=== PATIENT | female | born 1950 | race Caucasian/White ===

== ENCOUNTER 2018-02-15 14:24 | Emergency (ER) | payer OTHER ==
[~2018-02-15] VITALS: Ht 172.7 cm; Wt 101.6 kg
[~2018-02-15 14:24] MED LIST: ADVIN25/60 INH; ALBU1AER9 INH; ATOR10TA82 PO; BENZ100C7 PO; DABI150C PO; LVNIS100 SQ; phenobarbital PO
[2018-02-15 14:31] VITALS: TEMP 36.7; Ht 172.7 cm; Wt 101.6 kg
--- NOTE | 2018-02-15 15:22 | EMERGENCY ROOM VISIT NOTE ---
History First contact with patient: 14:57 Chief Complaint: WOUND INFECTION Stated Complaint: CYST RUPTURED RED/INFLAMED R HIP Nursing Triage Summary: Cyst on right hip since 1982, size of a ping pong ball. pt reports ruptured on Friday. now is painful and redenned. History of Present Illness The patient is a 67 year old female who presents to the Emergency Room with complaints of a painful cyst on the right lateral aspect of her hip. She says that she has had a sebaceous cyst in that area for the last 35 years. It has never caused her any problems. 2 days ago, she was talking on the phone, when she thought that she felt it rupture. She reports feeling a "gush of fluid inside." There is no drainage from the skin. She is concerned about redness in the area. She denies any fever, chills, nausea, diarrhea, body aches or headache. She has not taken anything for pain. Review of Systems 10 system review performed and negative unless noted in HPI or below Past Medical/Surgical History Medical Problems: (1) Adrenal nodule (2) History of pulmonary embolism (3) Hyperlipemia (4) Seizure disorder Surgical Problems: (1) Status post appendectomy (2) Status post tonsillectomy (3) Status post tubal ligation Family History Asthma MOTHER BROTHER Diabetes mellitus MOTHER BROTHER Parkinson's disease MOTHER Sudden cardiac FATHER (age 40) Social History Smoking Status: Never Smoker Alcohol Use: occasionally Drug Use: none Marital Status: single Housing Status: lives alone Occupation Status: employed Current/Historical Medications Scheduled Atorvastatin (Lipitor), 20 MG PO DAILY Cephalexin Monohydrate (Keflex), 500 MG PO QID Dabigatran Etexilate Mesylate (Pradaxa), 150 MG PO BID Fluticasone Prop/Salmeterol (Advair Diskus 250/50 60 Dose), 1 PUFFS INH BID Phenobarbital (Phenobarbital), 194.4 MG PO HS Scheduled PRN Albuterol Sulfate (Proair Respiclick), 2 PUFFS PO Q4 PRN for SOB/Wheezing Physical Exam Vital Signs Date Time Temp Pulse Resp B/P (MAP) Pulse Ox O2 Delivery O2 Flow Rate FiO2 02/15/18 17:47 79 18 123/77 97 02/15/18 17:28 79 18 123/77 97 Room Air 02/15/18 16:08 76 18 120/70 95 Room Air 02/15/18 14:31 36.7 84 18 122/80 95 Room Air Physical Exam VITALS: Vitals are noted on the nurse's note and reviewed by myself. Vital signs stable. GENERAL: 67-year-old female, in no acute distress, nondiaphoretic, well- developed well-nourished. SKIN: There is an approximately 5 cm area of erythema noted to the right lateral aspect of the hip. 1 cm there is a area of centralized clearing. The area blanches. It is tender to touch. No pointing. No induration noted. No drainage. HEAD: Normocephalic atraumatic. MOUTH: Mucous membranes slightly dry NECK: Supple without nuchal rigidity. Trachea midline HEART: Regular rate and rhythm systolic murmur heard best at the right upper sternal border LUNGS: Clear to auscultation bilaterally without wheezes, rales or rhonchi. No accessory muscle use. ABDOMEN: Positive bowel sounds x 4.Soft, nontender, without organomegaly. No guarding or rebound tenderness. MUSCULOSKELETAL: No muscle atrophy, erythema, or edema noted. Strength 5/5 throughout. NEURO: Patient was alert and oriented to person place and time. Normal sensation to touch. No focal neurological deficits. Medical Decision & Procedures ER Provider Diagnostic Interpretation: Nonvascular ultrasound of an extremity IMPRESSION: 4.8 cm mildly complex hypoechoic lesion within the subcutaneous tissues of the lateral right hip is noted. Apparent internal flow within this lesion raises the possibility of a soft tissue mass. Correlate with clinical exam. The above report was generated using voice recognition software. It may contain grammatical, syntax or spelling errors. Electronically signed by: Faisal Pillai M.D. 02/15/2018 5:01 PM Dictated Date/Time: 02/15/2018 4:58 PM The status of this report is Signed. Draft = Not yet reviewed or approved by Radiologist. Signed = Reviewed and approved by Radiologist. <AttendingPhy></AttendingPhy> <FamilyPhy></FamilyPhy> <PrimaryPhy>Joana Hood D.O.</PrimaryPhy> <UnitNumber>[id number]</UnitNumber> <VisitNumber> [id number]</VisitNumber> <PatientName>RICHNER,MARGARITO</PatientName> < DateOfBirth>1950</DateOfBirth> <Location>[facility]</Location> <ServiceDate></ServiceDate> <MNE>ESINDI</MNE> <OrderingPhy>Tere Moreno Ana MACK</ OrderingPhy> <OrderingPhyMNE>f rep ord dr cortez</OrderingPhyMNE> <DictatingPhyMNE> f rep dict dr cortez</DictatingPhyMNE> <CCListMNE>f rep ct mne</CCListMNE> < AdmittingPhyMNE>f pt admit dr cortez</AdmittingPhyMNE> <AttendingPhyMNE>f pt attend dr cortez</AttendingPhyMNE> <ConsultingPhyMNE>f pt consult dr cortez</ConsultingPhyMNE> <FamilyPhyMNE>f pt fam dr cortez</FamilyPhyMNE> <OtherPhyMNE>f pt other dr cortez</OtherPhyMNE> < PrimaryPhyMNE>f pt prim care dr cortez</PrimaryPhyMNE> <ReferringPhyMNE>f pt referring dr cortez</ReferringPhyMNE> Laboratory Results 02/15/18 15:25 Red Blood Count 5.07, Mean Corpuscular Volume 81.3, Mean Corpuscular Hemoglobin 27.6, Mean Corpuscular Hemoglobin Concent 34.0, Mean Platelet Volume 9.5, Neutrophils (%) (Auto) 55.6, Lymphocytes (%) (Auto) 29.7, Monocytes (%) (Auto) 12.1, Eosinophils (%) (Auto) 2.1, Basophils (%) (Auto) 0.4, Neutrophils # (Auto ) 4.00, Lymphocytes # (Auto) 2.14, Monocytes # (Auto) 0.87, Eosinophils # (Auto ) 0.15, Basophils # (Auto) 0.03 02/15/18 15:25 Test 02/15/18 15:25 White Blood Count 7.20 K/uL (4.8-10.8) Red Blood Count 5.07 M/uL (4.2-5.4) Hemoglobin 14.0 g/dL (12.0-16.0) Hematocrit 41.2 % (37-47) Mean Corpuscular Volume 81.3 fL (80-100) Mean Corpuscular Hemoglobin 27.6 pg (25-34) Mean Corpuscular Hemoglobin Concent 34.0 g/dl (32-36) Platelet Count 318 K/uL (130-400) Mean Platelet Volume 9.5 fL (7.4-10.4) Neutrophils (%) (Auto) 55.6 % Lymphocytes (%) (Auto) 29.7 % Monocytes (%) (Auto) 12.1 % Eosinophils (%) (Auto) 2.1 % Basophils (%) (Auto) 0.4 % Neutrophils # (Auto) 4.00 K/uL (1.4-6.5) Lymphocytes # (Auto) 2.14 K/uL (1.2-3.4) Monocytes # (Auto) 0.87 K/uL (0.11-0.59) Eosinophils # (Auto) 0.15 K/uL (0-0.5) Basophils # (Auto) 0.03 K/uL (0-0.2) RDW Standard Deviation 41.7 fL (36.4-46.3) RDW Coefficient of Variation 14.1 % (11.5-14.5) Immature Granulocyte % (Auto) 0.1 % Immature Granulocyte # (Auto) 0.01 K/uL (0.00-0.02) Anion Gap 6.0 mmol/L (3-11) Est Creatinine Clear Calc Drug Dose 112.8 ml/min Estimated GFR () 109.7 Estimated GFR (Non- 94.6 BUN/Creatinine Ratio 19.2 (10-20) Calcium Level 7.7 mg/dl (8.5-10.1) Medications Administered Medications (Trade) Dose Ordered Sig/Gay Route Start Time Stop Time Status Last Admin Dose Admin Potassium Chloride (Klor-Con M10) 40 meq NOW STAT PO 02/15/18 16:57 02/15/18 16:58 DC 02/15/18 17:02 40 MEQ Cephalexin Monohydrate (Keflex Cap) 500 mg NOW ONCE PO 02/15/18 17:30 02/15/18 17:31 DC 02/15/18 17:26 500 MG Cephalexin Monohydrate (Keflex 500MG Home Pack) 1 homepack NOW ONCE PO 02/15/18 17:45 8/26/18 17:46 DC 02/15/18 17:47 1 [facility] ED Course Patient was seen and examined Vital signs including blood pressure were reviewed medications list was verified with patient Labs were obtained, and a saline lock was established The patient declined pain medication Imaging was performed and reviewed Upon reevaluation, the patient was resting comfortably. We discussed her results. She voiced understanding, was discharged home. The patient was given 1 dose of Keflex The patient was also seen and examined by my supervising physician who is in agreement with my plan I reviewed discharge instructions the patient. They voiced understanding and had no further questions. Medical Decision Differential diagnosis: Ruptured cyst, abscess, cellulitis, lipoma, other skin nodule, among others were considered This patient is a 67-year-old female presents to the emergency department with concerned that there was a ruptured cyst on her right lateral thigh. On exam, it was mildly cellulitic in appearance, with warmth and erythema. There were no signs of drainable abscess. She is afebrile. There is no leukocytosis. I performed an ultrasound, which shows a 4.8 cm hypoechoic structure consistent with a possible mass. This was compared to a CT scan performed in 2005. A CT said this is likely a sebaceous cyst. The patient will be covered with antibiotics for possible mild infection. We recommended that she follow-up with her primary care physician in addition to possibly a surgeon for biopsy/ removal. She was in agreement with this plan. She was cautioned on signs for which to return to the emergency department This chart was completed in part utilizing [employer] Speech Voice Recognition software. Attempts were made to minimize the grammatical errors, random word insertions, pronoun errors and incomplete sentences. Any formal questions or concerns about the content, text or information contained within the body of this dictation should be directly addressed to the provider for clarification. Medication Reconcilliation Current Medication List: was personally reviewed by me Blood Pressure Screening Patient's blood pressure: Normal blood pressure Impression Primary Impression: Cellulitis Additional Impression: Soft tissue lesion Departure Information Dispostion Home / Self-Care Condition GOOD Prescriptions Cephalexin Monohydrate (KEFLEX) 500 Mg Cap 500 MG PO QID for 7 Days, #28 CAP Prov: Tere Moreno PA-C 02/15/18 Referrals Joana Hood D.O. (PCP) Zachary Ruelas M.D. Patient Instructions [facility] Additional Instructions You have been evaluated in the emergency department for possible rupture of a cyst in the right upper thigh. There appears to be a mild infection associated with this. Please take the ENTIRE course of Keflex as prescribed Please call your primary care physician tomorrow for a follow-up appointment. They may refer you to a general surgeon for possible biopsy or removal. A number for a general surgeon has been provided. Please do not hesitate to return to the emergency department with any new, worsening or concerning symptoms; especially, significantly increased redness, pain, swelling or fever It was a pleasure participating in your care today Problem Qualifiers
[2018-02-15 15:35] LABS: BASO % 0.4 %; BASO ABS # 0.03 K/uL (0-0.2); EOS % 2.1 %; EOS ABS # 0.15 K/uL (0-0.5); HEMATOCRIT 41.2 % (37-47); IG# 0.01 K/uL (0.00-0.02); LYMPH % 29.7 %; LYMPH ABS # 2.14 K/uL (1.2-3.4); MEAN CELL VOLUME 81.3 fL (80-100); MEAN CORPUSCULAR HEMOGLOBIN 27.6 pg (25-34); MEAN PLATELET VOLUME 9.5 fL (7.4-10.4); MONO % 12.1 %; MONO ABS # 0.87 K/uL (0.11-0.59); NEUT % 55.6 %; PLATELET COUNT 318 K/uL (130-400); RED CELL DISTRIBUTION WIDTH CV 14.1 % (11.5-14.5); RED CELL DISTRIBUTION WIDTH SD 41.7 fL (36.4-46.3)
[2018-02-15 15:55] LABS: CALCIUM 7.7 mg/dl (8.5-10.1); CREATININE 0.62 mg/dl (0.60-1.20); POTASSIUM 3.1 mmol/L (3.5-5.1)
[2018-02-15] MEDS ORDERED: ATOR-22 PO (16:03)
[2018-02-15] MEDS ORDERED: ALBU18002 PO (16:03)
[2018-02-15] MEDS ORDERED: PHEN64.8 PO (16:03)
[2018-02-15] MEDS ORDERED: DABI150C PO (16:04)
[2018-02-15] MEDS ORDERED: POTASSIUM CHLORIDE 10 MEQ TABCR PO STA (16:57)
--- NOTE | 2018-02-15 17:02 | DIAGNOSTIC IMAGING REPORT ---
R EXTREMITY NONVASCULAR LIMITED HISTORY: 67 years-old Female ? cyst vs abscess vs cellulitis on R lateral hip acute pain and swelling of the right lateral hip subcutaneous tissues COMPARISON: CT abdomen and pelvis 08/26/2015 TECHNIQUE: Multiple real-time sonogram images of the soft tissues about the lateral right hip were obtained assessing grayscale appearance and color flow FINDINGS: Within the area of clinical concern about the lateral right hip subcutaneous tissues there is a hypoechoic mildly complex lesion with apparent mild degree of internal vascularity and lobulated margins, 4.8 x 2.6 x 3.2 cm which appears to be located exclusively within the subcutaneous tissues. A 3.1 cm lesion was seen within this distribution on comparison CT. IMPRESSION: 4.8 cm mildly complex hypoechoic lesion within the subcutaneous tissues of the lateral right hip is noted. Apparent internal flow within this lesion raises the possibility of a soft tissue mass. Correlate with clinical exam. The above report was generated using voice recognition software. It may contain grammatical, syntax or spelling errors. Electronically signed by: Faisal Pillai M.D. 02/15/2018 5:01 PM Dictated Date/Time: 02/15/2018 4:58 PM
[2018-02-15] MEDS ORDERED: CEPH500C2 PO (17:26)
[2018-02-15] MEDS ORDERED: CEPHALEXIN MONOHYDRATE 250 MG CAP PO ONE (17:30)
[2018-02-15] MEDS ORDERED: CEPHALEXIN 500MG HOME PACK 1 EA BTL PO ONE (17:45)
[2018-02-15 17:47] VITALS: BP 123/77; PULSE 79; O2SAT 97
--- NOTE | 2018-02-16 17:14 | EMERGENCY ROOM VISIT NOTE ---
ED Visit Note First contact with patient: 14:57 I have personally seen and evaluated the patient with the PA. I agree with the diagnosis and management decisions and have been personally involved in the case. After my evaluation, I believe the patient likely has a localized cellulitis and potentially a ruptured subcutaneous cyst. She will be placed on Keflex times 7 days and follow-up with PCP. Patient may need surgical intervention for biopsy. Results of imaging were discussed with the patient. Please see Tere Moreno PA-C's notes for further details of the history, physical and visit.
== END 2018-02-15 17:49 | disposition home or self-care (01) ==
LOC: C.EDB 14:26
DX: L03.115 Cellulitis of right lower limb (principal); M79.89 Other specified soft tissue disorders; G40.909 Epilepsy, unspecified, not intractable, without status epilepticus; Z86.711 Personal history of pulmonary embolism; Z83.3 Family history of diabetes mellitus; Z82.49 Family history of ischemic heart disease and other diseases of the circulatory system; Z79.01 Long term (current) use of anticoagulants; Z79.899 Other long term (current) drug therapy

== ENCOUNTER 2024-07-08 09:15 | Inpatient (IN) ==
--- NOTE | 2024-07-08 09:52 | Emergency Department Note ---
Impression & Plan SOB (shortness of breath), Atrial flutter with rapid ventricular response, Wheezing, Pneumonia, Failure of outpatient treatment ED Provider Note NAME: MARGARITO BULLOCK AGE: 73 SEX: F : 1950 ARRIVES VIA: Walk-In INFORMANT: [Patient] ED PROVIDER(S): [Franky Carvalho MD] CHIEF COMPLAINT: Shortness of breath HISTORY OF PRESENT ILLNESS: The patient is a 73-year-old female who states that she has been short of breath for about a month. A month ago or so, she was diagnosed with A-fib. She is presently on metoprolol and Eliquis. She states that in the last several weeks, she has developed a productive cough and has noticed increasing shortness of breath. Things are quite a bit worse today. The patient has not had fever. No stuffy nose or sore throat. She does have albuterol to use for some lung disease. She is using albuterol every 4 hours, she feels better initially when using the medication but it quickly seems to wear off. Because of the ongoing dyspnea, she presents for evaluation. She did take her typical morning meds this a.m. PMHx/PSHx/Social Hx: See Below PHYSICAL EXAM: GENERAL: Patient is in no acute distress. HEENT: No acute trauma, normocephalic atraumatic, mucous membranes moist, no nasal congestion. NECK: No stridor, no adenopathy, no meningismus, trachea is midline. LUNGS: Diminished breath sounds with wheezing bilaterally. There are crackles at both bases, especially the right. Dry cough noted. HEART: No murmurs, mildly tachycardic with an irregular rhythm. ABDOMEN: Soft, nontender, no peritonitis. EXTREMITIES: No cyanosis, full range of motion of all the joints without pain or difficulty. Mild bilateral pedal edema. NEUROLOGIC: Oriented x 3, no acute motor or sensory deficits, no focal weakness. SKIN: No jaundice, no diaphoresis. DIFFERENTIAL DIAGNOSIS: Bronchitis or pneumonia, viral illness, CHF, A-fib or a flutter, anemia, PE, among others. EMERGENCY DEPARTMENT PROCEDURES: MEDICAL DECISION MAKING: There is no leukocytosis or concerning anemia. There is a normal platelet count. No coagulopathy. No renal failure. Lactic acid level is not elevated making severe sepsis less likely. No worrisome liver enzyme elevation. BNP was elevated consistent with some fluid overload. ECG shows what appears to be atrial flutter with a rapid rate. No obvious acute ischemia. Cardiac enzyme testing x 1 is slightly elevated. This troponin elevation could be secondary to her tachycardia or possibly cardiac injury. Looking back at previous testing, the patient appears to have a mildly elevated troponin at baseline. Urinalysis did not show infection. Respiratory bio fire was negative. Chest film does show a bilateral lower lung pneumonia. On exam, the patient had some wheezing with crackles on lung auscultation. She was tachycardic. Given her tachycardia and complaints, she was aggressively managed. Patient received IV metoprolol, a total of 5 mg was given IV. She received IV Solu-Medrol to help with her wheezing. She was given IV ceftriaxone as antibiotic coverage. She was given oral Zithromax. She was given a DuoNeb. The patient has pneumonia. She is short of breath, she is tachycardic. She is going to require a hospital stay and further monitoring/care. I spoke with the patient and case management, the on-call hospitalist was consulted. The patient has shown some improvement here. Her heart rate has decreased with the treatment provided. She is breathing easier. Prior/Outside records/notes reviewed: Pulmonary note on 11/18/2018 describing her results of pulmonary function testing. ECG per my interpretation: Indication was shortness of breath. The ECG shows what appears to be atrial flutter with a rate of 123. There is some nonspecific ST change. There is no acute ST elevation, no PVCs. The QTc is 481. Continuous Cardiac Monitoring per my interpretation: An order was placed for continuous cardiac monitoring. The monitor shows a rate of 122 with atrial flutter. Imaging/x-ray results per my interpretation: Chest x-ray shows a bilateral lower lung pneumonia, worse on the right. Chronic Medical/Social conditions affecting care: Advanced age, history of previous PE, history of A-fib. Care/Management discussed with: Case management, the on-call hospitalist. Level of care consideration(s): After review of the information above and other included data: --I believe the patient requires escalation of care to admission Critical Care Note: I have personally spent 52 minutes of critical care time in the direct management of this patient. This includes bedside care, interpretation of diagnostic studies, and testing, discussion with consultants, patient, and family members, and other required patient management activities. This 52 minutes is in excess of all separately billable procedures. DISPOSITION: Admission Past Med/Surg History Problem List (Updated 02/16/18 @ 14:15 by [employer]) Failure of outpatient treatment (Acute) Pneumonia (Acute) Wheezing (Acute) Atrial flutter with rapid ventricular response (Acute) SOB (shortness of breath) (Acute) Hyperlipemia (Chronic) History of pulmonary embolism (Chronic) "08/22/15" Adrenal nodule (Chronic) "bilat adrenal nodules CT 07/01/06 and 08/26/15, probable adenomas" Status post appendectomy (Chronic) Status post tubal ligation (Chronic) Status post tonsillectomy (Chronic) Medical History Seizure disorder Social History Smoking Status: Never smoker Hx Alcohol Use: No Hx Substance Use: No Preferred Language: Romansh Communication Ability: Effective 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 Beliefs That Will Affect Care: None Current Living Situation: Alone Feels Safe at Home: Yes Safety Concerns: Feels Safe At This Time Assistive Devices: None Allergies Allergies Allergy/AdvReac Type Severity Reaction Status Date / Time oxycodone Allergy Unknown UNKNOWN Verified 02/15/18 16:04 phenytoin Allergy Unknown HIVES Unverified 02/15/18 16:04 propoxyphene Allergy Unknown UNKNOWN Verified 02/15/18 16:04 Home Meds Home Medications Medication Instructions Recorded Confirmed albuterol sulfate 90 mcg/actuation 1 inh inhalation QID PRN sob 07/08/24 07/08/24 aerosol inhaler apixaban 5 mg tablet (Eliquis) 5 mg PO BID 07/08/24 07/08/24 cyclosporine 0.05 % eye drops in a 1 drp ophthalmic (eye) Q12H 07/08/24 07/08/24 dropperette (Restasis) fluticasone 250 mcg-salmeterol 50 1 inh inhalation BID 07/08/24 07/08/24 mcg/dose blistr powdr for inhalation metoprolol succinate 50 mg 50 mg PO BID 07/08/24 07/08/24 tablet,extended release 24 hr montelukast 10 mg tablet 10 mg PO DAILY 07/08/24 07/08/24 phenobarbital 97.2 mg tablet 194.4 mg PO HS 07/08/24 07/08/24 rosuvastatin 40 mg tablet 40 mg PO DAILY 07/08/24 07/08/24 spironolactone 25 mg tablet 12.5 mg PO DAILY 07/08/24 07/08/24 Results & Data (ED) Vital Signs Vital Signs - 24 hr 07/08/24 09:22 07/08/24 09:37 07/08/24 09:58 Temperature 36.6 C Temperature Source Temporal Artery Scan Pulse Rate 126 H 121 H 119 H Respiratory Rate 24 Respiratory Effort / Characteristics Spontaneous Labored Respiratory Pattern Regular Blood Pressure 141/84 H Blood Pressure Mean 103 Pulse Oximetry 93 Oxygen Delivery Method Room Air Sepsis Recent Fever Within 48 Hours No Sepsis New/Unexplained Change in Mental Status N/A Sepsis Action Taken by Nursing No Action Required 07/08/24 10:00 07/08/24 10:12 07/08/24 10:26 Temperature Temperature Source Pulse Rate 115 H 115 H Respiratory Rate 18 Respiratory Effort / Characteristics Respiratory Pattern Blood Pressure 127/97 137/108 H Blood Pressure Mean 107 Pulse Oximetry 90 91 Oxygen Delivery Method Room Air Room Air Sepsis Recent Fever Within 48 Hours Sepsis New/Unexplained Change in Mental Status Sepsis Action Taken by Nursing 07/08/24 10:30 07/08/24 10:41 Temperature Temperature Source Pulse Rate 119 H Respiratory Rate Respiratory Effort / Characteristics Respiratory Pattern Blood Pressure 140/90 Blood Pressure Mean Pulse Oximetry Oxygen Delivery Method Room Air Sepsis Recent Fever Within 48 Hours Sepsis New/Unexplained Change in Mental Status Sepsis Action Taken by Intermediate Medications Current Medication List: was personally reviewed by me Laboratory Data Attestation: I reviewed the patient's lab results. 07/08/24 09:43 07/08/24 09:43 Lab Results 07/08/24 07/08/24 07/08/24 Range/Units 09:40 09:43 10:15 WBC 7.09 (4.8-10.8) K/ul RBC 4.83 (4.20-5.40) M/uL Hgb 13.2 (12.0-16.0) g/dl Hct 39.9 (37.0-47.0) % MCV 82.6 (80.0-100.0) fL MCH 27.3 (25.0-34.0) pg MCHC 33.1 (32.0-36.0) g/dL RDW Std Deviation 46.3 (36.4-46.3) fL RDW Coeff of Alivia 15.3 H (11.5-14.5) % Plt Count 255 (130-400) K/uL MPV 9.9 (9.4-12.4) fL Immature Gran % (Auto) 0.4 % Neut % (Auto) 76.5 % Lymph % (Auto) 10.2 % [place] % (Auto) 10.7 % Eos % (Auto) 1.6 % Baso % (Auto) 0.6 % Neut # (Auto) 5.43 (1.40-6.50) K/uL Lymph # (Auto) 0.72 L (1.20-3.40) K/uL [place] # (Auto) 0.76 H (0.11-0.59) K/uL Eos # (Auto) 0.11 (0.00-0.50) K/uL Baso # (Auto) 0.04 (0.00-0.20) K/uL Immature Gran # (Auto) 0.03 (0.01-0.20) K/uL PT 11.1 (9.0-12.0) Seconds INR 1.0 (0.9-1.1) APTT 34 H (21-31) Seconds PTT Ratio 1.3 Sodium 138 (136-145) mmol/L Potassium 3.5 (3.5-5.1) mmol/L Chloride 105 (98-107) mmol/L Carbon Dioxide 25 (21-32) mmol/L Anion Gap 8 (3-11) BUN 9 (6-23) mg/dl Creatinine 0.47 L (0.6-1.2) mg/dl Est Cr Clr Drug Dosing 140.2 ml/min eGFR 101.72 BUN/Creatinine Ratio 19.1 (10-20) Glucose 118 H (70-99(Fasting)) mg/dl Lactate 1.0 (0.4-2.0) mmol/L Calcium 8.5 L (8.6-10.3) mg/dl Magnesium 2.0 (1.7-2.4) mg/dl Total Bilirubin 0.8 (0.2-1.0) mg/dl AST 16 (13-39) U/L ALT 16 (7-52) U/L Alkaline Phosphatase 135 H (34-104) U/L Troponin I High Sens 31.7 H (0-14) pg/ml B-Natriuretic Peptide 346 H (0-100) pg/ml Total Protein 6.6 (6.0-8.3) gm/dl Albumin 3.7 (3.4-5.0) gm/dl Globulin 2.9 (2.5-4.0) gm/dl Albumin/Globulin Ratio 1.3 (0.9-2) Procalcitonin < 0.02 (0-0.5) ng/ml Urine Color Urine Appearance (Clear) Urine pH (4.5-7.5) Ur Specific [place] (1.000-1.030) Urine Protein (Negative) Urine Glucose (UA) (Negative) Urine Ketones (Negative) Urine Blood (Negative) Urine Nitrite (Negative) Urine Bilirubin (Negative) Urine Urobilinogen (Negative) Ur Leukocyte Esterase (Negative) Urine WBC (Auto) (0-5) /hpf Urine RBC (Auto) (0-2) /hpf U Hyaline Cast (Auto) (0-2) /lpf U Epithel Cells (Auto) (0-2) /hpf Urine Bacteria (Auto) (None Seen) Urine Mucus (None Prsent) Adenovirus (PCR) Not Detected (NotDetected) B. pertussis DNA (PCR) Not Detected (NotDetected) B.parapertussis DNA PCR Not Detected (NotDetected) C. pneumoniae DNA (PCR) Not Detected (NotDetected) Coronavirus OC43 (PCR) Not Detected (NotDetected) Coronavirus HKU1 (PCR) Not Detected (NotDetected) Coronavirus 229E (PCR) Not Detected (NotDetected) SARS-CoV-2 (PCR) Not Detected (NotDetected) Coronavirus NL63 (PCR) Not Detected (NotDetected) Human Metapneumovir PCR Not Detected (NotDetected) Influenza Type A (PCR) Not Detected (NotDetected) Influenza Type B (PCR) Not Detected (NotDetected) M. pneumoniae (PCR) Not Detected (NotDetected) Parainfluenza 1 (PCR) Not Detected (NotDetected) Parainfluenza 2 (PCR) Not Detected (NotDetected) Parainfluenza 3 (PCR) Not Detected (NotDetected) Parainfluenza 4 (PCR) Not Detected (NotDetected) RSV (PCR) Not Detected (NotDetected) Entero/Rhino (PCR) Not Detected (NotDetected) 07/08/24 Range/Units 10:44 WBC (4.8-10.8) K/ul RBC (4.20-5.40) M/uL Hgb (12.0-16.0) g/dl Hct (37.0-47.0) % MCV (80.0-100.0) fL MCH (25.0-34.0) pg MCHC (32.0-36.0) g/dL RDW Std Deviation (36.4-46.3) fL RDW Coeff of Alivia (11.5-14.5) % Plt Count (130-400) K/uL MPV (9.4-12.4) fL Immature Gran % (Auto) % Neut % (Auto) % Lymph % (Auto) % [place] % (Auto) % Eos % (Auto) % Baso % (Auto) % Neut # (Auto) (1.40-6.50) K/uL Lymph # (Auto) (1.20-3.40) K/uL [place] # (Auto) (0.11-0.59) K/uL Eos # (Auto) (0.00-0.50) K/uL Baso # (Auto) (0.00-0.20) K/uL Immature Gran # (Auto) (0.01-0.20) K/uL PT (9.0-12.0) Seconds INR (0.9-1.1) APTT (21-31) Seconds PTT Ratio Sodium (136-145) mmol/L Potassium (3.5-5.1) mmol/L Chloride (98-107) mmol/L Carbon Dioxide (21-32) mmol/L Anion Gap (3-11) BUN (6-23) mg/dl Creatinine (0.6-1.2) mg/dl Est Cr Clr Drug Dosing ml/min eGFR BUN/Creatinine Ratio (10-20) Glucose (70-99(Fasting)) mg/dl Lactate (0.4-2.0) mmol/L Calcium (8.6-10.3) mg/dl Magnesium (1.7-2.4) mg/dl Total Bilirubin (0.2-1.0) mg/dl AST (13-39) U/L ALT (7-52) U/L Alkaline Phosphatase (34-104) U/L Troponin I High Sens (0-14) pg/ml B-Natriuretic Peptide (0-100) pg/ml Total Protein (6.0-8.3) gm/dl Albumin (3.4-5.0) gm/dl Globulin (2.5-4.0) gm/dl Albumin/Globulin Ratio (0.9-2) Procalcitonin (0-0.5) ng/ml Urine Color Dark Yellow Urine Appearance Clear (Clear) Urine pH 6.0 (4.5-7.5) Ur Specific [place] 1.023 (1.000-1.030) Urine Protein 1+ H (Negative) Urine Glucose (UA) Negative (Negative) Urine Ketones Trace H (Negative) Urine Blood Negative (Negative) Urine Nitrite Negative (Negative) Urine Bilirubin 1+ H (Negative) Urine Urobilinogen Negative (Negative) Ur Leukocyte Esterase Negative (Negative) Urine WBC (Auto) 0-5 (0-5) /hpf Urine RBC (Auto) 0-2 (0-2) /hpf U Hyaline Cast (Auto) 0-2 (0-2) /lpf U Epithel Cells (Auto) 6-10 H (0-2) /hpf Urine Bacteria (Auto) None Seen (None Seen) Urine Mucus Present A (None Prsent) Adenovirus (PCR) (NotDetected) B. pertussis DNA (PCR) (NotDetected) B.parapertussis DNA PCR (NotDetected) C. pneumoniae DNA (PCR) (NotDetected) Coronavirus OC43 (PCR) (NotDetected) Coronavirus HKU1 (PCR) (NotDetected) Coronavirus 229E (PCR) (NotDetected) SARS-CoV-2 (PCR) (NotDetected) Coronavirus NL63 (PCR) (NotDetected) Human Metapneumovir PCR (NotDetected) Influenza Type A (PCR) (NotDetected) Influenza Type B (PCR) (NotDetected) M. pneumoniae (PCR) (NotDetected) Parainfluenza 1 (PCR) (NotDetected) Parainfluenza 2 (PCR) (NotDetected) Parainfluenza 3 (PCR) (NotDetected) Parainfluenza 4 (PCR) (NotDetected) RSV (PCR) (NotDetected) Entero/Rhino (PCR) (NotDetected) Administered Medications Guaifenesin (Guaifenesin 600 Mg Tabcr) 600 mg PO Q12 JAVON Stop: 08/07/24 11:54 Last Admin: 07/08/24 12:13 Dose: 600 mg Documented By: GILBERT Doxycycline Hyclate 100 mg/ (Dextrose) 100 mls @ 50 mls/hr IV Q12H [facility] Stop: 07/13/24 11:59 Last Infusion: 07/08/24 14:28 Dose: Infused Documented By: Admin: 07/08/24 12:13 Dose: 50 mls/hr Documented By: GILBERT Levalbuterol HCl (Levalbuterol 1.25 Mg/3 Ml Neb) 1.25 mg NEB Q6R JAVON Stop: 08/07/24 16:01 Last Admin: 07/08/24 16:17 Dose: 1.25 mg Documented By: [id number] Discontinued Medications Albuterol (Albut/Ipratrop 3mg/0.5mg Neb 3 Ml Vial) 3 ml NEB NOW STA; Protocol Stop: 07/08/24 09:49 Last Admin: 07/08/24 09:58 Dose: 3 ml Documented By: CHAYO Azithromycin (Azithromycin 250 Mg Tab) 500 mg PO NOW ONE Stop: 07/08/24 11:22 Last Admin: 07/08/24 12:12 Dose: 500 mg Documented By: GILBERT Ceftriaxone Sodium (Rocephin) 2,000 mg in 50 mls @ 100 mls/hr IV NOW STA Stop: 07/08/24 10:26 Last Infusion: 07/08/24 11:02 Dose: Infused Documented By: Admin: 07/08/24 10:27 Dose: 100 mls/hr Documented By: CHAYO Methylprednisolone (Methylprednisolone 125 Mg/2 Ml Vial) 60 mg IV NOW STA Stop: 07/08/24 09:49 Last Admin: 07/08/24 09:58 Dose: 60 mg Documented By: CHAYO Metoprolol Succinate (Metoprolol Succ 25mg Ext Rel Tab) 75 mg PO NOW STA Stop: 07/08/24 17:04 Last Admin: 07/08/24 17:37 Dose: 75 mg Documented By: EVELIO Metoprolol Tartrate (Metoprolol Tartrate 1 Mg/Ml Vial) 2.5 mg IV NOW STA Stop: 07/08/24 09:49 Last Admin: 07/08/24 09:58 Dose: 2.5 mg Documented By: CHAYO Metoprolol Tartrate (Metoprolol Tartrate 1 Mg/Ml Vial) 2.5 mg IV NOW STA Stop: 07/08/24 10:33 Last Admin: 07/08/24 10:41 Dose: 2.5 mg Documented By: CYRUS Potassium Chloride (Potassium Chloride Crtab 20 Meq Tabcr) 40 meq PO NOW STA Stop: 07/08/24 11:23 Last Admin: 07/08/24 12:13 Dose: 40 meq Documented By: GILBERT Spironolactone (Spironolactone 12.5 Mg Tab) 12.5 mg PO DAILY JAVON Stop: 08/07/24 16:14 Last Admin: 07/08/24 17:36 Dose: 12.5 mg Documented By: EVELIO Imaging Data Radiologist's Impression: Chest X-Ray 07/08/24 09:29 XR chest 1V portable CLINICAL HISTORY: Dyspnea TECHNIQUE: Single frontal radiograph of the chest was obtained. Comparison: Comparison is made to chest radiograph 08/24/[address] chest 09/10/2018 FINDINGS: No lines and tubes are seen. Cardiomegaly is noted. Right greater than left airspace opacities in the lower lungs. No evidence of pleural effusion or pneumothorax. IMPRESSION: 1. Bilateral lower lung predominant airspace opacities which may represent atelectasis, pneumonia, and/or aspiration. 2. Cardiomegaly is seen, increased from prior exam in 2019 possibly due to rotation. Pericardial effusion cannot be excluded. ACT 112: Negative or not required by law. Electronically signed by: Leonardo Martins M.D. 07/08/2024 10:04 AM Discharge Plan Visit Data Chief Complaint: Shortness of Breath/Dyspnea Stated Complaint: REF BY DOC, SOB, COUGH SOMETIMES ED Provider: Franky Carvalho Discharge Problem: SOB (shortness of breath), Atrial flutter with rapid ventricular response, Wheezing, Pneumonia, Failure of outpatient treatment Patient Disposition: Admitted As Inpatient Condition: Fair Discharge Instructions Interventions: ED Discharge Assessment Last Done: 07/08/24 14:29 Discharge Problem: Pneumonia Qualifiers: Pneumonia type: due to unspecified organism Laterality: bilateral Lung location: lower lobe of lung Qualified Code(s): J18.9 - Pneumonia, unspecified organism
[2024-07-08] MEDS: ALBUT/IPRATROP 3MG/0.5MG NEB 3 ML VIAL NEB STA (09:58)
[2024-07-08] MEDS: METOPROLOL TARTRATE 1 MG/ML VIAL IV STA ×2 (09:58→10:41)
[2024-07-08] MEDS: methylPREDNISolone 125 MG/2 ML VIAL IV STA (09:58)
--- NOTE | 2024-07-08 10:05 | XRay Report ---
XR chest 1V portable CLINICAL HISTORY: Dyspnea TECHNIQUE: Single frontal radiograph of the chest was obtained. Comparison: Comparison is made to chest radiograph 08/24/[address] chest 09/10/2018 FINDINGS: No lines and tubes are seen. Cardiomegaly is noted. Right greater than left airspace opacities in the lower lungs. No evidence of pleural effusion or pneumothorax. IMPRESSION: 1. Bilateral lower lung predominant airspace opacities which may represent atelectasis, pneumonia, a nd/or aspiration. 2. Cardiomegaly is seen, increased from prior exam in 2019 possibly due to rotation. Pericardial eff usion cannot be excluded. ACT 112: Negative or not required by law. Electronically signed by: Leonardo Martins M.D. 07/08/2024 10:04 AM
[2024-07-08 10:10] LABS: Basophils # (auto) 0.04 K/uL (0.00-0.20); Basophils % (auto) 0.6 %; Eosinophils # (auto) 0.11 K/uL (0.00-0.50); Eosinophils % (auto) 1.6 %; Hematocrit (blood only) 39.9 % (37.0-47.0); Hemoglobin 13.2 g/dl (12.0-16.0); Immature Granulocytes # (auto) 0.03 K/uL (0.01-0.20); Immature Granulocytes % (auto) 0.4 %; Lymphocytes # (auto) 0.72 K/uL (1.20-3.40); Lymphocytes % (auto) 10.2 %; Mean Corpuscular Hemoglobin 27.3 pg (25.0-34.0); Mean Corpuscular Hgb Conc 33.1 g/dL (32.0-36.0); Mean Corpuscular Volume 82.6 fL (80.0-100.0); Mean Platelet Volume 9.9 fL (9.4-12.4); Monocytes # (auto) 0.76 K/uL (0.11-0.59); Monocytes % (auto) 10.7 %; Neutrophils # (auto) 5.43 K/uL (1.40-6.50); Neutrophils % (auto) 76.5 %; Platelet Count 255 K/uL (130-400); RDW Coefficient of Variation 15.3 % (11.5-14.5); RDW Standard Deviation 46.3 fL (36.4-46.3); Red Blood Count 4.83 M/uL (4.20-5.40); White Blood Count 7.09 K/ul (4.8-10.8)
[2024-07-08 10:26] LABS: Albumin Globulin Ratio 1.3 (0.9-2); Albumin Level 3.7 gm/dl (3.4-5.0); BUN Creatinine Ratio 19.1 (10-20); Bilirubin,Total 0.8 mg/dl (0.2-1.0); Calcium 8.5 mg/dl (8.6-10.3); Creatinine Clr Calc Pharmacy 140.2 ml/min; Globulin 2.9 gm/dl (2.5-4.0); Potassium 3.5 mmol/L (3.5-5.1); Total Protein 6.6 gm/dl (6.0-8.3)
[2024-07-08] MEDS: cefTRIAXone SODIUM 2,000 MG/50 ML BAG IV STA (10:27)
[2024-07-08 10:29] LABS: Partial Thromboplastin Ratio 1.3; Partial Thromboplastin Time 34 Seconds (21-31); Prothrombin Time 11.1 Seconds (9.0-12.0)
[2024-07-08 10:31] LABS: Troponin I High Sensitivity 31.7 pg/ml (0-14)
[2024-07-08 10:51] LABS: Adenovirus PCR Not Detected (NotDetected); Bordetella parapertussis PCR Not Detected (NotDetected); Bordetella pertussis PCR Not Detected (NotDetected); Chlamydia pneumoniae PCR Not Detected (NotDetected); Coronavirus 229E PCR Not Detected (NotDetected); Coronavirus CoV-2 (COVID19)PCR Not Detected (NotDetected); Coronavirus HKU1 PCR Not Detected (NotDetected); Coronavirus NL63 PCR Not Detected (NotDetected); Coronavirus OC43PCR Not Detected (NotDetected); Human Metapneumovirus PCR Not Detected (NotDetected); Influenza A PCR Not Detected (NotDetected); Influenza B PCR Not Detected (NotDetected); Mycoplasma pneumoniae PCR Not Detected (NotDetected); Parainfluenza Virus 1 PCR Not Detected (NotDetected); Parainfluenza Virus 2 PCR Not Detected (NotDetected); Parainfluenza Virus 3 PCR Not Detected (NotDetected); Parainfluenza Virus 4 PCR Not Detected (NotDetected); Respiratory Syncytial VirusPCR Not Detected (NotDetected); Rhinovirus/Enterovirus PCR Not Detected (NotDetected)
--- NOTE | 2024-07-08 11:27 | History & Physical Report ---
Date of Service July 08, 2024 Assessment & Plan (1) Seizure disorder: (2) Hyperlipemia: (3) History of pulmonary embolism: (4) Adrenal nodule: Plan The patient is a 73-year-old female who presented to the ED on 03/08/2025 with complaints of worsening shortness of breath, found to have pneumonia CAP/Bronchitis Asthma exacerbation: Reports ongoing shortness of breath over the past month Likely viral illness with superimposed bacterial infection Chest x-ray with bilateral pneumonia, continue IV ceftriaxone/Doxy With diffuse wheezing but no hypoxia, continue prednisone daily Asthma managed on fluticasone and montelukast at home Atrial fibrillation with RVR: Seen by cardiology in May 2024, continue Eliquis Metoprolol recently increased to 50 mg twice a day after Zio patch show Asthma managed on fluticasone and montelukast at home ed AF RVR Discussion of possible cardioversion if A-fib persists after 4 weeks on full dose AC Will need MANDO if cardioversion is attempted before 4 weeks of AC. Currently and A-fib in the low 100s, continue p.o. metoprolol, IV Lopressor as needed for HR over 120 Fluid retention continue home Aldactone, recent echo showed severely enlarged left atrium Moderate aortic valve sclerosis/mod/severe MR, edema has improved Hx seizures: Continue phenobarbital A total of 60 minutes was spent on chart review/reviewing diagnostic data/facilitating plan of care/discussion with consultants Full code DVT prophylaxis: Eliquis History of Present Illness Chief Complaint: Shortness of breath, cough Primary Care Provider: Joana Hood DO The patient is a 73-year-old female with a past medical history of asthma, seizure disorder, HLD, [id number], recently diagnosed A-fib and fluid retention who presents to the ED on 07/08/2024 with worsening shortness of breath. Patient reports complaints of shortness of breath over the past month. She reports over the past few days that shortness of breath worsened and she developed a cough. She reports her grandson has been sick with pneumonia at home and recently had a viral illness. She was seen by cardiology in May 2024. At this time, her Eliquis was increased to 5 mg twice a day and her Toprol was increased to 50 mg twice a day. The patient reports that it was noted that she was in atrial fibrillation in April when she was at her neurology appointment, routine follow-up for her history of seizures. After seeing cardiology, patient was placed on a Zio patch for a week, was still noted to be in A-fib, metoprolol was increased. Patient also had an echo done in the past month that showed severely enlarged left atrium with an EF of 70%, hyperdynamic, moderate aortic valve sclerosis, moderate to severe mitral regurgitation. Patient also reported new lower extremity edema that has improved since being started on Aldactone. Patient was originally on Pradaxa since 2016 for PE, recently switched to Eliquis with new A-fib. Patient denies any fever/chills/nausea/vomitin g/diarrhea. Reports some clear mucus. On arrival to the ED, heart rates in the low 100s, blood work fairly unremarkable. BNP elevated at 346, procalcitonin negative, UA pending, BioFire negative. Blood cultures pending Patient was given IV Solu-Medrol, DuoNebs, IV Lopressor and IV antibiotics in the ED and will be admitted for further management of pneumonia and rapid A-fib. Chest x-ray showed: IMPRESSION: 1. Bilateral lower lung predominant airspace opacities which may represent atelectasis, pneumonia, and/or aspiration. 2. Cardiomegaly is seen, increased from prior exam in 2019 possibly due to rotation. Pericardial effusion cannot be excluded. Recent echo showed 05/2024: There was atrial fibrillation with rapid response during the examination. The left ventricular cavity size is normal. The LV wall thickness is moderately increased (concentric). The left ventricular wall motion is normal. The qualitative LV ejection fraction is >70% (hyperdynamic). The left atrium is severely enlarged. Moderate aortic valve sclerosis is present. Moderate to severe mitral regurgitation is present. Mild tricuspid regurgitation is present. Allergies Allergy/AdvReac Type Severity Reaction Status Date / Time oxycodone Allergy Unknown UNKNOWN Verified 02/15/18 16:04 phenytoin Allergy Unknown HIVES Unverified 02/15/18 16:04 propoxyphene Allergy Unknown UNKNOWN Verified 02/15/18 16:04 Home Medications Medication Instructions Recorded Confirmed Type albuterol sulfate 90 mcg/actuation 1 inh inhalation QID PRN sob 07/08/24 07/08/24 History aerosol inhaler apixaban 5 mg tablet (Eliquis) 5 mg PO BID 07/08/24 07/08/24 History cyclosporine 0.05 % eye drops in a 1 drp ophthalmic (eye) Q12H 07/08/24 07/08/24 History dropperette (Restasis) fluticasone 250 mcg-salmeterol 50 1 inh inhalation BID 07/08/24 07/08/24 History mcg/dose blistr powdr for inhalation metoprolol succinate 50 mg 50 mg PO BID 07/08/24 07/08/24 History tablet,extended release 24 hr montelukast 10 mg tablet 10 mg PO DAILY 07/08/24 07/08/24 History phenobarbital 97.2 mg tablet 194.4 mg PO HS 07/08/24 07/08/24 History rosuvastatin 40 mg tablet 40 mg PO DAILY 07/08/24 07/08/24 History spironolactone 25 mg tablet 12.5 mg PO DAILY 07/08/24 07/08/24 History Past Med/Surg History Problem List (Updated 02/16/18 @ 14:15 by [facility] Me) Seizure disorder (Chronic) Hyperlipemia (Chronic) History of pulmonary embolism (Chronic) "08/22/15" Adrenal nodule (Chronic) "bilat adrenal nodules CT 07/01/06 and 08/26/15, probable adenomas" Status post appendectomy (Chronic) Status post tubal ligation (Chronic) Status post tonsillectomy (Chronic) Social History Smoking Status: Never smoker Feels Safe at Home: Yes Review of Systems Review of Systems: All systems reviewed & are unremarkable except as noted in HPI & below Physical Exam Constitutional: WD/WN, vitals as above Eyes: PERRL, conjunctivae normal, anicteric sclerae ENMT: external ear and nose normal, oropharynx normal Neck: trachea midline, no thyromegaly Respiratory: + audible wheezes (diffuse, moderate) Cardiovascular: RRR, no murmur, no edema (+1 bilateral lower extremity ankle edema) Gastrointestinal (Abdomen): normal bowel sounds, soft, nontender, no hepatosplenomegaly Musculoskeletal: no cyanosis or clubbing, extremities motor strength 5/5 Skin: no rashes, warm and dry Neurologic: PERRL, EOMI, accommodation nl, no face palsy, no dysarthria Psychiatric: A+Ox3, euthymic affect Lymphatic: no cervical or axillary lymphadenopathy Results & Data Results & Data Vital Signs (Past 12 Hours) Vital Signs Temp Pulse Resp BP Pulse Ox O2 Del Method 07/08/24 10:41 119 H 140/90 07/08/24 10:30 Room Air 07/08/24 10:26 115 H 137/108 H 07/08/24 10:12 91 Room Air 07/08/24 10:00 115 H 18 127/97 90 Room Air 07/08/24 09:58 119 H 07/08/24 09:37 121 H 07/08/24 09:22 36.6 C 126 H 24 141/84 H 93 Room Air Diagnostic Findings Laboratory Results WBC 7.09 K/ul (4.8-10.8) 07/08/24 09:43 RBC 4.83 M/uL (4.20-5.40) 07/08/24 09:43 Hgb 13.2 g/dl (12.0-16.0) 07/08/24 09:43 Hct 39.9 % (37.0-47.0) 07/08/24 09:43 MCV 82.6 fL (80.0-100.0) 07/08/24 09:43 MCH 27.3 pg (25.0-34.0) 07/08/24 09:43 MCHC 33.1 g/dL (32.0-36.0) 07/08/24 09:43 RDW Std Deviation 46.3 fL (36.4-46.3) 07/08/24 09:43 RDW Coeff of Alivia 15.3 % (11.5-14.5) H 07/08/24 09:43 Plt Count 255 K/uL (130-400) 07/08/24 09:43 MPV 9.9 fL (9.4-12.4) 07/08/24 09:43 Immature Gran % (Auto) 0.4 % 07/08/24 09:43 Neut % (Auto) 76.5 % 07/08/24 09:43 Lymph % (Auto) 10.2 % 07/08/24 09:43 Juncos % (Auto) 10.7 % 07/08/24 09:43 Eos % (Auto) 1.6 % 07/08/24 09:43 Baso % (Auto) 0.6 % 07/08/24 09:43 Neut # (Auto) 5.43 K/uL (1.40-6.50) 07/08/24 09:43 Lymph # (Auto) 0.72 K/uL (1.20-3.40) L 07/08/24 09:43 Juncos # (Auto) 0.76 K/uL (0.11-0.59) H 07/08/24 09:43 Eos # (Auto) 0.11 K/uL (0.00-0.50) 07/08/24 09:43 Baso # (Auto) 0.04 K/uL (0.00-0.20) 07/08/24 09:43 Immature Gran # (Auto) 0.03 K/uL (0.01-0.20) 07/08/24 09:43 PT 11.1 Seconds (9.0-12.0) 07/08/24 09:43 INR 1.0 (0.9-1.1) 07/08/24 09:43 APTT 34 Seconds (21-31) H 07/08/24 09:43 PTT Ratio 1.3 07/08/24 09:43 Sodium 138 mmol/L (136-145) 07/08/24 09:43 Potassium 3.5 mmol/L (3.5-5.1) 07/08/24 09:43 Chloride 105 mmol/L (98-107) 07/08/24 09:43 Carbon Dioxide 25 mmol/L (21-32) 07/08/24 09:43 Anion Gap 8 (3-11) 07/08/24 09:43 BUN 9 mg/dl (6-23) 07/08/24 09:43 Creatinine 0.47 mg/dl (0.6-1.2) L 07/08/24 09:43 Est Cr Clr Drug Dosing 140.2 ml/min 07/08/24 09:43 eGFR 101.72 07/08/24 09:43 BUN/Creatinine Ratio 19.1 (10-20) 07/08/24 09:43 Glucose 118 mg/dl (70-99(Fasting)) H 07/08/24 09:43 Lactate 1.0 mmol/L (0.4-2.0) 07/08/24 10:15 Calcium 8.5 mg/dl (8.6-10.3) L 07/08/24 09:43 Magnesium 2.0 mg/dl (1.7-2.4) 07/08/24 09:43 Total Bilirubin 0.8 mg/dl (0.2-1.0) 07/08/24 09:43 AST 16 U/L (13-39) 07/08/24 09:43 ALT 16 U/L (7-52) 07/08/24 09:43 Alkaline Phosphatase 135 U/L (34-104) H 07/08/24 09:43 Troponin I High Sens 31.7 pg/ml (0-14) H 07/08/24 09:43 B-Natriuretic Peptide 346 pg/ml (0-100) H 07/08/24 09:43 Total Protein 6.6 gm/dl (6.0-8.3) 07/08/24 09:43 Albumin 3.7 gm/dl (3.4-5.0) 07/08/24 09:43 Globulin 2.9 gm/dl (2.5-4.0) 07/08/24 09:43 Albumin/Globulin Ratio 1.3 (0.9-2) 07/08/24 09:43 Procalcitonin < 0.02 ng/ml (0-0.5) 07/08/24 09:43 Adenovirus (PCR) Not Detected (NotDetected) 07/08/24 09:40 B. pertussis DNA (PCR) Not Detected (NotDetected) 07/08/24 09:40 B.parapertussis DNA PCR Not Detected (NotDetected) 07/08/24 09:40 C. pneumoniae DNA (PCR) Not Detected (NotDetected) 07/08/24 09:40 Coronavirus OC43 (PCR) Not Detected (NotDetected) 07/08/24 09:40 Coronavirus HKU1 (PCR) Not Detected (NotDetected) 07/08/24 09:40 Coronavirus 229E (PCR) Not Detected (NotDetected) 07/08/24 09:40 SARS-CoV-2 (PCR) Not Detected (NotDetected) 07/08/24 09:40 Coronavirus NL63 (PCR) Not Detected (NotDetected) 07/08/24 09:40 Human Metapneumovir PCR Not Detected (NotDetected) 07/08/24 09:40 Influenza Type A (PCR) Not Detected (NotDetected) 07/08/24 09:40 Influenza Type B (PCR) Not Detected (NotDetected) 07/08/24 09:40 M. pneumoniae (PCR) Not Detected (NotDetected) 07/08/24 09:40 Parainfluenza 1 (PCR) Not Detected (NotDetected) 07/08/24 09:40 Parainfluenza 2 (PCR) Not Detected (NotDetected) 07/08/24 09:40 Parainfluenza 3 (PCR) Not Detected (NotDetected) 07/08/24 09:40 Parainfluenza 4 (PCR) Not Detected (NotDetected) 07/08/24 09:40 RSV (PCR) Not Detected (NotDetected) 07/08/24 09:40 Entero/Rhino (PCR) Not Detected (NotDetected) 07/08/24 09:40 Impressions Chest X-Ray 07/08/24 09:29 XR chest 1V portable CLINICAL HISTORY: Dyspnea TECHNIQUE: Single frontal radiograph of the chest was obtained. Comparison: Comparison is made to chest radiograph 08/24/[address] chest 09/10/2018 FINDINGS: No lines and tubes are seen. Cardiomegaly is noted. Right greater than left airspace opacities in the lower lungs. No evidence of pleural effusion or pneumothorax. IMPRESSION: 1. Bilateral lower lung predominant airspace opacities which may represent atelectasis, pneumonia, and/or aspiration. 2. Cardiomegaly is seen, increased from prior exam in 2019 possibly due to rotation. Pericardial effusion cannot be excluded. ACT 112: Negative or not required by law. Electronically signed by: Leonardo Martins M.D. 07/08/2024 10:04 AM Supervising Physician Co-Signing Physician Notes Pt seen and examined by me, care coordinated with JESSIKA Madden, pls refer to her note above for further detail. 73 yo F with hx of asthma, seizure disorder, HLD, [id number], recently diagnosed A- fib and fluid retention who presents to the ED on 07/08/2024 with worsening shortness of breath. In the ED, heart rates in the low 100s, BNP elevated at 346, procalcitonin negative, UA pending, BioFire negative. Blood cultures pending. Currently sitting up in bed in NAD, alert oriented. lungs with mild exp. diffuse wheezing, tachycardic. abdomen soft, nontender. 1+ LE edema. Pt moves extremities. Was given IV Solu-Medrol, DuoNebs, IV Lopressor and IV antibiotics in the ED. Will cont. abx, add doxy, start po prednisone tmrw. Cardiology consult. MD Stephane
--- OUTSIDE RECORDS SUMMARY | 2024-07-08 11:54 | External Medical Summary | Summary of Care ---
Author Name Unknown Organization [facility] Address [address] [place] [address] Phone [phone] Care Team Providers Care Building Estimator Name Role Phone Bertram Hood Primary Care Provider [phone] Reason for Visit * Reason Comments Skin Check Pt presents for rout ine skin check, no hx of skin cancer. Pt presents with a multitude of concerns to include several brown spots, multiple red spots and red cheeks. Encounter Details Date Type Department Care Team (Late st Contact Info) Description 06/29/2024 11:15 AM EST Office Visit Dermatology Mohan Bose [place] [address] [facility] [place] [address] Roman Myers MD [address] [facility] [place] [address] Rosacea*; Solar lentiginosis; Seborrheic keratoses; Multiple melanocytic nevi; Inflamed seborrheic keratosis Allergies Active Allergy Reactions Criticality Noted Date Comments Propoxyphene N-Acetaminophen Nausea/vomiting High 03/13/2013 Naproxen 07/26/2011 Rash and edema Percocet 04/08/2005 nausea Phenytoin Sodium 06/07/2000 IV caused red streaks up her arm. Polymyxin B-Trimethoprim Other (Please comment) 12/06/2013 Burning, itchy and very red. documented as of this encounter (statuses as of 06/29/2024) Medications MULTIVITAL PO TABS Take by mouth. 0 0 7 Active RESTASIS 0.05 % OP EMUL Instill 1 Drop into both eyes in the morning and 1 Drop before bedtime. 3 Active CALCIUM + D3 600-200 MG-UNIT PO TABS Take 1 Tablet by mouth. 1 Tab 0 4 Active Wixela Inhub 250-50 MCG/ACT Inhalation Aerosol Powder Breath Activated (Fluticasone-Salm eterol)Indication s:Other disorders of lung INHALE 1 PUFF BY MOUTH 2 TIMES A DAY. 180 Each 3 4 Active PHENobarbital 97.2 MG Oral Tablet TAKE 2 TABLETS BY MOUTH AT BEDTIME 60 Tablet 3 4 Active Benzonatate 100 MG Oral CapsuleIndication s:Sinobronchitis Take 2 Capsules by mouth 3 times a day as needed for Cough. 60 Capsule 1 4 Active Albuterol Sulfate HFA 108 (90 Base) MCG/ACT Inhalation Aerosol SolutionIndicatio ns:Small airways disease,Sinobronc hitis INHALE 2 PUFFS BY MOUTH EVERY 4 HOURS NEEDED FOR COUGH OR WHEEZING. WITH SPACER 54 g 3 4 Active Apixaban 5 MG Oral Tablet (Eliquis)Indicati ons:Persistent atrial fibrillation (HCC) Take 1 Tablet by mouth in the morning and 1 Tablet before bedtime. 180 Tablet 3 4 Active Montelukast Sodium 10 MG Oral Tablet (Singulair)Indica tions:Small airways disease TAKE 1 TABLET BY MOUTH EVERY DAY 90 Tablet 3 4 Active Spironolactone 25 MG Oral Tablet (Aldactone)Indica tions:HTN, goal below 130/80 TAKE A HALF A TABLET BY MOUTH EVERY MORNING 45 Tablet 3 4 Active Rosuvastatin Calcium 40 MG Oral Tablet (Crestor)Indicati ons:Dyslipidemia, goal LDL below 100 TAKE 1 TABLET BY MOUTH EVERY DAY IN THE MORNING 90 Tablet 3 4 Active Metoprolol Succinate ER 50 MG Oral Tablet Extended Release 24 Hour (toPROL XL) Take 1 Tablet by mouth in the morning and 1 Tablet before bedtime. 180 Tablet 3 4 Active metroNIDAZOLE 0.75 % External Cream (MetroCream)Indic ations:Rosacea Apply to cheeks and nose once daily 45 g 5 5 Active documented as of this encounter (statuses as of 06/29/2024) Active Problems Problem Noted Date Diagnosed Date Enlarged aorta 05/26/2024 S/P TKR (total knee replacement), left 4 Primary osteoarthritis of left knee 08/15/2023 Status post total right knee replacement 023 Prediabetes 11/25/2022 Nonintractable epilepsy without status epileptic us 03/15/2019 Personal history of pulmonary embolism 9 Small airways disease 02/23/2016 Dyslipidemia, goal LDL below 100 09/18/2015 Obesity, Class II, BMI 35-39.9, isolated (see ac tual BMI) 07/16/2012 Overview (07/16/2012): bmi= 35.49 07/16/12 documented as of this encounter (statuses as of 06/29/2024) Resolved Problems Problem Noted Date Diagnosed Date Resolved Date Bilateral pulmonary embolism 04/24/2022 05/06/2023 Bilateral pulmonary embolism 11/22/2019 12/17/2019 Bilateral pulmonary embolism 08/31/2015 03/15/2019 ADVANCE DIRECTIVE INFORMATION 11/02/2004 04/26/2024 Overview (11/02/2004): Brochure given to pt. at this time. DIARRHEA 08/17/2001 09/18/2015 Volume depletion 08/17/2001 09/18/2015 Major depressive disorder 06/08/2001 Overview (04/15/2017): ICD-10 update of inactive term Enthesopathy of knee 06/08/2001 017 Convulsions 05/30/1999 03/15/2019 EPILEPSY;NONCONV,W/O INTRACTABLE 04/14/2017 Allergic rhinitis 09/02/2018 documented as of this encounter (statuses as of 06/29/2024) Immunizations Name Administration Dates Next Due COVID-19 mRNA, LNP-s, No Pre serve, 2-Dose Series ([employer]) 05/05/2021,08/30/2020,08/09/2020 Pneumococcal Conjugate Vacc, 13 Valent (Prevnar) 03/12/2018 Pneumococcal Conjugate Vacci ne, 20-valent ([id number]) 05/30/2023 Pneumococcal Polysaccharide PPV23 (Pneumovax) 10/18/2015 Season Influenza, Quad, PF, Adjuvanted, 65+ Yrs, IM (FLUAD) 04/17/2020 Seasonal Influenza Vac., MDV , IM, 0.5 mL (Fluzone) 04/18/2016 Seasonal Influenza, High Dos e, Trivalent, PF, IM (Fluzone HD) 06/04/2024 Seasonal Influenza, PF, 6 M & above, IM , (FluLaval or Fluzone) 03/12/2018,04/14/2017 04/14/2018 Seasonal Influenza, Quadriva lent Hd (Fluzone Hd) 05/30/2023,04/24/2022,05/23/2021 Seasonal Influenza, Trivalen t, Adjuvanted, 65+ YRS, PF, (Fluad) 05/04/2019 TDAP (age 10 and older)(Boostrix) 07/04/2023, Zoster Vaccine Recombinant (Shingrix) 08/22/2022 ,03/25/2022 documented as of this encounter Social History Tobacco Use Types Packs/Day Years Used Date Smoking Tobacco: Never Passive Smoke Exposure: Past Smokeless Tobacco: Never Passive Exposure Comments:Pa ssive smoke as a child Alcohol Use Standard Drinks/Week Comments Not Currently 0 (1 standard drink = 0.6 oz pur e alcohol) rare PHQ-2 Answer Date Recorded PHQ Adult Total Score 0 10/18/2021 Hunger Vital Sign Answer Date Recorded Within the past 12 months, y ou worried that your food would run out before you got the money to buy more. Never true 10/22/19 24 Within the past 12 months, t he food you bought just didn't last and you didn't have money to get more. Never true 10/22/2023 Childcare Answer Date Recorded Do you feel overwhelmed with taking care of a child, family member or friend? No 10/22/2023 Does your family need help f inding childcare? (Household - for ages 0-17 years) Not on file 10/22/2023 Clothing Answer Date Recorded Have you been unable to get clothing when it was really needed? No 10/22/2023 Is your family able to get c lothes or diapers when needed? (Household - for ages 0-17 years) Not on file 10/22/2023 Personal Safety Answer Date Recorded Do you feel unsafe or have concerns for your saf ety? No 12/01/2023 Do you have concerns for you r family's safety? (Household - for ages 0-17 years) Not on file 12/01/2023 Utilities Answer Date Recorded Do you have trouble paying y our heating, water, or electric bill? No 12/01/2023 Is your family able to pay t he heat, water, or electric bill? (Household - for ages 0-17 years) Not on file 12/01/2023 Does your family have access to good internet? (Household - for ages 0-17 years) Not on file 12/01/2023 Employment Status Answer Date Recorded Are you unemployed or without regular income? No 10/22/2023 Does the [facility] have a [facility] source [facility] income? (Household - for ages 0-17 years) Not on file 10/22/2023 Social Connections Answer Date Recorded How often do you feel lonely or isolated from th ose around you? Never 10/22/2023 Financial Resource Strain Answer Date R ecorded Do you have any trouble payi ng for your medications, or do you think you might in the future? No 10/22/2023 Does your family have troubl e paying for medicine? (Household - for ages 0-17 years) Not on file 10/22/2023 Transportation Needs Answer Date Record ed READ ONLY Do you have troubl e getting a ride to medical visits or work? Never True 12/01/2023 Does your family have a hard time getting a ride to doctors visits? (Household - for ages 0-17 years) Not on file 12/01/2023 Has lack of transportation k ept you from medical appointments, meetings, work, or from getting things needed for daily living? Check all that apply. (Adult - for ages 18 years and over) Not on file 12/01/2023 Do you (or your family) have trouble finding or paying for a ride (transportation)? (Household - for ages 0-17 years) Not on file 12/01/2023 Housing Stability Answer Date Recorded Do you currently live in a s helter or have no steady place to sleep at night? No 12/01/2023 READ ONLY Do you think you a re at risk of becoming homeless? No 12/01/2023 Does your family worry about paying for your home or becoming homeless? (Household - for ages 0-17 years) Not on file 0 12/01/2023 Are you homeless or worried that you might be in the future? (Adult - for ages 18 years and over) Not on file Are you (or your family) tyrese eless or worried that you might be in the future? (Household - for ages 0-17 years) Not on file Food Insecurity Answer Date Recorded Do you need food for this week? No 12/01/2023 Are you able to get enough f ood for your family? (Household - for ages 0-17 years) Not on file 12/01/2023 Does your family need food t his week? (Household - for ages 0-17 years) Not on file 12/01/2023 Do you always have enough fo od for your family? (Household - for ages 0-17 years) Not on file 12/01/2023 Comments No Sex and Gender Information Value Date Recorded Sex Assigned at Female 09/09/2018 10:43 AM EDT Legal Sex Female 6:01 AM EST Gender Identity Female 09/09/2018 10:43 AM EDT Sexual Orientation Straight 09/09/2018 10 :43 AM EDT documented as of this encounter Functional Status * Are you deaf or do you have serious difficulty hearing? Answer Date of Assessment Author No 12/01/2023 12:47 PM Kuldeep Hebert RN * Are you blind or do you have serious difficulty seeing, even when wearing glasses? Answer Date of Assessment Author No 12/01/2023 12:47 PM Kuldeep Hebert RN * Do you have serious difficulty walking or climbing stairs? (5 years old or older) Answer Date of Assessment Author No 12/01/2023 12:47 PM Kuldeep Hebert RN * Do you have difficulty dressing or bathing? (5 years old or older) Answer Date of Assessment Author No 12/01/2023 12:47 PM Kuldeep Hebert RN * Because of a physical, mental, or emotional condition, do you have difficulty doing errands alone such as visiting a doctors office or shopping? (15 years old or older) Answer Date of Assessment Author No 12/01/2023 12:47 PM Kuldeep Hebert RN documented as of this encounter Mental Status * Because of a physical, mental, or emotional condition, do you have serious difficulty concentrating, remembering, or making decisions? (5 years old or older) Answer Entry Date Author No 12/01/2023 12:47 PM Kuldeep Hebert RN documented in this encounter Progress Notes * Roman Myers MD - 06/29/2024 11:15 AM EST SUBJECTIVE: Chief Complaint: Chief Complaint Patient presents with Skin Check Pt presents for routine skin check, no hx of skin cancer. Pt presents with a multitude of concerns to include several brown spots, multiple red spots and red cheeks. HPI: Deedee Kinsey is a 73 year old female seen for a full skin check (pt request). Has a list of concerns today. Red cheeks. Has some red spons on cheek and nose Brown spot on nose Spots on thighs, neck Spot on left forearm 12/2022 Skin, nasal dorsum/left nasal sidewall: Large cell acanthoma, pigmented. DERMATOLOGIC HISTORY: No prior history of skin cancer REVIEW OF SYSTEMS: CONSTITUTIONAL: negative SKIN: No new or changing moles or rashes other than those noted in HPI HEME/LYMPH: No new or enlarging lumps or bumps OBJECTIVE: GEN: Healthy, alert, no distress, appears oriented, pleasant, and cooperative SKIN: Detailed exam of hair, face, trunk, arms, and legs At the trunk and extremities are several scattered isbell/brown hyperkeratotic stuck on appearing waxypapules. Scattered on the chest, abdomen, back upper and lower extremities are multiple evenly pigmented brown macules and papules without significant irregularity. Uniform appearing brown macules and patches in sun exposed areas. Central facial erythema with dilated superficial cutaneous blood vessels. 2-4 mm pink papules and pustules noted over medial cheeks and forehead. Left anterior neck - waxy brown papule with surrounding erythema ASSESSMENT/PLAN: Seborrheic keratoses, multiple melanocytic nevi, and solar lentigines - Benign. Reassurance. - Dermoscopy was used for physical examination of pigmented lesions during todays office visit. - No features concerning for malignancy on exam today. - Discussed and emphasized importance of sun protection with SPF >30 and sun protective attire - Patient to contact physician for any new or changing lesions or other concerns. Rosacea - Discussed nature of condition and expected course, treatment options - metro cream daily Inflamed sk - cryo'd no charge, single lesion Roman Myers MD REF: BERTRAM HOOD PCP: BERTRAM HOOD documented in this encounter Nursing Notes * Concha Cuba CMA - 06/29/2024 11:17 AM EST Chief Complaint Patient presents with Skin Check Pt presents for routine skin check, no hx of skin cancer. Pt presents with a multitude of concerns to include several brown spots, multiple red spots and red cheeks. documented in this encounter Plan of Treatment Upcoming Encounters Date Type Department Care Team (Late st Contact Info) Description 09/02/2024 9:00 AM EDT Office Visit Cardiology, [facility] [address] [place] [address] Rebekah Singh CRNP [address] [place] [address] 11/25/2024 10:00 AM EDT Office Visit Orthopaedics [facility] [address] [place] [phone] Hugo Alfonso, DO [address] [place] [address] 12/01/2024 11:30 AM EDT Office Visit [facility] [address] [facility] [place] [phone] Bertram Hood, DO [address] [facility] [place] [id number] 01/04/2025 2:00 PM EDT Office Visit Hematology/Oncology [facility] [address] [facility] [place] [phone] El[facility] Ortiz CRNP [address] [facility] [place] [address] 05/16/2025 8:00 AM EST Office Visit Neurology [facility] [address] [facility] [place] [address] Eulogio Augustine MD [address] [place] [address] [place] [id number] Scheduled Procedures Name Priority Associated Diagnoses Date/Ti me COLONOSCOPY FLEXIBLE PROXIMA L DIAGNOSTIC Recall Special screening for malignant neoplasms, colon Health Maintenance Due Date Last Done Comments Cologuard 1997 Sigmoidoscopy 1997 Fecal Occult Blood Test 09/12/2016 09/13/2015 Adult Wellness Visit 2018 Colonoscopy 02/11/2022 02/11/2019, 01/22, 12/11/2015, Additional history exists Colorectal Cancer Screening 02/11/2022 Depression Screening 10/18/2022 10/18/2021, 04/14/20 17 COVID-19 Vaccine ( season) 2024 05/05/2021, 08/30/2020, 08/09/2020 Mammogram 09/03/2024 09/04/2023, 08/21, 08/29/2022, Additional history exists HbA1c 11/04/2024 11/05/2023, 11/19/2022 Lipid Panel 05/24/2029 05/24/2024, 01/2023, 04/29/2023, Additional history exists DTap/Tdap Vaccines (3 - Td or Tdap) 07/04/2033 07/04/2023, 02/10/2013, 05/24/2002, Additional history exists Hepatitis B Vaccine Completed 09/26/1998, 06/29/1998, 04/25/1998 DXA Scan Discontinued 05/03/2013 Zoster Vaccines Completed 08/22/2022, 03/25/2022 Pneumococcal Vaccine: 50+ Years Completed 05/30/2023, 03/12/2018, 10/18/2015 Influenza Vaccine (FLU shot) Completed 06/04/2024, 05/30/2023, 04/24/2022, Additional history exists HPV (Gardasil) Vaccine Aged Out No lo nger eligible based on patient's age to complete this topic MENINGOCOCCAL (MENACTRA/MENVEO) Aged Out No longer eligible based on patient's age to complete this topic documented as of this encounter Medical Devices Implanted Type Area Tool Lathe Operator Device Identifier Shelf Expiration Date Model / Serial / Lot Knee Triathlon Bead No Laz R 5 - [id number] Implanted:Qty: 1 on 12/16/2022 by Hugo Alfonso, DO at [facility] Right: Knee BOB : ORTHOP[employer] 11/19/2027 5517-F-502 / / [id number] Baseplate #5 Tritanium - [id number] Implanted:Qty: 1 on 12/16/2022 by Hugo Alfonso DO at [facility] Right: Knee BOB : ORTH[employer] 09/28/2027 5536-B-500 / / [id number] Triathlon X3 Tibial Bearing Insert - Cs Implanted:Qty: 1 on 12/16/2022 by Hugo Alfonso DO at [facility] Right: Knee BOB : ORTH[employer] 04/18/2027 5531-G-[id number] -[id number] / / [id number] Knee Baseplate Tri Tib Sz 4 - [id number] Implanted:Qty: 1 on 12/01/2023 by Hugo Alfonso DO at [facility] Left: Knee BOB : ORTH[employer] 04/30/2027 5521-B-400 / / [id number] Knee Triathlon Bead No Laz L 5 - [id number] Implanted:Qty: 1 on 12/01/2023 by Hugo Alfonso DO at [facility] Left: Knee BOB : ORTHOPA[employer] 10/27/2028 5517-F-[id number] / / [id number] Cement Bone Simplex Hv & G - [id number] Implanted:Qty: 1 on 12/01/2023 by Hugo Alfonso DO at [facility] Left: Knee BOB : ORTH[employer] 02/20/2025 [id number] / / [id number] Triathlon X3 Tibial Bearing Insert - Cs Implanted:Qty: 1 on 12/01/2023 by Hugo Alfonso DO at [facility] Left: Knee BOB : ORTHOPAEDICS 09/14/2028 5531-G-[id number] -[id number] / / [id number] documented as of this encounter Visit Diagnoses Diagnosis Rosacea- Primary Solar lentiginosis Other dyschromia Seborrheic keratoses Multiple melanocytic nevi Benign neoplasm of skin, site unspecified Inflamed seborrheic keratosis documented in this encounter Advance Directives * Full Code (Latest Code Status on File) Date Activated Date Inactivated Comments 12/01/2023 10:09 AM 12/03/2023 5:35 PM This order reflects the patients wishes and were consensually agreed upon. Question Answer Comments Discussion of Advance Directives occurred with: Patient * Full Code Date Activated Date Inactivated Comments 12/16/2022 2:57 PM 12/18/2022 3:36 PM This order r eflects the patients wishes and were consensually agreed upon. Question Answer Comments Discussion of Advance Directives occurred with: Patient Care Teams Building Estimator Relationship Specialty Start Date End Date Bertram Hood DO PCP - General Family Medicine 08/25/18 documented as of this encounter
--- OUTSIDE RECORDS SUMMARY | 2024-07-08 11:54 | External Medical Summary | Summary of Care ---
Author Name Unknown Organization [facility] Address [address] [place] [address] Phone [phone] Care Team Providers Care Glassware Maker Name Role Phone Erwin Joananabila Wright DO Primary Care Provider [phone] Reason for Visit * Reason Onset Date Comments Med Request 07/01/2024 Encounter Details Date Type Department Care Team (Late st Contact Info) Description 07/01/2024 Telephone Orthopaedics [facility] [address] [place] [address] Hugo Alfonso DO [address] [place] [address] Med Request Allergies Active Allergy Reactions Criticality Noted Date Comments Propoxyphene N-Acetaminophen Nausea/vomiting High 03/13/2013 Naproxen 07/26/2011 Rash and edema Percocet 04/08/2005 nausea Phenytoin Sodium 06/07/2000 IV caused red streaks up her arm. Polymyxin B-Trimethoprim Other (Please comment) 12/06/2013 Burning, itchy and very red. documented as of this encounter (statuses as of 07/01/2024) Medications MULTIVITAL PO TABS Take by mouth. [...] once daily 45 g 5 5 Active Amoxicillin 500 MG Oral Capsule (Amoxil) Take 4 capsules by mouth 1 hour prior to dental procedure 4 Capsule 5 Active documented as of this encounter (statuses as of 07/01/2024) Active Problems Problem Noted Date Diagnosed Date [...] as of this encounter (statuses as of 07/01/2024) Resolved Problems Problem Noted Date Diagnosed Date [...] as of this encounter (statuses as of 07/01/2024) Immunizations Name Administration Dates Next Due COVID-19 mRNA, LNP-s, No Pre serve, 2-Dose Series (Pfizer) 05/05/2021,08/30/2020,08/09/2020 Pneumococcal Conjugate Vacc, 13 Valent (Prevnar) 03/12/2018 Pneumococcal Conjugate Vacci ne, 20-valent ([id number]) 05/30/2023 Pneumococcal Polysaccharide PPV23 (Pneumovax) 10/18/2015 Season [...] No 10/22/2023 Does the household have a re lar source of income? (Household - for ages [...] of Assessment Author No 12/01/2023 12:47 PM Nabila Hebert RN * Are you blind or do you have serious difficulty seeing, even when wearing glasses? Answer Date of Assessment Author No 12/01/2023 12:47 PM Nabila Hebert RN * Do you have serious difficulty walking or climbing stairs? (5 years old or older) Answer Date of Assessment Author No 12/01/2023 12:47 PM Nabila Hebert RN * Do you have difficulty dressing or bathing? (5 years old or older) Answer Date of Assessment Author No 12/01/2023 12:47 PM Nabila Hebert RN * Because of a physical, mental, or emotional condition, do you have difficulty doing errands alone such as visiting a doctors office or shopping? (15 years old or older) Answer Date of Assessment Author No 12/01/2023 12:47 PM EDT Nabila Garsia RN documented as of this encounter Mental Status * Because of a physical, mental, or emotional condition, do you have serious difficulty concentrating, remembering, or making decisions? (5 years old or older) Answer Entry Date Author No 12/01/2023 12:47 PM EDT Nabila Garsia RN documented in this encounter Plan of Treatment Upcoming Encounters Date Type Department Care Team (Late st Contact Info) Description 09/02/2024 9:00 AM EDT Office Visit Cardiology, [facility] [address] [place] [address] Rebekah Singh CRNP [address] [place] [address] 11/25/2024 10:00 AM EDT Office Visit Orthopaedics [facility] [address] [place] [phone] Hugo Alfonso, [address] [place] [address] 12/01/2024 11:30 AM EDT [facility] [address] [facility] [place] [phone] Joana Hood DO [address] [place] [address] 01/04/2025 2:00 PM EDT Office [facility] [address] [facility] [phone] Elida Ortiz CRNP [address] [place] [address] 05/16/2025 8:00 AM EST Office Visit Neurology [facility] [address] [facility] [place], [place] [address] Eulogio Augustine MD [address] [facility] [place] [address] 07/08/2025 9:40 AM EST Office Visit Dermatology [facility] [address] [facility] [place] [address] Dayana Hartman PA-C [address] [facility] [place] [address] Scheduled Procedures Name Priority Associated Diagnoses Date/Ti [...] 11/04/2024 11/05/2023, 11/19/2022 Lipid Panel 05/24/2029 05/24/2024, 1201/2023, 04/29/2023, Additional history exists DTap/Tdap Vaccines (3 [...] this encounter Medical Devices Implanted Type Area Consumer Loan Manager Device Identifier Shelf Expiration Date Model / Serial / Lot Knee Triathlon Bead No Laz R 5 - [id number] Implanted:Qty: 1 on 12/16/2022 by Hugo Alfonso DO at OR [facility] Right: Knee BOB : ORTHOPAEDICS 11/19/2027 5517-F-502 / / [id number] Baseplate #5 Tritanium - [id number] Implanted:Qty: 1 on 12/16/2022 by Hugo Alfonso DO at OR [facility] Right: Knee BOB : ORTHOPAEDICS 09/28/2027 5536-B-500 / / [id number] [place] Triathlon X3 Tibial Bearing Insert - Cs Implanted:Qty: 1 on 12/16/2022 by Hugo Alfonso DO at OR [facility] Right: Knee BOB : ORTHOPAEDICS 04/18/2027 5531-G-512 -E / / [id number] Knee Baseplate Tri Tib Sz 4 - [id number] Implanted:Qty: 1 on 12/01/2023 by Hugo Alfonso DO at OR [facility] Left: Knee BOB : ORTHOPAEDICS 04/30/2027 5521-B-400 / / [id number] Knee Triathlon Bead No Laz L 5 - [id number] Implanted:Qty: 1 on 12/01/2023 by Hugo Alfonso DO at OR [facility] Left: Knee BOB : ORTHOPAEDICS 10/27/2028 5517-F-501 / / [id number] Cement Bone Simplex Hv & G - [id number] Implanted:Qty: 1 on 12/01/2023 by Hugo Alfonso DO at OR [facility] Left: Knee BOB : ORTHOPAEDICS 02/20/2025 6195-1-010 / / [id number] Triathlon X3 Tibial Bearing Insert - Cs Implanted:Qty: 1 on 12/01/2023 by Hugo Alfonso DO at OR [facility] Left: Knee BOB : ORTHOPAEDICS 09/14/2028 5531-G-410 -E / / [id number] documented as of this encounter Advance Directives * Full Code (Latest Code Status on File) Date Activated Date Inactivated Comments 12/01/2023 10:09 AM 12/03/2023 5:35 PM This order reflects the patients wishes and were consensually agreed upon. Question Answer Comments Discussion of Advance Directives occurred with: Patient * Full Code Date Activated Date Inactivated Comments 12/16/2022 2:57 PM 12/18/2022 3:36 PM This order reflects the patients wishes and were consensually agreed upon. Question Answer Comments Discussion of Advance Directives occurred with: Patient Care Teams Glassware Maker Relationship Specialty Start Date End Date Joana Hood DO PCP - General Family Medicine 08/25/18 documented as of this encounter
--- OUTSIDE RECORDS SUMMARY | 2024-07-08 11:55 | External Medical Summary | Summary of Care ---
Author Name Unknown Organization [facility] Address [address] [place] [address] Phone [phone] Care Team Providers Care Cadd Drafter Name Role Phone Joana Hood DO Primary Care Provider Reason for Visit * Reason Onset Date Comments Appointment 06/04/2024 Encounter Details Date Type Department Care Team (Late st Contact Info) Description 06/04/2024 Telephone Cardiology, [facility] [address] [place] [address] Rebekah Singh CRNP [address] [place] [address] Appointment Allergies Active Allergy Reactions Criticality Noted Date Comments Propoxyphene N-Acetaminophen Nausea/vomiting High 03/13/2013 Naproxen 07/26/2011 Rash and edema Percocet 04/08/2005 nausea Phenytoin Sodium 06/07/2000 IV caused red streaks up her arm. Polymyxin B-Trimethoprim Other (Please comment) 12/06/2013 Burning, itchy and very red. documented as of this encounter (statuses as of 06/04/2024) Medications MULTIVITAL PO TABS Take by mouth. 0 0 7 Active RESTASIS 0.05 % OP EMUL Instill 1 Drop into both eyes in the morning and 1 Drop before bedtime. 3 Active CALCIUM + D3 600-200 MG-UNIT PO TABS Take 1 Tablet by mouth. 1 Tab 0 4 Active Spironolactone 25 MG Oral Tablet (Aldactone)Indic ations:HTN, goal below 130/80 TAKE A HALF A TABLET BY MOUTH EVERY MORNING 45 Tablet 3 3 Active Montelukast Sodium 10 MG Oral Tablet (Singulair)Indic ations:Small airways disease TAKE 1 TABLET BY MOUTH EVERY DAY 90 Tablet 3 3 Active Additional Information Patient taking differently: 10 mg Oral HS, Reported on 06/04/2024 Rosuvastatin Calcium 40 MG Oral Tablet (Crestor)Indicat ions:Dyslipidemi a, goal LDL below 100 Take 1 Tablet by mouth in the morning. 90 Tablet 3 3 Active Wixela Inhub 250-50 MCG/ACT Inhalation Aerosol Powder Breath Activated (Fluticasone-Tk meterol)Indicati ons:Other disorders of lung INHALE 1 PUFF BY MOUTH 2 TIMES A DAY. 180 Each 3 4 Active PHENobarbital 97.2 MG Oral Tablet TAKE 2 TABLETS BY MOUTH AT BEDTIME 60 Tablet 3 4 Active Benzonatate 100 MG Oral CapsuleIndicatio ns:Sinobronchiti s Take 2 Capsules by mouth 3 times a day as needed for Cough. 60 Capsule 1 4 Active Albuterol Sulfate HFA 108 (90 Base) MCG/ACT Inhalation Aerosol SolutionIndicati ons:Small airways disease,Sinobron chitis INHALE 2 PUFFS BY MOUTH EVERY 4 HOURS NEEDED FOR COUGH OR WHEEZING. WITH SPACER 54 g 3 4 Active Apixaban 5 MG Oral Tablet (Eliquis)Indicat ions:Persistent atrial fibrillation (HCC) Take 1 Tablet by mouth in the morning and 1 Tablet before bedtime. 180 Tablet 3 4 Active Metoprolol Succinate ER 25 MG Oral Tablet Extended Release 24 Hour (toPROL XL) Take 1 Tablet by mouth in the morning and 1 Tablet before bedtime. 60 Tablet 11 4 Active documented as of this encounter (statuses as of 06/04/2024) Active Problems Problem Noted Date Diagnosed Date [...] as of this encounter (statuses as of 06/04/2024) Resolved Problems Problem Noted Date Diagnosed Date [...] as of this encounter (statuses as of 06/04/2024) Immunizations Name Administration Dates Next Due COVID-19 mRNA, LNP-s, No Pre serve, 2-Dose Series (Tengrade) 05/05/2021,08/30/2020,08/09/2020 Pneumococcal Conjugate Vacc, 13 Valent (Prevnar) 03/12/2018 Pneumococcal Conjugate Vacci ne, 20-valent ([id number]) 05/30/2023 Pneumococcal Polysaccharide PPV23 (Pneumovax) 10/18/2015 Season [...] 10/22/2023 Does the household have a re gular source of income? (Household - for ages [...] Assessment Author No 12/01/2023 12:47 PM Kuldeep Hbeert RN * Are you blind or do [...] Assessment Author No 12/01/2023 12:47 PM EDT Garsia, A ngie L, RN documented as of this encounter Mental Status * Because of a physical, mental, or emotional condition, do you have serious difficulty concentrating, remembering, or making decisions? (5 years old or older) Answer Entry Date Author No 12/01/2023 12:47 PM Kuldeep Hebert RN documented in this encounter Miscellaneous Notes * Telephone Encounter - Hunter Holloway OSA - 06/04/2024 12:33 PM EST Patient is ordered a cardiac study, please assist patient to schedule, thank you. Provider is requesting testing to be done MARTELL/STAT. Thank you. NM MYOCARD PERF IMG SPECT MULT STUDIES WITH PHARM INTERV [70794.02] (Order [id number]) documented in this encounter Plan of Treatment Upcoming Encounters Date Type Department Care Team (Late st Contact Info) Description 06/29/2024 11:15 AM EST Office Visit Dermatology [facility] [address] [facility] [place] [address] Roman Myers MD [address] [facility] [address] 09/02/2024 9:00 AM EDT Office Visit Cardiology, [facility] [address] [place] [address] Rebekah Singh CRNP [address] [place] [address] 11/25/2024 10:00 AM EDT Office Visit Orthopaedics [facility] [address] [place] [address] Hugo Alfonso DO [address] [place] [address] 12/01/2024 11:30 AM EDT Office Visit [facility] [address] [phone] Joana Hood, DO [address] [place] [address] 01/04/2025 2:00 PM EDT Office Visit Hematology/Oncology [facility] [address] [facility] [place] [phone] Elida Ortiz CRNP [address] [facility] [place] [address] 05/16/2025 8:00 AM EST Office Visit Neurology [facility] [address] [facility] [place] [address] Eulogio Augustine MD [address] [place] [address] Scheduled Procedures Name Priority Associated Diagnoses Date/Ti [...] Zoster Vaccines Completed 08/22/2022, 03/25/2022 Pneumococcal Vaccine: 65+ Years Completed 05/30/2023, 03/12/2018, 10/18/2015 Influenza Vaccine (FLU shot) Completed 06/04/2024, 05/30/2023, 04/24/2022, Additional history exists HPV (Gardasil) Vaccine Aged Out No lo nger eligible based on patient's age to complete this topic MENINGOCOCCAL (MENACTRA/MENVEO) Aged Out No longer eligible based on patient's age to complete this topic documented as of this encounter Medical Devices Implanted Type Area Activity Manager Device Identifier Shelf Expiration Date Model / Serial / Lot Knee Triathlon Bead No Laz R 5 - [id number] Implanted:Qty: 1 on 12/16/2022 by Hugo Alfonso DO at OR [facility] Right: Knee BOB : ORTHOPAEDICS 11/19/2027 5517-F-502 / / [id number] Baseplate #5 Tritanium - [id number] Implanted:Qty: 1 on 12/16/2022 by Hugo Alfonso DO at OR [facility] Right: Knee BOB : ORTHOPAEDICS 09/28/2027 5536-B-500 / / [id number] Triathlon X3 Tibial Bearing Insert - Cs Implanted:Qty: 1 on 12/16/2022 by Hugo Alfonso DO at OR [facility] Right: Knee BOB : ORTHOPAEDICS 04/18/2027 5531-G-512 -E / / [id number] Knee Baseplate Tri Tib Sz 4 - [id number] Implanted:Qty: 1 on 12/01/2023 by Hugo Alfonso DO at OR [facility] Left: Knee BOB : ORTHOPAEDICS 04/30/2027 5521-B-400 / / [id number] Knee Triathlon Bead No Laz L 5 - [id number] Implanted:Qty: 1 on 12/01/2023 by Hugo Alfonso DO at OR [facility] Left: Knee BOB : ORTHOPAEDICS 10/27/2028 5517-F-501 / / [id number] Cement Bone Simplex Hv & G - [id number] Implanted:Qty: 1 on 12/01/2023 by Hugo Alfonso, at OR [facility] Left: Knee BOB : ORTHOPAEDICS 02/20/2025 6195-1-010 / / [id number] Triathlon X3 Tibial Bearing Insert - Cs Implanted:Qty: 1 on 12/01/2023 by Hugo Alfonso, at OR [facility] Left: Knee BOB : ORTHOPAEDICS 09/14/2028 [...] Advance Directives occurred with: Patient Care Teams Cadd Drafter Relationship Specialty Start Date End Date Joana Hood DO [address] [place] [address] PCP - General Family Medicine 08/25/18 documented as of this encounter
--- OUTSIDE RECORDS SUMMARY | 2024-07-08 11:55 | External Medical Summary | Summary of Care ---
Author Name Unknown Organization [facility] Address [address] [place] [address] Phone [phone] Care Team Providers Care Universal Grinder Tool Name Role Phone Joana Hood DO Primary Care Provider [phone] Reason for Visit * Reason Comments Follow Up * Evaluate & Treat - Unlimited Visits (Within 10 days (routine)) - Authorized Specialty Diagnoses / Procedures Referred By Contac t Referred To Contact Cardiovascular Medicine / Cardiology Diagnoses Persistent atrial fibrillation (HCC) Joana Hood DO [address] [facility] [place] [address] Phone: tel: fax: Angel Hood DO [address] [facility] [place] [address] Phone: tel:[phone] fax:[phone] Referral ID Status Reason Start Date Expiration Date Visits Requested Visits Authorized [id number] Authorized Specialty Services Required 05/24/2024 [id number] Encounter Details Date Type Department Care Team (Late st Contact Info) Description 05/26/2024 11:00 AM EST Office Visit Cardiology, [facility] [address] [place] [address] Shaylee Rose PA-C [address] [place] [address] Persistent atrial fibrillation (HCC)*; HTN, goal below 130/80; Enlarged aorta (HCC); Heart palpitations Allergies Active Allergy Reactions Criticality Noted Date Comments Propoxyphene N-Acetaminophen Nausea/vomiting High 03/13/2013 Naproxen 07/26/2011 Rash and edema Percocet 04/08/2005 nausea Phenytoin Sodium 06/07/2000 IV caused red streaks up her arm. Polymyxin B-Trimethoprim Other (Please comment) 12/06/2013 Burning, itchy and very red. documented as of this encounter (statuses as of 05/26/2024) Medications MULTIVITAL PO TABS daily 0 0 11/19/19 07 Active RESTASIS 0.05 % OP EMUL Instill 1 Drop into both eyes in the morning and 1 Drop before bedtime. 02/11/20 13 Active CALCIUM + D3 600-200 MG-UNIT PO TABS one pill twice a day 1 Tab 0 12/18/19 14 Active Spironolactone 25 MG Oral Tablet (Aldactone)Kati cations:HTN, goal below 130/80 TAKE A HALF A TABLET BY MOUTH EVERY MORNING 45 Tablet 3 05/16/20 23 Active Montelukast Sodium 10 MG Oral Tablet (Singulair)Kati cations:Small airways disease TAKE 1 TABLET BY MOUTH EVERY DAY 90 Tablet 3 05/30/20 23 Active Additional Information Patient taking differently: 10 mg Oral HS, Reported on 05/26/2024 Rosuvastatin Calcium 40 MG Oral Tablet (Crestor)Indica tions:Dyslipide lala, goal LDL below 100 Take 1 Tablet by mouth in the morning. 90 Tablet 3 06/09/20 23 Active Wixela Inhub 250-50 MCG/ACT Inhalation Aerosol Powder Breath Activated (Fluticasone-Sa lmeterol)Indica tions:Other disorders of lung INHALE 1 PUFF BY MOUTH 2 TIMES A DAY. 180 Each 3 01/09/20 24 Active PHENobarbital 97.2 MG Oral Tablet TAKE 2 TABLETS BY MOUTH AT BEDTIME 60 Tablet 3 03/11/20 24 Active Benzonatate 100 MG Oral CapsuleIndicati ons:Sinobronchi tis Take 2 Capsules by mouth 3 times a day as needed for Cough. 60 Capsule 1 10/21/20 24 Active Additional Information Patient not taking.Reported on 05/26/2024 Albuterol Sulfate HFA 108 (90 Base) MCG/ACT Inhalation Aerosol SolutionIndicat ions:Small airways disease,Sinobro nchitis INHALE 2 PUFFS BY MOUTH EVERY 4 HOURS NEEDED FOR COUGH OR WHEEZING. WITH SPACER 54 g 3 04/12/20 Active Apixaban 5 MG Oral Tablet (Eliquis)Indica tions:Persisten t atrial fibrillation (HCC) Take 1 Tablet by mouth in the morning and 1 Tablet before bedtime. 180 Tablet 3 05/24/20 Active Metoprolol Succinate ER 25 MG Oral Tablet Extended Release 24 Hour (toPROL XL) Take 1 Tablet by mouth in the morning and 1 Tablet before bedtime. 60 Tablet 11 05/26/20 Active Acetaminophen ER 650 MG Oral Tablet Extended Release (Tylenol 8 Hour) Take 1 Tablet by mouth every 8 hours as needed. 2023 Discontinued(M edication List Clean Up) Metoprolol Succinate ER 25 MG Oral Tablet Extended Release 24 Hour (toPROL XL)Indications: HTN, goal below 130/80,Diastoli c dysfunction,Enl arged aorta (HCC),Heart palpitations Take 1 Tablet by mouth in the morning. 90 Tablet 3 05/24/20 24 2023 Discontinued documented as of this encounter (statuses as of 05/26/2024) Active Problems Problem Noted Date Diagnosed Date [...] as of this encounter (statuses as of 05/26/2024) Resolved Problems Problem Noted Date Diagnosed Date [...] as of this encounter (statuses as of 05/26/2024) Immunizations Name Administration Dates Next Due COVID-19 mRNA, LNP-s, No Pre serve, 2-Dose Series ([employer]) 05/05/2021,08/30/2020,08/09/2020 Pneumococcal Conjugate Vacc, 13 Valent (Prevnar) 03/12/2018 Pneumococcal Conjugate Vacci ne, 20-valent (Xaziazc00) 05/30/2023 Pneumococcal Polysaccharide PPV23 (Pneumovax) 10/18/2015 Season Influenza, Quad, PF, Adjuvanted, 65+ Yrs, IM (FLUAD) 04/17/2020 Seasonal Influenza Vac., MDV , IM, 0.5 mL (Fluzone) 04/18/2016 Seasonal Influenza, PF, 6 M & above, [...] AM EDT documented as of this encounter Last Filed Vital Signs Vital Sign Reading Time Taken Comments Blood Pressure 120/68 05/26/2024 11:08 AM EST Pulse 120 05/26/2024 11:08 AM EST Temperature - - Respiratory Rate - - Oxygen Saturation 98% 05/26/2024 11:08 AM EST Inhaled Oxygen Concentration - - Weight 105.2 kg (232 lb) 05/26/2024 11:08 AM EST Height - - Body Mass Index 36.34 05/24/2024 11:44 AM EST documented in this encounter Functional Status * Are you [...] of Assessment Author No 12/01/2023 12:47 PM Kludeep Hebert RN * Do you have difficulty [...] documented in this encounter Progress Notes * Shaylee Rose PA-C - 05/26/2024 1:09 PM EST Cardiology Acute Visit: 05/26/2024 Patient is a 73-year-old female here today for an acute Cardiology visit requested by her PCP. Lastclinic evaluation approximately 1 year ago with JESSIKA Kaur. Primary Market Development Director: Dr. Witt History includes: Heart palpitations secondary to sensed PACs seen on EKG Negative exercise stress echo 03/2018 Diastolic dysfunction, NYHA class 1 Hypertension Hyperlipidemia Hx of PE, on pradaxa since 2015 Obesity Enlarged aorta Hx of seizure disorder-- follows with neurology History of Present Illness The patient, with a history of heart palpitations due to sensed PACs, hypertension, dyslipidemia, obesity, and an enlarged ascending aorta, was recently diagnosed with atrial fibrillation. The onset of the current episode of rapid heartbeat was unclear to the patient, but it was noted tohave started around the time she fell ill in March. The illness was characterized by coughing, malaise, SOB, which lasted for about a month. Treated for bronchitis and respiratory illness with antibiotics. During this period, the patient sought medical attention at several providers and found herHR to be high dating back to March. EKG was not done at that time. In Apr 2024, patient was to see neurology and EKG was done there and demosntrated probable atrial fibrillation. She subsequently went to see her PCP earlier this week for abnormal EKG. Eliquis dose was increaed form 2.5 to 5 mg BID. She had been on low dose for many years due to remote PE. Metoprolol was also increased to 25 mg daily to aid with HR's. The patient reported that the rapid heartbeat has been less severe in the past week, but she still experiences a fluttering sensation and a feeling of the heart pounding harder. May 24. The patient also reported that she has been taking an pulse ox reading at home, with readings varying between 57 and 120. The patient also reported occasional lightheadedness but denied any chest pain. The patient did report occasional shortness of breath, particularly after climbing stairs. The patient also reported fluid retention, particularly in the ankles, but this has been mild. Her SOB/cough has also improved No chest pain HR is slightly higher today but she admits she only took 1/2 dose of the metoprolol at 12.5 mg. Review of Systems: See HPI for pertinent positives. All others negative, other than those noted in HPI. 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 Spironolactone 25 MG Oral Tablet (Aldactone) TAKE A HALF A TABLET BY MOUTH EVERY MORNING 45 Tablet 3 Montelukast Sodium 10 MG Oral Tablet (Singulair) TAKE 1 TABLET BY MOUTH EVERY DAY (Patient taking differently: Take 1 Tablet by mouth at bedtime.) 90 Tablet 3 Rosuvastatin Calcium 40 MG Oral Tablet (Crestor) Take 1 Tablet by mouth in the morning. 90 Tablet 3 Wixela Inhub 250-50 MCG/ACT Inhalation Aerosol Powder Breath Activated (Fluticasone-Salmeterol) INHALE 1 PUFF BY MOUTH 2 TIMES A DAY. 180 Each 3 PHENobarbital 97.2 MG Oral Tablet TAKE 2 TABLETS BY MOUTH AT BEDTIME 60 Tablet 3 Albuterol Sulfate HFA 108 (90 Base) MCG/ACT Inhalation Aerosol Solution INHALE 2 PUFFS BY MOUTH EVERY 4 HOURS NEEDED FOR COUGH OR WHEEZING. WITH SPACER 54 g 3 Apixaban 5 MG Oral Tablet (Eliquis) Take 1 Tablet by mouth in the morning and 1 Tablet before bedtime. 180 Tablet 3 Metoprolol Succinate ER 25 MG Oral Tablet Extended Release 24 Hour (toPROL XL) Take 1 Tablet by mouth in the morning and 1 Tablet before bedtime. 60 Tablet 11 MULTIVITAL PO TABS daily (Patient not taking: Reported on 05/10/2024) 0 0 CALCIUM + D3 600-200 MG-UNIT PO TABS one pill twice a day (Patient not taking: Reported on 05/10/2024) 1 Tab 0 Acetaminophen ER 650 MG Oral Tablet Extended Release (Tylenol 8 Hour) Take 1 Tablet by mouth every 8 hours as needed. Benzonatate 100 MG Oral Capsule Take 2 Capsules by mouth 3 times a day as needed for Cough. (Patient not taking: Reported on 05/26/2024) 60 Capsule 1 No current facility-administered medications for this visit. Physical Exam BP 120/68 | Pulse 120 | Wt 105.2 kg (232 lb) | LMP 05/01/2003 | SpO2 98% | BMI 36.34 kg/m | BSA 2.23 m General: No acute distress. A+Ox3. HEENT: Normocephalic. Atraumatic. Conjunctiva and sclera clear. NECK: No carotid bruits. No JVD. Carotid upstrokes are brisk. Heart: irregularly irregular, tachycardic. Soft systolic murmur Lungs: Clear to auscultation. No wheezes, rhonchi, rales. Abdomen: Normal bowel sounds. Soft. Nontender. No masses or organomegaly. No abdominal bruits. Extremities: No edema. No clubbing or cyanosis. Pulses: radial=2/4, posterior tibial=2/4, dorsalis pedis = 2/4. NEURO: No focal deficits. PSYCH: Normal. Lab data/imaging study review: EKG performed today and reviewed personally: Atrial fib/flutter with RVR at 120 bmp Old septal infarct EKG performed May 24, 2024: Atypical atrial flutter with variable AV block Possible Lateral infarct (cited on or before 18-Oct-2021) Abnormal ECG When compared with ECG of 10-May-2024 08:32, No significant change was found Echo report reviewed dated October 2023: Interpretation Summary The qualitative LV ejection fraction is 60-64% (normal). The LV wall thickness is mildly increased (concentric). The left atrium is mildly enlarged (35-41 ml/m^2). The left ventricular diastolic function is moderately abnormal (grade II). Moderate aortic valve sclerosis is present. Mild aortic valve regurgitation is present. There is moderate mitral annular calcification. Focal calcification involving the base of the anterior mitral valve leaflet. Mild mitral regurgitation is present. The aortic root is normal sized. The ascending aorta is mildly enlarged, 4.0 cm. Compared to prior study of 10/09/2022, there is no significant change. Echo 09/2022 The qualitative LV ejection fraction is 60-64% (normal). The LV wall thickness is mildly increased (concentric). The basal septum is thickened and angulated consistent with sigmoid septum. The left atrium is moderately enlarged (42-48 ml/m^2). The aortic valve has three leaflets. The aortic valve is mildly calcified. Mild aortic valve regurgitation is present. Aortic stenosis is absent. There is moderate mitral annular calcification. Focal calcification involving the base of the anterior mitral valve leaflet. Mild mitral regurgitation is present. The proximal ascending thoracic aorta is mildly enlarged. Echocardiogram November 08, 2021 The qualitative LV ejection fraction is 65-69% (normal). The LV wall thickness is mildly increased (concentric). The left atrium is moderately enlarged (42-48 ml/m^2). The left ventricular diastolic function is severely abnormal (grade III). The aortic valve is mildly calcified. There is aortic valve sclerosis without stenosis. Mild aortic valve regurgitation is present. Moderate posterior and anterior mitral annular calcification. Focal calcification involving the base of the anterior mitral valve leaflet. Mild mitral regurgitation is present. Mild ascending aortic enlargement, 4.1 cm (upper limits of normal in size). Compared to last available study changes are noted as follows: Mild ascending aortic enlargement present, the ascending aorta was not well visualized on the prior study for comparison JASON 03/2018 The primary indication after review was deemed appropriate and the examination was performed. The examination is adequate to evaluate the referral indication. The left ventricular cavity size is normal. The LV wall thickness is normal. Qualitative LV ejection Fraction = 60%. The left ventricular diastolic function is mildly abnormal (grade I). The stress test was terminated due to dyspnea. Blood pressure response to exercise was hypertensive. Heart rate response to stress was normal. The stress EKG response showed no evidence of ischemia. The exercise echocardiographic examination is normal without resting left ventricular wall motion abnormalities or inducible ischemia. Latest Reference Range & Units 05/30/23 09:41 05/24/24 13:48 Triglycerides <=174 mg/dL 118 126 Cholesterol <200 mg/dL 230 (H) 194 Non-HDL Cholesterol <=159 mg/dL 168 (H) 138 HDL Cholesterol >49 mg/dL 62 56 LDL Cholesterol <=129 mg/dL 144 (H) 113 (H): Data is abnormally high Latest Reference Range & Units 05/24/24 13:48 SODIUM 135 - 146 mmol/L 145 POTASSIUM 3.5 - 5.1 mmol/L 4.0 CHLORIDE 98 - 107 mmol/L 106 CO2 22 - 32 mmol/L 27 BUN 6 - 20 mg/dL 12 CREATININE 0.5 - 1.0 mg/dL 0.6 EGFR >=60 mL/min >90 ANION GAP 7 - 15 mmol/L 12 GLUCOSE 70 - 120 mg/dL 94 CALCIUM 8.4 - 10.2 mg/dL 9.1 Latest Reference Range & Units 05/24/24 13:48 TSH 0.27 - 4.20 uIU/mL 1.69 Assessment & Plan Atrial Fibrillation, persistent. Rates elevated Diagnosed in April following an EKG. Symptoms include rapid and irregular heartbeat, fluttering sensations, and occasional lightheadedness. Afib, likely started in March as HR was tachycardic during these "ill visits". Likely triggered by a respiratory illness in March. She was previously on low dose Eliquis due to history of remote PE. Discussed stroke risks and needfor full anticoagulation. PCP increased eliquis appropriately to 5 mg BID. She started this dose on05/25. Explained treatment options: rate control with medications and rhythm control, potentially with cardioversion. Cardioversion may be necessary if atrial fibrillation persists after four weeks onfull-dose anticoagulation. Discussed need for MANDO if cardioversion is attempted before four weeks of anticoagulation. Heart monitor will determine if atrial fibrillation is persistent or intermittent. She is having episodes of "low HR", so its possible she is having episodes of NSR/sinus bradycardia. -Await ZIO monitor - Increase metoprolol to 25 mg twice daily for rate control currently - Continue Eliquis 5 mg twice daily - Monitor heart rate and symptoms - Review heart monitor results once available to verify persistent atrial fib/flutter vs paroxysmal. - Perform echocardiogram on June 02 as scheduled. Evaluate LVEF and LA size (moderate per last echo). Will help determine ongoing plans for rate vs rhythm control. - Consider cardioversion if atrial fibrillation persists after four weeks on full-dose anticoagulation - Schedule follow-up appointment after echocardiogram to review results and determine next steps Hypertension Currently managed with metoprolol. Blood pressure today was 120/68 mmHg, within normal range. - Continue monitoring blood pressure - Adjust metoprolol dosage as needed based on heart rate and blood pressure readings Fluid Retention Mild fluid retention around the ankles, possibly related to heart condition. Managed with spironolactone. - Continue spironolactone as prescribed -If worsening edema occurs, consider adding loop diuretic - Monitor for changes in fluid retention Dilated ascending aorta at 4.1 per last echo -monitor on repeat echo Patient is being evaluated in the cardiology office for ongoing care/risk management for Afib; HTN;dyslipidemia I spent a total of 40 minutes on the date of service in preparation, delivery, and documentation ofthe care provided to Deedee Kinsey excluding any time spent in the performance of separately billed services. The patient agrees to the above plan and will call with additional questions or concerns. ER with all emergencies advised. Check-out note: Keep appt for echo next week F/U on Friday- can we use [employer] Fast past next Friday 11:30 1-2 week f/u (after echo) Shaylee Rose PA-C Department of Cardiology Text in this note was generated using an ambient documentation service. I discussed the use of a device to record and summarize our discussion today. All persons present during the encounter consented to its use. This chart was completed in part utilizing [employer] Speech Voice Recognition Software. Grammatical errors, random word insertions, prounoun errors, and incomplete sentences are an occasional consequence of this system due to software limitations, ambient noise, and hardware issues. Any formal questions or concerns about the content, text, or information contained within the body of this dictation should be directly addressed to the provider for clarification. documented in this encounter Nursing Notes * Mara Tyler CMA - 05/26/2024 11:06 AM EST Examination Room: 6 Name: Deedee Kinsey Date of : (1950) Reason for Visit: 6m Interim Hospitalization(s): none Problems/Concerns: Fast Hrs, palpitations, SOB Chest Pain/SOB: denied chest pain, does have SOB [facility] is a way you can talk to your provider online through e-mail. Would you like to sign up? I can activate it for you? ALREADY ACTIVE Patient was instructed to not get up on the exam table until directed and assisted by their provider; patient is to remain seated in the chair/ wheelchair/ exam table for fall prevention and safety reasons. Patient is aware to have assistance to step down off exam table with personnel. Patient voiced full comprehension of instructions. documented in this encounter Plan of Treatment Upcoming Encounters Date Type Department Care Team (Late st Contact Info) Description 05/27/2024 10:20 AM EST Office [facility] [address] [facility] [place] [phone] Della Brito PA-C [address] [place] [address] [place] [address] 06/02/2024 10:00 AM EST Cardiac Studies Cardiac Studies, [facility] [address] [place] [address] 06/04/2024 11:30 AM EST Office Visit Cardiology, [facility] [address] [place] [address] Rebekah Singh CRNP [address] [place] [address] 06/29/2024 11:15 AM EST Office Visit Dermatology [facility] [address] [facility] [place] [address] Roman Myers MD [address] [place] [address] 11/25/2024 10:00 AM EDT Office Visit Orthopaedics [facility] [address] [place] [address] Hugo Alfonso DO [address] [place] [address] 12/01/2024 11:30 AM EDT [facility] [address] [facility] [place] [phone] Joana Hood, DO [address] [place] [address] 01/04/2025 2:00 PM EDT Office Visit Hematology/Oncology [facility] [address] [facility] [place] [phone] Elida Ortiz CRNP [address] [facility] [place] [address] 05/16/2025 8:00 AM EST Office Visit Neurology [facility] [address] [facility] [address] [place] [address] Eulogio Augustine MD [address] [facility] [place] [address] Scheduled Orders Name Type Priority Associated Diagnoses Orde r Schedule EKG EKG Routine Persistent atrial fibrillation (HCC) Expected: 05/26/2024 (Approximate), Expires: 06/26/2025 Scheduled Procedures Name Priority Associated Diagnoses Date/Ti [...] Vaccine ( season) 2024 05/05/2021, 08/30/2020, 08/09/2020 Influenza Vaccine (FLU shot) (#1) 2024 05/30/2023, 04/24/2022, 05/23/2021, Additional history exists Mammogram 09/03/2024 09/04/2023, 08/21, 08/29/2022, Additional history exists HbA1c 11/04/2024 11/05/2023, 11/19/2022 Lipid Panel 05/24/2029 05/24/2024, 1201/2023, 04/29/2023, Additional history exists DTap/Tdap Vaccines (3 - Td or Tdap) 07/04/2033 07/04/2023, 02/10/2013, 05/24/2002, Additional history exists Hepatitis B Vaccine Completed 09/26/1998, 06/29/1998, 04/25/1998 DXA Scan Discontinued 05/03/2013 Zoster Vaccines Completed 08/22/2022, 03/25/2022 Pneumococcal Vaccine: 65+ Years Completed 05/30/2023, 03/12/2018, 10/18/2015 HPV (Gardasil) Vaccine Aged Out No lo nger eligible based on patient's age to complete this topic MENINGOCOCCAL (MENACTRA/MENVEO) Aged Out No longer eligible based on patient's age to complete this topic documented as of this encounter Medical Devices Implanted Type Area Biological Science Technician Device Identifier Shelf Expiration Date Model / Serial / Lot Knee Triathlon Bead No Laz R 5 - [id number] Implanted:Qty: 1 on 12/16/2022 by Hugo Alfonso, DO at [facility] Right: Knee BOB : ORTH[employer] 11/19/2027 5517-F-502 / / [id number] Baseplate #5 Tritanium - [id number] Implanted:Qty: 1 on 12/16/2022 by Hugo Alfonso, DO at [facility] Right: Knee BOB : ORTHOPA[employer] 09/28/2027 5536-B-500 / / [id number] Hamill Triathlon X3 Tibial Bearing Insert - Cs Implanted:Qty: 1 on 12/16/2022 by Hugo Alfonso, DO at [facility] Right: Knee BOB : ORTH[employer] 04/18/2027 5531-G-[id number] -[id number] / / [id number] Knee Baseplate Tri Tib Sz 4 - [id number] Implanted:Qty: 1 on 12/01/2023 by Hugo Alfonso, DO at [facility] Left: Knee BOB : ORTH[employer]ICS 04/30/2027 5521-B-400 / / [id number] Knee Triathlon Bead No Laz L 5 - [id number] Implanted:Qty: 1 on 12/01/2023 by Hugo Alfonso DO at [facility] Left: Knee BOB : ORTHOPA[employer] 10/27/2028 5517-F-[id number] / / [id number] Cement Bone Simplex Hv & G - [id number] Implanted:Qty: 1 on 12/01/2023 by Hugo Alfonso DO at [facility] Left: Knee BOB : ORTH[employer]ICS 02/20/2025 [id number] / / [id number] Triathlon X3 Tibial Bearing Insert - Cs Implanted:Qty: 1 on 12/01/2023 by Hugo Alfonso DO at [facility] Left: Knee BOB : ORTHOPA[employer]ICS 09/14/2028 5531-G-[id number] -[id number] / / [id number] documented as of this encounter Visit Diagnoses Diagnosis Persistent atrial fibrillation (HCC)- Primary Atrial fibrillation HTN, goal below 130/80 Unspecified essential hypertension Enlarged aorta (HCC) Other specified disorders of arteries and arterioles Heart palpitations Palpitations Multiple nevi- Primary Benign neoplasm of skin, site unspecified Skin exam, screening for cancer Screening for malignant neoplasm of the skin Seborrheic keratosis Other seborrheic keratosis Lentigines Other dyschromia Pickard angioma Nevus, non-neoplastic documented in this encounter Advance Directives * [...] Advance Directives occurred with: Patient Care Teams Universal Grinder Tool Relationship Specialty Start Date End Date Joana Hood DO [address] [place] [address] PCP - General Family Medicine 08/25/18 documented as of this encounter
--- OUTSIDE RECORDS SUMMARY | 2024-07-08 11:55 | External Medical Summary | Summary of Care ---
Author Name Unknown Organization [facility] Address [address] [place] [address] Phone [phone] Care Team Providers Care Recruitment And Outreach Assistant Name Role Phone Joana Hood DO Primary Care Provider Encounter Details Date Type Department Care Team (Late st Contact Info) Description 06/07/2024 Orders Only Unspecified Department Rebekah Singh CRNP [address] [place] [address] Allergies Active Allergy Reactions Criticality Noted Date Comments Propoxyphene N-Acetaminophen Nausea/vomiting High 03/13/2013 Naproxen 07/26/2011 Rash and edema Percocet 04/08/2005 nausea Phenytoin Sodium 06/07/2000 IV caused red streaks up her arm. Polymyxin B-Trimethoprim Other (Please comment) 12/06/2013 Burning, itchy and very red. documented as of this encounter (statuses as of 06/07/2024) Medications MULTIVITAL PO TABS Take by mouth. [...] as of this encounter (statuses as of 06/07/2024) Active Problems Problem Noted Date Diagnosed Date [...] as of this encounter (statuses as of 06/07/2024) Resolved Problems Problem Noted Date Diagnosed Date [...] as of this encounter (statuses as of 06/07/2024) Immunizations Name Administration Dates Next Due COVID-19 mRNA, LNP-s, No Pre serve, 2-Dose Series (Dinglepharb) 05/05/2021,08/30/2020,08/09/2020 Pneumococcal Conjugate Vacc, 13 Valent (Prevnar) 03/12/2018 Pneumococcal Conjugate Vacci ne, 20-valent ([id number]) 05/30/2023 Pneumococcal Polysaccharide PPV23 (Pneumovax) 10/18/2015 Season [...] Date Author No 12/01/2023 12:47 PM EDT Kuldeep Garsia RN documented in this encounter Plan of Treatment Upcoming Encounters Date Type Department Care Team (Late st Contact Info) Description 06/29/2024 11:15 AM EST Office Visit Dermatology [facility] [address] [facility] [place] [address] Roman Myers MD [address] [facility] [place] [address] 09/02/2024 9:00 AM EDT Office Visit Cardiology, [facility] [address] [place] [address] Rebekah Singh CRNP [address] [place] [address] 11/25/2024 10:00 AM EDT Office Visit Orthopaedics [facility] [address] [place] [address] Hugo Alfonso, DO [address] [facility] [place] [address] 12/01/2024 11:30 AM EDT Office Visit [facility] [address] [place] [phone] Joana Hood, DO [address] [facility] [place] [address] 01/04/2025 2:00 PM EDT Office Visit Hematology/Oncology [facility] [address] [place] [phone] Elida Ortiz CRNP [address] [place] [address] 05/16/2025 8:00 AM EST Office Visit Neurology [facility] [address] [place] [address] Eulogio Augustine MD [address] [facility] [place] [address] Scheduled Procedures Name Priority Associated Diagnoses Date/Ti [...] this encounter Medical Devices Implanted Type Area Dock Grader Device Identifier Shelf Expiration Date Model / Serial / Lot Knee Triathlon Bead No Laz R 5 - [id number] Implanted:Qty: 1 on 12/16/2022 by Hugo Alfonso DO at OR [facility] Right: Knee BOB : ORTHOPAEDICS 11/19/2027 5517-F-502 / / [id number] Baseplate #5 Tritanium - [id number] Implanted:Qty: 1 on 12/16/2022 by Hugo Alfonso DO at OR [facility] Right: Knee BOB : ORTHOPAEDICS 09/28/2027 5536-B-500 / / [id number] [place] Triathlon X3 Tibial Bearing Insert - Cs Implanted:Qty: 1 on 12/16/2022 by Hugo Alfonso DO at OR [facility] Right: Knee BOB : ORTHOPAEDICS 04/18/2027 5531-G-512 -E / / [id number] Knee Baseplate Tri Tib Sz 4 - [id number] Implanted:Qty: 1 on 12/01/2023 by Hugo Alfonso DO at OR [facility] Left: Knee BOB : ORTHOPAEDICS 04/30/2027 5521-B-400 / / [id number] Knee Triathlon Bead No Laz L 5 - [id number] Implanted:Qty: 1 on 12/01/2023 by Hugo Alfonso DO at OR [facility] Left: Knee BOB : ORTHOPAEDICS 10/27/2028 5517-F-501 / / [id number] Cement Bone Simplex Hv & G - [id number] Implanted:Qty: 1 on 12/01/2023 by Hugo Alfonso DO at OR [facility] Left: Knee BOB : ORTHOPAEDICS 02/20/2025 6195-1-010 / / [id number] Triathlon X3 Tibial Bearing Insert - Cs Implanted:Qty: 1 on 12/01/2023 by Hugo Alfonso DO at OR [facility] Left: Knee BOB : ORTHOPAEDICS 09/14/2028 5531-G-410 -E / / [id number] documented as of this encounter Procedures Procedure Name Priority Date/Time Associated Diagnosis Comments NM MYOCARDIAL PERFUSION IMAGING SPECT MULTIPLE STUDIES WITH PHARMACOLOGIC INTERVENTION Routine 06/07/2024 10:45 AM EST documented in this encounter Results * NM MYOCARDIAL PERFUSION IMAGING SPECT MULTIPLE STUDIES WITH PHARMACOLOGIC INTERVENTION (06/07/2024 10:45 AM EST) 06/07/2024 10:4 5 AM EST Rebekah ROSEN [facility] NUCLEAR MED Final R esult [facility] CARDIOLOG[facility] documented in this encounter Advance Directives * [...] Advance Directives occurred with: Patient Care Teams Recruitment And Outreach Assistant Relationship Specialty Start Date End Date Joana Hood DO [address] [facility] [address] PCP - General Family Medicine 08/25/18 documented as of this encounter
--- OUTSIDE RECORDS SUMMARY | 2024-07-08 11:55 | External Medical Summary | Summary of Care ---
Author Name Unknown Organization [facility] Address [address] [place] [address] Phone [phone] Care Team Providers Care Sales Technician Name Role Phone Joana Hood DO Primary Care Provider Reason for Visit * Reason Comments eRx-Medication Refill Encounter Details Date Type Department Care Team (Late st Contact Info) Description 06/10/2024 Refill Cardiology, [facility] [address] [place] [address] Rebekah Berger CRNP [address] [place] [address] Encounter for long-term (current) use of medications*; HTN, goal below 130/80 Allergies Active Allergy Reactions Criticality Noted Date Comments Propoxyphene N-Acetaminophen Nausea/vomiting High 03/13/2013 Naproxen 07/26/2011 Rash and edema Percocet 04/08/2005 nausea Phenytoin Sodium 06/07/2000 IV caused red streaks up her arm. Polymyxin B-Trimethoprim Other (Please comment) 12/06/2013 Burning, itchy and very red. documented as of this encounter (statuses as of 06/13/2024) Medications MULTIVITAL PO TABS Take by mouth. 0 0 11/19/19 07 Active RESTASIS 0.05 % OP EMUL Instill 1 Drop into both eyes in the morning and 1 Drop before bedtime. 02/11/20 13 Active CALCIUM + D3 600-200 MG-UNIT PO TABS Take 1 Tablet by mouth. 1 Tab 0 12/18/19 14 Active Rosuvastatin Calcium 40 MG Oral Tablet (Crestor)Indicat [...] 03/11/20 24 Active Benzonatate 100 MG Oral CapsuleIndicatio ns:Sinobronchiti s Take 2 Capsules by mouth 3 times a day as needed for Cough. 60 Capsule 1 04/12/20 24 Active Albuterol Sulfate HFA 108 (90 Base) MCG/ACT Inhalation Aerosol SolutionIndicati ons:Small airways disease,Sinobron chitis INHALE 2 PUFFS BY MOUTH EVERY 4 HOURS NEEDED FOR COUGH OR WHEEZING. WITH SPACER 54 g 3 04/12/20 24 Active Apixaban 5 MG Oral Tablet (Eliquis)Indicat ions:Persistent atrial fibrillation (HCC) Take 1 Tablet by mouth in the morning and 1 Tablet before bedtime. 180 Tablet 3 05/24/20 24 Active Metoprolol Succinate ER 25 MG Oral Tablet Extended Release 24 Hour (toPROL XL) Take 1 Tablet by mouth in the morning and 1 Tablet before bedtime. 60 Tablet 11 05/26/20 24 Active Montelukast Sodium 10 MG Oral Tablet (Singulair)Indic ations:Small airways disease TAKE 1 TABLET BY MOUTH EVERY DAY 90 Tablet 3 06/11/20 24 Active Spironolactone 25 MG Oral Tablet (Aldactone)Indic ations:HTN, goal below 130/80 TAKE A HALF A TABLET BY MOUTH EVERY MORNING 45 Tablet 3 06/13/20 24 Active Spironolactone 25 MG Oral Tablet (Aldactone)Indic ations:HTN, goal below 130/80 TAKE A HALF A TABLET BY MOUTH EVERY MORNING 45 Tablet 3 05/16/20 23 024 Discontinued documented as of this encounter (statuses as of 06/13/2024) Active Problems Problem Noted Date Diagnosed Date [...] as of this encounter (statuses as of 06/13/2024) Resolved Problems Problem Noted Date Diagnosed Date [...] as of this encounter (statuses as of 06/13/2024) Immunizations Name Administration Dates Next Due COVID-19 mRNA, LNP-s, No Pre serve, 2-Dose Series (Pfizer) 05/05/2021,08/30/2020,08/09/2020 Pneumococcal Conjugate Vacc, 13 Valent (Prevnar) 03/12/2018 Pneumococcal Conjugate Vacci ne, 20-valent ([id number]) 05/30/2023 Pneumococcal Polysaccharide PPV23 (Pneumovax) 10/18/2015 Season [...] encounter Miscellaneous Notes * Telephone Encounter - Rebekah Berger CRNP - 06/13/2024 3:56 PM EST Signed Prescriptions: Disp Refills Spironolactone 25 MG Oral Tablet (Aldacton*45 Tab*3 Sig: TAKE A HALF A TABLET BY MOUTH EVERY MORNING Authorizing Provider: REBEKAH BERGER * Telephone Encounter - Kennedy Elizondo RPh - 06/12/2024 3:43 PM ESTPending Prescriptions: Disp Refills Spironolactone 25 MG Oral Tablet (Aldacton*45 Tab*3 Sig: TAKE A HALF A TABLET BY MOUTH EVERY MORNING * Telephone Encounter - Kennedy Elizondo RP - 06/12/2024 3:41 PM EST Medication last prescribed by JESSIKA Wiley. Forwarding request to last provider seen in office. Pending Prescriptions: Disp Refills Spironolactone 25 MG Oral Tablet (Aldacto*45 Tab*3 Sig: TAKE A HALF A TABLET BY MOUTH EVERY MORNING Please approve if refill appropriate. Thank you, Kennedy Elizondo, PharmD Clinical Pharmacist [facility] [phone] 06/12/2024, 3:41 PM * Telephone Encounter - Kennedy Elizondo RPh - 06/12/2024 3:41 PM EST Magnesium lab ordered for next routine lab work. Kennedy Elizondo RPh [facility] Clinical Pharmacist Cardiology Department [phone] 06/12/2024,3:41 PM documented in this encounter Plan of Treatment Upcoming Encounters Date Type Department Care Team (Late st Contact Info) Description 06/29/2024 11:15 AM EST Office Visit Dermatology [facility] [address] [facility] [place] [address] Roman Myers MD [address] [facility] [place] [address] 09/02/2024 9:00 AM EDT Office Visit Cardiology, [facility] [address] [facility] [place] [address] Rebekah Berger CRNP [address] [facility] [place] [address] 11/25/2024 10:00 AM EDT Office Visit Orthopaedics [facility] [address] [facility] [place] [address] Hugo Alfonso DO [address] [place] [address] 12/01/2024 11:30 AM EDT Office Visit [facility], [facility] [address] [facility] [place] [phone] Joana Hood DO [address] [facility] [place] [address] 01/04/2025 2:00 PM EDT Office Visit Hematology/Oncology [facility] [address] [facility] [place] [phone] Elida Ortiz CRNP [address] [facility] [place] [address] 05/16/2025 8:00 AM EST Office Visit Neurology [facility] [address] [facility] [place] [address] Eulogio Augustine MD [address] [facility] [place] [address] Scheduled Orders Name Type Priority Associated Diagnoses Orde r Schedule MAGNESIUM Lab Routine Encounter for long-term (current) use of medications Expected: 08/07/2024 (Approximate), Expires: 06/12/2025 Scheduled Procedures Name Priority Associated Diagnoses Date/Ti [...] 11/04/2024 11/05/2023, 11/19/2022 Lipid Panel 05/24/2029 05/24/2024, 12/0 01/2023, 04/29/2023, Additional history exists DTap/Tdap Vaccines [...] this encounter Medical Devices Implanted Type Area Accounts Receivable Accountant Device Identifier Shelf Expiration Date Model / Serial / Lot Knee Triathlon Bead No Laz R 5 - [id number] Implanted:Qty: 1 on 12/16/2022 by Hugo Alfonso DO at OR [facility] Right: Knee BOB : ORTHOPAEDICS 11/19/2027 5517-F-502 / / [id number] Baseplate #5 Tritanium - [id number] Implanted:Qty: 1 on 12/16/2022 by Hugo Alfonso DO at OR [facility] Right: Knee BOB : ORTHOPAEDICS 09/28/2027 5536-B-500 / / [id number] [place] Triathlon X3 Tibial Bearing Insert - Cs Implanted:Qty: 1 on 12/16/2022 by Hugo Alfonso DO at OR [facility] Right: Knee BOB : ORTHOPAEDICS 04/18/2027 5531-G-512 -E / / [id number] Knee Baseplate Tri Tib Sz 4 - [id number] Implanted:Qty: 1 on 12/01/2023 by Hugo Alfonso DO at OR [facility] Left: Knee BOB : ORTHOPAEDICS 04/30/2027 5521-B-400 / / [id number] Knee Triathlon Bead No Laz L 5 - [id number] Implanted:Qty: 1 on 12/01/2023 by Hugo Alfonso DO at OR [facility] Left: Knee BOB : ORTHOPAEDICS 10/27/2028 5517-F-501 / / [id number] Cement Bone Simplex Hv & G - [id number] Implanted:Qty: 1 on 12/01/2023 by Hugo Alfonso DO at OR [facility] Left: Knee BOB : ORTHOPAEDICS 02/20/2025 6195-1-010 / / [id number] Triathlon X3 Tibial Bearing Insert - Cs Implanted:Qty: 1 on 12/01/2023 by Hugo Alfonso DO at OR [facility] Left: Knee BOB : ORTHOPAEDICS 09/14/2028 5531-G-410 -E / / [id number] documented as of this encounter Visit Diagnoses Diagnosis Encounter for long-term (current) use of medications- Primary Encounter for long-term (current) use of other medications HTN, goal below 130/80 Unspecified essential hypertension documented in this encounter Advance Directives * [...] Advance Directives occurred with: Patient Care Teams Sales Technician Relationship Specialty Start Date End Date Joana Hood DO PCP - General Family Medicine 08/25/18 documented as of this encounter
--- OUTSIDE RECORDS SUMMARY | 2024-07-08 11:55 | External Medical Summary | Summary of Care ---
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 Name Role Phone Joana Hood DO Primary Care Provider [phone] Reason for Referral * Precert (Within 10 days (routine)) - Authorized Specialty Diagnoses / Procedures Referred By Contac t Referred To Contact Radiology Diagnoses Persistent atrial fibrillation (HCC) Nonspecific abnormal electrocardiogram (ECG) (EKG) Procedures NM MYOCARD PERF IMG SPECT MULT STUDIES WITH PHARM INTERV Rebekah Singh CRNP [address] [place] [address] Phone: tel: fax: Referral ID Status Reason Start Date Expiration Date V isits Requested Visits Authorized [id number] Authorized Precert 06/04/2024 999 999 Reason for Visit * Reason Onset Date Comments Follow Up Medication Administration 06/04/2024 Flu an d/or Pneumo Inj Encounter Details Date Type Department Care Team (Latest Contact Info) Description 06/04/2024 11:30 AM EST Office Visit Cardiology, [facility] [address] [address] Rebekah Singh CRNP [address] [place] [address] Persistent atrial fibrillation (HCC)*; Nonrheumatic mitral valve regurgitation; Acute cough; Nonspecific abnormal electrocardiogram (ECG) (EKG); HTN, goal below 130/80; Enlarged aorta (HCC); Dyslipidemia, goal LDL below 100; Need for prophylactic vaccination and inoculation against influenza Allergies Active Allergy Reactions Criticality Noted Date [...] bedtime. 60 Tablet 11 05/26/20 24 Active Spironolactone 25 MG Oral Tablet (Aldactone)Indic ations:HTN, goal below 130/80 TAKE A HALF A TABLET BY MOUTH EVERY MORNING 45 Tablet 3 05/16/20 23 024 Discontinued Montelukast Sodium 10 MG Oral Tablet (Singulair)Indic ations:Small airways disease TAKE 1 TABLET BY MOUTH EVERY DAY 90 Tablet 3 05/30/20 23 024 Discontinued documented as of this [...] mRNA, LNP-s, No Pre serve, 2-Dose Series ([employer]Rock[employer]) 05/05/2021,08/30/2020,08/09/2020 Pneumococcal Conjugate Vacc, 13 Valent (Prevnar) 03/12/2018 Pneumococcal Conjugate Vacci ne, 20-valent ([id number]) 05/30/2023 Pneumococcal Polysaccharide PPV23 (Pneumovax) 10/18/2015 Season [...] Sign Reading Time Taken Comments Blood Pressure 124/84 06/04/2024 11:28 AM EST Pulse 116 06/04/2024 11:28 AM EST Temperature - - Respiratory Rate 16 06/04/2024 11:28 AM EST Oxygen Saturation - - Inhaled Oxygen Concentration - - Weight 105.2 kg (232 lb) 06/04/2024 11:28 AM EST Height - - Body Mass Index 36.34 05/24/2024 11:44 AM EST documented in this encounter Functional Status * Are you deaf or do you have serious difficulty hearing? Answer Date of Assessment Author No 12/01/2023 12:47 PM EDT Kuldeep Garsia RN * Are you blind or do [...] of Assessment Author No 12/01/2023 12:47 PM EDKuldeep Guerra RN * Because of a physical, mental, or emotional condition, do you have difficulty doing errands alone such as visiting a doctors office or shopping? (15 years old or older) Answer Date of Assessment Author No 12/01/2023 12:47 PM Kuldeep Heebrt RN documented as of this encounter Mental Status * Because of a physical, mental, or emotional condition, do you have serious difficulty concentrating, remembering, or making decisions? (5 years old or older) Answer Entry Date Author No 12/01/2023 12:47 PM Kuldeep Hebert RN documented in this encounter Patient Instructions * Patient Instructions* Rebekah Singh CRNP - 06/04/2024 12:20 PM EST Increase Metoprolol to 50mg mg twice daily. I will send a new prescription in Chest xray today due to cough Nuclear stress test as scheduled. Continue ALL other medications 5. We will contact you with your test results. documented in this encounter Progress Notes * Coco Bush CMA - 06/04/2024 11:43 AM EST PRE - ADMINISTRATION DOCUMENTATION Are you experiencing any cold symptoms or fever? No Have you had Guillain-[place] Syndrome (an illness that causes paralysis) within the last 6 weeks? No Have you had the flu shot in the past? YES Have you ever had a reaction to the flu shot? No Coco Bush CMA, 06/04/2024 11:43 AM Immunization Administration Documentation Time Out Procedure Performed: Yes Patient Identified (Ask Name/Date of ): Yes Does the patient have a fever greater than 101 degrees today? No Patient allergic to latex? No VFC Stock: No Immunization(s) verified: Yes, Immunization Name: Flu, VIS Sheet(s) given: Yes Verified Side and Site: Yes Verified Shot(s) with Parent(s)/Patient: Yes * Rebekah Singh CRNP - 06/04/2024 11:30 AM EST 06/04/2024 Cardiology Follow Up Primary Oracle R12 Developer: Dr. Witt Cardiac Problems: Heart palpitations secondary to sensed PACs seen on EKG Negative exercise stress echo 03/2018 Diastolic dysfunction, NYHA class 1 Hypertension Hyperlipidemia Hx of PE, on pradaxa since 2016 Obesity Enlarged aorta Hx of seizure disorder-- follows with neurology HPI: Deedee Kinsey is a 73 year old female presents for close follow up. She was last seen by Cardiology on 05/26/2024 for concerns of a rapid heart beat with newly diagnosed A-fib. Patient was placed on full dose anticoagulation and increased metoprolol. Zio and Echo were pending at that time. Patient presents today feeling well overall from a cardiac perspective She endorses a rare fluttering sensation but also notes that when she checks her pulse is seems to remain about 100-110 beats per minute Patient is noting a ongoing cough. She was recently treated approximately 1 month ago with doxycycline and a prednisone taper due to a suspected bronchitis Would like to review most recent Zio and echocardiogram results, discuss the pathophysiology of AFib as well as potential treatment plan Blood pressure today demonstrates good control Reports compliance on all medication therapies with no untoward effects. REVIEW OF SYSTEMS: See HPI for pertinent positives. All others negative other than those noted in the HPI. CONSTITUTIONAL: No change in weight, No weakness, No fatigue and No fevers, No sweats or chills. PULMONARY: No cough, sputum, or hemoptysis, No wheezing, No shortness or breath and No recent change in breathing. CARDIOVASCULAR: No chest pain, No dyspnea on exertion, No edema, No palpitations and No syncope. GASTROINTESTINAL: No abdominal pain, No change in bowel habits, No significant heartburn, No nausea, No vomiting, No diarrhea, No constipation, No blood in stools or black tarry stools. No dysphagia. HEMATOLOGIC: No abnormal bleeding and No bruising. NEUROLOGICAL: Normal balance, No headaches and No weakness. Review of patient's allergies indicates: Allergen Reactions Darvocet [Propoxyphene N-Acetaminophen] Nausea/vomiting Naprosyn [Naproxen] Rash and edema Percocet nausea Phenytoin Sodium IV caused red streaks up her arm. Polymyxin B-Trimethoprim Other (Please comment) Burning, itchy and very red. Current Outpatient Medications Medication Sig Dispense Refill MULTIVITAL PO TABS Take by mouth. 0 0 RESTASIS 0.05 % OP EMUL Instill 1 Drop into both eyes in the morning and 1 Drop before bedtime. CALCIUM + D3 600-200 MG-UNIT PO TABS Take 1 Tablet by mouth. 1 Tab 0 Spironolactone 25 MG Oral Tablet (Aldactone) TAKE [...] BY MOUTH AT BEDTIME 60 Tablet 3 Benzonatate 100 MG Oral Capsule Take 2 Capsules by mouth 3 times a day as needed for Cough. 60 Capsule 1 Albuterol Sulfate HFA 108 (90 Base) MCG/ACT [...] 1 Tablet before bedtime. 60 Tablet 11 No current facility-administered medications for this visit. 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) PONV (postoperative nausea and vomiting) Pulmonary embolism (HCC) 08/2015 Vertigo Family History Problem Relation Name Age of Onset Breast Cancer Sister 57 Breast Cancer Cousin (Maternal) 66 Social History Socioeconomic History Marital status: Spouse name: humera Number of children: 2 Tobacco Use Smoking status: Never Passive exposure: Past (Passive smoke as a child) Smokeless tobacco: Never Vaping Use Vaping status: Never Used Substance and Sexual Activity Alcohol use: Not Currently Comment: rare Drug use: No Sexual activity: Not Currently Other Topics Concern Service No Blood Transfusions No Caffeine Concern Yes Comment: 30 oz Occupational Exposure No Hobby Hazards No Sleep Concern No Stress Concern Yes Comment: sometimes work , variable Weight Concern No Special Diet No Back Care No Exercise Yes Comment: occ Bike Helmet No Seat Belt Yes Self-Exams Yes Comment: occ Social Needs Financial Resource Strain: Low Risk (10/22/2023) Financial Resource Strain Do you have any trouble paying for your medications, or do you think you might in the future? (Adult - for ages 18 years and over): No Food Insecurity: No Food Insecurity (12/01/2023) Food Insecurity Do you need food for this week? (Adult - for ages 18 years and over): No Transportation Needs: No Transportation Needs (12/01/2023) Transportation Needs Do you have trouble getting a ride to medical visits or work? (Adult - for ages 18 years and over):Never True Social Connections: Socially Integrated (10/22/2023) Social Connections How often do you feel lonely or isolated from those around you? (Adult - for ages 18 years and over): Never Housing Stability: Low Risk (12/01/2023) Housing Stability Do you currently live in a long term or have no steady place to sleep at night? (Adult - for ages 18 years and over): No Do you think you are at risk of becoming homeless? (Adult - for ages 18 years and over): No OBJECTIVE/PHYSICAL EXAMINATION: BP 124/84 (BP Site: Left Arm) | Pulse 116 | Resp 16 | Wt 105.2 kg (232 lb) | LMP 05/01/2003 | BMI 36.34 kg/m | BSA 2.23 m General: No acute distress. A+Ox3. HEENT: Normocephalic. Atraumatic. PERRL. EOMI. Conjunctiva and sclera clear. NECK: No carotid bruits. No JVD. Carotid upstrokes are brisk. Heart: RRR. S1 and S2 noted. No murmur. No rubs or gallops. PMI non displaced. Lungs: Clear to auscultation. No wheezes.No rhonchi. No rales. Abdomen: Normal bowel sounds. Soft. Nontender. No masses or organomegaly. No abdominal bruits. Extremities: No edema. No clubbing or cyanosis. Pulses: radial=2/4, posterior tibial=2/4, dorsalis pedis = 2/4. NEURO: No focal deficits. PSYCH: Appropriate affect and insight. DATA Labs & Imaging Reviewed Below: [facility] 05/10/2024 CONCLUSIONS: Duration: 13 days, 23 hours 1 run of Ventricular Tachycardia occurred lasting 4 beats with a max rate of 148 bpm (avg 142 bpm). Atrial Fibrillation/Flutter occurred continuously (100% burden), ranging from 62-158 bpm (avg of 113 bpm). Isolated VEs were rare (<1.0%, 278), VE Couplets were rare (<1.0%, 5), and VE Triplets were rare (<1.0%, 2). Ventricular Bigeminy was present. Rhythm strips demonstrate atrial flutter with rapid ventricular response. Frequent symptomatic events correlate with atrial flutter and rapid ventricular response. Echocardiogram 06/02/2024: Interpretation Summary There was atrial fibrillation with rapid response during the examination. The left ventricular cavity size is normal. The LV wall thickness is moderately increased (concentric). The left ventricular wall motion is normal. The qualitative LV ejection fraction is >70% (hyperdynamic). The left atrium is severely enlarged. Moderate aortic valve sclerosis is present. Moderate to severe mitral regurgitation is present. Mild tricuspid regurgitation is present. EKG performed 05/26/24 Atrial fib/flutter with RVR at 120 bmp [...] ventricular wall motion abnormalities or inducible ischemia. ASSESSMENT/PLAN: 73 year old year old female 1. Persistent atrial fibrillation (HCC) -reviewed pathophysiology behind atrial fibrillation and depth with patient at today's visit, reassured patient that the number one Most important goal is use of anticoagulation to prevent a thromboembolic event, and that our next goal is to control patient's heart rate -reviewed Zio monitor with patient which demonstrates that she is in fact in persistent atrial fibrillation/flutter 100% burden -recent echocardiogram demonstrates preserved LV function however her left atrium is severely dilated which leads us to suspect she has actually been in this rhythm for a long period of time -also with regards to echocardiogram she has moderate to severe mitral regurgitation which may likely be a contributing factor to her atrial fibrillation -Will also pursue nuclear stress testing given her persistent A-fib, and abnormal EKG -Unable to walk on a treadmill due to exercise intolerance and progressive valvular disease. - EKG COMPLETE (TRACING AND INTERP) - NM MYOCARD PERF IMG SPECT MULT STUDIES WITH PHARM INTERV; Future -Increase Toprol xl to 50mg PO BID 2. Nonrheumatic mitral valve regurgitation -Moderate to severe per echo. -Will continue to monitor with surveillance echo at one year. 3. Acute cough -Will check chest xray for acute infectious process. - XR CHEST 2 VIEWS 4. Nonspecific abnormal electrocardiogram (ECG) (EKG) -EKG suggestive of possible lateral infarct, no prior ischemic work up.will proceed with nuclear stress test in light of decreased exercise intolerance, persistent atrial fibrillation and moderate tosevere valvular disease. - NM MYOCARD PERF IMG SPECT MULT STUDIES WITH PHARM INTERV; Future 5. HTN, goal below 130/80 Controlled. Continue Toprol-XL, spironolactone as per current regimen 6. Enlarged aorta (HCC) -Stable on recent echo. Will repeat at one year interval. 7. Dyslipidemia, goal LDL below 100 -recommend yearly lipid panel Continue Crestor as per current regimen 8. Need for prophylactic vaccination and inoculation against influenza - INFLUENZA VAC., TRIVALENT, HD, PF, 65 AND ABOVE, 0.5 ML IM (FLUZONE HD) DISPOSITION: Follow up 3 months or if symptoms worsen/fail to improve. All questions were answered to the patients satisfaction. Patient advised to report to ED with any and all emergencies. The patient agrees to the above plan and will call with additional questions or concerns. JESSIKA Lorenzo [facility], [address] [address] I spent a total of 48 minutes on the date of service in preparation, delivery, and documentation ofthe care provided to Deedee Kinsey excluding any time spent in the performance of separately billed services. This chart was completed in part utilizing [employer] Speech Voice Recognition Software. Grammatical errors, random word insertions, pronoun errors, and incomplete sentences are an occasional consequence of this system due to software limitations, ambient noise, and hardware issues. Any formal questions or concerns about the content, text, or information contained within the body of this dictation should be directly addressed to the provider for clarification. documented in this encounter Procedure Notes * Angel Hood, - 06/04/2024 12:20 PM ESTAssociated Order(s): EKG COMPLETE (TRACING AND INTERP) REASON FOR STUDY: tachycardia, a-FIB;tachycardia, a-FIB CONCLUSIONS: Atrial flutter with variable A-V block Possible Lateral infarct (cited on or before 18-Oct-2021) Abnormal ECG When compared with ECG of 26-May-2024 11:17, No significant change was found Ventricular Rate: 117 Atrial Rate: 129 QRS Duration: 92 QT/QTc: 340/474 ms P-R-T [place]: 0 : 73 : -9 degrees documented in this encounter Nursing Notes * Coco Bush CMA - 06/04/2024 11:23 AM EST Examination Room: 7 Name: Deedee Kinsey Date of : (1950). Reason for Visit: follow-up Interim Hospitalization(s): denies Problems/Concerns: Concerned about afib Chest Pain/SOB: denies chest pain, occasional SOB on exertion [facility] Discussed: Not applicable [facility] is a way you can [...] comprehension of instructions. documented in this encounter Miscellaneous Notes * Result Encounter Note - Rebekah Singh CRNP - 06/05/2024 7:58 AM EST Chest xray negative for any signs of infection. Good news. documented in this encounter Plan of Treatment Upcoming Encounters Date Type Department Care Team (Late st Contact Info) Description 06/29/2024 11:15 AM EST Office Visit Dermatology [facility] [place] [address] [place] [address] Roman Myers MD [address] [place] [address] 09/02/2024 9:00 AM EDT Office Visit Cardiology, [facility] [address] [facility] [address] [place] [address] Rebekah Singh CRNP [address] [place] [address] 11/25/2024 10:00 AM EDT Office Visit Orthopaedics [facility] [address] [facility] [address] [place] [address] Hugo Alfonso, DO [address] [facility] [address] [place] [address] 12/01/2024 11:30 AM EDT [facility] [address] [facility] [phone] Joana Hood, DO [address] [facility] [address] 01/04/2025 2:00 PM EDT Office Visit Hematology/Oncology [facility] [address] [facility] [place], [place] [phone] Elida Ortiz CRNP [address] [place] [address] 05/16/2025 8:00 AM EST Office Visit Neurology [facility] [address] [facility] [place], [place] [address] Eulogio Augustine MD [address] [facility] [place], [address] [address] Scheduled Procedures Name Priority Associated Diagnoses Date/Ti me COLONOSCOPY FLEXIBLE PROXIMA L DIAGNOSTIC Recall Special screening for malignant neoplasms, colon Health Maintenance Due Date Last Done Comments Cologuard 1997 Sigmoidoscopy 1997 Fecal Occult Blood Test 09/12/2016 09/13/2015 Adult Wellness Visit 2018 Colonoscopy 02/11/2022 02/11/2019, 01/22, 12/11/2015, Additional history exists Colorectal Cancer Screening 02/11/2022 Depression Screening 10/18/2022 10/18/2021, 04/14/20 COVID-19 Vaccine ( season) 2024 05/05/2021, 08/30/2020, [...] this encounter Medical Devices Implanted Type Area Green Promotions Specialist Device Identifier Shelf Expiration Date Model / Serial / Lot Knee Triathlon Bead No Laz R 5 - [id number] Implanted:Qty: 1 on 12/16/2022 by Hugo Alfonso, DO at [facility] Right: Knee BOB : ORTHOPAEDICS 11/19/2027 5517-F-502 / / [id number] Baseplate #5 Tritanium - [id number] Implanted:Qty: 1 on 12/16/2022 by Hugo Alfonso, DO at [facility] Right: Knee BOB : ORTHOPAEDICS 09/28/2027 5536-B-500 / / [id number] Triathlon X3 Tibial Bearing Insert - Cs Implanted:Qty: 1 on 12/16/2022 by Hugo Alfonso DO at [facility] Right: Knee BOB : ORTHOPAEDICS 04/18/2027 5531-G-[id number] -[id number] / / [id number] Knee Baseplate Tri Tib Sz 4 - [id number] Implanted:Qty: 1 on 12/01/2023 by Hugo Alfonso DO at [facility] Left: Knee BOB : ORTHOPAEDICS 04/30/2027 5521-B-400 / / [id number] Knee Triathlon Bead No Laz L 5 - [id number] Implanted:Qty: 1 on 12/01/2023 by Hugo Alfonso DO at [facility] Left: Knee BOB : ORTHOPAEDICS 10/27/2028 5517-F-501 / / [id number] Cement Bone Simplex Hv & G - [id number] Implanted:Qty: 1 on 12/01/2023 by Hugo Alfonso DO at [facility] Left: Knee BOB : ORTHOPAEDICS 02/20/2025 [id number] / / [id number] Triathlon X3 Tibial Bearing Insert - Cs Implanted:Qty: 1 on 12/01/2023 by Hugo Alfonso DO at [facility] Left: Knee BOB : ORTHOPAEDICS 09/14/2028 5531-G-[id number] -[id number] / / [id number] documented as of this encounter Procedures Procedure Name Priority Date/Time Associated Diagnosis Comments XR CHEST 2 VIEWS Routine 06/04/2024 12:3 8 PM EST Acute cough NM ECG ROUTINE ECG W/LEAST 12 LDS W/I&R Routine 06/04/2024 12:20 PM EST Persistent atrial fibrillation (HCC) documented in this encounter Results * NM MYOCARD PERF IMG SPECT MULT STUDIES WITH PHARM INTERV (06/07/2024 12:57 PM EST) Narrative Scheduling, Silent - 06/07/2024 12:58 PM EST Results can be viewed in the patient's cardiology tab of Chart Review for this date of service. Rebekah ROSEN RAD NUCLEAR MED Final R esult * XR CHEST 2 VIEWS (06/04/2024 12:38 PM EST) Anatomical Region Laterality Modality Chest Computed Radiogr aphy 06/04/2024 6:04 PM EST Impressions 06/04/2024 6:02 PM EST IMPRESSION No evidence of acute cardiopulmonary disease. Narrative 06/04/2024 6:02 PM EST EXAM XR CHEST 2 VIEWS-06/04/2024 12:38 pm HISTORY acute URI and cough COMPARISON Chest radiograph 11/13/2023. TECHNIQUE PA and lateral views of the chest are examined. FINDINGS The lungs are clear. There is no pleural effusion. The pulmonary vasculature is within normal limits. Cardiomediastinal silhouette is stable. No acute osseous finding. Procedure Note Trell Jorgensen MD - 06/04/2024 EXAM XR CHEST 2 VIEWS-06/04/2024 12:38 pm HISTORY acute URI and cough COMPARISON Chest radiograph 11/13/2023. TECHNIQUE PA and lateral views of the chest are examined. FINDINGS The lungs are clear. There is no pleural effusion. The pulmonaryvasculature is within normal limits. Cardiomediastinal silhouette isstable. No acute osseous finding. IMPRESSION IMPRESSION No evidence of acute cardiopulmonary disease. Rebekah ROSEN RADIOLOGY (RAD GENERAL) Final Result * EKG COMPLETE (TRACING AND INTERP) (06/04/2024 12:20 PM EST) 06/04/2024 12:2 0 PM EST Narrative Procedure Note Angel Hood DO - 06/04/2024 12:20 PM EST REASON FOR STUDY: tachycardia, a-FIB;tachycardia, a-FIB CONCLUSIONS: Atrial flutter with variable A-V block Possible Lateral infarct (cited on or before 18-Oct-2021) Abnormal ECG When compared with ECG of 26-May-2024 11:17, No significant change was found Ventricular Rate: 117 Atrial Rate: 129 QRS Duration: 92 QT/QTc: 340/474 ms P-R-T [place]: 0 : 73 : -9 degrees Rebekah ROSEN EKG Final R esult [facility] documented in this encounter Visit Diagnoses Diagnosis Persistent atrial fibrillation (HCC)- Primary Atrial fibrillation Nonrheumatic mitral valve regurgitation Acute cough Nonspecific abnormal electrocardiogram (ECG) (EKG) HTN, goal below 130/80 Unspecified essential hypertension Enlarged aorta (HCC) Other specified disorders of arteries and arterioles Dyslipidemia, goal LDL below 100 Other and unspecified hyperlipidemia Need for prophylactic vaccination and inoculation against influenza Nonspecific abnormal electrocardiogram (ECG) (EKG)- Primary Persistent atrial fibrillation (HCC) Atrial fibrillation documented in this encounter Advance Directives * [...] Advance Directives occurred with: Patient Care Teams Plant Maintenance Mechanic Relationship Specialty Start Date End Date Joana Hood DO PCP - General Family Medicine 08/25/18 documented as of this encounter"
--- OUTSIDE RECORDS SUMMARY | 2024-07-08 11:55 | External Medical Summary | Summary of Care ---
Author Name Unknown Organization [facility] Address [address] [place] [address] Phone [phone] Care Team Providers Care Health Care Law Specialist Name Role Phone Joana Hood DO Primary Care Provider [phone] Reason for Visit * Reason Comments eRx-Medication Refill Encounter Details Date Type Department Care Team (Late st Contact Info) Description 06/13/2024 Refill Cardiology, [facility] [address] [place] [address] Rebekah Berger CRNP [address] [place] [address] Dyslipidemia, goal LDL below 100 Allergies Active Allergy Reactions Criticality Noted Date Comments Propoxyphene N-Acetaminophen Nausea/vomiting High 03/13/2013 Naproxen 07/26/2011 Rash and edema Percocet 04/08/2005 nausea Phenytoin Sodium 06/07/2000 IV caused red streaks up her arm. Polymyxin B-Trimethoprim Other (Please comment) 12/06/2013 Burning, itchy and very red. documented as of this encounter (statuses as of 06/15/2024) Medications MULTIVITAL PO TABS Take by mouth. 0 0 11/19/19 07 Active RESTASIS 0.05 % OP EMUL Instill 1 Drop into both eyes in the morning and 1 Drop before bedtime. 02/11/20 13 Active CALCIUM + D3 600-200 MG-UNIT PO TABS Take 1 Tablet by mouth. 1 Tab 0 12/18/19 14 Active Wixela Inhub 250-50 MCG/ACT Inhalation Aerosol [...] MORNING 45 Tablet 3 06/13/20 24 Active Rosuvastatin Calcium 40 MG Oral Tablet (Crestor)Indicat ions:Dyslipidemi a, goal LDL below 100 TAKE 1 TABLET BY MOUTH EVERY DAY IN THE MORNING 90 Tablet 3 06/15/20 24 Active Rosuvastatin Calcium 40 MG Oral Tablet (Crestor)Indicat ions:Dyslipidemi a, goal LDL below 100 Take 1 Tablet by mouth in the morning. 90 Tablet 3 06/09/20 23 024 Discontinued documented as of this encounter (statuses as of 06/15/2024) Active Problems Problem Noted Date Diagnosed Date [...] as of this encounter (statuses as of 06/15/2024) Resolved Problems Problem Noted Date Diagnosed Date [...] as of this encounter (statuses as of 06/15/2024) Immunizations Name Administration Dates Next Due COVID-19 mRNA, LNP-s, No Pre serve, 2-Dose Series ([employer]) 05/05/2021,08/30/2020,08/09/2020 Pneumococcal Conjugate Vacc, 13 Valent (Prevnar) 03/12/2018 Pneumococcal Conjugate Vacci ne, 20-valent ([id number]) 05/30/2023 Pneumococcal Polysaccharide PPV23 (Pneumovax) 10/18/2015 Season [...] 12:47 PM EDT Kuldeep Garsia RN documented as of this encounter Mental Status * Because of a physical, mental, or emotional condition, do you have serious difficulty concentrating, remembering, or making decisions? (5 years old or older) Answer Entry Date Author No 12/01/2023 12:47 PM EDT Kuldeep Garsia RN documented in this encounter Miscellaneous Notes * Telephone Encounter - Arlene Moody RPh - 06/15/2024 2:57 PM ESTSigned Prescriptions: Disp Refills Rosuvastatin Calcium 40 MG Oral Tablet (Cr*90 Tab*3 Sig: TAKE 1 TABLET BY MOUTH EVERY DAY IN THE MORNINGAuthorizing Provider: REBEKAH BERGER User: ARLENE MOODY documented in this encounter Plan of Treatment Upcoming Encounters Date Type Department Care Team (Late st Contact Info) Description 06/29/2024 11:15 AM EST Office Visit Dermatology [facility] [address] [place] [address] Roman Myers MD 200 [facility] [place] [address] 09/02/2024 9:00 AM EDT Office Visit Cardiology, [facility] 132 [facility] [place] [address] Rebekah Berger CRNP [address] [place] [address] 11/25/2024 10:00 AM EDT Office Visit Orthopaedics [facility] 132 [facility] [place] [address] Hugo Alfonso, DO [address] [place] [address] 12/01/2024 11:30 AM EDT Office [facility] [phone] Joana Hood, DO 226 [facility] [place] [address] 01/04/2025 2:00 PM EDT Office Visit Hematology/Oncology [facility] 200 [facility] [place] [phone] Elida Ortiz CRNP [address] [place] [address] 05/16/2025 8:00 AM EST Office Visit Neurology [facility] 200 [facility] [place] [address] Eulogio Augustine MD 200 [facility] [place] [address] Scheduled Procedures Name Priority Associated Diagnoses Date/Ti [...] this encounter Medical Devices Implanted Type Area Desktop Publishing Operator Device Identifier Shelf Expiration Date Model / Serial / Lot Knee Triathlon Bead No Laz R 5 - [id number] Implanted:Qty: 1 on 12/16/2022 by Hugo Alfonso, DO at OR [facility] Right: Knee BOB : ORTHOPAEDICS 11/19/2027 5517-F-502 / / [id number] Baseplate #5 Tritanium - [id number] Implanted:Qty: 1 on 12/16/2022 by Hugo Alfonso DO at OR [facility] Right: Knee BOB : ORTHOPAEDICS 09/28/2027 5536-B-500 / / [id number] [place] Triathlon X3 Tibial Bearing Insert - Cs Implanted:Qty: 1 on 12/16/2022 by Hugo Alfonso DO at OR [facility] Right: Knee BOB : ORTHOPAEDICS 04/18/2027 5531-G-512 -E / / [id number] Knee Baseplate Tri Tib Sz 4 - [id number] Implanted:Qty: 1 on 12/01/2023 by Hugo Alfonso DO at OR [facility] Left: Knee BOB : ORTHOPAEDICS 04/30/2027 5521-B-400 / / [id number] Knee Triathlon Bead No Laz L 5 - [id number] Implanted:Qty: 1 on 12/01/2023 by Hugo Alfonso DO at OR [facility] Left: Knee BOB : ORTHOPAEDICS 10/27/2028 5517-F-501 / / [id number] Cement Bone Simplex Hv & G - [id number] Implanted:Qty: 1 on 12/01/2023 by Hugo Alfonso DO at OR [facility] Left: Knee BOB : ORTHOPAEDICS 02/20/2025 6195-1-010 / / [id number] Triathlon X3 Tibial Bearing Insert - Cs Implanted:Qty: 1 on 12/01/2023 by Hugo Alfonso DO at OR [facility] Left: Knee BOB : ORTHOPAEDICS 09/14/2028 5531-G-410 -[id number] / / [id number] documented as of this encounter Visit Diagnoses Diagnosis Dyslipidemia, goal LDL below 100 Other and unspecified hyperlipidemia documented in this encounter Advance Directives * [...] Advance Directives occurred with: Patient Care Teams Health Care Law Specialist Relationship Specialty Start Date End Date Joana Hood DO PCP - General Family Medicine 08/25/18 documented as of this encounter
--- OUTSIDE RECORDS SUMMARY | 2024-07-08 11:55 | External Medical Summary | Summary of Care ---
Author Name Unknown Organization [facility] Address [address] [place] [address] Phone [phone] Care Team Providers Care Conference Services Director Name Role Phone Joana Hood DO Primary Care Provider Encounter Details Date Type Department Care Team (Late st Contact Info) Description 05/13/2024 Telephone [facility] [address] [place] [address] Joana Hood DO [address] [place] [id number] Allergies Active Allergy Reactions Criticality Noted Date Comments Propoxyphene N-Acetaminophen Nausea/vomiting High 03/13/2013 Naproxen 07/26/2011 Rash and edema Percocet 04/08/2005 nausea Phenytoin Sodium 06/07/2000 IV caused red streaks up her arm. Polymyxin B-Trimethoprim Other (Please comment) 12/06/2013 Burning, itchy and very red. documented as of this encounter (statuses as of 05/24/2024) Medications MULTIVITAL PO TABS daily 0 0 11/19/19 07 Active RESTASIS 0.05 % OP EMUL Instill 1 Drop into both eyes in the morning and 1 Drop before bedtime. 02/11/20 13 Active CALCIUM + D3 600-200 MG-UNIT PO TABS one pill twice a day 1 Tab 0 12/18/19 14 Active Spironolactone 25 MG Oral Tablet (Aldactone)Indic ations:HTN, goal below 130/80 TAKE A HALF A TABLET BY MOUTH EVERY MORNING 45 Tablet 3 05/16/20 23 Active Montelukast Sodium 10 MG Oral Tablet (Singulair)Indic ations:Small airways disease TAKE 1 TABLET BY MOUTH EVERY DAY 90 Tablet 3 05/30/20 23 Active Additional Information Patient taking differently: 10 mg Oral HS, Reported on 05/24/2024 Rosuvastatin Calcium 40 MG Oral Tablet (Crestor)Indicat ions:Dyslipidemi a, goal LDL below 100 Take 1 Tablet by mouth in the morning. 90 Tablet 3 06/09/20 23 Active Acetaminophen ER 650 MG Oral Tablet Extended Release (Tylenol 8 Hour) Take 1 Tablet by mouth every 8 hours as needed. Active Wixela Inhub 250-50 MCG/ACT Inhalation Aerosol [...] Cough. 60 Capsule 1 04/12/20 24 Active Additional Information Patient not taking.Reported on 05/24/2024 Albuterol Sulfate HFA 108 (90 Base) MCG/ACT Inhalation Aerosol SolutionIndicati ons:Small airways disease,Sinobron chitis INHALE 2 PUFFS BY MOUTH EVERY 4 HOURS NEEDED FOR COUGH OR WHEEZING. WITH SPACER 54 g 3 04/12/20 24 Active Apixaban 2.5 MG Oral Tablet (Eliquis)Indicat ions:Personal history of pulmonary embolism Take 1 Tablet by mouth in the morning and 1 Tablet before bedtime. 180 Tablet 3 05/28/20 23 024 Discontin ued(Disch arged) Metoprolol Succinate ER 25 MG Oral Tablet Extended Release 24 Hour (toPROL XL)Indications:H TN, goal below 130/80,Diastolic dysfunction,Enla rged aorta (HCC),Heart palpitations TAKE ONE-HALF TABLET BY MOUTH IN THE MORNING 45 Tablet 3 11/10/19 24 024 Discontin ued(Refil l) documented as of this encounter (statuses as of 05/24/2024) Active Problems Problem Noted Date Diagnosed Date S/P TKR (total knee replacement), left 4 [...] as of this encounter (statuses as of 05/24/2024) Resolved Problems Problem Noted Date Diagnosed Date [...] as of this encounter (statuses as of 05/24/2024) Immunizations Name Administration Dates Next Due COVID-19 mRNA, LNP-s, No Pre serve, 2-Dose Series (Actifio) 05/05/2021,08/30/2020,08/09/2020 Hepatitis B, 20+ yrs 09/26/1998,06/29/1998,04/25 Pneumococcal Conjugate Vacc, 13 Valent (Prevnar) 03/12/2018 Pneumococcal Conjugate Vacci ne, 20-valent ([id number]) 05/30/2023 Pneumococcal Polysaccharide PPV23 (Pneumovax) 10/18/2015 Season Influenza, Quad, PF, Adjuvanted, 65+ Yrs, IM (FLUAD) 04/17/2020 Seasonal Influenza Vac., MDV , IM, 0.5 mL (Fluzone) 04/18/2016 Seasonal Influenza, PF, 6 M & above, IM , (FluLaval or Fluzone) 03/12/2018,04/14/2017 04/14/2018 Seasonal Influenza, Quadriva lent Hd (Fluzone Hd) 05/30/2023,04/24/2022,05/23/2021 Seasonal Influenza, Trivalen t, Adjuvanted, 65+ YRS, PF, (Fluad) 05/04/2019 TD - Tetanus/Diptheria (ADULT) 05/24/2002,1991 TDAP (age 10 and older)(Boostrix) 07/04/2023, Zoster [...] No 10/22/2023 Does the household have a brighton hospitalr source of income? (Household - for [...] encounter Miscellaneous Notes * Telephone Encounter - Della Pate OSA - 05/24/2024 4:50 PM EST Patient was seen today (05/24/2024) * Telephone Encounter - Joana Hood DO - 05/13/2024 11:42 AM EST Please make an acute visit for pt for new onset A FIb. * Telephone Encounter - Joana Hood DO - 05/13/2024 11:42 AM EST ----- Message from Eulogio Augustine MD sent at 05/11/2024 10:28 AM EST ----- Joana the official interpretation is that of probable atrial fib I have told the [facility]ed[facility] to continue the zio to get a fci tracing and determine how fast or slow her rate gets over a longer period of time Since this came on during a viral illness she might need an echo She did a one time at home test for covid early on and did not repeat it so covid might have been involved but the issue islikely academic to a large degree She does see cardiology so maybe an earlier return visit after the zio is done may be helpful Eulogio ----- Message ----- From: Interface, Collar Turner Sent: 05/10/2024 3:57 PM EST To: Eulogio Augustine MD documented in this encounter Plan of Treatment Upcoming Encounters Date Type Department Care Team (Late st Contact Info) Description 05/26/2024 11:00 AM EST Office Visit Cardiology, [facility] [address] [place] [address] Shaylee Rose PA-C [address] [place] [address] 05/27/2024 10:20 AM EST [facility] [address] [facility] [place] [phone] Della Brito PA-C [address] [place] [address] [place] [address] 06/02/2024 10:00 AM EST Cardiac Studies Cardiac Studies, [facility] [address] [place] [address] 06/29/2024 11:15 AM EST Office Visit Dermatology [facility] [address] [place] [address] Roman Myers MD 200 [facility] [place] [address] 11/25/2024 10:00 AM EDT Office Visit Orthopaedics [facility] [address] [place] [address] Hugo Alfonso DO [address] [place] [address] 12/01/2024 11:30 AM EDT Office Visit [facility] 226 [facility] [place] [phone] Joana Hood, DO [address] [place] [address] 01/04/2025 2:00 PM EDT Office Visit Hematology/Oncology [facility] 200 [facility] [place] [phone] Elida Ortiz CRNP [address] [facility] [place] [address] 05/16/2025 8:00 AM EST Office Visit Neurology [facility] 200 [facility] [place] [address] Eulogio Augustine MD 200 [facility] [place] [address] Scheduled Procedures Name Priority Associated Diagnoses Date/Ti [...] exists HbA1c 11/04/2024 11/05/2023, 11/19/2022 Lipid Panel 05/30/2028 05/30/2023, 11/0 12/2022, 05/31/2022, Additional history exists DTap/Tdap Vaccines (3 - [...] this encounter Medical Devices Implanted Type Area Coat Joiner Lockstitch Device Identifier Shelf Expiration Date Model / Serial / Lot Knee Triathlon Bead No Laz R 5 - [id number] Implanted:Qty: 1 on 12/16/2022 by Hugo Alfonso DO at OR [facility] Right: Knee BOB : ORTHOPAEDICS 11/19/2027 5517-F-502 / / [id number] Baseplate #5 Tritanium - [id number] Implanted:Qty: 1 on 12/16/2022 by Hugo Alfonso DO at OR [facility] Right: Knee BOB : ORTHOPAEDICS 09/28/2027 5536-B-500 / / [id number] [place] Triathlon X3 Tibial Bearing Insert - Cs Implanted:Qty: 1 on 12/16/2022 by Hugo Alfonso DO at OR [facility] Right: Knee BOB : ORTHOPAEDICS 04/18/2027 5531-G-512 -E / / [id number] Knee Baseplate Tri Tib Sz 4 - [id number] Implanted:Qty: 1 on 12/01/2023 by Hugo Alfonso DO at OR [facility] Left: Knee BOB : ORTHOPAEDICS 04/30/2027 5521-B-400 / / [id number] Knee Triathlon Bead No Laz L 5 - [id number] Implanted:Qty: 1 on 12/01/2023 by Hugo Alfonso DO at OR [facility] Left: Knee BOB : ORTHOPAEDICS 10/27/2028 5517-F-501 / / [id number] Cement Bone Simplex Hv & G - [id number] Implanted:Qty: 1 on 12/01/2023 by Hugo Alfonso DO at OR [facility] Left: Knee BOB : ORTHOPAEDICS 02/20/2025 6195-1-010 / / [id number] Triathlon X3 Tibial Bearing Insert - Cs Implanted:Qty: 1 on 12/01/2023 by Hugo Alfonso DO at OR [facility] Left: Knee BOB : ORTHOPAEDICS 09/14/2028 5531-G-410 [...] Advance Directives occurred with: Patient Care Teams Conference Services Director Relationship Specialty Start Date End Date Joana Hood DO [address] [place] [address] PCP - General Family Medicine 08/25/18 documented as of this encounter
--- OUTSIDE RECORDS SUMMARY | 2024-07-08 11:55 | External Medical Summary | Summary of Care ---
Author Name Unknown Organization [facility] Address [address] [place] [address] Phone [phone] Care Team Providers Care Lidar Analyst Name Role Phone Erwin Joananabila Wright DO Primary Care Provider Reason for Visit * Reason Onset Date Comments Test Results 06/09/2024 Encounter Details Date Type Department Care Team (Late st Contact Info) Description 06/09/2024 Telephone Cardiology, [facility] [address] [place] [address] Rebekah Singh CRNP [address] [place] [address] Test Results Allergies Active Allergy Reactions Criticality Noted Date Comments Propoxyphene N-Acetaminophen Nausea/vomiting High 03/13/2013 Naproxen 07/26/2011 Rash and edema Percocet 04/08/2005 nausea Phenytoin Sodium 06/07/2000 IV caused red streaks up her arm. Polymyxin B-Trimethoprim Other (Please comment) 12/06/2013 Burning, itchy and very red. documented as of this encounter (statuses as of 06/09/2024) Medications MULTIVITAL PO TABS Take by mouth. [...] as of this encounter (statuses as of 06/09/2024) Active Problems Problem Noted Date Diagnosed Date [...] as of this encounter (statuses as of 06/09/2024) Resolved Problems Problem Noted Date Diagnosed Date [...] as of this encounter (statuses as of 06/09/2024) Immunizations Name Administration Dates Next Due COVID-19 mRNA, LNP-s, No Pre serve, 2-Dose Series (A vida é feita de [place]con[place]) 05/05/2021,08/30/2020,08/09/2020 Pneumococcal Conjugate Vacc, 13 Valent (Prevnar) 03/12/2018 Pneumococcal Conjugate Vacci ne, 20-valent ([id number]) 05/30/2023 Pneumococcal Polysaccharide PPV23 (Pneumovax) 10/18/2015 Season [...] Assessment Author No 12/01/2023 12:47 PM Nabila Hebert, RN documented as of this encounter Mental Status * Because of a physical, mental, or emotional condition, do you have serious difficulty concentrating, remembering, or making decisions? (5 years old or older) Answer Entry Date Author No 12/01/2023 12:47 PM EDT Nabila Garsia RN documented in this encounter Miscellaneous Notes * Telephone Encounter - Alciia Laboy LPN - 06/09/2024 8:25 AM EST [employer]down[employer] message sent. * Telephone Encounter - Alicia Laboy LPN - 06/09/2024 8:24 AM EST ----- Message from Rebekah Singh sent at 06/09/2024 5:10 AM EST ----- Please advise patient of the following: Stress test is negative, meaning no evidence of any blockages in the blood vessels that feed the heart. Great news! documented in this encounter Plan of Treatment Upcoming Encounters Date Type Department Care Team (Late st Contact Info) Description 06/29/2024 11:15 AM EST Office Visit Dermatology [facility] [address] [place] [address] Roman Myers MD 200 [facility] [place] [address] 09/02/2024 9:00 AM EDT Office Visit Cardiology, [facility] 132 [facility] [place] [address] Rebekah Singh CRNP [address] [place] [address] 11/25/2024 10:00 AM EDT Office Visit Orthopaedics [facility] [address] [place] [address] Hugo Alfonso, DO [address] [place] [address] 12/01/2024 11:30 AM EDT Office Visit [facility] [address] [facility] [place] [phone] Joana Hood, DO [address] [facility] [place] [address] 01/04/2025 2:00 PM EDT Office Visit Hematology/Oncology [facility] 200 [facility] [place] [phone] Elida Ortiz CRNP [address] [facility] [place] [address] 05/16/2025 8:00 AM EST Office Visit Neurology [facility] [address] [facility] [place] [address] Eulogio Augustine MD 200 [facility] [place] [address] Scheduled Procedures Name Priority Associated Diagnoses Date/Ti [...] this encounter Medical Devices Implanted Type Area Streaming Media Specialist Device Identifier Shelf Expiration Date Model / Serial / Lot Knee Triathlon Bead No Laz R 5 - [id number] Implanted:Qty: 1 on 12/16/2022 by Hugo Alfonso DO at OR [facility] Right: Knee BOB : ORTHOPAEDICS 11/19/2027 5517-F-502 / / [id number] Baseplate #5 Tritanium - [id number] Implanted:Qty: 1 on 12/16/2022 by Hugo Alfonso DO at OR [facility] Right: Knee BOB : ORTHOPAEDICS 09/28/2027 5536-B-500 / / [id number] Bob Triathlon X3 Tibial Bearing Insert - Cs Implanted:Qty: 1 on 12/16/2022 by Hugo Alfonso DO at OR [facility] Right: Knee BOB : ORTHOPAEDICS 04/18/2027 5531-G-512 -E / / [id number] Knee Baseplate Tri Tib Sz 4 - [id number] Implanted:Qty: 1 on 12/01/2023 by Hugo Alfonso DO at OR [facility] Left: Knee BOB : ORTHOPAEDICS 04/30/2027 5521-B-400 / / [id number] Knee Triathlon Bead No Laz L 5 - [id number] Implanted:Qty: 1 on 12/01/2023 by Hugo Alfonso, DO at OR [facility] Left: Knee BOB : ORTHOPAEDICS 10/27/2028 5517-F-501 / / [id number] Cement Bone Simplex Hv & G - [id number] Implanted:Qty: 1 on 12/01/2023 by Hugo Alfonso DO at OR [facility] Left: Knee BOB : ORTHOPAEDICS 02/20/2025 6195-1-010 / / [id number] Triathlon X3 Tibial Bearing Insert - Cs Implanted:Qty: 1 on 12/01/2023 by Hugo Alfonso, DO at OR [facility] Left: Knee BOB : ORTHOPAEDICS 09/14/2028 [...] Advance Directives occurred with: Patient Care Teams Lidar Analyst Relationship Specialty Start Date End Date Joana Hood DO [address] [place] [address] PCP - General Family Medicine 08/25/18 documented as of this encounter
--- OUTSIDE RECORDS SUMMARY | 2024-07-08 11:55 | External Medical Summary | Summary of Care ---
Author Name Unknown Organization [facility] Address [address] [place] [address] Phone [phone] Care Team Providers Care Manager Philosophy Name Role Phone Joana Hood DO Primary Care Provider Reason for Visit * Reason Onset Date Comments Appointment 06/04/2024 Encounter Details Date Type Department Care Team (Late st Contact Info) Description 06/04/2024 Telephone Cardiology, [facility] [address] [place] [address] Rebekah Singh CRNP [address] [place] [address] Appointment Allergies Active Allergy Reactions Criticality Noted [...] mRNA, LNP-s, No Pre serve, 2-Dose Series (XGIMI) 05/05/2021,08/30/2020,08/09/2020 Hepatitis B, 20+ yrs 09/26/1998,06/29/1998,04/25 Pneumococcal Conjugate Vacc, 13 Valent (Prevnar) 03/12/2018 Pneumococcal Conjugate Vacci ne, 20-valent ([id number]) 05/30/2023 Pneumococcal Polysaccharide PPV23 (Pneumovax) 10/18/2015 Season [...] of Assessment Author No 12/01/2023 12:47 PM BETTYET Kuldeep Garsia RN documented as of this encounter Mental Status * Because of a physical, mental, or emotional condition, do you have serious difficulty concentrating, remembering, or making decisions? (5 years old or older) Answer Entry Date Author No 12/01/2023 12:47 PM EDT Kuldeep Garsia RN documented in this encounter Miscellaneous Notes * Telephone Encounter - Hunter Holloway OSA - 06/04/2024 2:03 PM EST Thank you Franky. * Telephone Encounter - Hunter Holloway OSA - 06/04/2024 12:33 PM EST Patient is ordered a cardiac study, please assist patient to schedule, thank you. Provider is requesting testing to be done MARTELL/STAT. Thank you. NM MYOCARD PERF IMG SPECT MULT STUDIES WITH PHARM INTERV [96708.02] (Order [id number]) documented in this encounter Plan of Treatment Upcoming Encounters Date Type Department Care Team (Late st Contact Info) Description 06/29/2024 11:15 AM EST Office Visit Dermatology [facility] [address] [facility] [address] [place] [address] Roman Myers MD 200 [facility] [place] [address] 09/02/2024 9:00 AM EDT Office Visit Cardiology, [facility] 132 [facility] [place] [address] Rebekah Singh CRNP [address] [place] [address] 11/25/2024 10:00 AM EDT Office Visit Orthopaedics [facility] [address] [place] [address] Hugo Alfonso, DO [address] [place] [address] 12/01/2024 11:30 AM EDT Office Visit [facility] [address] [facility] [place] [phone] Joana Hood, DO [address] [facility] [address] [place] [address] 01/04/2025 2:00 PM EDT Office Visit Hematology/Oncology [facility] 200 [facility] [place] [phone] Elida Ortiz CRNP [address] [place] [address] [place] [address] 05/16/2025 8:00 AM EST Office Visit Neurology [facility] [address] [facility] [place] [address] Eulogio Augustine MD 200 [facility] [place] [address] Scheduled Procedures Name Priority Associated Diagnoses Date/Ti [...] this encounter Medical Devices Implanted Type Area Physician Ophthalmologist Device Identifier Shelf Expiration Date Model / Serial / Lot Knee Triathlon Bead No Laz R 5 - [id number] Implanted:Qty: 1 on 12/16/2022 by Hugo Alfonso, DO at OR [facility] Right: Knee BOB : ORTHOPAEDICS 11/19/2027 5517-F-502 / / [id number] Baseplate #5 Tritanium - [id number] Implanted:Qty: 1 on 12/16/2022 by Hugo Alfonso, DO at OR [facility] Right: Knee BOB : ORTHOPAEDICS 09/28/2027 5536-B-500 / / [id number] [place] Triathlon X3 Tibial Bearing Insert - Cs Implanted:Qty: 1 on 12/16/2022 by Hugo Alfonso, at OR [facility] Right: Knee BOB : ORTHOPAEDICS 04/18/2027 5531-G-512 -E / / [id number] Knee Baseplate Tri Tib Sz 4 - [id number] Implanted:Qty: 1 on 12/01/2023 by Hugo Alfonso DO at OR [facility] Left: Knee BOB : ORTHOPAEDICS 04/30/2027 5521-B-400 / / [id number] Knee Triathlon Bead No Laz L 5 - [id number] Implanted:Qty: 1 on 12/01/2023 by Hugo Alfonso DO at OR [facility] Left: Knee BOB : ORTHOPAEDICS 10/27/2028 5517-F-501 / / [id number] Cement Bone Simplex Hv & G - [id number] Implanted:Qty: 1 on 12/01/2023 by Hugo Alfonso DO at OR [facility] Left: Knee BOB : ORTHOPAEDICS 02/20/2025 6195-1-010 / / [id number] Triathlon X3 Tibial Bearing Insert - Cs Implanted:Qty: 1 on 12/01/2023 by Hugo Alfonso DO at OR [facility] Left: Knee BOB : ORTHOPAEDICS [...] Advance Directives occurred with: Patient Care Teams Manager Philosophy Relationship Specialty Start Date End Date Joana Hood DO [address] [facility] [place] [phone] PCP - General Family Medicine 08/25/18 documented as of this encounter
--- OUTSIDE RECORDS SUMMARY | 2024-07-08 11:55 | External Medical Summary | Summary of Care ---
Author Name Unknown Organization [facility] Address [address] [place] [address] Phone [phone] Care Team Providers Care Scrape Gatherer Name Role Phone Bertram Hood DO Primary Care Provider + [phone] Reason for Visit * Reason Comments eRx-Medication Refill Encounter Details Date Type Department Care Team (Late st Contact Info) Description 06/10/2024 Refill [facility] [address] [place] [address] Bertram Barriga DO [address] [place] [address] Small airways disease Allergies Active Allergy Reactions Criticality Noted Date Comments Propoxyphene N-Acetaminophen Nausea/vomiting High 03/13/2013 Naproxen 07/26/2011 Rash and edema Percocet 04/08/2005 nausea Phenytoin Sodium 06/07/2000 IV caused red streaks up her arm. Polymyxin B-Trimethoprim Other (Please comment) 12/06/2013 Burning, itchy and very red. documented as of this encounter (statuses as of 06/11/2024) Medications MULTIVITAL PO TABS Take by mouth. 0 0 11/19/19 07 Active RESTASIS 0.05 % OP EMUL Instill 1 Drop into both eyes in the morning and 1 Drop before bedtime. 02/11/20 13 Active CALCIUM + D3 600-200 MG-UNIT PO TABS Take 1 Tablet by mouth. 1 Tab 0 12/18/19 14 Active Spironolactone 25 MG Oral Tablet (Aldactone)Indic ations:HTN, goal below 130/80 TAKE A HALF A TABLET BY MOUTH EVERY MORNING 45 Tablet 3 05/16/20 23 Active Rosuvastatin Calcium 40 MG Oral Tablet [...] DAY 90 Tablet 3 06/11/20 24 Active Montelukast Sodium 10 MG Oral Tablet (Singulair)Indic ations:Small airways disease TAKE 1 TABLET BY MOUTH EVERY DAY 90 Tablet 3 05/30/20 23 024 Discontinued documented as of this encounter (statuses as of 06/11/2024) Active Problems Problem Noted Date Diagnosed Date [...] as of this encounter (statuses as of 06/11/2024) Resolved Problems Problem Noted Date Diagnosed Date [...] as of this encounter (statuses as of 06/11/2024) Immunizations Name Administration Dates Next Due COVID-19 mRNA, LNP-s, No Pre serve, 2-Dose Series (Dome9 Security) 05/05/2021,08/30/2020,08/09/2020 Pneumococcal Conjugate Vacc, 13 Valent (Prevnar) 03/12/2018 Pneumococcal Conjugate Vacci ne, 20-valent ([id number]) 05/30/2023 Pneumococcal Polysaccharide PPV23 (Pneumovax) 10/18/2015 Season [...] No 10/22/2023 Does the household have a [facility] health care facilitylar source of income? (Household - for ages [...] encounter Miscellaneous Notes * Telephone Encounter - Becky Lr [facility] - 06/11/2024 6:45 PM EST Signed Prescriptions: Disp Refills Montelukast Sodium 10 MG Oral Tablet (Sing*90 Tab*3 Sig: TAKE 1 TABLET BY MOUTH EVERY DAYAuthorizing Provider: BERTRAM HOOD User: BECKY LR documented in this encounter Plan of Treatment Upcoming Encounters Date Type Department Care Team (Late st Contact Info) Description 06/29/2024 11:15 AM EST Office Visit Dermatology [facility] [address] [place] [address] Roman Myers MD [address] [facility] [place] [address] 09/02/2024 9:00 AM EDT Office Visit Cardiology, [facility] [address] [place] [address] Rebekah Singh CRNP [address] [place] [address] 11/25/2024 10:00 AM EDT Office Visit Orthopaedics [facility] [address] [place] [address] Hugo Alfonso, DO [address] [place] [address] 12/01/2024 11:30 AM EDT Office Visit [facility] [address] [facility] [place] [phone] Bertram Hood, DO [address] [facility] [place] [address] 01/04/2025 2:00 PM EDT Office Visit Hematology/Oncology [facility] [address] [facility] [address] [place] [phone] Elida Ortiz CRNP [address] [facility] [address] 05/16/2025 8:00 AM EST Office Visit Neurology [facility] [address] [facility] [place] [address] Eulogio Augustine MD [address] [facility] [place] [address] Scheduled Procedures Name Priority Associated Diagnoses Date/Ti [...] this encounter Medical Devices Implanted Type Area Social Media Director Device Identifier Shelf Expiration Date Model / Serial / Lot Knee Triathlon Bead No Laz R 5 - [id number] Implanted:Qty: 1 on 12/16/2022 by Hugo Alfonso DO at OR [facility] Right: Knee BOB : ORTHOPAEDICS 11/19/2027 5517-F-502 / / [id number] Baseplate #5 Tritanium - [id number] Implanted:Qty: 1 on 12/16/2022 by Hugo Alfonso DO at OR [facility] Right: Knee BOB : ORTHOPAEDICS 09/28/2027 5536-B-500 / / [id number] Triathlon X3 Tibial Bearing Insert - Cs Implanted:Qty: 1 on 12/16/2022 by Hugo Alfonso DO at OR [facility] Right: Knee BOB : ORTHOPAEDICS 04/18/2027 5531-G-512 -E / / [id number] Knee Baseplate Tri Tib Sz 4 - [id number] Implanted:Qty: 1 on 12/01/2023 by Hugo Alfonso, at OR [facility] Left: Knee BOB : ORTHOPAEDICS 04/30/2027 5521-B-400 / / [id number] Knee Triathlon Bead No Laz L 5 - [id number] Implanted:Qty: 1 on 12/01/2023 by Hugo Alfonso, at OR [facility] Left: Knee BOB : ORTHOPAEDICS 10/27/2028 5517-F-501 / / [id number] Cement Bone Simplex Hv & G - [id number] Implanted:Qty: 1 on 12/01/2023 by Hugo Alfonso, at OR [facility] Left: Knee BOB : ORTHOPAEDICS 02/20/2025 6195-1-010 / / [id number] Triathlon X3 Tibial Bearing Insert - Cs Implanted:Qty: 1 on 12/01/2023 by Hugo Alfonso, at OR [facility] Left: Knee BOB : ORTHOPAEDICS 09/14/2028 5531-G-410 -E / / [id number] documented as of this encounter Visit Diagnoses Diagnosis Small airways disease Other diseases of lung, not elsewhere classified documented in this encounter Advance Directives * [...] Advance Directives occurred with: Patient Care Teams Scrape Gatherer Relationship Specialty Start Date End Date Bertram Hood DO PCP - General Family Medicine 08/25/18 documented as of this encounter
--- OUTSIDE RECORDS SUMMARY | 2024-07-08 11:56 | External Medical Summary ---
Author Name Unknown Address Unknown Organization K01:[facility] - [address] [facility] [place] [address] Laboratory Report Ordering Provider Test Date Status DERICK ESTEVEZISO 05/24/2024 13:48:53 Final Observation Date Value Abnormality Reference (Units ) Status Triglyceride 05/24/2024 13:48:53 126 <=174 ( mg/dL) Final Triglyceride Reference Range s (mg/dL):
<150 Acceptable
150-174 Borderline high
175-499 High
>=500 Very high Cholesterol 05/24/2024 13:48:53 194 <200 (mg /dL) Final Total Cholesterol Reference Ranges (mg/dL):
<200 Desirable
200-239 Borderline high
>=240 High HDL 05/24/2024 13:48:53 56 >49 (mg/dL ) Final HDL Cholesterol Reference Ra nges (mg/dL):
>=60 High (Desirable)
<50 Low (Undesirable) For Females
<40 Low (Undesirable) For Males NON-HDL CHOLESTEROL 05/24/2024 13:48:53 138 <=159 (mg/dL) Final Non-HDL Cholesterol Referenc e Range (mg/dL):
<100 Target level for high risk ASCVD patient
<130 Optimal for general population
130-159 Near optimal for general population
160-189 Borderline High
190-219 High
>=220 Very High LDL, (calculated) 05/24/2024 13:48:53 113 <= 129 (mg/dL) Final LDL Cholesterol Reference Ra nges (mg/dL):
<70 Target level for high risk ASCVD patient
<100 Optimal for general population
100-129 Near optimal for general population
130-159 Borderline high
160-189 High
>=190 Very high Performing Location [facility] - [address] [facility] [address]
--- OUTSIDE RECORDS SUMMARY | 2024-07-08 11:56 | External Medical Summary ---
Author Name Unknown Address Unknown Organization K01:[facility] - [address] [facility] [place] [address] Laboratory Report Ordering Provider Test Date Status EUSEBIO BURDEN 05/24/2024 13:48:53 Final Observation Date Value Abnormality Reference (Units ) Status BUN 05/24/2024 13:48:53 12 6-20 (mg/dL) Final Creatinine 05/24/2024 13:48:53 0.6 0.5-1.0 (mg/dL) Final Glomerular filtration rate/1.73 sq M.predicted [Volume Rate/Area] in Serum, Plasma or Blood by Creatinine-based formula (CKD-EPI) 05/24/2024 13:48:53 >90 >=60 (mL/min) Final eGFR is calculated based on the CKD-EPI 2020 equation. Sodium 05/24/2024 13:48:53 145 135-146 (m mol/L) Final Potassium 05/24/2024 13:48:53 4.0 3.5-5.1 (m mol/L) Final Cl 05/24/2024 13:48:53 106 98-107 (mm ol/L) Final CO2 05/24/2024 13:48:53 27 22-32 (mmo l/L) Final Anion gap 05/24/2024 13:48:53 12 7-15 (mmol /L) Final Glucose 05/24/2024 13:48:53 94 70-120 (mg /dL) Final Calcium 05/24/2024 13:48:53 9.1 8.4-10.2 ( mg/dL) Final Performing Location [facility] - [address] [place] [address]
--- OUTSIDE RECORDS SUMMARY | 2024-07-08 11:56 | External Medical Summary | Summary of Care ---
Author Name Unknown Organization [facility] Address [address] [place] [address] Phone [phone] Care Team Providers Care Bridge Crew Member Name Role Phone Joana Hood DO Primary Care Provider + [phone] Reason for Visit * Reason Comments Outpatient Testing Encounter Details Date Type Department Care Team (Late st Contact Info) Description 05/10/2024 9:40 AM EST Laboratory Laboratory [facility] [address] [place] [phone] [facility] [address] [place] [address] Arrived Allergies Active Allergy Reactions Criticality Noted Date Comments Propoxyphene N-Acetaminophen Nausea/vomiting High 03/13/2013 Naproxen 07/26/2011 Rash and edema Percocet 04/08/2005 nausea Phenytoin Sodium 06/07/2000 IV caused red streaks up her arm. Polymyxin B-Trimethoprim Other (Please comment) 12/06/2013 Burning, itchy and very red. documented as of this encounter (statuses as of 05/10/2024) Medications MULTIVITAL PO TABS daily 0 0 7 Active RESTASIS 0.05 % OP EMUL Instill 1 Drop into both eyes in the morning and 1 Drop before bedtime. 3 Active CALCIUM + D3 600-200 MG-UNIT PO TABS one pill twice a day 1 Tab 0 4 Active Spironolactone 25 MG Oral Tablet (Aldactone)Indic ations:HTN, goal below 130/80 TAKE A HALF A TABLET BY MOUTH EVERY MORNING 45 Tablet 3 3 Active Apixaban 2.5 MG Oral Tablet (Eliquis)Indicat ions:Personal history of pulmonary embolism Take 1 Tablet by mouth in the morning and 1 Tablet before bedtime. 180 Tablet 3 3 Active Montelukast Sodium 10 MG Oral Tablet (Singulair)Indic ations:Small airways disease TAKE 1 TABLET BY MOUTH EVERY DAY 90 Tablet 3 3 Active Additional Information Patient taking differently: 10 mg Oral HS, Reported on 05/10/2024 Rosuvastatin Calcium 40 MG Oral Tablet (Crestor)Indicat ions:Dyslipidemi a, goal LDL below 100 Take 1 Tablet by mouth in the morning. 90 Tablet 3 3 Active Metoprolol Succinate ER 25 MG Oral Tablet Extended Release 24 Hour (toPROL XL)Indications:H TN, goal below 130/80,Diastolic dysfunction,Enla rged aorta (HCC),Heart palpitations TAKE ONE-HALF TABLET BY MOUTH IN THE MORNING 45 Tablet 3 4 Active Acetaminophen ER 650 MG Oral Tablet [...] WITH SPACER 54 g 3 4 Active documented as of this encounter (statuses as of 05/10/2024) Active Problems Problem Noted Date Diagnosed Date [...] as of this encounter (statuses as of 05/10/2024) Resolved Problems Problem Noted Date Diagnosed Date [...] as of this encounter (statuses as of 05/10/2024) Immunizations Name Administration Dates Next Due COVID-19 mRNA, LNP-s, No Pre serve, 2-Dose Series (Lvmae) 05/05/2021,08/30/2020,08/09/2020 Pneumococcal Conjugate Vacc, 13 Valent (Prevnar) 03/12/2018 Pneumococcal Conjugate Vacci ne, 20-valent ([id number]) 05/30/2023 Pneumococcal Polysaccharide PPV23 (Pneumovax) 10/18/2015 Season [...] Care Team (Late st Contact Info) Description 05/24/2024 11:50 AM EST Office Visit [facility] [address] [facility] [place] [address] Joana Hood DO [address] [facility] [place] [address] 05/27/2024 10:20 AM EST Office Visit [facility] [address] [facility] [place] [address] Della Brito PA-C [address] [place] [address] [place] [address] 06/29/2024 11:15 AM EST Office Visit Dermatology [facility] [address] [place] [address] Roman Myers MD [address] [place] [address] 11/25/2024 10:00 AM EDT Office Visit Orthopaedics [facility] [address] [facility] [place] [address] Hugo Alfonso DO [address] [place] [address] 01/04/2025 2:00 PM EDT Office Visit Hematology/Oncology [facility] [address] [place] [phone] Elida Ortiz CRNP [address] [place] [address] [place] [address] 05/16/2025 8:00 AM EST Office Visit [facility] [address] [place] [address] Eulogio Augustine MD [address] [place] [address] Scheduled Procedures Name Priority Associated Diagnoses Date/Ti [...] this encounter Medical Devices Implanted Type Area Sink Cutter Device Identifier Shelf Expiration Date Model / Serial / Lot Knee Triathlon Bead No Laz R 5 - [id number] Implanted:Qty: 1 on 12/16/2022 by Hugo Alfonso DO at OR [facility] Right: Knee BOB : ORTHOPAEDICS 11/19/2027 5517-F-502 / / [id number] Baseplate #5 Tritanium - [id number] Implanted:Qty: 1 on 12/16/2022 by Hugo Alfonso DO at OR [facility] Right: Knee BOB : ORTHOPAEDICS 09/28/2027 5536-B-500 / / [id number] [place] Triathlon X3 Tibial Bearing Insert - Cs Implanted:Qty: 1 on 12/16/2022 by Hugo Alfonso DO at OR [facility] Right: Knee OBB : ORTHOPAEDICS 04/18/2027 5531-G-512 -E / / [id number] Knee Baseplate Tri Tib Sz 4 - [id number] Implanted:Qty: 1 on 12/01/2023 by Hugo Alfonso DO at OR [facility] Left: Knee BOB : ORTHOPAEDICS 04/30/2027 5521-B-400 / / [id number] Knee Triathlon Bead No Laz L 5 - [id number] Implanted:Qty: 1 on 12/01/2023 by Hugo Alfonso DO at OR [facility] Left: Knee BOB : ORTHOPAEDICS 10/27/2028 5517-F-501 / / [id number] Cement Bone Simplex Hv & G - [id number] Implanted:Qty: 1 on 12/01/2023 by Hugo Alfonso DO at OR [facility] Left: Knee BOB : ORTHOPAEDICS 02/20/2025 6195-1-010 / / [id number] Triathlon X3 Tibial Bearing Insert - Cs Implanted:Qty: 1 on 12/01/2023 by Hugo Alfonso DO at OR [facility] Left: Knee BOB : ORTHOPAEDICS 09/14/2028 [...] Advance Directives occurred with: Patient Care Teams Bridge Crew Member Relationship Specialty Start Date End Date Joana Hood DO [address] [place] [facility] [place] [address] PCP - General Family Medicine 08/25/18 documented as of this encounter
--- OUTSIDE RECORDS SUMMARY | 2024-07-08 11:56 | External Medical Summary | Summary of Care ---
Author Name Unknown Organization [facility] Address [address] [place] [address] Phone [phone] Care Team Providers Care Sales Coach Name Role Phone Joana Hood DO Primary Care Provider Encounter Details Date Type Department Care Team (Late st Contact Info) Description 05/13/2024 Telephone [facility] [address] [place] [address] Joana Hood DO [address] [place] [address] Allergies Active Allergy Reactions Criticality Noted Date Comments Propoxyphene N-Acetaminophen Nausea/vomiting High 03/13/2013 Naproxen 07/26/2011 Rash and edema Percocet 04/08/2005 nausea Phenytoin Sodium 06/07/2000 IV caused red streaks up her arm. Polymyxin B-Trimethoprim Other (Please comment) 12/06/2013 Burning, itchy and very red. documented as of this encounter (statuses as of 05/15/2024) Medications MULTIVITAL PO TABS daily 0 0 [...] as of this encounter (statuses as of 05/15/2024) Active Problems Problem Noted Date Diagnosed Date [...] as of this encounter (statuses as of 05/15/2024) Resolved Problems Problem Noted Date Diagnosed Date [...] as of this encounter (statuses as of 05/15/2024) Immunizations Name Administration Dates Next Due COVID-19 mRNA, LNP-s, No Pre serve, 2-Dose Series ([employer]) 05/05/2021,08/30/2020,08/09/2020 Pneumococcal Conjugate Vacc, 13 Valent (Prevnar) 03/12/2018 Pneumococcal Conjugate Vacci ne, 20-valent ([id number]) 05/30/2023 Pneumococcal Polysaccharide PPV23 (Pneumovax) 10/18/2015 Season [...] ages 0-17 years) Not on file 12/01/2023 Are you homeless or worried that [...] encounter Miscellaneous Notes * Telephone Encounter - Joana Hood DO [...] to continue the zio to get a senior living tracing and determine how fast or slow [...] helpful Eulogio ----- Message ----- From: Interface, [employer] Sales Manager Sent: 05/10/2024 3:57 PM EST To: Eulogio Augustine MD documented in this encounter Plan of Treatment Upcoming Encounters Date Type Department Care Team (Late st Contact Info) Description 05/24/2024 11:50 AM EST Office [facility] [address] Joana Hood DO [facility] [place] [address] 05/27/2024 10:20 AM EST Office Visit Dermatology [address] [place] [phone] Della Brito PA-C [address] [place] [address] [place] [address] 06/29/2024 11:15 AM EST Office Visit Dermatology [facility] [address] [place] [address] Roman Myers MD 200 [facility] [place] [address] 11/25/2024 10:00 AM EDT Office Visit Orthopaedics [facility] [address] [facility] [place] [address] Hugo Alfonso, 132 [facility] [place] [address] 01/04/2025 2:00 PM EDT Office Visit Hematology/Oncology [facility] [address] [place] [address] Elida Ortiz CRNP [address] [place] [address] 05/16/2025 8:00 AM EST Office Visit Neurology [facility] [address] [place] [address] Eulogio Augustine MD [address] [facility] [place] [address] Scheduled Procedures Name Priority Associated Diagnoses Date/Ti [...] 11/04/2024 11/05/2023, 11/19/2022 Lipid Panel 05/30/2028 05/30/2023, 12/2022, 05/31/2022, Additional history exists DTap/Tdap Vaccines [...] this encounter Medical Devices Implanted Type Area Razor Grinder Device Identifier Shelf Expiration Date Model / Serial / Lot Knee Triathlon Bead No Laz R 5 - [id number] Implanted:Qty: 1 on 12/16/2022 by Hugo Alfonso, DO at OR [facility] Right: Knee BOB : ORTHOPAEDICS 11/19/2027 5517-F-502 / / [id number] Baseplate #5 Tritanium - [id number] Implanted:Qty: 1 on 12/16/2022 by Hugo Alfonso DO at OR [facility] Right: Knee BOB : ORTHOPAEDICS 09/28/2027 5536-B-500 / / [id number] Bbo Triathlon X3 Tibial Bearing Insert - Cs Implanted:Qty: 1 on 12/16/2022 by Hugo Alfonso, at OR [facility] Right: Knee BOB : ORTHOPAEDICS 04/18/2027 5531-G-512 -E / / [id number] Knee Baseplate Tri Tib Sz 4 - [id number] Implanted:Qty: 1 on 12/01/2023 by Hugo Alfonso DO at OR [facility] Left: Knee BOB : ORTHOPAEDICS 04/30/2027 5521-B-400 / / [id number] Knee Triathlon Bead No Laz L 5 - [id number] Implanted:Qty: 1 on 12/01/2023 by Hugo Alfonso DO at OR [facility] Left: Knee BOB : ORTHOPAEDICS 10/27/2028 5517-F-501 / / [id number] Cement Bone Simplex Hv & G - [id number] Implanted:Qty: 1 on 12/01/2023 by Hugo Alfonso DO at OR [facility] Left: Knee BOB : ORTHOPAEDICS 02/20/2025 6195-1-010 / / [id number] Triathlon X3 Tibial Bearing Insert - Cs Implanted:Qty: 1 on 12/01/2023 by Hugo Alfonso DO at OR [facility] Left: Knee BOB : ORTHOPAEDICS 09/14/2028 [...] Directives occurred with: Patient Care Teams Sales Coach Relationship Specialty Start Date End Date Kopinski, Joana L, DO [address] [place] [address] PCP - General Family Medicine 08/25/18 documented as of this encounter
--- OUTSIDE RECORDS SUMMARY | 2024-07-08 11:56 | External Medical Summary ---
Author Name Unknown Address Unknown Organization K01:LABORATORY [facility] - [address] [place] [address] Laboratory Report Ordering Provider Test Date Status EUSEBIO BURDEN 05/24/2024 13:48:53 Final Observation Date Value Abnormality Reference (Units ) Status TSH 05/24/2024 13:48:53 1.69 0.27-4.20 (uIU/mL) Final Performing Location LABORATORY C - [address] [place] [address]
--- OUTSIDE RECORDS SUMMARY | 2024-07-08 11:56 | External Medical Summary | Summary of Care ---
Author Name Unknown Organization [facility] Address [address] [place] [address] Phone [phone] Care Team Providers Care Network Security Engineer Name Role Phone Joana Hood DO Primary Care Provider [phone] Encounter Details Date Type Department Care Team (Late st Contact Info) Description 05/24/2024 Telephone [facility] [address] [place] [address] Joana Hood DO [address] [place] [address] Allergies Active Allergy Reactions Criticality Noted [...] mRNA, LNP-s, No Pre serve, 2-Dose Series ([employer]) 05/05/2021,08/30/2020,08/09/2020 Pneumococcal Conjugate Vacc, 13 Valent (Prevnar) 03/12/2018 Pneumococcal Conjugate Vacci ne, 20-valent ([id number]) 05/30/2023 Pneumococcal Polysaccharide PPV23 (Pneumovax) 10/18/2015 Season [...] 05/26/2024 11:00 AM EST Office Visit Cardiology, [facility] [place] [address] Shaylee Rose PA-C [address] [place] [address] 05/27/2024 10:20 AM EST Office Visit Dermatology [facility] [address] [place] [phone] Della Brito PA-C [address] [place] [address] [place] [address] 06/02/2024 10:00 AM EST Cardiac Studies Cardiac Studies, [facility] [address] [facility] [place] [address] 06/29/2024 11:15 AM EST Office Visit Dermatology [facility] [address] [facility] [place] [address] Roman Myers MD [address] [place] [address] 11/25/2024 10:00 AM EDT Office Visit Orthopaedics [facility] [address] [facility] [place] [address] Hugo Alfonso, [address] [place] [address] 12/01/2024 11:30 AM EDT Office Visit [facility] [address] [facility] [place] [phone] Joana Hood DO [address] [place] [address] 01/04/2025 2:00 PM EDT Office Visit Hematology/Oncology [facility] 200 [facility] [place] [phone] Elida Ortiz CRNP [address] [facility] [place] [address] 05/16/2025 8:00 AM EST Office Visit Neurology [facility] 200 [facility] [place] [address] Eulogio Augustine MD 200 [facility] [place] [address] Scheduled Procedures Name Priority Associated Diagnoses Date/Ti [...] this encounter Medical Devices Implanted Type Area Plastic Jig And Fixture Builder Device Identifier Shelf Expiration Date Model / Serial / Lot Knee Triathlon Bead No Laz R 5 - [id number] Implanted:Qty: 1 on 12/16/2022 by [place] Alfonso, DO at OR [facility] Right: Knee BOB : ORTHOPAEDICS 11/19/2027 5517-F-502 / / [id number] Baseplate #5 Tritanium - [id number] Implanted:Qty: 1 on 12/16/2022 by Hugo Alfonso DO at OR [facility] Right: Knee BOB : ORTHOPAEDICS 09/28/2027 5536-B-500 / / [id number] Bob Triathlon X3 Tibial Bearing Insert - Cs Implanted:Qty: 1 on 12/16/2022 by Hugo Alfonso DO at OR [facility] Right: Knee BOB : ORTHOPAEDICS 04/18/2027 5531-G-512 -E / / [id number] Knee Baseplate Tri Tib Sz 4 - [id number] Implanted:Qty: 1 on 12/01/2023 by Hugo Alfonso DO at OR [facility] Left: Knee BOB : ORTHOPAEDICS 04/30/2027 5521-B-400 / / [id number] Knee Triathlon Bead No Laz L 5 - [id number] Implanted:Qty: 1 on 12/01/2023 by Hugo Alfonso DO at OR [facility] Left: Knee BOB : ORTHOPAEDICS 10/27/2028 5517-F-501 / / [id number] Cement Bone Simplex Hv & G - [id number] Implanted:Qty: 1 on 12/01/2023 by Hugo Alfonso DO at OR [facility] Left: Knee BOB : ORTHOPAEDICS 02/20/2025 6195-1-010 / / [id number] Triathlon X3 Tibial Bearing Insert - Cs Implanted:Qty: 1 on 12/01/2023 by Hugo Alfonso DO at OR [facility] Left: Knee BOB : ORTHOPAEDICS 09/14/2028 [...] Advance Directives occurred with: Patient Care Teams Network Security Engineer Relationship Specialty Start Date End Date Joana Hood DO [address] [facility] [place] [address] PCP - General Family Medicine 08/25/18 documented as of this encounter
--- OUTSIDE RECORDS SUMMARY | 2024-07-08 11:56 | External Medical Summary ---
Author Name Unknown Address Unknown Organization K01:LABORATORY [facility] - [address] [place] [address] Laboratory Report Ordering Provider Test Date Status CARLOS TOMPKINS 05/10/2024 09:37:05 Final Observation Date Value Abnormality Reference (Units ) Status Phenobarbital level 05/10/2024 09:37:05 28.4 15.0-40.0 (ug/mL) Final Performing Location LABORATORY [facility] - [address] [facility] [address]
--- OUTSIDE RECORDS SUMMARY | 2024-07-08 11:56 | External Medical Summary | Summary of Care ---
Author Name Unknown Organization [facility] Address [address] [place] [address] Phone [phone] Care Team Providers Care Dynamometer Tester Name Role Phone EricksonJoana landers Kyle BENOIT Primary Care Provider Encounter Details Date Type Department Care Team (Late st Contact Info) Description 04/29/2024 Patient Reported Data Patient Survey Ortho [facility]CE Allergies Active Allergy Reactions Criticality Noted Date Comments Propoxyphene N-Acetaminophen Nausea/vomiting High 03/13/2013 Naproxen 07/26/2011 Rash and edema Percocet 04/08/2005 nausea Phenytoin Sodium 06/07/2000 IV caused red streaks up her arm. Polymyxin B-Trimethoprim Other (Please comment) 12/06/2013 Burning, itchy and very red. documented as of this encounter (statuses as of 04/29/2024) Medications Medication Sig Dispensed Refills Start Date End Date Status MULTIVITAL PO TABS daily 0 0 11/18/2006 Active RESTASIS 0.05 % OP EMUL Instill 1 Drop into both eyes in the morning and 1 Drop before bedtime. 02/10/2013 Active CALCIUM + D3 600-200 MG-UNIT PO TABS one pill twice a day 1 Tab 0 12/17/2013 Active Spironolactone 25 MG Oral Tablet (Aldactone)Indicati ons:HTN, goal below 130/80 TAKE A HALF A TABLET BY MOUTH EVERY MORNING 45 Tablet 3 05/16/2023 Active Apixaban 2.5 MG Oral Tablet (Eliquis)Indication s:Personal history of pulmonary embolism Take 1 Tablet by mouth in the morning and 1 Tablet before bedtime. 180 Tablet 3 05/28/2023 Active Montelukast Sodium 10 MG Oral Tablet (Singulair)Indicati ons:Small airways disease TAKE 1 TABLET BY MOUTH EVERY DAY 90 Tablet 3 05/30/2023 Active Additional Information Patient taking differently: 10 mg Oral HS, Reported on 12/01/2023 Rosuvastatin Calcium 40 MG Oral Tablet (Crestor)Indication s:Dyslipidemia, goal LDL below 100 Take 1 Tablet by mouth in the morning. 90 Tablet 3 06/09/2023 Active Metoprolol Succinate ER 25 MG Oral Tablet Extended Release 24 Hour (toPROL XL)Indications:HTN, goal below 130/80,Diastolic dysfunction,Enlarge d aorta (HCC),Heart palpitations TAKE ONE-HALF TABLET BY MOUTH IN THE MORNING 45 Tablet 3 11/10/2023 Active Sennosides 8.6 MG Oral Tablet (Senokot) Take 2 Tablets by mouth in the morning. 14 Tablet 12/02/2023 Active Additional Information Patient not taking.Reported on 01/05/2024 traMADol HCl 50 MG Oral Tablet (Ultram) Take 1 Tablet by mouth every 4 hours as needed for Pain, Severe. 30 Tablet 12/02/2023 Active Acetaminophen ER 650 MG Oral Tablet Extended Release (Tylenol 8 Hour) Take 1 Tablet by mouth every 8 hours as needed. Active Wixela Inhub 250-50 MCG/ACT Inhalation Aerosol Powder Breath Activated (Fluticasone-Salmet romeo)Indications:Ot her disorders of lung INHALE 1 PUFF BY MOUTH 2 TIMES A DAY. 180 Each 3 01/09/2024 Active PHENobarbital 97.2 MG Oral Tablet TAKE 2 TABLETS BY MOUTH AT BEDTIME 60 Tablet 3 03/11/2024 Active Benzonatate 100 MG Oral CapsuleIndications: Sinobronchitis Take 2 Capsules by mouth 3 times a day as needed for Cough. 60 Capsule 1 04/12/2024 Active Albuterol Sulfate HFA 108 (90 Base) MCG/ACT Inhalation Aerosol SolutionIndications :Small airways disease,Sinobronchi tis INHALE 2 PUFFS BY MOUTH EVERY 4 HOURS NEEDED FOR COUGH OR WHEEZING. WITH SPACER 54 g 3 04/12/2024 Active documented as of this encounter (statuses as of 04/29/2024) Active Problems Problem Noted Date Diagnosed Date S/P TKR (total knee replacement), left 4 Primary osteoarthritis of left knee 08/15/2023 Status post total right knee replacement 023 Prediabetes 11/25/2022 Nonintractable epilepsy without status epileptic us 03/15/2019 Personal history of pulmonary embolism 9 Small airways disease 02/23/2016 Dyslipidemia, goal LDL below 100 09/18/2015 Obesity, Class II, BMI 35-39.9, isolated (see ac tual BMI) 07/16/2012 Overview: bmi= 35.49 07/16/12 documented as of this encounter (statuses as of 04/29/2024) Resolved Problems Problem Noted Date Diagnosed Date Resolved Date Bilateral pulmonary embolism 04/24/2022 05/06/2023 Bilateral pulmonary embolism 11/22/2019 12/17/2019 Bilateral pulmonary embolism 08/31/2015 03/15/2019 ADVANCE DIRECTIVE INFORMATION 11/02/2004 04/26/2024 Overview: Brochure given to pt. at this time. DIARRHEA 08/17/2001 09/18/2015 Volume depletion 08/17/2001 09/18/2015 Major depressive disorder 06/08/2001 Overview: ICD-10 update of inactive term Enthesopathy of knee 06/08/2001 017 Convulsions 05/30/1999 03/15/2019 EPILEPSY;NONCONV,W/O INTRACTABLE 04/14/2017 Allergic rhinitis 09/02/2018 documented as of this encounter (statuses as of 04/29/2024) Immunizations Name Administration Dates Next Due COVID-19 mRNA, LNP-s, No Pre serve, 2-Dose Series ([employer]) 05/05/2021,08/30/2020,08/09/2020 Pneumococcal Conjugate Vacc, 13 Valent (Prevnar) 03/12/2018 Pneumococcal Conjugate Vacci ne, 20-valent ([id number]) 05/30/2023 Pneumococcal Polysaccharide PPV23 (Pneumovax) 10/18/2015 Season [...] ages 0-17 years) Not on file 12/01/2023 Sex and Gender Information Value Date Recorded Sex Assigned at Female 09/09/2018 10:43 AM EDT Gender Identity Female 09/09/2018 10:43 AM EDT Sexual Orientation Straight 09/09/2018 10 :43 AM EDT Job Start Date Occupation Industry Not on file Not on file Not on file documented as of this encounter Functional Status Functional Status Response Date of Assess ment Are you deaf or do you have serious difficulty h earing? No 12/01/2023 Are you blind or do you have serious difficulty seeing, even when wearing glasses? No 12/01/2023 Do you have serious difficul ty walking or climbing stairs? (5 years old or older) No 12/01/2023 Do you have difficulty dress ing or bathing? (5 years old or older) No 12/01/2023 Because of a physical, menta l, or emotional condition, do you have difficulty doing errands alone such as visiting a doctor s office or shopping? (15 years old or older) No 12/01/19 Cognitive Status Response Date of Assessm ent Because of a physical, menta l, or emotional condition, do you have serious difficulty concentrating, remembering, or making decisions? (5 years old or older) No 12/01/2023 documented as of this encounter Plan of Treatment Upcoming Encounters Date Type Department Care Team (Late st Contact Info) Description 05/10/2024 8:00 AM EST Office Visit Neurology [facility] [place] [address] [place] [address] Eulogio Augustine MD [address] [place] [address] 05/24/2024 11:50 AM EST Office Visit [facility] [place]Note 2[facility] [address] [place] [address] Joana Hood, [address] [place] [address] 05/27/2024 10:20 AM EST Office Visit [facility] [address] [place] [address] Della Brito PA-C [address] [place] [address] [place] [address] 06/29/2024 11:15 AM EST Office Visit Dermatology [facility] [address] [facility] [place] [address] Roman Myers MD [address] [facility] [place] [address] 11/25/2024 10:00 AM EDT Office Visit [facility] [address] [facility] [place] [address] Hugo Alfonso DO [address] [facility] [place] [address] 01/04/2025 2:00 PM EDT Office Visit Hematology/Oncology [facility] [address] [facility] [place] [phone] Elida Ortiz CRNP [address] [place] [address] [place] [address] Scheduled Procedures Name Priority Associated Diagnoses Date/Ti [...] this encounter Medical Devices Implanted Type Area Seed Tester Device Identifier Shelf Expiration Date Model / Serial / Lot Knee Triathlon Bead No Laz R 5 - [id number] Implanted:Qty: 1 on 12/16/2022 by Hugo Alfonso, DO at OR [facility] Right: Knee BOB : ORTHOPAEDICS 11/19/2027 5517-F-502 / / [id number] Baseplate #5 Tritanium - [id number] Implanted:Qty: 1 on 12/16/2022 by Hugo Alfonso DO at OR [facility] Right: Knee BOB : ORTHOPAEDICS 09/28/2027 5536-B-500 / / [id number] Bob Triathlon X3 Tibial Bearing Insert - Cs Implanted:Qty: 1 on 12/16/2022 by Hugo Alfonso DO at OR [facility] Right: Knee BOB : ORTHOPAEDICS 04/18/2027 5531-G-512 -E / / [id number] Knee Baseplate Tri Tib Sz 4 - [id number] Implanted:Qty: 1 on 12/01/2023 by Hugo Alfonso DO at OR [facility] Left: Knee BOB : ORTHOPAEDICS 04/30/2027 5521-B-400 / / [id number] Knee Triathlon Bead No Laz L 5 - [id number] Implanted:Qty: 1 on 12/01/2023 by Hugo Alfonso DO at OR [facility] Left: Knee BOB : ORTHOPAEDICS 10/27/2028 5517-F-501 / / [id number] Cement Bone Simplex Hv & G - [id number] Implanted:Qty: 1 on 12/01/2023 by Hugo Alfonso DO at OR [facility] Left: Knee BOB : ORTHOPAEDICS 02/20/2025 6195-1-010 / / [id number] Triathlon X3 Tibial Bearing Insert - Cs Implanted:Qty: 1 on 12/01/2023 by Hugo Alfonso DO at OR [facility] Left: Knee BOB : ORTHOPAEDICS 09/14/2028 [...] Advance Directives occurred with: Patient Care Teams Dynamometer Tester Relationship Specialty Start Date End Date Joana Hood DO [address] [place] [address] PCP - General Family Medicine 08/25/18 documented as of this encounter
--- OUTSIDE RECORDS SUMMARY | 2024-07-08 11:56 | External Medical Summary | Summary of Care ---
Author Name Unknown Organization [facility] Address [address] [place] [address] Phone [phone] Care Team Providers Care Software Developer Consultant Name Role Phone EricksonJoana landers Kyle BENOIT Primary Care Provider + [phone] Reason for Visit * Reason Comments Outpatient Testing Encounter Details Date Type Department Care Team (Late st Contact Info) Description 05/24/2024 1:50 PM EST Laboratory Laboratory, [facility] [address] [place] [address] [place], [facility] [address] [place] [address] Dyslipidemia, goal LDL below 100; Persistent atrial fibrillation (HCC) Allergies Active Allergy Reactions Criticality Noted Date [...] SPACER 54 g 3 04/12/20 24 Active Metoprolol Succinate ER 25 MG [...] mRNA, LNP-s, No Pre serve, 2-Dose Series (Giphy) 05/05/2021,08/30/2020,08/09/2020 Pneumococcal Conjugate Vacc, 13 Valent (Prevnar) 03/12/2018 Pneumococcal Conjugate Vacci ne, 20-valent ([id number]) 05/30/2023 Pneumococcal Polysaccharide PPV23 (Pneumovax) 10/18/2015 Season [...] 05/26/2024 11:00 AM EST Office Visit Cardiology, [facility] [address] [place] [address] Shaylee Rose PA-C [address] [facility] [place] [address] 05/27/2024 10:20 AM EST Office Visit Dermatology [place] [facility] Yolanda [address] [facility] [place] [phone] Della Brito PA-C [address] [place] [address] [place] [address] 06/02/2024 10:00 AM EST Cardiac Studies Cardiac Studies, [facility] [address] [place] [address] 06/29/2024 11:15 AM EST Office Visit [facility] [address] [facility] [place] [address] Roman Myers MD [address] [facility] [place] [address] 11/25/2024 10:00 AM EDT Office Visit Orthopaedics [facility] [address] [place] [address] Hugo Alfonso DO [address] [place] [address] 12/01/2024 11:30 AM EDT Office Visit Family Practice, [place] [facility] [address] [place] [phone] Joana Hood DO [address] [address] 01/04/2025 2:00 PM EDT Office Visit Hematology/Oncology [facility] [address] [facility] [place] [phone] Elida Ortiz CRNP [address] [facility] [place] [address] 05/16/2025 8:00 AM EST Office Visit Neurology [facility] [address] [facility] [place] [address] Eulogio Augustine MD 200 [facility] [place] [address] Pending Results Name Type Priority Associated Diagnoses Date /Time LIPID PANEL WITH DIRECT LDL IF TG IS HIGH Lab Routine Dyslipidemia, goal LDL below 100 05/24/2024 1:48 PM EST BASIC METABOLIC PANEL Lab Routine Persistent atrial fibrillation (HCC) 05/24/2024 1:48 PM EST CBC Lab Routine Persistent atrial fibrillation (HCC) 05/24/2024 1:48 PM EST TSH WITH FREE T4 IF INDICATED Lab Routine Persistent atrial fibrillation (HCC) 05/24/2024 1:48 PM EST Scheduled Procedures Name Priority Associated Diagnoses Date/Ti [...] this encounter Medical Devices Implanted Type Area Baker Second Device Identifier Shelf Expiration Date Model / Serial / Lot Knee Triathlon Bead No Laz R 5 - [id number] Implanted:Qty: 1 on 12/16/2022 by Hugo Alfonso DO at OR [facility] Right: Knee BOB : ORTHOPAEDICS 11/19/2027 5517-F-502 / / [id number] Baseplate #5 Tritanium - [id number] Implanted:Qty: 1 on 12/16/2022 by Hugo Alfonso DO at OR [facility] Right: Knee BOB : ORTHOPAEDICS 09/28/2027 5536-B-500 / / [id number] Bob Triathlon X3 Tibial Bearing Insert - Cs Implanted:Qty: 1 on 12/16/2022 by Hugo Alfonso DO at OR [facility] Right: Knee BOB : ORTHOPAEDICS 04/18/2027 5531-G-512 -E / / [id number] Knee Baseplate Tri Tib Sz 4 - [id number] Implanted:Qty: 1 on 12/01/2023 by Hugo Alfonso DO at OR [facility] Left: Knee BOB : ORTHOPAEDICS 04/30/2027 5521-B-400 / / [id number] Knee Triathlon Bead No Laz L 5 - [id number] Implanted:Qty: 1 on 12/01/2023 by Hugo Alfonso DO at OR [facility] Left: Knee BOB : ORTHOPAEDICS 10/27/2028 5517-F-501 / / [id number] Cement Bone Simplex Hv & G - [id number] Implanted:Qty: 1 on 12/01/2023 by Hugo Alfonso DO at OR [facility] Left: Knee BOB : ORTHOPAEDICS 02/20/2025 6195-1-010 / / [id number] Triathlon X3 Tibial Bearing Insert - Cs Implanted:Qty: 1 on 12/01/2023 by Hugo Alfonso DO at OR [facility] Left: Knee BOB : ORTHOPAEDICS 09/14/2028 5531-G-410 -E / / [id number] documented as of this encounter Visit Diagnoses Diagnosis Dyslipidemia, goal LDL below 100 Other and unspecified hyperlipidemia Persistent atrial fibrillation (HCC) Atrial fibrillation documented [...] Advance Directives occurred with: Patient Care Teams Software Developer Consultant Relationship Specialty Start Date End Date Joana Hood DO [address] [place] [address] PCP - General Family Medicine 08/25/18 documented as of this encounter
--- OUTSIDE RECORDS SUMMARY | 2024-07-08 11:56 | External Medical Summary ---
Author Name Unknown Address Unknown Organization K01:[facility] [place] [address] [facility] [address] Laboratory Report Ordering Provider Test Date Status EUSEBIO BURDEN 05/24/2024 13:48:53 Final Observation Date Value Abnormality Reference (Units ) Status WBC, Total 05/24/2024 13:48:53 7.57 4.00-10.80 (K/uL) Final RBC 05/24/2024 13:48:53 5.25 3.85-5.15 (M/uL) Final Hemoglobin 05/24/2024 13:48:53 14.4 12.0-15.3 (g/dL) Final HCT 05/24/2024 13:48:53 46.0 Above high normal 36.0-45.2 (%) Final MCV 05/24/2024 13:48:53 87.6 81.5-97.5 (fL) Final MCH 05/24/2024 13:48:53 27.4 27.0-34.0 (pg) Final MCHC 05/24/2024 13:48:53 31.3 32.0-36.0 (g/dL) Final RDW 05/24/2024 13:48:53 17.1 11.5-15.5 (%) Final Platelets 05/24/2024 13:48:53 313 140-400 (K/uL) Final MPV 05/24/2024 13:48:53 10.4 6.6-11.1 (fL) Final Nucleated erythrocytes/100 leukocytes [Ratio] in Blood by Automated count 05/24/2024 13:48:53 0 <=0 (/100 WBCs) Final Performing Location [facility] - [address] [place] [address]
--- OUTSIDE RECORDS SUMMARY | 2024-07-08 11:56 | External Medical Summary | Summary of Care ---
Author Name Unknown Organization [facility] Address [address] [place] [address] Phone [phone] Care Team Providers Care Metal Stamper Name Role Phone Joana Hood DO Primary Care Provider Encounter Details Date Type Department Care Team (Late st Contact Info) Description 05/13/2024 Telephone [facility] [address] [place] [address] Joana Hood DO [address] [place] [address] Allergies Active Allergy Reactions Criticality Noted Date Comments Propoxyphene N-Acetaminophen Nausea/vomiting High 03/13/2013 Naproxen 07/26/2011 Rash and edema Percocet 04/08/2005 nausea Phenytoin Sodium 06/07/2000 IV caused red streaks up her arm. Polymyxin B-Trimethoprim Other (Please comment) 12/06/2013 Burning, itchy and very red. documented as of this encounter (statuses as of 05/13/2024) Medications MULTIVITAL PO TABS daily 0 0 [...] as of this encounter (statuses as of 05/13/2024) Active Problems Problem Noted Date Diagnosed Date [...] as of this encounter (statuses as of 05/13/2024) Resolved Problems Problem Noted Date Diagnosed Date [...] as of this encounter (statuses as of 05/13/2024) Immunizations Name Administration Dates Next Due COVID-19 mRNA, LNP-s, No Pre serve, 2-Dose Series ([id number]) 05/05/2021,08/30/2020,08/09/2020 Pneumococcal Conjugate Vacc, 13 Valent (Prevnar) 03/12/2018 Pneumococcal Conjugate Vacci ne, 20-valent ([id number]) 05/30/2023 Pneumococcal Polysaccharide PPV23 (Pneumovax) 10/18/2015 Season [...] to continue the zio to get a longterm tracing and determine how fast or slow [...] helpful Eulogio ----- Message ----- From: Interface, Construction Rep Sent: 05/10/2024 3:57 PM EST To: Eulogio Augustine MD documented in this encounter Plan of Treatment Upcoming Encounters Date Type Department Care Team (Late st Contact Info) Description 05/24/2024 11:50 AM EST Office Visit [facility] [address] [facility] [phone] Joana Hood [place] [facility] [place] [address] 05/27/2024 10:20 AM EST Office Visit Dermatology [address] [place] [phone] Della Brito PA-C [address] [place] [address] [place] [address] 06/29/2024 11:15 AM EST Office Visit Dermatology [facility] [address] [place] [address] Roman Myers MD 200 [facility] [place] [address] 11/25/2024 10:00 AM EDT Office Visit Orthopaedics [facility] [address] [facility] [place] [address] Hugo Alfonso, [address] [employer] [place] [address] 01/04/2025 2:00 PM EDT Office Visit Hematology/Oncology [facility] [address] [place] [address] Elida Ortiz CRNP [address] [place] [address] 05/16/2025 8:00 AM EST Office Visit Neurology [facility] [address] [place] [address] Eulogio Augustine MD [address] [facility] [place] [address] Scheduled Procedures Name Priority Associated Diagnoses Date/Ti [...] this encounter Medical Devices Implanted Type Area Technology Infusion Specialist Device Identifier Shelf Expiration Date Model / Serial / Lot Knee Triathlon Bead No Laz R 5 - [id number] Implanted:Qty: 1 on 12/16/2022 by Hugo Alfonso, DO at OR [facility] Right: Knee BOB : ORTHOPAEDICS 11/19/2027 5517-F-502 / / [id number] Baseplate #5 Tritanium - [id number] Implanted:Qty: 1 on 12/16/2022 by Hugo Alfonso DO at OR [facility] Right: Knee BOB : ORTHOPAEDICS 09/28/2027 5536-B-500 / / [id number] Bob Triathlon X3 Tibial Bearing Insert - Cs Implanted:Qty: 1 on 12/16/2022 by Hugo Alfonso, at OR [facility] Right: Knee BOB : ORTHOPAEDICS 04/18/2027 5531-G-512 -E / / [id number] Knee Baseplate Tri Tib Sz 4 - [id number] Implanted:Qty: 1 on 12/01/2023 by Hugo Alfonso DO at OR [facility] Left: Knee BOB : ORTHOPAEDICS 04/30/2027 5521-B-400 / / [id number] Knee Triathlon Bead No Laz L 5 - [id number] Implanted:Qty: 1 on 12/01/2023 by Hugo Alfonso DO at OR [facility] Left: Knee BOB : ORTHOPAEDICS 10/27/2028 5517-F-501 / / [id number] Cement Bone Simplex Hv & G - [id number] Implanted:Qty: 1 on 12/01/2023 by Hugo Alfonso DO at OR [facility] Left: Knee BOB : ORTHOPAEDICS 02/20/2025 6195-1-010 / / [id number] Triathlon X3 Tibial Bearing Insert - Cs Implanted:Qty: 1 on 12/01/2023 by Hugo Alfonso DO at OR [facility] Left: Knee BOB : ORTHOPAEDICS 09/14/2028 5531-G-410 [...] Advance Directives occurred with: Patient Care Teams Metal Stamper Relationship Specialty Start Date End Date Kopinski, Joana L, DO [address] [place] [address] PCP - General Family Medicine 08/25/18 documented as of this encounter
--- OUTSIDE RECORDS SUMMARY | 2024-07-08 11:56 | External Medical Summary | Summary of Care ---
Author Name Unknown Organization [facility] Address [address] [place] [address] Phone [phone] Care Team Providers Care Business Operations Consultant Name Role Phone Joana Hood DO Primary Care Provider Reason for Referral * Evaluate & Treat - Unlimited Visits (Within 10 days (routine)) - Authorized Specialty Diagnoses / Procedures Referred By Isma ruiz Referred To Contact Cardiovascular Medicine / Cardiology Diagnoses Persistent atrial fibrillation (HCC) Joana Hood DO [address] [place] [address] Phone: tel: fax: Angel Hood DO [address] [place] [address] Phone: tel:[phone] fax:[phone] Referral ID Status Reason Start Date Expiration Date Visits Requested Visits Authorized [id number] Authorized Specialty Services Required 05/24/2024 999 999 Question Answer Referral Priority Within 10 days (routine) Where should this appointment be scheduled? [facility] To which of the following clinics are you referring your patient? General Cardiology [facility] * [facility] (Diagnostic Medical) (Within 10 days (routine)) - Authorized Specialty Diagnoses / Procedures Referred By Isma t Referred To Contact Cardiac Studies Diagnoses Persistent atrial fibrillation (HCC) Procedures ECHO, COMPLETE (2D), TRANS-THORACIC Joana Hood DO [address] [facility] [place] [address] Phone: tel: fax: Referral ID Status Reason Start Date Expiration Date V isits Requested Visits Authorized [id number] Authorized Precert 05/24/2024 999 999 Reason for Visit * Reason Onset Date Comments Follow Up 6 month follow u p. Reports SOB and fast pulse. Pt had been to neurology and had a zio patch and an EKG. Zio patch was finished today. Medication Administration 05/24/2024 Flu an d/or Pneumo Inj Encounter Details Date Type Department Care Team (Late st Contact Info) Description 05/24/2024 11:50 AM EST Office Visit [facility] [address] [facility] [place] [phone] Joana Hood DO [address] [facility] [place] [address] Persistent atrial fibrillation (HCC)*; Dyslipidemia, goal LDL below 100; Prediabetes; Small airways disease; HTN, goal below 130/80; Diastolic dysfunction; Enlarged aorta (HCC); Heart palpitations Allergies Active [...] below 130/80,Diastolic dysfunction,Enla rged aorta (HCC),Heart palpitations Take 1 Tablet by mouth in the morning. 90 Tablet 3 05/24/20 24 Active Apixaban 2.5 MG Oral Tablet [...] mRNA, LNP-s, No Pre serve, 2-Dose Series (Scary Mommy) 05/05/2021,08/30/2020,08/09/2020 Pneumococcal Conjugate Vacc, 13 Valent (Prevnar) 03/12/2018 Pneumococcal Conjugate Vacci ne, 20-valent ([id number]) 05/30/2023 Pneumococcal Polysaccharide PPV23 (Pneumovax) 10/18/2015 Season [...] Sign Reading Time Taken Comments Blood Pressure 129/75 05/24/2024 11:44 AM EST Pulse 120 05/24/2024 11:44 AM EST Temperature 35.3 C (95.5 F) 05/24/2024 1 1:44 AM EST Respiratory Rate 16 05/24/2024 11:4 4 AM EST Oxygen Saturation 98% 05/24/2024 11: 44 AM EST Inhaled Oxygen Concentration - - Weight 106.1 kg (233 lb 12.8 oz) 2023 11:44 AM EST Height 170.2 cm (5' 7") 05/24/2024 11:4 4 AM EST Body Mass Index 36.62 05/24/2024 11:44 AM EST documented in this [...] documented in this encounter Progress Notes * Joana Hood, DO - 05/24/2024 12:09 PM EST Subjective: Deedee Kinsey is a 73 year old female. Chief Complaint Patient presents with Follow Up 6 month follow up. Reports SOB and fast pulse. Pt had been to neurology and had a zio patch and an EKG. Zio patch was finished today. Medication Administration Flu and/or Pneumo Inj HPI: 73 year old female here today for a 6 month return. She has hx of PE in 2016, Seizure disorder, prediabetes, osteoarthritis in her knees and taking meds as listed. She was seen in March for URI. Was started on doxy. And steroids. This had taken a while to get over. She is finally feeling better. In terms of cough and breathing. But now has elevated heart rate. Ranges between 50's and 120s. Appears that she did have a heart rate of 134 when she was sick. She had seen neurology for a regular follow-up and was having elevated heart rates, and he completed an EKG and this showed A fib. She is already on metoprolol for PVCs. She is taking 12.5 mg of metoprolol. Her dose of eliquis is at 2.5 mg bid. Has noticed leg swelling. She is not short of breath. Lump on the left index finger. 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 Spironolactone 25 MG Oral Tablet (Aldactone) TAKE A HALF A TABLET BY MOUTH EVERY MORNING 45 Tablet 3 Apixaban 2.5 MG Oral Tablet (Eliquis) Take 1 Tablet by mouth in the morning and 1 Tablet before bedtime. 180 Tablet 3 Montelukast Sodium 10 MG Oral Tablet (Singulair) TAKE 1 TABLET BY MOUTH EVERY DAY (Patient taking differently: Take 1 Tablet by mouth at bedtime.) 90 Tablet 3 Rosuvastatin Calcium 40 MG Oral Tablet (Crestor) Take 1 Tablet by mouth in the morning. 90 Tablet 3 Metoprolol Succinate ER 25 MG Oral Tablet Extended Release 24 Hour (toPROL XL) TAKE ONE-HALF TABLETBY MOUTH IN THE MORNING 45 Tablet 3 Acetaminophen ER 650 MG Oral Tablet Extended Release (Tylenol 8 Hour) Take 1 Tablet by mouth every 8 hours as needed. Wixela Inhub 250-50 MCG/ACT Inhalation Aerosol Powder [...] OR WHEEZING. WITH SPACER 54 g 3 MULTIVITAL PO TABS daily (Patient not taking: Reported on 05/24/2024) 0 0 CALCIUM + D3 600-200 MG-UNIT PO TABS one pill twice a day (Patient not taking: Reported on 05/24/2024) 1 Tab 0 Benzonatate 100 MG Oral Capsule Take 2 Capsules by mouth 3 times a day as needed for Cough. (Patient not taking: Reported on 05/24/2024) 60 Capsule 1 No current facility-administered medications for this visit. Review of patient's allergies indicates: Allergen Reactions Darvocet [Propoxyphene N-Acetaminophen] Nausea/vomiting Naprosyn [Naproxen] Rash and edema Percocet nausea Phenytoin Sodium IV caused red streaks up her arm. Polymyxin B-Trimethoprim Other (Please comment) Burning, itchy and very red. Objective: BP 129/75 | Pulse 120 | Temp 95.5 F (35.3 C) (Tympanic) | Resp 16 | Ht 5' 7" (1.702 m) | Wt 233 lb 12.8 oz (106.1 kg) | LMP 05/01/2003 | SpO2 98% | BMI 36.62 kg/m | BSA 2.24 m Physical Exam: General: alert, healthy, and no distress Neck: no JVD Heart: no murmur, no gallops, irregularly irregular, and tachycardia Lungs: chest symmetric with normal AP diameter, no chest deformities noted, no chest wall tenderness, lungs clear to auscultation Abdomen: abdomen soft, non-tender, obese, normal bowel sounds, and no masses or organomegaly Extremities: + 1 pitting edema. EKG showed Atrial Fibrillation at rate of 117 ASSESSMENT/PLAN: Persistent atrial fibrillation (HCC) (Primary) - EKG; Future; Expected date: 05/24/2024 - BASIC METABOLIC PANEL; Future; Expected date: 05/24/2024 - CBC; Future; Expected date: 05/24/2024 - TSH WITH FREE T4 IF INDICATED; Future; Expected date: 05/24/2024 - EKG - ECHO, COMPLETE (2D), TRANS-THORACIC; Future; Expected date: 05/24/2024 - CARDIOLOGY REFERRAL OP - Apixaban 5 MG Oral Tablet (Eliquis); Take 1 Tablet by mouth in the morning and 1 Tablet before bedtime. Dyslipidemia, goal LDL below 100 - LIPID PANEL WITH DIRECT LDL IF TG IS HIGH; Future; Expected date: 05/24/2024 Prediabetes Small airways disease HTN, goal below 130/80 - Metoprolol Succinate ER 25 MG Oral Tablet Extended Release 24 Hour (toPROL XL); Take 1 Tablet by mouth in the morning. Diastolic dysfunction - Metoprolol Succinate ER 25 MG Oral Tablet Extended Release 24 Hour (toPROL XL); Take 1 Tablet by mouth in the morning. Enlarged aorta (HCC) - Metoprolol Succinate ER 25 MG Oral Tablet Extended Release 24 Hour (toPROL XL); Take 1 Tablet by mouth in the morning. Heart palpitations - Metoprolol Succinate ER 25 MG Oral Tablet Extended Release 24 Hour (toPROL XL); Take 1 Tablet by mouth in the morning. I did speak with Dr Jaun Hood will plan on increasing the metoprolol up to 25 mg a day. Pt reported that she was getting low heart rates, on a home pulse ox. I suggested to let me know if this keepsup. Will increase the eliquis to 5 mg bid. I believe she is seeing Shaylee Rose this week. I ordered an echo as well. To check above labs. Follow Up: Return in about 6 months (around 11/22/2024) for Labs Today. | For: Labs Today | Check-outnote: Needs an echocardiogram if possible soon. Needs to see Jaun weinstein this week if possible, if nothing available with him, please send me a message Joana Hood DO documented in this encounter Nursing Notes * Susan Aguayo, MED ASSIST - 05/24/2024 11:49 AM EST The patient has been properly identified by confirmation of name and date of . Chief Complaint Patient presents with Follow Up 6 month follow up. Reports SOB and fast pulse. Pt had been to neurology and had a zio patch and an EKG. Zio patch was finished today. documented in this encounter Plan of Treatment Upcoming Encounters Date Type Department Care Team (Late st Contact Info) Description 05/26/2024 11:00 AM EST Office Visit Cardiology, [facility] [address] [facility] [place] [address] Shaylee Rose PA-C [address] [facility] [place] [address] 05/27/2024 10:20 AM EST Office Visit Dermatology, [facility] [address] [place] [phone] Dlela Brito PA-C [address] [place] [address] [place] [address] 06/02/2024 10:00 AM EST Cardiac Studies Cardiac Studies, [facility] [address] [facility] [place] [address] 06/29/2024 11:15 AM EST Office Visit Dermatology [facility] [address] [facility] [place] [address] Roman Myers MD [address] [facility] [place] [address] 11/25/2024 10:00 AM EDT Office Visit Orthopaedics [facility] [address] [facility] [place] [address] Hugo Alfonso, [address] [place] [address] 12/01/2024 11:30 AM EDT Office Visit Family [facility] [address] [place] [phone] Joana Hood, DO [address] [facility] [place] [address] 01/04/2025 2:00 PM EDT Office Visit Hematology/Oncology [facility] [address] [facility] [place] [phone] Elida Ortiz CRNP [address] [facility] [place] [address] 05/16/2025 8:00 AM EST Office Visit Neurology [facility] [address] [facility] [place] [address] Eulogio Augustine MD [address] [facility] [place] [address] Pending Results Name Type Priority Associated Diagnoses Date /Time BASIC METABOLIC PANEL Lab Routine Persistent atrial fibrillation (HCC) 05/24/2024 1:48 PM EST CBC Lab Routine Persistent atrial fibrillation (HCC) 05/24/2024 1:48 PM EST TSH WITH FREE T4 IF INDICATED Lab Routine Persistent atrial fibrillation (HCC) 05/24/2024 1:48 PM EST Scheduled Orders Name Type Priority Associated Diagnoses Orde r Schedule EKG EKG Routine Persistent atrial fibrillation (HCC) Expected: 05/24/2024 (Approximate), Expires: 06/24/2025 BASIC METABOLIC PANEL Lab Routine Persistent atrial fibrillation (HCC) Expected: 05/24/2024 (Approximate), Expires: 05/24/2025 CBC Lab Routine Persistent atrial fibrillation (HCC) Expected: 05/24/2024 (Approximate), Expires: 05/24/2025 TSH WITH FREE T4 IF INDICATED Lab Routine Persistent atrial fibrillation (HCC) Expected: 05/24/2024 (Approximate), Expires: 05/24/2025 ECHO, COMPLETE (2D), TRANS-THORACIC Echocardiology Routine Persistent atrial fibrillation (HCC) Expected: 05/24/2024 (Approximate), Expires: 05/24/2025 Scheduled Procedures Name Priority Associated Diagnoses Date/Ti me COLONOSCOPY FLEXIBLE PROXIMA L DIAGNOSTIC Recall Special screening for malignant neoplasms, colon Scheduled Referrals Name Type Priority Associated Diagnoses Orde r Schedule CARDIOLOGY REFERRAL OP Referral Within 10 days (routine) Persistent atrial fibrillation (HCC) Ordered: 05/24/2024 Health Maintenance Due Date Last Done Comments [...] this encounter Medical Devices Implanted Type Area Outsole Rounder Device Identifier Shelf Expiration Date Model / Serial / Lot Knee Triathlon Bead No Laz R 5 - [id number] Implanted:Qty: 1 on 12/16/2022 by Hugo Alfonso DO at OR [facility] Right: Knee BOB : ORTHOPAEDICS 11/19/2027 5517-F-502 / / [id number] Baseplate #5 Tritanium - [id number] Implanted:Qty: 1 on 12/16/2022 by Hugo Alfonso DO at OR [facility] Right: Knee BOB : ORTHOPAEDICS 09/28/2027 5536-B-500 / / [id number] Triathlon X3 Tibial Bearing Insert - Cs Implanted:Qty: 1 on 12/16/2022 by Hugo Alfonso DO at OR [facility] Right: Knee BOB : ORTHOPAEDICS 04/18/2027 5531-G-512 -E / / [id number] Knee Baseplate Tri Tib Sz 4 - [id number] Implanted:Qty: 1 on 12/01/2023 by Hugo Alfonso DO at OR [facility] Left: Knee BOB : ORTHOPAEDICS 04/30/2027 5521-B-400 / / [id number] Knee Triathlon Bead No Laz L 5 - [id number] Implanted:Qty: 1 on 12/01/2023 by Hugo Alfonso DO at OR [facility] Left: Knee BOB : ORTHOPAEDICS 10/27/2028 5517-F-501 / / [id number] Cement Bone Simplex Hv & G - [id number] Implanted:Qty: 1 on 12/01/2023 by Hugo Alfonso DO at OR [facility] Left: Knee BOB : ORTHOPAEDICS 02/20/2025 [id number] / / [id number] Triathlon X3 Tibial Bearing Insert - Cs Implanted:Qty: 1 on 12/01/2023 by Hugo Alfonso DO at OR [facility] Left: Knee BOB : ORTHOPAEDICS 09/14/2028 5531-G-[id number] -[id number] / / [id number] documented as of this encounter Visit Diagnoses Diagnosis Persistent atrial fibrillation (HCC)- Primary Atrial fibrillation Dyslipidemia, goal LDL below 100 Other and unspecified hyperlipidemia Prediabetes Other abnormal glucose Small airways disease Other diseases of lung, not elsewhere classified HTN, goal below 130/80 Unspecified essential hypertension Diastolic dysfunction Heart disease, unspecified Enlarged aorta (HCC) Other specified disorders of arteries and arterioles Heart palpitations Palpitations documented in this encounter Advance Directives * [...] Advance Directives occurred with: Patient Care Teams Business Operations Consultant Relationship Specialty Start Date End Date Joana Hood DO [address] [facility] [place] [address] PCP - General Family Medicine 08/25/18 documented as of this encounter
--- OUTSIDE RECORDS SUMMARY | 2024-07-08 11:56 | External Medical Summary | Summary of Care ---
Author Name Unknown Organization [facility] Address [address] [place] [address] Phone [phone] Care Team Providers Care Medical Historian Name Role Phone EricksonJoana landers Kyle BENOIT Primary Care Provider + [phone] Reason for Visit * Reason Comments Return Neuro Encounter Details Date Type Department Care Team (Latest Contact Info) Description 05/10/2024 8:00 AM EST Office Visit Neurology [facility] [address] [place] [address] Eulogio Augustine MD [address] [place] [address] Nonintractable epilepsy without status epilepticus, unspecified epilepsy type (HCC)*; Palpitations Allergies Active Allergy Reactions Criticality Noted Date [...] MORNING 45 Tablet 3 05/16/20 23 Active Apixaban 2.5 MG Oral Tablet (Eliquis)Indicat ions:Personal history of pulmonary embolism Take 1 Tablet by mouth in the morning and 1 Tablet before bedtime. 180 Tablet 3 05/28/20 23 Active Montelukast Sodium 10 MG Oral [...] morning. 90 Tablet 3 06/09/20 23 Active Metoprolol Succinate ER 25 MG Oral Tablet Extended Release 24 Hour (toPROL XL)Indications:H TN, goal below 130/80,Diastolic dysfunction,Enla rged aorta (HCC),Heart palpitations TAKE ONE-HALF TABLET BY MOUTH IN THE MORNING 45 Tablet 3 11/10/19 24 Active Acetaminophen ER 650 MG Oral Tablet [...] WITH SPACER 54 g 3 04/12/20 Active Sennosides 8.6 MG Oral Tablet (Senokot) Take 2 Tablets by mouth in the morning. 14 Tablet 12/02/2023 9:40 AM EDT 12/02/19 24 024 Discontin ued(Medic ation List Clean Up) traMADol HCl 50 MG Oral Tablet (Ultram) Take 1 Tablet by mouth every 4 hours as needed for Pain, Severe. 30 Tablet 12/02/2023 9:40 AM EDT 12/02/19 024 Discontin ued(Medic ation List Clean Up) documented as of this encounter (statuses as of 05/10/2024) Active Problems Problem Noted Date Diagnosed Date S/P TKR (total knee replacement), left Primary osteoarthritis of left knee 08/15/2023 Status [...] (Prevnar) 03/12/2018 Pneumococcal Conjugate Vacci ne, 20-valent ([id number]) 05/30/2023 Pneumococcal Polysaccharide PPV23 (Pneumovax) 10/18/2015 Season [...] No 10/22/2023 Does the household have a [facility] income? (Household - for ages [...] Sign Reading Time Taken Comments Blood Pressure 130/80 05/10/2024 8:07 AM EST Pulse 110 05/10/2024 8:07 AM EST Temperature 36.3 C (97.4 F) 05/10/2024 8:07 AM ES T Respiratory Rate 16 05/10/2024 8:07 AM EST Oxygen Saturation 96% 05/10/2024 8:07 AM EST Inhaled Oxygen Concentration - - Weight 108.2 kg (238 lb 9.6 oz) 05/10/2024 8:07 AM EST Height - - Body Mass Index 37.37 04/12/2024 2:59 PM EDT documented in this encounter Functional Status * [...] documented in this encounter Progress Notes * Eulogio Augustine MD - 05/10/2024 9:06 AM EST CLINIC NOTES Neurology [facility] [place] [address] [facility] [place] [address] Deedee Kinsey [id number] NEUROLOGY OUTPATIENT NOTE 05/10/2024 HISTORY: Deedee is 73 years old and has a longstanding idiopathic seizure disorder quiescent for more 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 She does have a history of DVT with multiple pulmonary emboli in his on Eliquis. The cause for thiswas never found Her other problems include some asthma some over nourishment and recently unfortunately she developed a viral upper respiratory tract infection which was negative by at home COVID test but otherwise was on known in terms of causation. Her grandchildren all were ill with some form of the soreness and a persistent for months but during that she began to notice rapid heart rate irregular heart rate perhaps a little exercise intolerance and was seen by her primary care physician was reassured that this is probably part of the viral illness but then presents today with concerns about what might begoing on Otherwise her health has been fine she has had no new issues and again her exercise tolerance has not been tested that much as she during this illness was really not active. 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) PONV (postoperative nausea and vomiting) Pulmonary embolism (HCC) 08/2015 Vertigo Past Surgical History: Procedure Laterality Date ARTHROPLASTY KNEE TOTAL Right 12/16/2022 ROBOTIC ARTHROPLASTY KNEE TOTAL performed by Hugo Alfonso DO at OR [facility] ARTHROPLASTY KNEE TOTAL Left 12/01/2023 LEFT ROBOTIC ARTHROPLASTY KNEE TOTAL performed by Hugo Alfonso DO at OR [facility] COLONOSCOPY, DIAGNOSTIC (RECTUM) 12/11/2015 diverticulosis, fair prep, repeat 3 yrs/COLONOSCOPY FLEXIBLE PROXIMAL DIAGNOSTIC performed by Jermaine Galvez MD at [facility] COLONOSCOPY, DIAGNOSTIC (RECTUM) 02/11/2019 diverticulosis, repeat 10 yrs/COLONOSCOPY FLEXIBLE PROXIMAL DIAGNOSTIC performed by Jermaine Galvez MD at [facility] DENTAL SURGERY PROCEDURE NEC 10/07/2023 FOOT/TOE SURGERY NEC 2004 and 2006 Foot/Toes Surgery Proc Unlisted LIGATE/CUT OVIDUCT(S) Tubal Ligation REMOVAL OF APPENDIX 1979 Appendectomy REMOVAL OF OVARIAN CYST(S) 1979 Ovarian Cyst(S) Removal REMOVE TONSILS & ADENOIDS, UNDER 12 Tonsillectomy/Adenoids,<12 Y/O Social History Socioeconomic History Marital status: Spouse name: humera Number of children: 2 Years of education: Not on file Highest education level: Not on file Occupational History Not on file Tobacco Use Smoking status: Never Passive exposure: [...] Belt Yes Self-Exams Yes Comment: occ Social History Narrative Not on file Social Needs Financial Resource Strain: Low Risk (10/22/2023) Financial Resource Strain Do you have any trouble paying for your medications, or do you think you might in the future? (Adult - for ages 18 years and over): No Does your family have trouble paying for medicine? (Household - for ages 0-17 years): Not on file Food Insecurity: No Food Insecurity (12/01/2023) Food Insecurity Do you need food for this week? (Adult - for ages 18 years and over): No Are you able to get enough food for your family? (Household - for ages 0-17 years): Not on file Does your family need food this week? (Household - for ages 0-17 years): Not on file Do you always have enough food for your family? (Household - for ages 0-17 years): Not on file Transportation Needs: No Transportation Needs (12/01/2023) Transportation Needs Do you have trouble getting a ride to medical visits or work? (Adult - for ages 18 years and over):Never True Does your family have a hard time getting a ride to doctors visits? (Household - for ages 0-17 years): Not on file Has lack of transportation kept you from medical appointments, meetings, work, or from getting things needed for daily living? Check all that apply. (Adult - for ages 18 years and over): Not on file Do you (or your family) have trouble finding or paying for a ride (transportation)? (Household - for ages 0-17 years): Not on file Social Connections: Socially Integrated (10/22/2023) Social Connections How often do you feel lonely or isolated from those around you? (Adult - for ages 18 years and over): Never Housing Stability: Low Risk (12/01/2023) Housing Stability Do you currently live in a chcf or have no steady place to sleep at night? (Adult - for ages 18 years and over): No Do you think you are at risk of becoming homeless? (Adult - for ages 18 years and over): No Does your family worry about paying for your home or becoming homeless? (Household - for ages 0-17 years): Not on file Are you homeless or worried that you might be in the future? (Adult - for ages 18 years and over): Not on file Are you (or your family) homeless or worried that you might be in the future? (Household - for ages0-17 years): Not on file Family History Problem Relation Name Age of Onset Breast Cancer Sister 57 Breast Cancer Cousin (Maternal) 66 Current Outpatient Medications Medication Sig Dispense Refill [...] taking: Reported on 05/10/2024) 1 Tab 0 Sennosides 8.6 MG Oral Tablet (Senokot) Take 2 Tablets by mouth in the morning. (Patient not taking: Reported on 01/05/2024) 14 Tablet 0 traMADol HCl 50 MG Oral Tablet (Ultram) Take 1 Tablet by mouth every 4 hours as needed for Pain, Severe. 30 Tablet 0 No current facility-administered medications for this visit. Review of patient's allergies indicates: Allergen Reactions Darvocet [Propoxyphene N-Acetaminophen] Nausea/vomiting Naprosyn [Naproxen] Rash and edema Percocet nausea Phenytoin Sodium IV caused red streaks up her arm. Polymyxin B-Trimethoprim Other (Please comment) Burning, itchy and very red. REVIEW OF SYSTEMS: With the exception of historical items included in the history of present illness above, a 12-point systems review was normal. PHYSICAL EXAM: BP 130/80 | Pulse 110 | Temp 36.3 C (97.4 F) (Tympanic) | Resp 16 | Wt 108.2 kg (238 lb 9.6 oz) | LMP 05/01/2003 | SpO2 96% | BMI 37.37 kg/m | BSA 2.26 m She was awake alert oriented 3 spheres eye movements facial motility strength facial sensation normal gait station coordination testing was normal without any tremors tics choreiform activity drift or pronation sign muscle weakness etcetera. Cardiac examination was normal but the pulse was to palpation somewhat irregularly irregular and I went ahead and did an EKG which unfortunately was indeterminate in terms of underlying rhythm. I did not see any P waves but there was a lot of electrical interference at baseline in the RR interval appeared to be somewhat variable. We will see what the official interpretation is but I have a high suspicion this is atrial fibrillation and went ahead with aZio patch application LABORATORY: No labs are needed other than a phenobarb level which is going to be obtained today IMAGING: No imaging is needed ASSESSMENT AND PLAN: Stable seizure disorder on phenobarb we will simply continue the meds check a level see her back in a year Post viral infection increased cardiac activity with palpitations and variable heart rate with highindex of suspicion for paroxysmal atrial fibrillation Plan is to let her primary care physician know what I have done await the results of the Zio patch and if atrial fibrillation is present recommended she be seen again by Cardiology who knows her case I will see her back in a year I spent a total of 30 minutes reviewing her case performing exam doing various diagnostic studies reviewing the preliminary results making plans for follow-up in management The above note was generated utilizing voice recognition technology may have spelling errors punctuation errors pronoun usage errors and syntax errors Eulogio Augustine MD documented in this encounter Nursing Notes * Nel García LPN - 05/10/2024 8:49 AM EST 05/10/24 8:49 AM Date to Remove: 05/24/2024 Time to Remove: 844 Serial Number: [id number] Ordering Provider: Eulogio Augustine MD CC Results: Joana Hood, DO Nel García LPN Zio patch applied in clinic, as per provider orders. * Andria Shi MED ASSIST - 05/10/2024 8:06 AM EST Chief Complaint Patient presents with Return Neuro documented in this encounter Plan of Treatment Upcoming Encounters Date Type Department Care Team (Late st Contact Info) Description 05/10/2024 9:40 AM EST Laboratory Laboratory [facility] Sofia Barraza [address] [place] [phone] [address] [place] [address] Arrived 05/24/2024 11:50 AM EST Office Visit [address] [place] [address] Joana Hood DO [address] [place] [address] 05/27/2024 10:20 AM EST [facility] [address] [place] [facility] [address] Della Brito PA-C [address] [place] [address] [place] [address] 06/29/2024 11:15 AM EST Office Visit Dermatology [facility] [address] [facility] [place] [address] Roman Myers MD [address] [facility] [place] [address] 11/25/2024 10:00 AM EDT Office Visit Orthopaedics [facility] [address] [facility] [place] [address] Hugo Alfonso DO [address] [facility] [place] [address] 01/04/2025 2:00 PM EDT Office Visit Hematology/Oncology [facility] [address] [facility] [place] [phone] Elida Ortiz CRNP [address] [place] [address] [place] [address] 05/16/2025 8:00 AM EST Office Visit Neurology [facility] [address] [facility] [place] [address] Eulogio Augustine MD [address] [facility] [place] [address] Scheduled Orders Name Type Priority Associated Diagnoses Orde r Schedule EKG EKG Routine Palpitations Expected: 05/10/2024 (Approximate), Expires: 06/09/2025 EXTERNAL EKG 8 TO 15 DAYS HOME ENROLLMENT Holter Routine Palpitations Expected: 05/11/2024 (Approximate), Expires: 05/10/2025 PHENOBARBITAL LEVEL Lab Routine Nonintractable epilepsy without status epilepticus, unspecified epilepsy type (HCC) Ordered: 05/10/2024 Scheduled Procedures Name Priority Associated Diagnoses Date/Ti [...] this encounter Medical Devices Implanted Type Area Ground Layer Device Identifier Shelf Expiration Date Model / Serial / Lot Knee Triathlon Bead No Laz R 5 - [id number] Implanted:Qty: 1 on 12/16/2022 by Hugo Alfonso DO at OR [facility] Right: Knee BOB : ORTHOPAEDICS 11/19/2027 5517-F-502 / / [id number] Baseplate #5 Tritanium - [id number] Implanted:Qty: 1 on 12/16/2022 by Hugo Alfonso DO at OR [facility] Right: Knee BOB : ORTHOPAEDICS 09/28/2027 5536-B-500 / / [id number] Triathlon X3 Tibial Bearing Insert - Cs Implanted:Qty: 1 on 12/16/2022 by Hugo Alfonso DO at OR [facility] Right: Knee BOB : ORTHOPAEDICS 04/18/2027 5531-G-512 -E / / [id number] Knee Baseplate Tri Tib Sz 4 - [id number] Implanted:Qty: 1 on 12/01/2023 by Hugo Alfonso DO at OR [facility] Left: Knee BOB : ORTHOPAEDICS 04/30/2027 5521-B-400 / / [id number] Knee Triathlon Bead No Laz L 5 - [id number] Implanted:Qty: 1 on 12/01/2023 by Hugo Alfonso DO at OR [facility] Left: Knee BOB : ORTHOPAEDICS 10/27/2028 5517-F-501 / / [id number] Cement Bone Simplex Hv & G - [id number] Implanted:Qty: 1 on 12/01/2023 by Hugo Alfonso DO at OR [facility] Left: Knee BOB : ORTHOPAEDICS 02/20/2025 6195-1-010 / / [id number] Triathlon X3 Tibial Bearing Insert - Cs Implanted:Qty: 1 on 12/01/2023 by Hugo Alfonso DO at OR [facility] Left: Knee BOB : ORTHOPAEDICS 09/14/2028 5531-G-410 -[id number] / / [id number] documented as of this encounter Visit Diagnoses Diagnosis Nonintractable epilepsy without status epilepticus, unspecified epilepsy type (HCC)- Primary Palpitations documented in this encounter Advance Directives [...] Advance Directives occurred with: Patient Care Teams Medical Historian Relationship Specialty Start Date End Date Joana Hood DO [address] [place] [address] PCP - General Family Medicine 08/25/18 documented as of this encounter"
--- OUTSIDE RECORDS SUMMARY | 2024-07-08 11:57 | External Medical Summary | Summary of Care ---
Author Name Unknown Organization [facility] Address [address] [place] [address] Phone [phone] Care Team Providers Care Medical Payment Poster Name Role Phone EricksonJoana landers Kyle BENOIT Primary Care Provider [phone] Encounter Details Date Type Department Care Team (Late st Contact Info) Description 03/01/2024 Patient Reported Data Patient Survey Ortho FORCE Allergies Active Allergy Reactions Criticality Noted Date Comments Propoxyphene N-Acetaminophen Nausea/vomiting High 03/13/2013 Naproxen 07/26/2011 Rash and edema Percocet 04/08/2005 nausea Phenytoin Sodium 06/07/2000 IV caused red streaks up her arm. Polymyxin B-Trimethoprim Other (Please comment) 12/06/2013 Burning, itchy and very red. documented as of this encounter (statuses as of 03/01/2024) Medications Medication Sig Dispensed Refills Start Date [...] the morning. 90 Tablet 3 06/09/2023 Active PHENobarbital 97.2 MG Oral Tablet TAKE 2 TABLETS BY MOUTH AT BEDTIME 60 Tablet 3 11/06/2023 Active Metoprolol Succinate ER 25 MG Oral Tablet Extended Release 24 Hour (toPROL XL)Indications:HTN, goal below 130/80,Diastolic dysfunction,Enlarge d aorta (HCC),Heart palpitations TAKE ONE-HALF TABLET BY MOUTH IN THE MORNING 45 Tablet 3 11/10/2023 Active Ferrous Sulfate 325 (65 Fe) MG Oral Tablet (Feosol) Take 1 Tablet by mouth at noon and 1 Tablet in the evening. 14 Tablet 12/02/2023 Active Additional Information Patient not taking.Reported on 01/05/2024 Sennosides 8.6 MG Oral Tablet (Senokot) Take [...] mouth every 8 hours as needed. Active Albuterol Sulfate HFA 108 (90 Base) MCG/ACT Inhalation Aerosol SolutionIndications :Small airways disease INHALE 2 PUFFS BY MOUTH EVERY 4 HOURS NEEDED FOR COUGH OR WHEEZING. WITH SPACER 18 g 3 01/09/2024 Active Wixela Inhub 250-50 MCG/ACT Inhalation Aerosol Powder Breath Activated (Fluticasone-Salmet romeo)Indications:Ot her disorders of lung INHALE 1 PUFF BY MOUTH 2 TIMES A DAY. 180 Each 3 01/09/2024 Active documented as of this encounter (statuses as of 03/01/2024) Active Problems Problem Noted Date Diagnosed Date [...] tual BMI) 07/16/2012 Overview: bmi= 35.49 07/16/12 ADVANCE DIRECTIVE INFORMATION 11/02/2004 Overview: Brochure given to pt. at this time. documented as of this encounter (statuses as of 03/01/2024) Resolved Problems Problem Noted Date Diagnosed Date Resolved Date Bilateral pulmonary embolism 04/24/2022 05/06/2023 Bilateral pulmonary embolism 11/22/2019 12/17/2019 Bilateral pulmonary embolism 08/31/2015 03/15/2019 DIARRHEA 08/17/2001 09/18/2015 Volume depletion 08/17/2001 09/18/2015 Major depressive disorder 06/08/2001 Overview: ICD-10 update of inactive term Enthesopathy of knee 06/08/2001 017 Convulsions 05/30/1999 03/15/2019 EPILEPSY;NONCONV,W/O INTRACTABLE 04/14/2017 Allergic rhinitis 09/02/2018 documented as of this encounter (statuses as of 03/01/2024) Immunizations Name Administration Dates Next Due COVID-19 mRNA, LNP-s, No Pre serve, 2-Dose Series ([employer]) 05/05/2021,08/30/2020,08/09/2020 Pneumococcal Conjugate Vacc, 13 Valent (Prevnar) 03/12/2018 Pneumococcal Conjugate Vacci ne, 20-valent ([id number]) 05/30/2023 Pneumococcal Polysaccharide PPV23 (Pneumovax) 10/18/2015 Season Influenza, Quad, PF, Adjuvanted, 65+ Yrs, IM (FLUAD) 04/17/2020 Seasonal Influenza, PF, 6 M & above, IM , (FluLaval or Fluzone) 03/12/2018,04/14/2017 04/14/2018 Seasonal Influenza, Quadriva lent Hd (Fluzone Hd) 05/30/2023,04/24/2022,05/23/2021 Seasonal Influenza, Trivalen t, (IIV3), with Preserv, (Fluzone) 04/18/2016 Seasonal Influenza, Trivalen t, Adjuvanted, 65+ YRS, PF, (Fluad) 05/04/2019 TDAP (age 10 and older)(Boostrix) 07/04/2023, documented as of this encounter Social History [...] Care Team (Late st Contact Info) Description 04/12/2024 10:40 AM EDT Office Visit Neurology [facility]ra[facility] [address] [place] [address] Eulogio Augustine MD [address] [place] [address] 05/24/2024 11:50 AM EST Office Visit Family [facility] [place] [address] [address] [facility], [place] [phone] Joana Hood DO [address] [place] [address] 05/27/2024 10:20 AM EST Office Visit Dermatology, [place] [address] [place] [address] Della Brito PA-C [address] [place] [address] [place] [address] 06/29/2024 11:15 AM EST Office Visit Dermatology [facility] [address] [facility] [place] [address] Roman Myers MD [address] [facility] [place] [address] 11/25/2024 10:00 AM EDT Office Visit Orthopaedics [facility] [address] [facility] [place] [address] Hugo Alfonso DO [address] [facility] [place] [address] 01/04/2025 2:00 PM EDT Office Visit Hematology/Oncology [facility] [address] [facility] [place] [phone] Elida Ortiz CRNP [address] [facility] [place] [id number] Scheduled Procedures Name Priority Associated Diagnoses Date/Ti me COLONOSCOPY FLEXIBLE PROXIMA L DIAGNOSTIC Recall Special screening for malignant neoplasms, colon Health Maintenance Due Date Last Done Comments Cologuard 1997 Sigmoidoscopy 1997 Zoster Vaccines (1 of 2) 2002 Fecal Occult Blood Test 09/12/2016 09/13/2015 Adult [...] 09/26/1998, 06/29/1998, 04/25/1998 DXA Scan Discontinued 05/03/2013 Pneumococcal Vaccine: 65+ Years Completed 05/30/2023, 03/12/2018, 10/18/2015 HPV (Gardasil) Vaccine Aged Out No lo nger eligible based on patient's age to complete this topic MENINGOCOCCAL (MENACTRA/MENVEO) Aged Out No longer eligible based on patient's age to complete this topic documented as of this encounter Medical Devices Implanted Type Area Bus [employer] In[employer] Device Identifier Shelf Expiration Date Model / Serial / Lot Knee Triathlon Bead No Laz R 5 - [id number] Implanted:Qty: 1 on 12/16/2022 by Hugo Alfonso, DO at OR [facility] Right: Knee BOB : ORTHOPAEDICS 11/19/2027 5517-F-502 / / [id number] Baseplate #5 Tritanium - [id number] Implanted:Qty: 1 on 12/16/2022 by Hugo Alfonso DO at OR [facility] Right: Knee BOB : ORTHOPAEDICS 09/28/2027 5536-B-500 / / [id number] Triathlon X3 Tibial Bearing Insert - Cs Implanted:Qty: 1 on 12/16/2022 by Hugo Alfonso DO at OR [facility] Right: Knee BOB : ORTHOPAEDICS 04/18/2027 5531-G-512 -E / / [id number] Knee Baseplate Tri Tib Sz 4 - [id number] Implanted:Qty: 1 on 12/01/2023 by Hugo Alfonso DO at OR [facility] Left: Knee BOB : ORTHOPAEDICS 04/30/2027 5521-B-400 / / [id number] Knee Triathlon Bead No Laz L 5 - [id number] Implanted:Qty: 1 on 12/01/2023 by Hugo Alfonso DO at OR [facility] Left: Knee BOB : ORTHOPAEDICS 10/27/2028 5517-F-501 / / [id number] Cement Bone Simplex Hv & G - [id number] Implanted:Qty: 1 on 12/01/2023 by Hugo Alfonso DO at OR [facility] Left: Knee BOB : ORTHOPAEDICS 02/20/2025 6195-1-010 / / [id number] Triathlon X3 Tibial Bearing Insert - Cs Implanted:Qty: 1 on 12/01/2023 by Hugo Alfonso DO at OR [facility] Left: Knee BOB : ORTHOPAEDICS [...] Directives occurred with: Patient Care Teams Medical Payment Poster Relationship Specialty Start Date End Date Joana Hood DO [address] [place] [address] PCP - General Family Medicine 08/25/18 documented as of this encounter
--- OUTSIDE RECORDS SUMMARY | 2024-07-08 11:57 | External Medical Summary | Summary of Care ---
Author Name Unknown Organization [facility] Address [address] [place] [address] Phone [phone] Care Team Providers Care Registered Nurse Name Role Phone Erwin Joananabila Wright DO Primary Care Provider [phone] Reason for Visit * Reason Comments Post-Op Left TKA Encounter Details Date Type Department Care Team (Late st Contact Info) Description 02/26/2024 10:00 AM EDT Office Visit Orthopaedics [facility] [address] [place] [address] Hugo Alfonso DO [address] [place] [address] Status post total left knee replacement* Allergies Active Allergy Reactions Criticality Noted Date Comments Propoxyphene N-Acetaminophen Nausea/vomiting High 03/13/2013 Naproxen 07/26/2011 Rash and edema Percocet 04/08/2005 nausea Phenytoin Sodium 06/07/2000 IV caused red streaks up her arm. Polymyxin B-Trimethoprim Other (Please comment) 12/06/2013 Burning, itchy and very red. documented as of this encounter (statuses as of 02/26/2024) Medications Medication Sig Dispensed Refills Start Date [...] as of this encounter (statuses as of 02/26/2024) Active Problems Problem Noted Date Diagnosed Date [...] as of this encounter (statuses as of 02/26/2024) Resolved Problems Problem Noted Date Diagnosed Date Resolved Date Bilateral pulmonary embolism 04/24/2022 05/06/2023 Bilateral pulmonary embolism 11/22/2019 12/17/2019 Bilateral pulmonary embolism 08/31/2015 03/15/2019 DIARRHEA 08/17/2001 09/18/2015 Volume depletion 08/17/2001 09/18/2015 Major depressive disorder 06/08/2001 Overview: ICD-10 update of inactive term Enthesopathy of knee 06/08/2001 017 Convulsions 05/30/1999 03/15/2019 EPILEPSY;NONCONV,W/O INTRACTABLE 04/14/2017 Allergic rhinitis 09/02/2018 documented as of this encounter (statuses as of 02/26/2024) Immunizations Name Administration Dates Next Due COVID-19 mRNA, LNP-s, No Pre serve, 2-Dose Series ([employer]) 05/05/2021,08/30/2020,08/09/2020 Pneumococcal Conjugate Vacc, 13 Valent (Prevnar) 03/12/2018 Pneumococcal Conjugate Vacci ne, 20-valent ([id number]) 05/30/2023 Pneumococcal Polysaccharide PPV23 (Pneumovax) 10/18/2015 Season [...] No 12/01/2023 documented as of this encounter Progress Notes * Hugo Alfonso, DO - 02/26/2024 10:26 AM EDT ORTHOPAEDIC SURGERY - Post-Op Clinic Note SUBJECTIVE: Deedee Kinsey is a 73 year old female. Chief Complaint Patient presents with Post-Op Left TKA HPI: She presents today for follow-up after left knee replacement 3 months ago. She is doing quite well. She is very pleased with her pain relief and level of function. She has no complaints today. Review of patient's allergies indicates: Allergen Reactions Darvocet [Propoxyphene N-Acetaminophen] Nausea/vomiting Naprosyn [Naproxen] Rash and edema Percocet nausea Phenytoin Sodium IV caused red streaks up her arm. Polymyxin B-Trimethoprim Other (Please comment) Burning, itchy and very red. Current Outpatient Medications Medication Sig Dispense Refill MULTIVITAL PO TABS daily 0 0 RESTASIS 0.05 % OP EMUL Instill 1 Drop into both eyes in the morning and 1 Drop before bedtime. CALCIUM + D3 600-200 MG-UNIT PO TABS one pill twice a day 1 Tab 0 Spironolactone 25 MG Oral [...] mouth in the morning. 90 Tablet 3 PHENobarbital 97.2 MG Oral Tablet TAKE 2 TABLETS BY MOUTH AT BEDTIME 60 Tablet 3 Metoprolol Succinate ER 25 MG Oral Tablet Extended Release 24 Hour (toPROL XL) TAKE ONE-HALF TABLETBY MOUTH IN THE MORNING 45 Tablet 3 Ferrous Sulfate 325 (65 Fe) MG Oral Tablet (Feosol) Take 1 Tablet by mouth at noon and 1 Tablet in the evening. (Patient not taking: Reported on 01/05/2024) 14 Tablet 0 Sennosides 8.6 MG Oral Tablet (Senokot) Take 2 Tablets by mouth in the morning. (Patient not taking: Reported on 01/05/2024) 14 Tablet 0 traMADol HCl 50 MG Oral Tablet (Ultram) Take 1 Tablet by mouth every 4 hours as needed for Pain, Severe. 30 Tablet 0 Acetaminophen ER 650 MG Oral Tablet Extended Release (Tylenol 8 Hour) Take 1 Tablet by mouth every 8 hours as needed. Albuterol Sulfate HFA 108 (90 Base) MCG/ACT Inhalation Aerosol Solution INHALE 2 PUFFS BY MOUTH EVERY 4 HOURS NEEDED FOR COUGH OR WHEEZING. WITH SPACER 18 g 3 Wixela Inhub 250-50 MCG/ACT Inhalation Aerosol Powder Breath Activated (Fluticasone-Salmeterol) INHALE 1 PUFF BY MOUTH 2 TIMES A DAY. 180 Each 3 No current facility-administered medications for this visit. OBJECTIVE: Diagnostic studies: Updated x-rays of the left knee were obtained, viewed and interpreted in the office today demonstrating evidence of stable total knee prosthesis in anatomic alignment without evidence of hardware complication or prosthetic loosening. Vital Signs: LMP 05/01/2003 Physical Exam: Examination of the left knee reveals well-healed surgical scars without evidence of complication. There is no joint effusion. Trace warmth consistent with normal postoperative recovery. She has excellent range of motion and full strength. Collateral stability intact. She is distally neurovascularlyintact. Gait assessment was nonantalgic and of normal beatrice. ASSESSMENT: Status post total left knee replacement (Primary) - XR KNEE 3 VIEWS Follow Up: Return in about 9 months (around 11/25/2024). PLAN: She is doing well following left knee replacement. She will continue activities as tolerated. I would like to see her back at her 1 year postoperative evaluation in November 2024. We will obtain x-rays of both knees at that time. All questions answered. This chart was completed in part utilizing [employer] Speech Voice Recognition Software. Grammatical errors, random word insertions, pronoun errors, and incomplete sentences are an occasional consequence of this system due to software limitations, ambient noise, and hardware issues. Any formal questions or concerns about the content, text, or information contained within the body of this dictation should be directly addressed to the provider for clarification. Hugo Alfonso DO 02/26/2024 10:26 AM documented in this encounter Nursing Notes * Laila Lucas MED ASSIST - 02/26/2024 9:55 AM EDT Here for 6 week post op, left TKA documented in this encounter Plan of Treatment Upcoming Encounters Date Type Department Care Team (Late st Contact Info) Description 04/12/2024 10:40 AM EDT [facility] [place] [address] [place] [address] Eulogio Augustine MD [address] [place] [address] 05/24/2024 11:50 AM EST Office Visit [place] [address] [place] [phone] Joana Hood DO [address] [place] [address] 05/27/2024 10:20 AM EST [place] [address] [place] [address] Della Brito, PA-Day [address] [place] [address] [place] [address] 06/29/2024 11:15 AM EST [facility] [place] [facility] [address] [place] [address] Roman Myers MD [address] [place] [address] 11/25/2024 10:00 AM EDT Office Visit Orthopaedics [facility] [address] [place] [address] [address] Hugo Alfonso, DO [address] [place] [address] 01/04/2025 2:00 PM EDT Office Visit Hematology/Oncology [place] [facility] [place] [address] [place] [address] Elida Ortiz CRNP [address] [place] [address] Pending Results Name Type Priority Associated Diagnoses Date /Time XR KNEE 3 VIEWS Medical Imaging Routine Status post total left knee replacement 02/26/2024 10:29 AM EDT Scheduled Procedures Name Priority Associated Diagnoses Date/Ti [...] 11/04/2024 11/05/2023, 11/19/2022 Lipid Panel 05/30/2028 05/30/2023, 1112/2022, 05/31/2022, Additional history exists DTap/Tdap Vaccines (3 [...] this encounter Medical Devices Implanted Type Area Millstone Cleaner Device Identifier Shelf Expiration Date Model / Serial / Lot Knee Triathlon Bead No Laz R 5 - [id number] Implanted:Qty: 1 on 12/16/2022 by Hugo Alfonso, DO at OR [facility] Right: Knee BOB : ORTHOPAEDICS 11/19/2027 5517-F-502 / / [id number] Baseplate #5 Tritanium - [id number] Implanted:Qty: 1 on 12/16/2022 by Hugo Alfonso DO at OR [facility] Right: Knee BOB : ORTHOPAEDICS 09/28/2027 5536-B-500 / / [id number] Triathlon X3 Tibial Bearing Insert - Cs Implanted:Qty: 1 on 12/16/2022 by Hugo Alfonso DO at OR [facility] Right: Knee BOB : ORTHOPAEDICS 04/18/2027 5531-G-512 -E / / [id number] Knee Baseplate Tri Tib Sz 4 - [id number] Implanted:Qty: 1 on 12/01/2023 by Hugo Alfonso, at OR [facility] Left: Knee BOB : ORTHOPAEDICS 04/30/2027 5521-B-400 / / [id number] Knee Triathlon Bead No Laz L 5 - [id number] Implanted:Qty: 1 on 12/01/2023 by Hugo Alfonso DO at OR [facility] Left: Knee BOB : ORTHOPAEDICS 10/27/2028 5517-F-501 / / [id number] Cement Bone Simplex Hv & G - [id number] Implanted:Qty: 1 on 12/01/2023 by Hugo Alfonso DO at OR [facility] Left: Knee BOB : ORTHOPAEDICS 02/20/2025 6195-1-010 / / [id number] Triathlon X3 Tibial Bearing Insert - Cs Implanted:Qty: 1 on 12/01/2023 by Hugo Alfonso DO at OR [facility] Left: Knee BOB : ORTHOPAEDICS 09/14/2028 5531-G-410 -E / / [id number] documented as of this encounter Visit Diagnoses Diagnosis Status post total left knee replacement- Primary documented in this encounter Advance Directives * [...] Advance Directives occurred with: Patient Care Teams Registered Nurse Relationship Specialty Start Date End Date Joana Hood DO [address] [facility] [place] [address] PCP - General Family Medicine 08/25/18 documented as of this encounter
--- OUTSIDE RECORDS SUMMARY | 2024-07-08 11:57 | External Medical Summary | Summary of Care ---
Author Name Unknown Organization [facility] Address [address] [place] [address] Phone [phone] Care Team Providers Care International Freight Forwarder Name Role Phone EricksonJoana landers Kyle BENOIT Primary Care Provider [phone] Encounter Details Date Type Department Care Team (Late st Contact Info) Description 02/29/2024 Patient Reported Data Patient Survey Ortho FORCE Allergies Active Allergy Reactions Criticality Noted Date Comments Propoxyphene N-Acetaminophen Nausea/vomiting High 03/13/2013 Naproxen 07/26/2011 Rash and edema Percocet 04/08/2005 nausea Phenytoin Sodium 06/07/2000 IV caused red streaks up her arm. Polymyxin B-Trimethoprim Other (Please comment) 12/06/2013 Burning, itchy and very red. documented as of this encounter (statuses as of 02/29/2024) Medications Medication Sig Dispensed Refills Start Date [...] as of this encounter (statuses as of 02/29/2024) Active Problems Problem Noted Date Diagnosed Date [...] as of this encounter (statuses as of 02/29/2024) Resolved Problems Problem Noted Date Diagnosed Date Resolved Date Bilateral pulmonary embolism 04/24/2022 05/06/2023 Bilateral pulmonary embolism 11/22/2019 12/17/2019 Bilateral pulmonary embolism 08/31/2015 03/15/2019 DIARRHEA 08/17/2001 09/18/2015 Volume depletion 08/17/2001 09/18/2015 Major depressive disorder 06/08/2001 Overview: ICD-10 update of inactive term Enthesopathy of knee 06/08/2001 017 Convulsions 05/30/1999 03/15/2019 EPILEPSY;NONCONV,W/O INTRACTABLE 04/14/2017 Allergic rhinitis 09/02/2018 documented as of this encounter (statuses as of 02/29/2024) Immunizations Name Administration Dates Next Due COVID-19 mRNA, LNP-s, No Pre serve, 2-Dose Series ([employer]) 05/05/2021,08/30/2020,08/09/2020 Pneumococcal Conjugate Vacc, 13 Valent (Prevnar) 03/12/2018 Pneumococcal Conjugate Vacci ne, 20-valent ([id number]) 05/30/2023 Pneumococcal Polysaccharide PPV23 (Pneumovax) 10/18/2015 Season [...] Neurology State Sofia Barra[place] [address] [place] [address] Eulogio Augustine MD [address] [place] [address] 05/24/2024 11:50 AM EST Office Visit Family [facility] [place] [address] [facility], [place] [phone] Joana Hood DO [address] [place] [address] 05/27/2024 10:20 AM EST Office Visit Dermatology, [place] [address] [place] [facility] [address] Della Brito PA-C [address] [place] [address] [place] [address] 06/29/2024 11:15 AM EST Office Visit Dermatology [facility] [address] [facility] [place] [address] Roman Myers MD [address] [facility] [place] [address] 11/25/2024 10:00 AM EDT Office Visit Orthopaedics [facility] [address] [facility] [place] [address] Hugo Alfonso DO [address] [facility] [place] [address] 01/04/2025 2:00 PM EDT Office Visit Hematology/Oncology [facility] [address] [facility] [place] [phone] Elida Ortiz CRNP [address] [facility] [place] [phone] Scheduled Procedures Name Priority Associated Diagnoses Date/Ti [...] this encounter Medical Devices Implanted Type Area Science Editor Device Identifier Shelf Expiration Date Model / Serial / Lot Knee Triathlon Bead No Laz R 5 - [id number] Implanted:Qty: 1 on 12/16/2022 by Hugo Alfonso, DO at OR [facility] Right: Knee BOB : ORTHOPAEDICS 11/19/2027 5517-F-502 / / [id number] Baseplate #5 Tritanium - [id number] Implanted:Qty: 1 on 12/16/2022 by Hugo Alfonso DO at OR [facility] Right: Knee BOB : ORTHOPAEDICS 09/28/2027 5536-B-500 / / [id number] Triathlon X3 Tibial Bearing Insert - Cs Implanted:Qty: 1 on 12/16/2022 by Hugo Alfonso DO at OR [facility] Right: Knee BOB : ORTHOPAEDICS 04/18/2027 5531-G-512 -E / / [id number] Knee Baseplate Tri Tib Sz 4 - [id number] Implanted:Qty: 1 on 12/01/2023 by Hugo Alfonso DO at OR [facility] Left: Knee BOB : ORTHOPAEDICS 04/30/2027 5521-B-400 / / [id number] Knee Triathlon Bead No Laz L 5 - [id number] Implanted:Qty: 1 on 12/01/2023 by Hugo Alfonso DO at OR [facility] Left: Knee BOB : ORTHOPAEDICS 10/27/2028 5517-F-501 / / [id number] Cement Bone Simplex Hv & G - [id number] Implanted:Qty: 1 on 12/01/2023 by Hugo Alfonso DO at OR [facility] Left: Knee BOB : ORTHOPAEDICS 02/20/2025 6195-1-010 / / [id number] Triathlon X3 Tibial Bearing Insert - Cs Implanted:Qty: 1 on 12/01/2023 by Hugo Alfonso DO at OR [facility] Left: Knee BOB : ORTHOPAEDICS 09/14/2028 5531-G-410 [...] Advance Directives occurred with: Patient Care Teams International Freight Forwarder Relationship Specialty Start Date End Date Joana Hood DO [address] [place] [address] PCP - General Family Medicine 08/25/18 documented as of this encounter
--- OUTSIDE RECORDS SUMMARY | 2024-07-08 11:57 | External Medical Summary | Summary of Care ---
Author Name Unknown Organization [facility] Address [address] [place] [address] Phone [phone] Care Team Providers Care Manager Night Name Role Phone EricksonJoana landers Kyle BENOIT Primary Care Provider [phone] Encounter Details Date Type Department Care Team (Late st Contact Info) Description 02/03/2024 Patient Reported Data Patient Survey Ortho FORCE Allergies Active Allergy Reactions Criticality Noted Date Comments Propoxyphene N-Acetaminophen Nausea/vomiting High 03/13/2013 Naproxen 07/26/2011 Rash and edema Percocet 04/08/2005 nausea Phenytoin Sodium 06/07/2000 IV caused red streaks up her arm. Polymyxin B-Trimethoprim Other (Please comment) 12/06/2013 Burning, itchy and very red. documented as of this encounter (statuses as of 02/03/2024) Medications Medication Sig Dispensed Refills Start Date [...] as of this encounter (statuses as of 02/03/2024) Active Problems Problem Noted Date Diagnosed Date [...] as of this encounter (statuses as of 02/03/2024) Resolved Problems Problem Noted Date Diagnosed Date Resolved Date Bilateral pulmonary embolism 04/24/2022 05/06/2023 Bilateral pulmonary embolism 11/22/2019 12/17/2019 Bilateral pulmonary embolism 08/31/2015 03/15/2019 DIARRHEA 08/17/2001 09/18/2015 Volume depletion 08/17/2001 09/18/2015 Major depressive disorder 06/08/2001 Overview: ICD-10 update of inactive term Enthesopathy of knee 06/08/2001 017 Convulsions 05/30/1999 03/15/2019 EPILEPSY;NONCONV,W/O INTRACTABLE 04/14/2017 Allergic rhinitis 09/02/2018 documented as of this encounter (statuses as of 02/03/2024) Immunizations Name Administration Dates Next Due COVID-19 mRNA, LNP-s, No Pre serve, 2-Dose Series ([employer]) 05/05/2021,08/30/2020,08/09/2020 Pneumococcal Conjugate Vacc, 13 Valent (Prevnar) 03/12/2018 Pneumococcal Conjugate Vacci ne, 20-valent ([id number]) 05/30/2023 Pneumococcal Polysaccharide PPV23 (Pneumovax) 10/18/2015 Season Influenza, Quad, PF, Adjuvanted, 65+ Yrs, IM (FLUAD) 04/17/2020 Seasonal Influenza, PF, 6 M & above, IM , (FluLaval or Fluzone) 03/12/2018,04/14/2017 04/14/2018 Seasonal Influenza, Quadriva lent Hd (Fluzone Hd) 05/30/2023,04/24/2022,05/23/2021 Seasonal Influenza, Split, I IV3, With Preserve, Inj 04/18/2016 Seasonal Influenza, Trivalen t, Adjuvanted, 65+ yrs 05/04/2019 TDAP (age 10 and older)(Boostrix) 07/04/2023, [...] 02/26/2024 10:00 AM EDT Office Visit Orthopaedics [facility] [address] [place] [address] Hugo Alfonso, DO [address] [place] [address] 04/12/2024 10:40 AM EDT Office Visit Neurology [facility] [address] [facility] [place] [address] Eulogio Augustine MD [address] [facility] [place] [address] 05/24/2024 11:50 AM EST Office Visit Family [place] [address] [place] [phone] Joana Hood [address] [place] [address] 05/27/2024 10:20 AM EST [place] [address] [place] [address] Della Brito PA-C [address] [place] [address] [place] [address] 06/29/2024 11:15 AM EST Office Visit Dermatology [facility] [address] [facility] [place] [address] Roman Myers MD [address] [facility] [place] [address] 01/04/2025 2:00 PM EDT Office Visit Hematology/Oncology [facility] [address] [facility] [place] [phone] Elida Ortiz CRNP [address] [facility] [place] [address] Scheduled Procedures Name Priority Associated Diagnoses Date/Ti [...] 10/18/2021, 04/14/20 17 COVID-19 Vaccine ( season) 2023 05/05/2021, 08/30/2020, 08/09/2020 Influenza Vaccine (FLU shot) (#1) 2024 05/30/2023, 04/24/2022, 05/23/2021, Additional history exists Mammogram 09/03/2024 09/04/2023, 08/21, 08/29/2022, Additional history exists HbA1c 11/04/2024 11/05/2023, 11/19/2022 Lipid Panel 05/30/2028 05/30/2023, 110 12/2022, 05/31/2022, Additional history exists DTaP,Tdap,and Td Vaccines (3 - Td or Tdap) 07/04/2033 [...] this encounter Medical Devices Implanted Type Area Steel Post Installer Device Identifier Shelf Expiration Date Model / Serial / Lot Knee Triathlon Bead No Laz R 5 - [id number] Implanted:Qty: 1 on 12/16/2022 by Hugo Alfonso, DO at OR [facility] Right: Knee BOB : ORTHOPAEDICS 11/19/2027 5517-F-502 / / [id number] Baseplate #5 Tritanium - [id number] Implanted:Qty: 1 on 12/16/2022 by Sobolewski, Hugo Tevin, DO at OR [facility] Right: Knee BOB : ORTHOPAEDICS 09/28/2027 5536-B-500 / / [id number] [place] Triathlon X3 Tibial Bearing Insert - Cs Implanted:Qty: 1 on 12/16/2022 by Hugo Alfonso, DO at OR [facility] Right: Knee BOB : ORTHOPAEDICS 04/18/2027 5531-G-512 -E / / [id number] Knee Baseplate Tri Tib Sz 4 - [id number] Implanted:Qty: 1 on 12/01/2023 by Hugo Alfonso, DO at OR [facility] Left: Knee BOB : ORTHOPAEDICS 04/30/2027 5521-B-400 / / [id number] Knee Triathlon Bead No Laz L 5 - [id number] Implanted:Qty: 1 on 12/01/2023 by Hugo Alfonso, DO at OR [facility] Left: Knee BOB : ORTHOPAEDICS 10/27/2028 5517-F-501 / / [id number] Cement Bone Simplex Hv & G - [id number] Implanted:Qty: 1 on 12/01/2023 by Hugo Alfonso, DO at OR [facility] Left: Knee BOB : ORTHOPAEDICS 02/20/2025 6195-1-010 / / [id number] Triathlon X3 Tibial Bearing Insert - Cs Implanted:Qty: 1 on 12/01/2023 by Hugo Alfonso, DO at OR [facility] Left: Knee BOB : ORTHOPAEDICS 09/14/2028 [...] Directives occurred with: Patient Care Teams Manager Night Relationship Specialty Start Date End Date Joana Hood DO [address] [facility] [place] [address] PCP - General Family Medicine 08/25/18 documented as of this encounter
--- OUTSIDE RECORDS SUMMARY | 2024-07-08 11:57 | External Medical Summary | Summary of Care ---
Author Name Unknown Organization [facility] Address [address] [place] [address] Phone [phone] Care Team Providers Care Supervisor [employer] Name Role Phone Joana Hood DO Primary Care Provider Reason for Visit * Reason Comments Acute Pt states that she h as been sick since March 25. She states that she had a cough, diarrhea, stuffy head and she states that she passed out in shower Encounter Details Date Type Department Care Team (Late st Contact Info) Description 04/12/2024 3:00 PM EDT Office Visit Located Within [facility] [address] [place] [address] Aleja Ozuna PA-C [address] [place] [address] Sinobronchitis*; Small airways disease Allergies Active Allergy Reactions Criticality Noted Date Comments Propoxyphene N-Acetaminophen Nausea/vomiting High 03/13/2013 Naproxen 07/26/2011 Rash and edema Percocet 04/08/2005 nausea Phenytoin Sodium 06/07/2000 IV caused red streaks up her arm. Polymyxin B-Trimethoprim Other (Please comment) 12/06/2013 Burning, itchy and very red. documented as of this encounter (statuses as of 04/12/2024) Medications Medication Sig Dispensed Refills Start Date End Date Status MULTIVITAL PO TABS daily 0 0 7 [...] 12/01/2023 Rosuvastatin Calcium 40 MG Oral Tablet (Crestor)Indicat ions:Dyslipidemi a, goal LDL below 100 Take 1 Tablet by mouth in the morning. 90 Tablet 3 3 Active Metoprolol Succinate ER 25 MG Oral Tablet Extended Release 24 Hour (toPROL XL)Indications:H TN, goal below 130/80,Diastolic dysfunction,Enla rged aorta (HCC),Heart palpitations TAKE ONE-HALF TABLET BY MOUTH IN THE MORNING 45 Tablet 3 4 Active Sennosides 8.6 MG Oral Tablet (Senokot) Take 2 Tablets by mouth in the morning. 14 Tablet 4 Active Additional Information Patient not taking.Reported on 01/05/2024 traMADol HCl 50 MG Oral Tablet (Ultram) Take 1 Tablet by mouth every 4 hours as needed for Pain, Severe. 30 Tablet 4 Active Acetaminophen ER 650 MG Oral [...] AT BEDTIME 60 Tablet 3 4 Active Doxycycline Hyclate 100 MG Oral CapsuleIndicatio ns:Sinobronchiti s Take 1 Capsule by mouth in the morning and 1 Capsule before bedtime. Do all this for 10 days. Until gone.. 20 Capsule 4 04/22/20 24 Active Benzonatate 100 MG Oral CapsuleIndicatio ns:Sinobronchiti s Take 2 Capsules by mouth 3 times a day as needed for Cough. 60 Capsule 1 4 Active Albuterol Sulfate HFA 108 (90 Base) MCG/ACT Inhalation Aerosol SolutionIndicati ons:Small airways disease,Sinobron chitis INHALE 2 PUFFS BY MOUTH EVERY 4 HOURS NEEDED FOR COUGH OR WHEEZING. WITH SPACER 54 g 3 4 Active predniSONE 20 MG Oral Tablet (Deltasone)Indic ations:Sinobronc hitis Take 1 Tablet by mouth in the morning for 5 days. 5 Tablet 4 04/17/20 24 Active Ferrous Sulfate 325 (65 Fe) MG Oral Tablet (Feosol) Take 1 Tablet by mouth at noon and 1 Tablet in the evening. 14 Tablet 4 04/12/20 24 Discontinued Albuterol Sulfate HFA 108 (90 Base) MCG/ACT Inhalation Aerosol SolutionIndicati ons:Small airways disease INHALE 2 PUFFS BY MOUTH EVERY 4 HOURS NEEDED FOR COUGH OR WHEEZING. WITH SPACER 18 g 3 4 04/12/20 24 Discontinued(Ref ill) documented as of this encounter (statuses as of 04/12/2024) Active Problems Problem Noted Date Diagnosed Date [...] as of this encounter (statuses as of 04/12/2024) Resolved Problems Problem Noted Date Diagnosed Date Resolved Date Bilateral pulmonary embolism 04/24/2022 05/06/2023 Bilateral pulmonary embolism 11/22/2019 12/17/2019 Bilateral pulmonary embolism 08/31/2015 03/15/2019 DIARRHEA 08/17/2001 09/18/2015 Volume depletion 08/17/2001 09/18/2015 Major depressive disorder 06/08/2001 Overview: ICD-10 update of inactive term Enthesopathy of knee 06/08/2001 017 Convulsions 05/30/1999 03/15/2019 EPILEPSY;NONCONV,W/O INTRACTABLE 04/14/2017 Allergic rhinitis 09/02/2018 documented as of this encounter (statuses as of 04/12/2024) Immunizations Name Administration Dates Next Due COVID-19 mRNA, LNP-s, No Pre serve, 2-Dose Series (Complix) 05/05/2021,08/30/2020,08/09/2020 Pneumococcal Conjugate Vacc, 13 Valent (Prevnar) 03/12/2018 Pneumococcal Conjugate Vacci ne, 20-valent ([id number]) 05/30/2023 Pneumococcal Polysaccharide PPV23 (Pneumovax) 10/18/2015 Season [...] Passive Smoke Exposure: Past Smokeless Tobacco: Never Tobacco Cessation:Counseling Given: Not Answered Passive Exposure Comments:Passive smoke as a child Alcohol Use Standard [...] on file documented as of this encounter Last Filed Vital Signs Vital Sign Reading Time Taken Comments Blood Pressure 130/82 04/12/2024 2:59 PM EDT Pulse 139 04/12/2024 2:59 PM EDT Temperature 36.3 C (97.3 F) 04/12/2024 2:59 PM ED T Respiratory Rate 18 04/12/2024 2:59 PM EDT Oxygen Saturation 92% 04/12/2024 2:59 PM EDT Inhaled Oxygen Concentration - - Weight 102.8 kg (226 lb 9.6 oz) 04/12/2024 2:59 PM EDT Height 170.2 cm (5' 7") 04/12/2024 2:59 PM EDT Body Mass Index 35.49 04/12/2024 2:59 PM EDT documented in this encounter Functional Status Functional Status Response [...] as of this encounter Progress Notes * Aleja Ozuna PA-C - 04/12/2024 3:05 PM EDT Images from the original note were not included. History of Present Illness Deedee Kinsey is a 73 year old female that presents for Acute (Pt states that she has been sick since March 25. She states that she had a cough, diarrhea, stuffy head and she states that she passed out in shower/) Here for uri. Sick since early March. Grandkids had this - passed it around Has not felt well Cough that is mostly hacky. About once a day the last three days she hocks up a big ball of mucus. No headaches Ears feel like they need to open up - feel plugged no pain Throat hurt initially - maybe from coughing so much She was in the shower the other day, was ready to rinse Tipped forward The next thing she knows, she wakes in the tub She had not eaten for 2 days [place] something - not dizzy. Knew she was going to pass out. She had diarrhea a few days - mostly if she coughed too hard It is pretty much gone now No fever Physical Exam Vitals: 04/12/24 1459 Temp: 36.3 C (97.3 F) Pulse: 139 Resp: 18 SpO2: 92% BP: 130/82 BMI: 35.48 BP Readings from Last 3 Encounters: 04/12/24 130/82 01/05/24 135/84 12/03/23 123/71 Wt Readings from Last 3 Encounters: 04/12/24 102.8 kg (226 lb 9.6 oz) 01/05/24 107 kg (236 lb) 12/01/23 106.6 kg (235 lb) BMI Readings from Last 3 Encounters: 04/12/24 35.49 kg/m 01/05/24 36.96 kg/m 12/01/23 36.81 kg/m Ht Readings from Last 3 Encounters: 04/12/24 1.702 m (5' 7") 12/01/23 1.702 m (5' 7") 11/05/23 1.702 m (5' 7") General: alert, healthy, and no distress Head: Normocephalic, No masses, lesions, tenderness or abnormalities Eye Exam: PERRLA, extraocular movements intact, conjunctiva are pink and non- injected, sclera clear Ears: External ears normal, R TM dull and pink, L TM not visualized secondary to cerumen Nose: purulent rhinorrhea, mucosal edema, mucosal erythema, sinus tenderness Oropharynx: no exudate, no erythema, lips, buccal mucosa, and tongue normal, mucous membranes are moist, and post nasal drip Neck: supple, no bruits, thyroid normal size, non-tender, without nodularity, moderate anterior cervical adenopathy bilaterally Heart: regular rate & rhythm, no murmur, no gallops, S-1 normal, and S-2 normal Lungs: chest symmetric with normal AP diameter, no chest deformities noted, no chest wall tenderness, lungs clear to auscultation Assessment and Plan Sinobronchitis (Primary) - Doxycycline Hyclate 100 MG Oral Capsule; Take 1 Capsule by mouth in the morning and 1 Capsule before bedtime. Do all this for 10 days. Until gone.. - Benzonatate 100 MG Oral Capsule; Take 2 Capsules by mouth 3 times a day as needed for Cough. - Albuterol Sulfate HFA 108 (90 Base) MCG/ACT Inhalation Aerosol Solution; INHALE 2 PUFFS BY MOUTH EVERY 4 HOURS NEEDED FOR COUGH OR WHEEZING. WITH SPACER - predniSONE 20 MG Oral Tablet (Deltasone); Take 1 Tablet by mouth in the morning for 5 days. Small airways disease - Albuterol Sulfate HFA 108 (90 Base) MCG/ACT Inhalation Aerosol Solution; INHALE 2 PUFFS BY MOUTH EVERY 4 HOURS NEEDED FOR COUGH OR WHEEZING. WITH SPACER Discussed risk and benefits of short term prednisone therapy. Pt aware that there are side affects such as increased energy, aggression and mood swings, swelling, and increase in appetite. Agrees that this is the best course and is what is needed to deal with the issues. comfort care measures discussed saline nasal spray with bulb syringe plenty of fluids Tylenol per dosing recommendations for low grade fever humidifier Wrap-Up Time: I spent a total of 10-19 minutes (exact time 15 mins) on the date of service in preparation, delivery, and documentation of the care provided to Deedee Kinsey excluding any time spent in the performance of separately billed services. Aleja PA-C 04/12/2024 3:15 PM documented in this encounter Plan of Treatment Upcoming Encounters Date Type Department Care Team (Late st Contact Info) Description 05/10/2024 8:00 AM EST Office Visit Neurology [facility] Lidya [place] [address] [facility] [place] [address] Eulogio Augustine MD [address] [facility] [place] [address] 05/24/2024 11:50 AM EST Office Visit Family [facility] [place] [address] [facility] [place] [phone] Joana Hood DO [address] [facility] [place] [address] 05/27/2024 10:20 AM EST Office Visit Dermatology, [place] [address] [facility] [place] [address] Della Brito PA-C [address] [place] [address] [place] [address] 06/29/2024 11:15 AM EST Office Visit Dermatology [facility] Lidya Stanley [address] [facility] [place] [address] Roman Myers MD 200 [facility] [place] [address] 11/25/2024 10:00 AM EDT Office Visit Orthopaedics [facility] [address] [place] [address] Hugo Alfonso DO [address] [place] [address] 01/04/2025 2:00 PM EDT Office Visit Hematology/Oncology [facility] Stanley [address] [facility] [place] [phone] Elida Ortiz CRNP [address] [place], [place] [address] [address] Scheduled Procedures Name Priority Associated Diagnoses [...] this encounter Medical Devices Implanted Type Area Poll Clerk Device Identifier Shelf Expiration Date Model / Serial / Lot Knee Triathlon Bead No Laz R 5 - [id number] Implanted:Qty: 1 on 12/16/2022 by Hugo Alfonso DO at OR [facility] Right: Knee BOB : ORTHOPAEDICS 11/19/2027 5517-F-502 / / [id number] Baseplate #5 Tritanium - [id number] Implanted:Qty: 1 on 12/16/2022 by Hugo Alfonso DO at OR [facility] Right: Knee BOB : ORTHOPAEDICS 09/28/2027 5536-B-500 / / [id number] [place] Triathlon X3 Tibial Bearing Insert - Cs Implanted:Qty: 1 on 12/16/2022 by Hugo Alfonso DO at OR [facility] Right: Knee BOB : ORTHOPAEDICS 04/18/2027 5531-G-512 -E / / [id number] Knee Baseplate Tri Tib Sz 4 - [id number] Implanted:Qty: 1 on 12/01/2023 by Hugo Alfonso DO at OR [facility] Left: Knee BOB : ORTHOPAEDICS 04/30/2027 5521-B-400 / / [id number] Knee Triathlon Bead No Laz L 5 - [id number] Implanted:Qty: 1 on 12/01/2023 by Hugo Alfonso DO at OR [facility] Left: Knee BOB : ORTHOPAEDICS 10/27/2028 5517-F-501 / / [id number] Cement Bone Simplex Hv & G - [id number] Implanted:Qty: 1 on 12/01/2023 by Hugo Alfonso DO at OR [facility] Left: Knee BOB : ORTHOPAEDICS 02/20/2025 6195-1-010 / / [id number] Triathlon X3 Tibial Bearing Insert - Cs Implanted:Qty: 1 on 12/01/2023 by Hugo Alfonso DO at OR [facility] Left: Knee BOB : ORTHOPAEDICS 09/14/2028 5531-G-410 -E / / [id number] documented as of this encounter Visit Diagnoses Diagnosis Sinobronchitis- Primary Unspecified sinusitis (chronic) Small airways disease Other diseases of lung, [...] Advance Directives occurred with: Patient Care Teams Supervisor [employer] Relationship Specialty Start Date End Date Joana Hood DO [address] [facility] [place] [facility] [place] [address] PCP - General Family Medicine 08/25/18 documented as of this encounter
--- OUTSIDE RECORDS SUMMARY | 2024-07-08 11:57 | External Medical Summary | Summary of Care ---
Author Name Unknown Organization [facility] Address [address] [place] [address] Phone [phone] Care Team Providers Care In Classroom Tutor Name Role Phone EricksonJoana landers Kyle DO Primary Care Provider + [phone] Reason for Visit * Reason Comments eRx-Medication Refill Encounter Details Date Type Department Care Team (Late st Contact Info) Description 03/10/2024 Refill Neurology [facility] [address] [facility] [place] [address] Leda Gonzalez MD [address] [place] [address] Allergies Active Allergy Reactions Criticality Noted Date Comments Propoxyphene N-Acetaminophen Nausea/vomiting High 03/13/2013 Naproxen 07/26/2011 Rash and edema Percocet 04/08/2005 nausea Phenytoin Sodium 06/07/2000 IV caused red streaks up her arm. Polymyxin B-Trimethoprim Other (Please comment) 12/06/2013 Burning, itchy and very red. documented as of this encounter (statuses as of 03/11/2024) Medications Medication Sig Dispensed Refills Start Date End Date Status MULTIVITAL PO TABS daily 0 0 11/18/2006 Active RESTASIS 0.05 % OP EMUL Instill 1 Drop into both eyes in the morning and 1 Drop before bedtime. 02/10/2013 Active CALCIUM + D3 600-200 MG-UNIT PO TABS one pill twice a day 1 Tab 0 12/17/2013 Active Spironolactone 25 MG Oral Tablet (Aldactone)Indica tions:HTN, goal below 130/80 TAKE A HALF A TABLET BY MOUTH EVERY MORNING 45 Tablet 3 05/16/2023 Active Apixaban 2.5 MG Oral Tablet (Eliquis)Indicati ons:Personal history of pulmonary embolism Take 1 Tablet by mouth in the morning and 1 Tablet before bedtime. 180 Tablet 3 05/28/2023 Active Montelukast Sodium 10 MG Oral Tablet (Singulair)Indica tions:Small airways disease TAKE 1 TABLET BY MOUTH EVERY DAY 90 Tablet 3 05/30/2023 Active Additional Information Patient taking differently: 10 mg Oral HS, Reported on 12/01/2023 Rosuvastatin Calcium 40 MG Oral Tablet (Crestor)Indicati ons:Dyslipidemia, goal LDL below 100 Take 1 Tablet by mouth in the morning. 90 Tablet 3 06/09/2023 Active Metoprolol Succinate ER 25 MG Oral Tablet Extended Release 24 Hour (toPROL XL)Indications:HT N, goal below 130/80,Diastolic dysfunction,Enlar ged aorta (HCC),Heart palpitations TAKE ONE-HALF TABLET BY [...] Base) MCG/ACT Inhalation Aerosol SolutionIndicatio ns:Small airways disease INHALE 2 PUFFS BY MOUTH [...] AT BEDTIME 60 Tablet 3 03/11/2024 Active PHENobarbital 97.2 MG Oral Tablet TAKE 2 TABLETS BY MOUTH AT BEDTIME 60 Tablet 3 11/06/2023 03/11/20 24 Discontinued documented as of this encounter (statuses as of 03/11/2024) Active Problems Problem Noted Date Diagnosed Date [...] as of this encounter (statuses as of 03/11/2024) Resolved Problems Problem Noted Date Diagnosed Date Resolved Date Bilateral pulmonary embolism 04/24/2022 05/06/2023 Bilateral pulmonary embolism 11/22/2019 12/17/2019 Bilateral pulmonary embolism 08/31/2015 03/15/2019 DIARRHEA 08/17/2001 09/18/2015 Volume depletion 08/17/2001 09/18/2015 Major depressive disorder 06/08/2001 Overview: ICD-10 update of inactive term Enthesopathy of knee 06/08/2001 017 Convulsions 05/30/1999 03/15/2019 EPILEPSY;NONCONV,W/O INTRACTABLE 04/14/2017 Allergic rhinitis 09/02/2018 documented as of this encounter (statuses as of 03/11/2024) Immunizations Name Administration Dates Next Due COVID-19 mRNA, LNP-s, No Pre serve, 2-Dose Series (Pfizer) 05/05/2021,08/30/2020,08/09/2020 Pneumococcal Conjugate Vacc, 13 Valent (Prevnar) 03/12/2018 Pneumococcal Conjugate Vacci ne, 20-valent ([id number]) 05/30/2023 Pneumococcal Polysaccharide PPV23 (Pneumovax) 10/18/2015 Season [...] No 12/01/2023 documented as of this encounter Miscellaneous Notes * Telephone Encounter - Leda Gonzalez MD - 03/11/2024 12:58 PM EDTSigned Prescriptions: Disp Refills PHENobarbital 97.2 MG Oral Tablet 60 Tab*3 Sig: TAKE 2 TABLETS BY MOUTH AT BEDTIME Authorizing Provider: LEDA GONZALEZ * Telephone Encounter - Ludmila Silva LPN - 03/11/2024 8:19 AM EDTPending Prescriptions: Disp Refills PHENobarbital 97.2 MG Oral Tablet 60 Tab*3 Sig: TAKE 2 TABLETS BY MOUTH AT BEDTIME * Telephone Encounter - Silvia Buenrostro - 03/11/2024 5:11 AM EDTPending Prescriptions: Disp Refills PHENobarbital 97.2 MG Oral Tablet [Pharmac*60 Tab* Sig: TAKE 2 TABLETS BY MOUTH AT BEDTIME * Telephone Encounter - Silvia Buenrostro - 03/11/2024 5:09 AM EDT Did you pend patient's preferred pharmacy and medication before forwarding?yes Pharmacy: [id number] [address] [facility] Pending Prescriptions: Disp Refills PHENobarbital 97.2 MG Oral Tablet [Pharma*60 Tab* Sig: TAKE 2 TABLETS BY MOUTH AT BEDTIME Last Visit: 04/08/2023 (in office), 04/04/2021 (telemedicine) Next Visit: 04/12/2024 If no future appointments scheduled, and last appointment is greater than a year ago, please schedule patient for a follow-up appointment Last date the medication was ordered: 11/06/2023 Is this request for a controlled substance?Yes and urine drug screen was not completed Urine Drug Screen:No results found for this or any previous visit. Patient Phone Numbers Labs: Lab Results Component Value Date/Time CREAT 0.6 12/03/2023 04:15 AM CREAT 0.7 04/17/2020 11:58 AM POTASSIUM 3.1 (L) 12/03/2023 04:15 AM POTASSIUM 4.0 04/17/2020 11:58 AM POTASSIUM 3.9 09/28/1996 04:00 PM TSH 2.25 10/18/2021 09:46 AM TSH 1.46 10/18/2008 08:01 AM TSH 1.56 09/28/1996 04:00 PM LDL 144 (H) 05/30/2023 09:41 AM LDL 112 04/17/2020 11:58 AM LDL NOT APPLICABLE 04/17/2020 11:58 AM ALT 20 11/05/2023 12:50 PM ALT 21 04/17/2020 11:58 AM HGBA1C 5.9 (H) 11/05/2023 12:50 PM documented in this encounter Plan of Treatment Upcoming Encounters Date Type Department Care Team (Late st Contact Info) Description 04/12/2024 10:40 AM EDT Office Visit Neurology [facility] [place] [address] [place] [address] Leda Aguilar MD 200 [facility] [place] [address] 05/24/2024 11:50 AM EST Office Visit [place] [address] [place] [facility] [place] [address] Joana Hood DO [address] [place] [address] 05/27/2024 10:20 AM EST Office Visit [facility] [place] [address] [place] [facility] [address] Della Brito PA-C [address] [place] [address] [place] [address] 06/29/2024 11:15 AM EST Office Visit Dermatology [facility] [address] [facility] [place] [address] Roman Myers MD 200 [facility] [place] [address] 11/25/2024 10:00 AM EDT Office Visit Orthopaedics [facility] [address] [facility] [place] [address] Hugo Alfonso DO 132 [facility] [place] [address] 01/04/2025 2:00 PM EDT Office Visit Hematology/Oncology [facility] [address] [facility] [place] [phone] Elida Ortiz CRNP [address] [place], [place] [address] [address] Scheduled Procedures Name Priority Associated [...] this encounter Medical Devices Implanted Type Area Technical Laboratory Asst Device Identifier Shelf Expiration Date Model / Serial / Lot Knee Triathlon Bead No Laz R 5 - [id number] Implanted:Qty: 1 on 12/16/2022 by Hugo Alfonso, DO at OR [facility] Right: Knee BOB : ORTHOPAEDICS 11/19/2027 5517-F-502 / / [id number] Baseplate #5 Tritanium - [id number] Implanted:Qty: 1 on 12/16/2022 by Hugo Alfonso DO at OR [facility] Right: Knee BOB : ORTHOPAEDICS 09/28/2027 5536-B-500 / / [id number] Triathlon X3 Tibial Bearing Insert - Cs Implanted:Qty: 1 on 12/16/2022 by Hugo Alfonso DO at OR [facility] Right: Knee BOB : ORTHOPAEDICS 04/18/2027 5531-G-512 -E / / [id number] Knee Baseplate Tri Tib Sz 4 - [id number] Implanted:Qty: 1 on 12/01/2023 by Hugo Alfonso DO at OR [facility] Left: Knee BOB : ORTHOPAEDICS 04/30/2027 5521-B-400 / / [id number] Knee Triathlon Bead No Laz L 5 - [id number] Implanted:Qty: 1 on 12/01/2023 by Hugo Alfonso DO at OR [facility] Left: Knee BOB : ORTHOPAEDICS 10/27/2028 5517-F-501 / / [id number] Cement Bone Simplex Hv & G - [id number] Implanted:Qty: 1 on 12/01/2023 by Hugo Alfonso DO at OR [facility] Left: Knee BOB : ORTHOPAEDICS 02/20/2025 6195-1-010 / / [id number] Triathlon X3 Tibial Bearing Insert - Cs Implanted:Qty: 1 on 12/01/2023 by Hugo Alfonso DO at OR [facility] Left: Knee BOB : ORTHOPAEDICS [...] Advance Directives occurred with: Patient Care Teams In Classroom Tutor Relationship Specialty Start Date End Date Joana Hood DO [address] [place] [address] PCP - General Family Medicine 08/25/18 documented as of this encounter
--- OUTSIDE RECORDS SUMMARY | 2024-07-08 11:57 | External Medical Summary | Summary of Care ---
Author Name Unknown Organization [facility] Address [address] [place] [address] Phone [phone] Care Team Providers Care Informatics Application Analyst Name Role Phone Ericksonanshul Joana Kyle BENOIT Primary Care Provider Encounter Details Date Type Department Care Team (Late st Contact Info) Description 01/26/2024 Patient Reported Data Patient Survey Ortho OBERD Allergies Active Allergy Reactions Criticality Noted Date Comments Propoxyphene N-Acetaminophen Nausea/vomiting High 03/13/2013 Naproxen 07/26/2011 Rash and edema Percocet 04/08/2005 nausea Phenytoin Sodium 06/07/2000 IV caused red streaks up her arm. Polymyxin B-Trimethoprim Other (Please comment) 12/06/2013 Burning, itchy and very red. documented as of this encounter (statuses as of 01/26/2024) Medications Medication Sig Dispensed Refills Start Date [...] as of this encounter (statuses as of 01/26/2024) Active Problems Problem Noted Date Diagnosed Date [...] as of this encounter (statuses as of 01/26/2024) Resolved Problems Problem Noted Date Diagnosed Date Resolved Date Bilateral pulmonary embolism 04/24/2022 05/06/2023 Bilateral pulmonary embolism 11/22/2019 12/17/2019 Bilateral pulmonary embolism 08/31/2015 03/15/2019 DIARRHEA 08/17/2001 09/18/2015 Volume depletion 08/17/2001 09/18/2015 Major depressive disorder 06/08/2001 Overview: ICD-10 update of inactive term Enthesopathy of knee 06/08/2001 017 Convulsions 05/30/1999 03/15/2019 EPILEPSY;NONCONV,W/O INTRACTABLE 04/14/2017 Allergic rhinitis 09/02/2018 documented as of this encounter (statuses as of 01/26/2024) Immunizations Name Administration Dates Next Due COVID-19 mRNA, LNP-s, No Pre serve, 2-Dose Series ([employer]) 05/05/2021,08/30/2020,08/09/2020 Pneumococcal Conjugate Vacc, 13 Valent (Prevnar) 03/12/2018 Pneumococcal Conjugate Vacci ne, 20-valent ([id number]) 05/30/2023 Pneumococcal Polysaccharide PPV23 (Pneumovax) 10/18/2015 Season [...] 02/26/2024 10:00 AM EDT Office Visit Orthopaedics [facility] [address] [address] Hugo Alfonso, DO [address] [place] [address] 04/12/2024 10:40 AM EDT Office Visit Neurology [facility] [place] [address] [facility] [address] [place] [address] Eulogio Augustine MD [address] [facility] [place] [address] 05/24/2024 11:50 AM EST Office Visit Family [facility] [address] [place] [phone] Joana Hood, [address] [place] [address] 05/27/2024 10:20 AM EST Office Visit Dermatology, [place] [address] [place] [address] Della Brito PA-C [address] [place] [address] [place] [address] 06/29/2024 11:15 AM EST Office Visit Dermatology [facility] [place] [address] [facility] [place] [address] Roman Myers MD [address] [facility] [place] [address] 01/04/2025 2:00 PM EDT Office Visit Hematology/Oncology [facility] [place] [address] [facility] [address] [place] [phone] Elida Ortiz CRNP [address] [facility] [place] [address] Scheduled Procedures Name Priority Associated Diagnoses Date/Ti me COLONOSCOPY FLEXIBLE PROXIMA L DIAGNOSTIC Recall Special screening for malignant neoplasms, colon Health Maintenance Due Date Last Done Comments Cologuard 1997 Sigmoidoscopy 1997 Zoster Vaccines (1 of 2) 2002 Fecal Occult Blood Test 09/12/2016 09/13/2015 Colonoscopy 02/11/2022 02/11/2019, 01/22, 12/11/2015, Additional history exists Colorectal Cancer Screening 02/11/2022 Depression Screening 10/18/2022 10/18/2021, 04/14/20 17 COVID-19 Vaccine ( season) 2023 05/05/2021, 08/30/2020, 08/09/2020 Influenza Vaccine (FLU shot) (#1) 2024 05/30/2023, 04/24/2022, 05/23/2021, Additional history exists Mammogram 09/03/2024 09/04/2023, 08/21, 08/29/2022, Additional history exists HbA1c 11/04/2024 11/05/2023, 11/19/2022 Lipid Panel 05/30/2028 05/30/2023, 1112/2022, 05/31/2022, Additional history exists DTaP,Tdap,and Td Vaccines [...] this encounter Medical Devices Implanted Type Area Office Manager Device Identifier Shelf Expiration Date Model / Serial / Lot Knee Triathlon Bead No Laz R 5 - [id number] Implanted:Qty: 1 on 12/16/2022 by Hugo Alfonso, DO at OR [facility] Right: Knee BOB : ORTHOPAEDICS 11/19/2027 5517-F-502 / / [id number] Baseplate #5 Tritanium - [id number] Implanted:Qty: 1 on 12/16/2022 by Hugo Alfonso, DO at OR [facility] Right: Knee BOB : ORTHOPAEDICS 09/28/2027 5536-B-500 / / [id number] Bob Triathlon X3 Tibial Bearing Insert - Cs Implanted:Qty: 1 on 12/16/2022 by Hugo Alfonso, DO at OR [facility] Right: Knee BOB : ORTHOPAEDICS 04/18/2027 5531-G-512 -E / / [id number] Knee Baseplate Tri Tib Sz 4 - [id number] Implanted:Qty: 1 on 12/01/2023 by Hugo Alfonso, DO at OR [facility] Left: Knee BOB : ORTHOPAEDICS 04/30/2027 5521-B-400 / / [id number] Knee Triathlon Bead No Laz L 5 - [id number] Implanted:Qty: 1 on 12/01/2023 by Hugo Alfonso, DO at OR [facility] Left: Knee BOB : ORTHOPAEDICS 10/27/2028 5517-F-501 / / [id number] Cement Bone Simplex Hv & G - [id number] Implanted:Qty: 1 on 12/01/2023 by Hugo Alfonso, DO at [place] [facility] Left: Knee BOB : ORTHOPAEDICS 02/20/2025 6195-1-010 / / [id number] Triathlon X3 Tibial Bearing Insert - Cs Implanted:Qty: 1 on 12/01/2023 by Hugo Alfonso, DO at [place] [facility] Left: Knee BOB : ORTHOPAEDICS [...] Advance Directives occurred with: Patient Care Teams Informatics Application Analyst Relationship Specialty Start Date End Date Joana Hood DO [address] [place] [address] PCP - General Family Medicine 08/25/18 documented as of this encounter
--- OUTSIDE RECORDS SUMMARY | 2024-07-08 11:57 | External Medical Summary | Summary of Care ---
Author Name Unknown Organization [facility] Address [address] [place] [address] Phone [phone] Care Team Providers Care Water Main Inspector Name Role Phone Ericksonanshul Joana Kyle BENOIT [...] mRNA, LNP-s, No Pre serve, 2-Dose Series ([employer]) 05/05/2021,08/30/2020,08/09/2020 Pneumococcal Conjugate Vacc, 13 Valent (Prevnar) 03/12/2018 Pneumococcal Conjugate Vacci ne, 20-valent ([id number]) 05/30/2023 Pneumococcal Polysaccharide PPV23 (Pneumovax) 10/18/2015 Season [...] 02/26/2024 10:00 AM EDT Office Visit Orthopaedics [facility] [address] [address] Hugo Alfonso, DO [address] [address] 04/12/2024 10:40 AM EDT Office Visit Neurology [facility] [place] [address] [facility] [address] [place] [address] Eulogio Augustine MD [address] [facility] [place] [address] 05/24/2024 11:50 AM EST Office Visit Family [facility] [address] [place] [phone] Joana Hood, [address] [place] [address] 05/27/2024 10:20 AM EST Office Visit Dermatology, [place] [address] [place] [address] Della Brito PA-C [address] [place] [address] [place] [address] 06/29/2024 11:15 AM EST Office Visit Dermatology [facility] [place] [address] [facility] [place] [address] Roman Myers MD [address] [facility] [place] [address] 01/04/2025 2:00 PM EDT Office Visit Hematology/Oncology [facility] [place] [address] [facility] [address] [place] [phone] Elida Ortiz CRNP [address] [facility] [place] [address] Scheduled Procedures Name Priority Associated Diagnoses Date/Ti [...] this encounter Medical Devices Implanted Type Area Youth Coordinator Device Identifier Shelf Expiration Date Model / Serial / Lot Knee Triathlon Bead No Laz R 5 - [id number] Implanted:Qty: 1 on 12/16/2022 by Hugo Alfonso, DO at OR [facility] Right: Knee BOB : ORTHOPAEDICS 11/19/2027 5517-F-502 / / [id number] Baseplate #5 Tritanium - [id number] Implanted:Qty: 1 on 12/16/2022 by Hugo Alfonso, DO at OR [facility] Right: Knee BOB : ORTHOPAEDICS 09/28/2027 5536-B-500 / / [id number] Bob Triathlon X3 Tibial Bearing Insert - Cs Implanted:Qty: 1 on 12/16/2022 by Hugo Alfonso, DO at OR [facility] Right: Knee BOB : ORTHOPAEDICS 04/18/2027 5531-G-512 -E / / [id number] Knee Baseplate Tri Tib Sz 4 - [id number] Implanted:Qty: 1 on 12/01/2023 by Hugo Alfonso, DO at OR [facility] Left: Knee BOB : ORTHOPAEDICS 04/30/2027 5521-B-400 / / [id number] Knee Triathlon Bead No Laz L 5 - [id number] Implanted:Qty: 1 on 12/01/2023 by Hugo Alfonso, DO at OR [facility] Left: Knee BOB : ORTHOPAEDICS 10/27/2028 5517-F-501 / / [id number] Cement Bone Simplex Hv & G - [id number] Implanted:Qty: 1 on 12/01/2023 by Hugo Alfonso, DO at OR [facility] Left: Knee BOB : ORTHOPAEDICS 02/20/2025 6195-1-010 / / [id number] Triathlon X3 Tibial Bearing Insert - Cs Implanted:Qty: 1 on 12/01/2023 by Hugo Alfonso, DO at OR [facility] Left: Knee BOB : ORTHOPAEDICS 09/14/2028 [...] Advance Directives occurred with: Patient Care Teams Water Main Inspector Relationship Specialty Start Date End Date Joana Hood DO [address] [place] [address] PCP - General Family Medicine 08/25/18 documented as of this encounter
--- OUTSIDE RECORDS SUMMARY | 2024-07-08 11:57 | External Medical Summary | Summary of Care ---
Author Name Unknown Organization [facility] Address [address] [place] [address] Phone [phone] Care Team Providers Care Tv News Director Name Role Phone Ericksonanshul Joana Kyle BENOIT [...] mRNA, LNP-s, No Pre serve, 2-Dose Series ([employer]) 05/05/2021,08/30/2020,08/09/2020 Pneumococcal Conjugate Vacc, 13 Valent (Prevnar) 03/12/2018 Pneumococcal Conjugate Vacci ne, 20-valent (Pxkgcpi32) 05/30/2023 Pneumococcal Polysaccharide PPV23 (Pneumovax) 10/18/2015 Season [...] 02/26/2024 10:00 AM EDT Office Visit Orthopaedics [facility] [address] [address] Hugo Alfonso, DO [address] [address] 04/12/2024 10:40 AM EDT Office Visit Neurology [facility] [place] [address] [facility] [address] [place] [address] Eulogio Augustine MD [address] [facility] [place] [address] 05/24/2024 11:50 AM EST Office Visit Family [facility] [address] [place] [phone] Joana Hood, [address] [place] [address] 05/27/2024 10:20 AM EST Office Visit Dermatology, [place] [address] [place] [address] Della Brito PA-C [address] [place] [address] [place] [address] 06/29/2024 11:15 AM EST Office Visit Dermatology [facility] [place] [address] [facility] [place] [address] Roman Myers MD [address] [facility] [place] [address] 01/04/2025 2:00 PM EDT Office Visit Hematology/Oncology [facility] [place] [address] [facility] [address] [place] [phone] Elida Ortiz CRNP [address] [facility] [place] [address] Scheduled Procedures Name Priority Associated Diagnoses Date/Ti [...] this encounter Medical Devices Implanted Type Area Sewer And Cutter Finger Buff Material Device Identifier Shelf Expiration Date Model / Serial / Lot Knee Triathlon Bead No Laz R 5 - [id number] Implanted:Qty: 1 on 12/16/2022 by Hugo Alfonso, DO at OR [facility] Right: Knee BOB : ORTHOPAEDICS 11/19/2027 5517-F-502 / / [id number] Baseplate #5 Tritanium - [id number] Implanted:Qty: 1 on 12/16/2022 by Hugo Alfonso, DO at OR [facility] Right: Knee BOB : ORTHOPAEDICS 09/28/2027 5536-B-500 / / [id number] Bob Triathlon X3 Tibial Bearing Insert - Cs Implanted:Qty: 1 on 12/16/2022 by Hugo Alfonso, DO at OR [facility] Right: Knee BOB : ORTHOPAEDICS 04/18/2027 5531-G-512 -E / / [id number] Knee Baseplate Tri Tib Sz 4 - [id number] Implanted:Qty: 1 on 12/01/2023 by Hugo Alfonso, DO at OR [facility] Left: Knee BOB : ORTHOPAEDICS 04/30/2027 5521-B-400 / / [id number] Knee Triathlon Bead No Laz L 5 - [id number] Implanted:Qty: 1 on 12/01/2023 by Hugo Alfonso, DO at OR [facility] Left: Knee BOB : ORTHOPAEDICS 10/27/2028 5517-F-501 / / [id number] Cement Bone Simplex Hv & G - [id number] Implanted:Qty: 1 on 12/01/2023 by Hugo Alfonso, DO at OR [facility] Left: Knee BOB : ORTHOPAEDICS 02/20/2025 6195-1-010 / / [id number] Triathlon X3 Tibial Bearing Insert - Cs Implanted:Qty: 1 on 12/01/2023 by Hugo Alfonso, DO at OR [facility] Left: Knee BOB : ORTHOPAEDICS 09/14/2028 [...] Advance Directives occurred with: Patient Care Teams Tv News Director Relationship Specialty Start Date End Date Joana Hood DO [address] [place] [address] PCP - General Family Medicine 08/25/18 documented as of this encounter
--- OUTSIDE RECORDS SUMMARY | 2024-07-08 11:57 | External Medical Summary | Summary of Care ---
Author Name Unknown Organization [facility] Address [address] [place] [address] Phone [phone] Care Team Providers Care Terrazzo Installer Name Role Phone Ericksonanshul Joana Kyle BENOIT Primary Care Provider [phone] Encounter Details Date Type Department Care Team (Late st Contact Info) Description 02/25/2024 Patient Reported Data Patient Survey Ortho OBERD Allergies Active Allergy Reactions Criticality Noted Date Comments Propoxyphene N-Acetaminophen Nausea/vomiting High 03/13/2013 Naproxen 07/26/2011 Rash and edema Percocet 04/08/2005 nausea Phenytoin Sodium 06/07/2000 IV caused red streaks up her arm. Polymyxin B-Trimethoprim Other (Please comment) 12/06/2013 Burning, itchy and very red. documented as of this encounter (statuses as of 02/25/2024) Medications Medication Sig Dispensed Refills Start Date [...] as of this encounter (statuses as of 02/25/2024) Active Problems Problem Noted Date Diagnosed Date [...] as of this encounter (statuses as of 02/25/2024) Resolved Problems Problem Noted Date Diagnosed Date Resolved Date Bilateral pulmonary embolism 04/24/2022 05/06/2023 Bilateral pulmonary embolism 11/22/2019 12/17/2019 Bilateral pulmonary embolism 08/31/2015 03/15/2019 DIARRHEA 08/17/2001 09/18/2015 Volume depletion 08/17/2001 09/18/2015 Major depressive disorder 06/08/2001 Overview: ICD-10 update of inactive term Enthesopathy of knee 06/08/2001 017 Convulsions 05/30/1999 03/15/2019 EPILEPSY;NONCONV,W/O INTRACTABLE 04/14/2017 Allergic rhinitis 09/02/2018 documented as of this encounter (statuses as of 02/25/2024) Immunizations Name Administration Dates Next Due COVID-19 mRNA, LNP-s, No Pre serve, 2-Dose Series ([employer]) 05/05/2021,08/30/2020,08/09/2020 Pneumococcal Conjugate Vacc, 13 Valent (Prevnar) 03/12/2018 Pneumococcal Conjugate Vacci ne, 20-valent (Rbeifie14) 05/30/2023 Pneumococcal Polysaccharide PPV23 (Pneumovax) 10/18/2015 Season [...] 18 years and over) Not on file 06/10/202 4 Are you (or your family) tyrese eless [...] 02/26/2024 10:00 AM EDT Office Visit Orthopaedics [facility] [address] [address] Hugo Alfonso, DO [address] [place] [address] 04/12/2024 10:40 AM EDT Office Visit Neurology [facility] [place] [address] [facility] [place] [address] Eulogio Augustine MD [address] [facility] [place] [address] 05/24/2024 11:50 AM EST Office Visit [place] [address] [place] [phone] Joana Hood DO [address] [place] [address] 05/27/2024 10:20 AM EST [place] [address] [place] [address] Della Brito PA-C [address] [place] [address] [place] [address] 06/29/2024 11:15 AM EST Office Visit Dermatology [facility] [place] [address] [facility] [place] [address] Roman Myers MD [address] [facility] [place] [address] 01/04/2025 2:00 PM EDT Office Visit Hematology/Oncology [facility] [place] [address] [facility] [place] [phone] Elida Ortiz CRNP [address] [place] [address] [place] [address] Scheduled Procedures Name Priority Associated Diagnoses Date/Ti [...] this encounter Medical Devices Implanted Type Area Cat Dog Or Other Pet Groomer Device Identifier Shelf Expiration Date Model / Serial / Lot Knee Triathlon Bead No Laz R 5 - [id number] Implanted:Qty: 1 on 12/16/2022 by Hugo Alfonso, DO at OR [facility] Right: Knee BOB : ORTHOPAEDICS 11/19/2027 5517-F-502 / / [id number] Baseplate #5 Tritanium - [id number] Implanted:Qty: 1 on 12/16/2022 by Hugo Alfonso DO at OR [facility] Right: Knee BOB : ORTHOPAEDICS 09/28/2027 5536-B-500 / / [id number] [place] Triathlon X3 Tibial Bearing Insert - Cs Implanted:Qty: 1 on 12/16/2022 by Hugo Alfonso DO at OR [facility] Right: Knee BOB : ORTHOPAEDICS 04/18/2027 5531-G-512 -E / / [id number] Knee Baseplate Tri Tib Sz 4 - [id number] Implanted:Qty: 1 on 12/01/2023 by Hugo Alfonso DO at OR [facility] Left: Knee BOB : ORTHOPAEDICS 04/30/2027 5521-B-400 / / [id number] Knee Triathlon Bead No Laz L 5 - [id number] Implanted:Qty: 1 on 12/01/2023 by Hugo Alfonso DO at OR [facility] Left: Knee BOB : ORTHOPAEDICS 10/27/2028 5517-F-501 / / [id number] Cement Bone Simplex Hv & G - [id number] Implanted:Qty: 1 on 12/01/2023 by Hugo Alfonso DO at OR [facility] Left: Knee BOB : ORTHOPAEDICS 02/20/2025 6195-1-010 / / [id number] Triathlon X3 Tibial Bearing Insert - Cs Implanted:Qty: 1 on 12/01/2023 by Hugo Alfonso DO at OR [facility] Left: Knee BOB : ORTHOPAEDICS [...] Advance Directives occurred with: Patient Care Teams Terrazzo Installer Relationship Specialty Start Date End Date Joana Hood DO [address] [place] [address] PCP - General Family Medicine 08/25/18 documented as of this encounter
--- OUTSIDE RECORDS SUMMARY | 2024-07-08 11:58 | External Medical Summary | Summary of Care ---
Author Name Unknown Organization [facility] Address [address] [place] [address] Phone [phone] Care Team Providers Care Coke Oven Mason Name Role Phone Lobitodonis Joana Kyle BENOIT Primary Care Provider Encounter Details Date Type Department Care Team (Late st Contact Info) Description 01/14/2024 Patient Reported Data Patient Survey Ortho OBERD Allergies Active Allergy Reactions Criticality Noted Date Comments Propoxyphene N-Acetaminophen Nausea/vomiting High 03/13/2013 Naproxen 07/26/2011 Rash and edema Percocet 04/08/2005 nausea Phenytoin Sodium 06/07/2000 IV caused red streaks up her arm. Polymyxin B-Trimethoprim Other (Please comment) 12/06/2013 Burning, itchy and very red. documented as of this encounter (statuses as of 01/14/2024) Medications Medication Sig Dispensed Refills Start Date [...] as of this encounter (statuses as of 01/14/2024) Active Problems Problem Noted Date Diagnosed Date [...] as of this encounter (statuses as of 01/14/2024) Resolved Problems Problem Noted Date Diagnosed Date Resolved Date Bilateral pulmonary embolism 04/24/2022 05/06/2023 Bilateral pulmonary embolism 11/22/2019 12/17/2019 Bilateral pulmonary embolism 08/31/2015 03/15/2019 DIARRHEA 08/17/2001 09/18/2015 Volume depletion 08/17/2001 09/18/2015 Major depressive disorder 06/08/2001 Overview: ICD-10 update of inactive term Enthesopathy of knee 06/08/2001 017 Convulsions 05/30/1999 03/15/2019 EPILEPSY;NONCONV,W/O INTRACTABLE 04/14/2017 Allergic rhinitis 09/02/2018 documented as of this encounter (statuses as of 01/14/2024) Immunizations Name Administration Dates Next Due COVID-19 mRNA, LNP-s, No Pre serve, 2-Dose Series ([employer].) 05/05/2021,08/30/2020,08/09/2020 Pneumococcal Conjugate Vacc, 13 Valent (Prevnar) 03/12/2018 Pneumococcal Conjugate Vacci ne, 20-valent ([id number]) 05/30/2023 Pneumococcal Polysaccharide PPV23 (Pneumovax) 10/18/2015 Season [...] Care Team (Late st Contact Info) Description 01/16/2024 10:15 AM EDT Office Visit Orthopaedics [facility] [address] [address] Hugo Alfonso, DO [address] [address] 04/12/2024 10:40 AM EDT Office Visit Neurology [facility] [place] [address] [facility] [address] [place] [address] Eulogio Augustine MD [address] [facility] [place] [address] 05/24/2024 11:50 AM EST Office Visit Family [facility] [address] [place] [phone] Joana Hood, [address] [place] [address] 05/27/2024 10:20 AM EST Office Visit Dermatology, [place] [address] [place] [address] Della Brito PA-C [address] [place] [address] [place] [address] 06/29/2024 11:15 AM EST Office Visit Dermatology [facility] [place] [address] [facility] [place] [address] Roman Myers MD [address] [facility] [place] [address] 01/04/2025 2:00 PM EDT Office Visit Hematology/Oncology [facility] [place] [address] [facility] [address] [place] [phone] Elida Ortiz CRNP [address] [facility] [place] [address] Scheduled Procedures Name Priority Associated Diagnoses Date/Ti [...] this encounter Medical Devices Implanted Type Area Material Handler 1St Shift Device Identifier Shelf Expiration Date Model / Serial / Lot Knee Triathlon Bead No Laz R 5 - [id number] Implanted:Qty: 1 on 12/16/2022 by Hugo Alfonso, DO at [place] [facility] Right: Knee BOB : ORTHOPAEDICS 11/19/2027 5517-F-502 / / [id number] Baseplate #5 Tritanium - [id number] Implanted:Qty: 1 on 12/16/2022 by Hugo Alfonso, DO at OR [facility] Right: Knee BOB : ORTHOPAEDICS 09/28/2027 5536-B-500 / / [id number] Bob Triathlon X3 Tibial Bearing Insert - Cs Implanted:Qty: 1 on 12/16/2022 by Hugo Alfonso, DO at OR [facility] Right: Knee BOB : ORTHOPAEDICS 04/18/2027 5531-G-512 -E / / [id number] Knee Baseplate Tri Tib Sz 4 - [id number] Implanted:Qty: 1 on 12/01/2023 by Hugo Alfonso, DO at OR [facility] Left: Knee BOB : ORTHOPAEDICS 04/30/2027 5521-B-400 / / [id number] Knee Triathlon Bead No Laz L 5 - [id number] Implanted:Qty: 1 on 12/01/2023 by Hugo Alfonso, DO at OR [facility] Left: Knee BOB : ORTHOPAEDICS 10/27/2028 5517-F-501 / / [id number] Cement Bone Simplex Hv & G - [id number] Implanted:Qty: 1 on 12/01/2023 by Hugo Alfonso, DO at OR [facility] Left: Knee BOB : ORTHOPAEDICS 02/20/2025 6195-1-010 / / [id number] Triathlon X3 Tibial Bearing Insert - Cs Implanted:Qty: 1 on 12/01/2023 by Hugo Alfonso, DO at OR [facility] Left: Knee BOB : ORTHOPAEDICS 09/14/2028 [...] Advance Directives occurred with: Patient Care Teams Coke Oven Mason Relationship Specialty Start Date End Date Joana Hood DO [address] [place] [address] PCP - General Family Medicine 08/25/18 documented as of this encounter
--- OUTSIDE RECORDS SUMMARY | 2024-07-08 11:58 | External Medical Summary | Summary of Care ---
Author Name Unknown Organization [facility] Address [address] [place] [address] Phone [phone] Care Team Providers Care Hand Shoes Sewer Name Role Phone Lobitodonis Joana Kyle BENOIT Primary Care Provider [phone] Encounter Details Date Type Department Care Team (Late st Contact Info) Description 01/13/2024 Patient Reported Data Patient Survey Ortho OBERD Allergies Active Allergy Reactions Criticality Noted Date Comments Propoxyphene N-Acetaminophen Nausea/vomiting High 03/13/2013 Naproxen 07/26/2011 Rash and edema Percocet 04/08/2005 nausea Phenytoin Sodium 06/07/2000 IV caused red streaks up her arm. Polymyxin B-Trimethoprim Other (Please comment) 12/06/2013 Burning, itchy and very red. documented as of this encounter (statuses as of 01/13/2024) Medications Medication Sig Dispensed Refills Start Date [...] as of this encounter (statuses as of 01/13/2024) Active Problems Problem Noted Date Diagnosed Date [...] as of this encounter (statuses as of 01/13/2024) Resolved Problems Problem Noted Date Diagnosed Date Resolved Date Bilateral pulmonary embolism 04/24/2022 05/06/2023 Bilateral pulmonary embolism 11/22/2019 12/17/2019 Bilateral pulmonary embolism 08/31/2015 03/15/2019 DIARRHEA 08/17/2001 09/18/2015 Volume depletion 08/17/2001 09/18/2015 Major depressive disorder 06/08/2001 Overview: ICD-10 update of inactive term Enthesopathy of knee 06/08/2001 017 Convulsions 05/30/1999 03/15/2019 EPILEPSY;NONCONV,W/O INTRACTABLE 04/14/2017 Allergic rhinitis 09/02/2018 documented as of this encounter (statuses as of 01/13/2024) Immunizations Name Administration Dates Next Due COVID-19 mRNA, LNP-s, No Pre serve, 2-Dose Series ([employer]) 05/05/2021,08/30/2020,08/09/2020 Pneumococcal Conjugate Vacc, 13 Valent (Prevnar) 03/12/2018 Pneumococcal Conjugate Vacci ne, 20-valent (Tvrajvw50) 05/30/2023 Pneumococcal Polysaccharide PPV23 (Pneumovax) 10/18/2015 Season [...] Care Team (Late st Contact Info) Description 01/15/2024 2:30 PM EDT Office Visit Orthopaedics [facility] [address] [address] Hugo Alfonso, DO [address] [place] [place] [address] 04/12/2024 10:40 AM EDT Office Visit Neurology [facility] [address] [facility] [address] [place] [address] Eulogio Augustine MD [address] [facility] [place] [address] 05/24/2024 11:50 AM EST Office Visit Family [facility] [address] [place] [phone] Joana Hood, [address] [place] [address] 05/27/2024 10:20 AM EST Office Visit Dermatology, [place] [address] [place] [address] Della Brito PA-C [address] [place] [address] [place] [address] 06/29/2024 11:15 AM EST Office Visit Dermatology [facility] [address] [facility] [place] [address] Roman Myers MD [address] [facility] [place] [address] 01/04/2025 2:00 PM EDT Office Visit Hematology/Oncology [facility] [address] [facility] [address] [place] [phone] Elida Ortiz CRNP [address] [facility] [place] [address] Scheduled Procedures Name Priority Associated Diagnoses Date/Ti [...] this encounter Medical Devices Implanted Type Area Copier Field Service Technician Device Identifier Shelf Expiration Date Model / Serial / Lot Knee Triathlon Bead No Laz R 5 - [id number] Implanted:Qty: 1 on 12/16/2022 by Hugo Alfonso, DO at [place] [facility] Right: Knee BOB : ORTHOPAEDICS 11/19/2027 5517-F-502 / / [id number] Baseplate #5 Tritanium - [id number] Implanted:Qty: 1 on 12/16/2022 by Hugo Alfonso, DO at [place] [facility] Right: Knee BOB : ORTHOPAEDICS 09/28/2027 5536-B-500 / / [id number] Bob Triathlon X3 Tibial Bearing Insert - Cs Implanted:Qty: 1 on 12/16/2022 by Hugo Alfonso, DO at [place] [facility] Right: Knee BOB : ORTHOPAEDICS 04/18/2027 5531-G-512 -E / / [id number] Knee Baseplate Tri Tib Sz 4 - [id number] Implanted:Qty: 1 on 12/01/2023 by Hugo Alfonso, DO at [place] [facility] Left: Knee BOB : ORTHOPAEDICS 04/30/2027 5521-B-400 / / [id number] Knee Triathlon Bead No Laz L 5 - [id number] Implanted:Qty: 1 on 12/01/2023 by Hugo Alfonso, DO at [place] [facility] Left: Knee BOB : ORTHOPAEDICS 10/27/2028 5517-F-501 / / [id number] Cement Bone Simplex Hv & G - [id number] Implanted:Qty: 1 on 12/01/2023 by Hugo Alfonso, DO at [place] [facility] Left: Knee BOB : ORTHOPAEDICS 02/20/2025 6195-1-010 / / [id number] Triathlon X3 Tibial Bearing Insert - Cs Implanted:Qty: 1 on 12/01/2023 by Hugo Alfonso, DO at [place] [facility] Left: Knee BOB : ORTHOPAEDICS [...] Advance Directives occurred with: Patient Care Teams Hand Shoes Sewer Relationship Specialty Start Date End Date Joana Hood DO [address] [place] [address] PCP - General Family Medicine 08/25/18 documented as of this encounter
--- OUTSIDE RECORDS SUMMARY | 2024-07-08 11:58 | External Medical Summary | Summary of Care ---
Author Name Unknown Organization [facility] Address [address] [place] [address] Phone [phone] Care Team Providers Care Senior Professional Services Consultant Name Role Phone Erwin Joananabila Wright DO Primary Care Provider [phone] Reason for Visit * Reason Comments Post-Op Left knee TKA Encounter Details Date Type Department Care Team (Late st Contact Info) Description 01/16/2024 10:15 AM EDT Office Visit Orthopaedics [facility] [address] [place] [address] Hugo Alfonso DO [address] [place] [address] Status post total left knee replacement* Allergies Active Allergy Reactions Criticality Noted Date Comments Propoxyphene N-Acetaminophen Nausea/vomiting High 03/13/2013 Naproxen 07/26/2011 Rash and edema Percocet 04/08/2005 nausea Phenytoin Sodium 06/07/2000 IV caused red streaks up her arm. Polymyxin B-Trimethoprim Other (Please comment) 12/06/2013 Burning, itchy and very red. documented as of this encounter (statuses as of 01/16/2024) Medications Medication Sig Dispensed Refills Start Date [...] as of this encounter (statuses as of 01/16/2024) Active Problems Problem Noted Date Diagnosed Date [...] as of this encounter (statuses as of 01/16/2024) Resolved Problems Problem Noted Date Diagnosed Date Resolved Date Bilateral pulmonary embolism 04/24/2022 05/06/2023 Bilateral pulmonary embolism 11/22/2019 12/17/2019 Bilateral pulmonary embolism 08/31/2015 03/15/2019 DIARRHEA 08/17/2001 09/18/2015 Volume depletion 08/17/2001 09/18/2015 Major depressive disorder 06/08/2001 Overview: ICD-10 update of inactive term Enthesopathy of knee 06/08/2001 017 Convulsions 05/30/1999 03/15/2019 EPILEPSY;NONCONV,W/O INTRACTABLE 04/14/2017 Allergic rhinitis 09/02/2018 documented as of this encounter (statuses as of 01/16/2024) Immunizations Name Administration Dates Next Due COVID-19 mRNA, LNP-s, No Pre serve, 2-Dose Series ([facility]) 05/05/2021,08/30/2020,08/09/2020 Pneumococcal Conjugate Vacc, 13 Valent (Prevnar) 03/12/2018 Pneumococcal Conjugate Vacci ne, 20-valent (Oudrnsq31) 05/30/2023 Pneumococcal Polysaccharide PPV23 (Pneumovax) 10/18/2015 Season [...] as of this encounter Progress Notes * SobolewskiHugo, DO - 01/16/2024 10:20 AM EDT ORTHOPAEDIC SURGERY - Post-Op Clinic Note SUBJECTIVE: Deedee Kinsey is a 73 year old female. Chief Complaint Patient presents with Post-Op Left knee TKA - 12/01/2023 HPI: She presents today for 6 week follow-up after left knee replacement. She is doing quite well. She describes occasional soreness along the medial aspect of the knee but today reports no pain. Sheis progressing well with physical therapy. She is quite pleased with her recovery and pain relief. Review of patient's allergies indicates: Allergen Reactions [...] of the left knee reveals well-healed surgical scars. No evidence of complication. She had 1 remaining Steri-Strips in place over the midline incision and she had a Band-Aid over the lowerleg reporting a cut while shaving this morning. She has full extension and flexion to greater than 105. She has full quad strength. Collateral stability intact. No lower extremity edema. No calf tenderness. ASSESSMENT: Status post total left knee replacement (Primary) - XR KNEE 3 VIEWS Follow Up: Return in about 6 weeks (around 02/27/2024). PLAN: She is doing well 6 weeks removed from left knee replacement. She will continue rehabilitation per protocol. She may progress her activities accordingly. I would like to see her back in 6 weeks for her three-month evaluation with repeat x-rays left knee. All questions answered. This chart was completed in part utilizing Communicado Speech Voice Recognition Software. Grammatical errors, random word insertions, pronoun errors, and incomplete sentences are an occasional consequence of this system due to software limitations, ambient noise, and hardware issues. Any formal questions or concerns about the content, text, or information contained within the body of this dictation should be directly addressed to the provider for clarification. Hugo Alfonso, 01/16/2024 10:20 AM documented in this encounter Nursing Notes * Sherley Witt ATC - 01/16/2024 10:16 AM EDT Left knee TKA follow up. States therapy is going well and that she is having min pain in her left knee today. Scar is completely healed over with no evidence of abnormalities. Xrays ordered. documented in this encounter Plan of Treatment Upcoming Encounters Date Type Department Care Team (Late st Contact Info) Description 02/26/2024 10:00 AM EDT Office Visit Orthopaedics [facility] [place] [address] Hugo Alfonso DO [address] [facility] [place] [address] 04/12/2024 10:40 AM EDT Office Visit Neurology [facility] [address] [facility] [place] [address] Eulogio Augustine MD [address] [facility] [place] [address] 05/24/2024 11:50 AM EST Office Visit [address] [place] [phone] Joana Hood DO [address] [place] [address] 05/27/2024 10:20 AM EST Office Visit Dermatology, [address] [address] Della Brito PA-C [address] [place] [address] [place] [address] 06/29/2024 11:15 AM EST Office Visit Dermatology [facility] [address] [facility] [place] [address] Roman Myers MD [address] [facility] [place] [address] 01/04/2025 2:00 PM EDT Office Visit Hematology/Oncology [facility] [address] [facility] [place] [phone] Elida Ortiz CRNP [address] [facility] [place] [address] Pending Results Name Type Priority Associated Diagnoses Date /Time XR KNEE 3 VIEWS Medical Imaging Routine Status post total left knee replacement 01/16/2024 10:24 AM EDT Scheduled Procedures Name Priority Associated [...] 05/30/2023, 11/0 12/2022, 05/31/2022, Additional history exists DTaP,Tdap,and Td [...] this encounter Medical Devices Implanted Type Area Sat Tutor Device Identifier Shelf Expiration Date Model / Serial / Lot Knee Triathlon Bead No Laz R 5 - [id number] Implanted:Qty: 1 on 12/16/2022 by Hugo Alfonso DO at [facility] Right: Knee BOB : ORTHOPAEDICS 11/19/2027 5517-F-502 / / [id number] Baseplate #5 Tritanium - [id number] Implanted:Qty: 1 on 12/16/2022 by Hugo Alfonso DO at OR [facility] Right: Knee BOB : ORTHOPAEDICS 09/28/2027 5536-B-500 / / [id number] Bob Triathlon X3 Tibial Bearing Insert - Cs Implanted:Qty: 1 on 12/16/2022 by Hugo Alfonso DO at OR [facility] Right: Knee BOB : ORTHOPAEDICS 04/18/2027 5531-G-512 -E / / [id number] Knee Baseplate Tri Tib Sz 4 - [id number] Implanted:Qty: 1 on 12/01/2023 by Hugo Alfonso DO at OR [facility] Left: Knee BOB : ORTHOPAEDICS 04/30/2027 5521-B-400 / / [id number] Knee Triathlon Bead No Laz L 5 - [id number] Implanted:Qty: 1 on 12/01/2023 by Hugo Alfonso DO at OR [facility] Left: Knee BOB : ORTHOPAEDICS 10/27/2028 5517-F-501 / / [id number] Cement Bone Simplex Hv & G - [id number] Implanted:Qty: 1 on 12/01/2023 by Hugo Alfonso, at [place] [facility] Left: Knee BOB : ORTHOPAEDICS 02/20/2025 6195-1-010 / / [id number] Triathlon X3 Tibial Bearing Insert - Cs Implanted:Qty: 1 on 12/01/2023 by Hugo Alfonso, at OR [facility] Left: Knee BOB : ORTHOPAEDICS [...] Advance Directives occurred with: Patient Care Teams Senior Professional Services Consultant Relationship Specialty Start Date End Date Joana Hood DO [address] [place] [facility] [place] [address] PCP - General Family Medicine 08/25/18 documented as of this encounter
--- OUTSIDE RECORDS SUMMARY | 2024-07-08 11:58 | External Medical Summary | Summary of Care ---
Author Name Unknown Organization [facility] Address [address] [place] [address] Phone [phone] Care Team Providers Care Outside Barrel Lathe Operator Name Role Phone Lobitodonis Joana Kyle BENOIT [...] mRNA, LNP-s, No Pre serve, 2-Dose Series ([employer]) 05/05/2021,08/30/2020,08/09/2020 Pneumococcal Conjugate Vacc, 13 Valent (Prevnar) 03/12/2018 Pneumococcal Conjugate Vacci ne, 20-valent (Mdvfucu23) 05/30/2023 Pneumococcal Polysaccharide PPV23 (Pneumovax) 10/18/2015 Season [...] 01/15/2024 2:30 PM EDT Office Visit Orthopaedics [facility] [address] [address] Hugo Alfonso, DO [address] [place] [place] [address] 04/12/2024 10:40 AM EDT Office Visit Neurology [facility] [address] [facility] [address] [place] [address] Eulogio Augustine MD [address] [facility] [place] [address] 05/24/2024 11:50 AM EST Office Visit Family [facility] [address] [place] [phone] Joana Hood, [address] [place] [address] 05/27/2024 10:20 AM EST Office Visit Dermatology, [place] [address] [place] [address] Della Brito PA-C [address] [place] [address] [place] [address] 06/29/2024 11:15 AM EST Office Visit Dermatology [facility] [address] [facility] [place] [address] Roman Myers MD [address] [facility] [place] [address] 01/04/2025 2:00 PM EDT Office Visit Hematology/Oncology [facility] [address] [facility] [address] [place] [phone] Elida Ortiz CRNP [address] [facility] [place] [address] Scheduled Procedures Name Priority Associated Diagnoses Date/Ti [...] this encounter Medical Devices Implanted Type Area Lamination Inspector Device Identifier Shelf Expiration Date Model / Serial / Lot Knee Triathlon Bead No Laz R 5 - [id number] Implanted:Qty: 1 on 12/16/2022 by Hugo Alfonso, DO at [place] [facility] Right: Knee BOB : ORTHOPAEDICS 11/19/2027 5517-F-502 / / [id number] Baseplate #5 Tritanium - [id number] Implanted:Qty: 1 on 12/16/2022 by Hugo Alfonso, DO at [place] [facility] Right: Knee BOB : ORTHOPAEDICS 09/28/2027 5536-B-500 / / [id number] Bob Triathlon X3 Tibial Bearing Insert - Cs Implanted:Qty: 1 on 12/16/2022 by Hugo Alfonso, DO at [place] [facility] Right: Knee BOB : ORTHOPAEDICS 04/18/2027 5531-G-512 -E / / [id number] Knee Baseplate Tri Tib Sz 4 - [id number] Implanted:Qty: 1 on 12/01/2023 by Hugo Alfonso, DO at OR [facility] Left: Knee BOB : ORTHOPAEDICS 04/30/2027 5521-B-400 / / [id number] Knee Triathlon Bead No Laz L 5 - [id number] Implanted:Qty: 1 on 12/01/2023 by Hugo Alfonso, DO at [place] [facility] Left: Knee BOB : ORTHOPAEDICS 10/27/2028 5517-F-501 / / [id number] Cement Bone Simplex Hv & G - [id number] Implanted:Qty: 1 on 12/01/2023 by Hugo Alfonso, DO at [place] [facility] Left: Knee BOB : ORTHOPAEDICS 02/20/2025 6195-1-010 / / [id number] Triathlon X3 Tibial Bearing Insert - Cs Implanted:Qty: 1 on 12/01/2023 by Hugo Alfonso, DO at [place] [facility] Left: Knee BOB : ORTHOPAEDICS 09/14/2028 [...] Advance Directives occurred with: Patient Care Teams Outside Barrel Lathe Operator Relationship Specialty Start Date End Date Joana Hood DO [address] [place] [address] PCP - General Family Medicine 08/25/18 documented as of this encounter
--- OUTSIDE RECORDS SUMMARY | 2024-07-08 11:58 | External Medical Summary | Summary of Care ---
Author Name Unknown Organization [facility] Address [address] [place] [address] Phone [phone] Care Team Providers Care Sweeper Driver Name Role Phone Lobitodonis Joana Kyle BENOIT [...] mRNA, LNP-s, No Pre serve, 2-Dose Series ([employer]) 05/05/2021,08/30/2020,08/09/2020 Pneumococcal Conjugate Vacc, 13 Valent (Prevnar) 03/12/2018 Pneumococcal Conjugate Vacci ne, 20-valent (Gsecyyy05) 05/30/2023 Pneumococcal Polysaccharide PPV23 (Pneumovax) 10/18/2015 Season [...] 01/16/2024 10:15 AM EDT Office Visit Orthopaedics [facility] [address] [address] Hugo Alfonso, DO [address] [place] [address] 04/12/2024 10:40 AM EDT Office Visit Neurology [facility] [address] [facility] [address] [place] [address] uElogio Augustine MD [address] [facility] [place] [address] 05/24/2024 11:50 AM EST Office Visit Family [facility] [address] [place] [phone] Joana Hood, [address] [place] [address] 05/27/2024 10:20 AM EST Office Visit Dermatology, [place] [address] [place] [address] Della Brito PA-C [address] [place] [address] [place] [address] 06/29/2024 11:15 AM EST Office Visit Dermatology [facility] [place] [address] [facility] [place] [address] Roman Myers MD [address] [facility] [place] [address] 01/04/2025 2:00 PM EDT Office Visit Hematology/Oncology [facility] [place] [address] [facility] [address] [place] [phone] Elida Ortiz CRNP [address] [facility] [place] [address] Scheduled Procedures Name Priority Associated Diagnoses Date/Ti [...] this encounter Medical Devices Implanted Type Area Transition Mgr Device Identifier Shelf Expiration Date Model / Serial / Lot Knee Triathlon Bead No Laz R 5 - [id number] Implanted:Qty: 1 on 12/16/2022 by Hugo Alfonso, DO at [place] [facility] Right: Knee BOB : ORTHOPAEDICS 11/19/2027 5517-F-502 / / [id number] Baseplate #5 Tritanium - [id number] Implanted:Qty: 1 on 12/16/2022 by Hugo Alfonso, DO at [place] [facility] Right: Knee BOB : ORTHOPAEDICS 09/28/2027 5536-B-500 / / [id number] Bob Triathlon X3 Tibial Bearing Insert - Cs Implanted:Qty: 1 on 12/16/2022 by Hugo Alfonso, DO at [place] [facility] Right: Knee BOB : ORTHOPAEDICS 04/18/2027 5531-G-512 -E / / [id number] Knee Baseplate Tri Tib Sz 4 - [id number] Implanted:Qty: 1 on 12/01/2023 by Hugo Alfonso, DO at [place] [facility] Left: Knee BBO : ORTHOPAEDICS 04/30/2027 5521-B-400 / / [id number] Knee Triathlon Bead No Laz L 5 - [id number] Implanted:Qty: 1 on 12/01/2023 by Hugo Alfonso, DO at [place] [facility] Left: Knee BOB : ORTHOPAEDICS 10/27/2028 5517-F-501 / / [id number] Cement Bone Simplex Hv & G - [id number] Implanted:Qty: 1 on 12/01/2023 by Hugo Alfonso, DO at [place] [facility] Left: Knee BOB : ORTHOPAEDICS 02/20/2025 6195-1-010 / / [id number] Triathlon X3 Tibial Bearing Insert - Cs [...] Advance Directives occurred with: Patient Care Teams Sweeper Driver Relationship Specialty Start Date End Date Joana Hood DO [address] [place] [address] PCP - General Family Medicine 08/25/18 documented as of this encounter
--- OUTSIDE RECORDS SUMMARY | 2024-07-08 11:58 | External Medical Summary | Summary of Care ---
Author Name Unknown Organization [facility] Address [address] [place] [address] Phone [phone] Care Team Providers Care Dietary Aide Teacher Name Role Phone Lobitodonis Joana Kyle BENOIT [...] mRNA, LNP-s, No Pre serve, 2-Dose Series ([employer]) 05/05/2021,08/30/2020,08/09/2020 Pneumococcal Conjugate Vacc, 13 Valent (Prevnar) 03/12/2018 Pneumococcal Conjugate Vacci ne, 20-valent (Uxaevvx55) 05/30/2023 Pneumococcal Polysaccharide PPV23 (Pneumovax) 10/18/2015 Season [...] 01/15/2024 2:30 PM EDT Office Visit Orthopaedics [facility] [address] [address] Hugo Alfonso, DO [address] [place] [address] 04/12/2024 10:40 AM EDT Office Visit Neurology [facility] [address] [facility] [address] [place] [address] Eulogio Augustine MD [address] [facility] [place] [address] 05/24/2024 11:50 AM EST Office Visit Family [facility] [address] [place] [phone] Joana Hood, [address] [place] [address] 05/27/2024 10:20 AM EST Office Visit Dermatology, [place] [address] [place] [address] Della Brito PA-C [address] [place] [address] [place] [address] 06/29/2024 11:15 AM EST Office Visit Dermatology [facility] [address] [facility] [place] [address] Roman Myers MD [address] [facility] [place] [address] 01/04/2025 2:00 PM EDT Office Visit Hematology/Oncology [facility] [address] [facility] [address] [place] [phone] Elida Ortiz CRNP [address] [facility] [place] [address] Scheduled Procedures Name Priority Associated Diagnoses Date/Ti [...] this encounter Medical Devices Implanted Type Area Strategies Analyst Device Identifier Shelf Expiration Date Model / Serial / Lot Knee Triathlon Bead No Laz R 5 - [id number] Implanted:Qty: 1 on 12/16/2022 by Hugo Alfonso, DO at [place] [facility] Right: Knee BOB : ORTHOPAEDICS 11/19/2027 5517-F-502 / / [id number] Baseplate #5 Tritanium - [id number] Implanted:Qty: 1 on 12/16/2022 by Hugo Alfonso, DO at [place] [facility] Right: Knee BOB : ORTHOPAEDICS 09/28/2027 5536-B-500 / / [id number] Bob Triathlon X3 Tibial Bearing Insert - Cs Implanted:Qty: 1 on 12/16/2022 by Hugo Alfonso, DO at [place] [facility] Right: Knee BOB : ORTHOPAEDICS 04/18/2027 5531-G-512 -E / / [id number] Knee Baseplate Tri Tib Sz 4 - [id number] Implanted:Qty: 1 on 12/01/2023 by Hugo Alfonso, DO at [place] [facility] Left: Knee BOB : ORTHOPAEDICS 04/30/2027 5521-B-400 / / [id number] Knee Triathlon Bead No Laz L 5 - [id number] Implanted:Qty: 1 on 12/01/2023 by Hugo Alfonso, DO at [place] [facility] Left: Knee BOB : ORTHOPAEDICS 10/27/2028 5517-F-501 / / [id number] Cement Bone Simplex Hv & G - [id number] Implanted:Qty: 1 on 12/01/2023 by Hugo Alfonso, DO at [place] [facility] Left: Knee BOB : ORTHOPAEDICS 02/20/2025 6195-1-010 / / [id number] Triathlon X3 Tibial Bearing Insert - Cs Implanted:Qty: 1 on 12/01/2023 by Hugo Alfonso, DO at [place] [facility] Left: Knee BOB : ORTHOPAEDICS [...] Advance Directives occurred with: Patient Care Teams Dietary Aide Teacher Relationship Specialty Start Date End Date Joana Hood DO [address] [place] [address] PCP - General Family Medicine 08/25/18 documented as of this encounter
--- OUTSIDE RECORDS SUMMARY | 2024-07-08 11:58 | External Medical Summary | Summary of Care ---
Author Name Unknown Organization [facility] Address [address] [place] [address] Phone [phone] Care Team Providers Care Quality Control Industrial Engineer Name Role Phone Lobitodonis Joana Kyle BENOIT [...] mRNA, LNP-s, No Pre serve, 2-Dose Series (CoNarrative) 05/05/2021,08/30/2020,08/09/2020 Pneumococcal Conjugate Vacc, 13 Valent (Prevnar) 03/12/2018 Pneumococcal Conjugate Vacci ne, 20-valent ([id number]) 05/30/2023 Pneumococcal Polysaccharide PPV23 (Pneumovax) 10/18/2015 Season [...] 01/16/2024 10:15 AM EDT Office Visit Orthopaedics [facility] [address] [address] Hugo Alfonso, DO [address] [address] 04/12/2024 10:40 AM EDT Office Visit Neurology [facility] [address] [facility] [address] [address] Eulogio Augustine MD [address] [facility] [place] [place] [address] 05/24/2024 11:50 AM EST Office Visit Family [facility] [address] [place] [id number] Joana Hood, [address] [place] [address] 05/27/2024 10:20 AM EST Office Visit Dermatology, [place] [address] [place] [address] Della Brito PA-C [address] [place] [address] [place] [address] 06/29/2024 11:15 AM EST Office Visit Dermatology [facility] [address] [facility] [address] [place] [address] Roman Myers MD [address] [facility] [address] [place] [address] 01/04/2025 2:00 PM EDT Office Visit Hematology/Oncology [facility] [address] [address] [facility] [address] [phone] Elida Ortiz CRNP [address] [facility] [place] [address] Scheduled Procedures Name Priority Associated Diagnoses Date/Ti [...] this encounter Medical Devices Implanted Type Area Radio Station Engineer Device Identifier Shelf Expiration Date Model / Serial / Lot Knee Triathlon Bead No Laz R 5 - [id number] Implanted:Qty: 1 on 12/16/2022 by Hugo Alfonso, DO at OR [facility] Right: Knee BOB : ORTHOPAEDICS 11/19/2027 5517-F-[id number] / / [id number] Baseplate #5 Tritanium - [id number] Implanted:Qty: 1 on 12/16/2022 by Hugo Alfonso, DO at OR [facility] Right: Knee BOB : ORTHOPAEDICS 09/28/2027 5536-B-500 / / [id number] Triathlon X3 Tibial Bearing Insert - Cs Implanted:Qty: 1 on 12/16/2022 by Hugo Alfonso, DO at OR [facility] Right: Knee BOB : ORTHOPAEDICS 04/18/2027 5531-G-[id number] -[id number] / / [id number] Knee Baseplate Tri Tib Sz 4 - [id number] Implanted:Qty: 1 on 12/01/2023 by Hugo Alfonso, DO at OR [facility] Left: Knee BOB : ORTHOPAEDICS 04/30/2027 5521-[id number] / / [id number] Knee Triathlon Bead No Laz L 5 - [id number] Implanted:Qty: 1 on 12/01/2023 by Hugo Alfonso, DO at OR [facility] Left: Knee BOB : ORTHOPAEDICS 10/27/2028 [id number]-F-[id number] / / [id number] Cement Bone Simplex Hv & G - [id number] Implanted:Qty: 1 on 12/01/2023 by Hugo Alfonso, DO at OR [facility] Left: Knee BOB : ORTHOPAEDICS 02/20/2025 [id number] / / [id number] Triathlon X3 Tibial Bearing Insert - Cs Implanted:Qty: 1 on 12/01/2023 by Hugo Alfonso, DO at OR [facility] Left: Knee BOB : ORTHOPAEDICS 09/14/2028 [...] Advance Directives occurred with: Patient Care Teams Quality Control Industrial Engineer Relationship Specialty Start Date End Date Joana Hood DO [address] [place] [address] PCP - General Family Medicine 08/25/18 documented as of this encounter
[2024-07-08] MEDS: AZITHROMYCIN 250 MG TAB PO ONE (12:12)
[2024-07-08] MEDS: DOXYCYCLINE HYCLATE 100 MG in DEXTROSE 5% MINI-B 100 ML IV SCH (12:13)
[2024-07-08] MEDS: POTASSIUM CHLORIDE CRTAB 20 MEQ TABCR PO STA (12:13)
[2024-07-08] MEDS: guaiFENesin 600 MG TABCR PO SCH (12:13)
[2024-07-08 13:08] LABS: Appearance Urine Clear (Clear); Bacteria Urine Automated None Seen (None Seen); Bilirubin Urine 1+ (Negative); Blood Urine Negative (Negative); Cast Urine Automated 0-2 /lpf (0-2); Color Urine Dark Yellow; Glucose Urine UA Negative (Negative); Ketones Urine Trace (Negative); Leukocyte Esterase Urine Negative (Negative); Mucus Urine Present (None Prsent); Nitrite Urine Negative (Negative); Protein Urine 1+ (Negative); RBC Urine Automated 0-2 /hpf (0-2); Specific Gravity Urine 1.023 (1.000-1.030); Urobilinogen Urine Negative (Negative); WBC Urine Automated 0-5 /hpf (0-5)
[2024-07-08] MEDS ORDERED: METOPROLOL TARTRATE 1 MG/ML VIAL IV PRN (16:02)
[2024-07-08] MEDS ORDERED: ARTIFICIAL TEARS OP PRN (16:12)
[2024-07-08] MEDS: LEVALBUTEROL 1.25 MG/3 ML NEB NEB SCH (16:17)
[2024-07-08] MEDS: SPIRONOLACTONE 12.5 MG TAB PO SCH (17:36)
[2024-07-08] MEDS: METOPROLOL SUCC 25MG EXT REL TAB PO STA (17:37)
[2024-07-08] MEDS: APIXABAN 5 MG TABLET PO SCH (20:11)
[2024-07-08] MEDS: PHENobarbitaL 30 MG TAB PO SCH (20:12)
[2024-07-08] MEDS ORDERED: METOPROLOL SUCC 50MG EXT REL TAB PO SCH (21:00)
[2024-07-08] MEDS ORDERED: PHENobarbitaL 30 MG TAB PO SCH (21:00)
[2024-07-09 07:38] LABS: Basophils # (auto) 0.03 K/uL (0.00-0.20); Basophils % (auto) 0.5 %; Eosinophils # (auto) 0.11 K/uL (0.00-0.50); Eosinophils % (auto) 1.8 %; Hematocrit (blood only) 37.3 % (37.0-47.0); Hemoglobin 12.3 g/dl (12.0-16.0); Immature Granulocytes # (auto) 0.02 K/uL (0.01-0.20); Immature Granulocytes % (auto) 0.3 %; Lymphocytes # (auto) 1.01 K/uL (1.20-3.40); Lymphocytes % (auto) 16.7 %; Mean Corpuscular Hemoglobin 27.2 pg (25.0-34.0); Mean Corpuscular Volume 82.5 fL (80.0-100.0); Mean Platelet Volume 10.1 fL (9.4-12.4); Monocytes # (auto) 0.87 K/uL (0.11-0.59); Monocytes % (auto) 14.4 %; Neutrophils # (auto) 4.01 K/uL (1.40-6.50); Neutrophils % (auto) 66.3 %; Platelet Count 236 K/uL (130-400); RDW Coefficient of Variation 15.3 % (11.5-14.5); RDW Standard Deviation 46.4 fL (36.4-46.3); Red Blood Count 4.52 M/uL (4.20-5.40); White Blood Count 6.05 K/ul (4.8-10.8)
[2024-07-09] MEDS: MONTELUKAST SODIUM 10 MG TABLET PO SCH (07:53)
[2024-07-09] MEDS: predniSONE 20 MG TAB PO SCH (07:53)
[2024-07-09] MEDS: FLUTICASONE/VILANTEROL 200/25MCG 14 PUFFS/INHALER INH SCH (07:54)
[2024-07-09] MEDS: ROSUVASTATIN CALCIUM 20 MG TAB PO SCH (07:54)
[2024-07-09 08:01] LABS: Albumin Globulin Ratio 1.2 (0.9-2); Albumin Level 3.3 gm/dl (3.4-5.0); BUN Creatinine Ratio 24.1 (10-20); Bilirubin,Total 0.5 mg/dl (0.2-1.0); Calcium 8.4 mg/dl (8.6-10.3); Creatinine Clr Calc Pharmacy 114.4 ml/min; Globulin 2.7 gm/dl (2.5-4.0); Magnesium 1.9 mg/dl (1.7-2.4); Potassium 3.6 mmol/L (3.5-5.1)
[2024-07-09] MEDS: METOPROLOL SUCC 25MG EXT REL TAB PO SCH (08:38)
--- NOTE | 2024-07-09 08:41 | Cardiology Consultation ---
Date of Consultation July 09, 2024 Assessment & Plan (1) Pneumonia: (2) SOB (shortness of breath): (3) Atrial flutter with rapid ventricular response: Plan Assessment: 73 year old female admitted for ongoing/worsening dyspnea in the setting of an acute infectious process as well elevated heart rates/A-flutter Plan: 1. Pneumonia 2. SOB 3. Atrial flutter with RVR -Patient with known A-fib, likely exacerbated by an acute infectious process. Recent outpatient titration of beta ladonna therapy with reports of improved response prior to becoming ill. -Chest xray suggestive of pneumonia as large contributing factor, continued management per primary team. -Physical exam does exhibit bilateral lower extremity edema, which patient states was "really bad" around the holiday's, will start Lasix 40mg IV daily and reassess volume status in the AM -Strict I&O, daily weights with a standing scale. -Close monitoring of renal function and serum electrolytes. Goal serum K> 4.0 and Serum mag > 2.0. -Echo completed today demonstrates LVEF> 70% -Left Atrium severely dilated. -Mild TR. No pulmonary HTN. There is no suggestion of mitral valve disease on this study; however, when compared with recent OP study completed 06/02/2024 there was notation of moderate to severe Mitral regugitation which may be contributing to her A-fib. -given that patient's left atrium is severely dilated, attempt and cardioversion may not be successful. -At this time, patient may be given a dietary order and we will continue forward with today's increase in Toprol xl to 75mg PO BID. Avoid diltiazem in this patient due to seizure history currently on phenobarbital. -Continue Spironolactone 25mg Daily -Continue Eliquis 5mg PO BID. Case has been discussed with Dr. Taylor. Further recommendations regarding plan of care as per his assessment. I spent a total of 40 minutes on the date of service in preparation, delivery, documentation of the care provided to the patient excluding any time spent in the performance of separately billed services. JESSIKA Lubin [facility] Cardiology [facility] Supervising Physician Co-Signing Physician Notes Attending attestation: Case reviewed with the advanced practitioner. I have personally performed a history and physical examination on the patient. I have reviewed the advanced practitioner's documentation on the date of service referenced in note, and I agree with, and take responsibility for the plan of care. Subjective: Patient notes that at times she feels well and at times she feels shortness of breath with minimal activity such as walking to the restroom in her hospital room. Exam: Cardiovascular: Tachycardic, no murmur, no edema Data: Transthoracic echocardiogram performed today 07/09/2024 revealed LVEF greater than 70%, severe left atrial enlargement noted. Although no significant mitral regurgitation was observed on color-flow Doppler, based on the spectral Doppler and the results of her previous echocardiogram performed in late, 2024, the degree of mitral regurgitation felt to be underestimated on the study. Impression/ Plan: Atrial fibrillation versus atypical atrial flutter Left atrial enlargement Much regurgitation, at least moderate based on previous transthoracic Echocardiogram, felt to be underestimated at the time of the present study due to tachycardia -Patient previously been on DVT/PE prophylaxis dose of Eliquis 2.5 mg twice daily which was increased to 5 mg twice daily the first week in May and therefore she has been on the appropriate anticoagulation dose for atrial arrhythmias for over 4 weeks and tolerating it well without any missed doses. -Per review of her telemetry and EKG, there is certainly organized atrial activity noted in lead V1 and I question if this is an atypical atrial flutter which would explain why the tachycardia has been somewhat refractory to AV paul blockers. -Increase metoprolol succinate 100 mg twice daily. Avoiding calcium channel ladonna such as diltiazem and verapamil due to their interaction with her phenobarbital -Discussed options with patient at length. Although she does have left atrial enlargement, I think it would be worthwhile to proceed with a trial of direct- current cardioversion given the finding of tachycardia despite escalation of her AV paul blockers. She has been in this fast atrial arrhythmia since at least April when the Zio patch was performed. -Patient agreeable to a trial of direct-current cardioversion. Will plan on titrating her metoprolol succinate over the weekend. -N.p.o. after midnight for tentative direct-current cardioversion with Dr. Witt on 07/12/2024. -Continue Eliquis without interruption. -Anesthesia consult placed.Patient placed on the cardioversion schedule. -Future considerations include performing a MANDO for assessment of the mitral valve. Would recommend a trial of DCCV first, as assessment of MR would be more feasible in the absence of tachycardia. She can return for MANDO with me as an outpatient. Dr Noriega will be rounding on the weekend. Dr Witt takes over on 07/12/24. I spent a total of 20 minutes coordinating, documenting, and providing care for this patient excluding time spent in the performance of separately billed services or time spent by another provider. Akhil Taylor, History of Present Illness Reason for Consultation: Rapid A-fib Requesting Physician: Richar montenegro Attending Physician: Kenn Bagley MD History of Present Illness HPI: Patient is a 73 year old female with PMHx as noted below that presents to the ER with complaints of worsening shortness of breath over the past month. Reports multiple sick contacts at home and a grandson with recent pneumonia. Upon seeing patient today, she is resting comfortably in bed, but does endorse wheezing and a non-productive cough. Denies chest pain or palpitations. patient had been out of bed ambulating in the halls, but heart rate went into the 150's, quickly resolved with rest. Endorsed mild dyspnea at that time. Cardiac Problems: 1. Heart palpitations secondary to sensed PACs seen on EKG a. Negative exercise stress echo 03/2018 2. Diastolic dysfunction, NYHA class 1 3. Hypertension 4. Hyperlipidemia 5. Hx of PE, on pradaxa since 2016 6. Obesity 7. Enlarged aorta 8. Hx of seizure disorder-- follows with neurology Of note, patient was recently seen in OP cardiology by the undersigned 06/04/2024 with no acute cardiac complaints; however, resting HR was around 100- 110bpm therefore her beta ladonna dose was increased. EKG demonstrated a possible lateral infarct in which patient states she had no knowledge of, but given her comorbidities was recommended for a nuclear stress test. Stress test was negative. EKG High sensitivity troponin 31.7/29.9/28.7/27.3 BNP 346 Chest Xray: IMPRESSION: 1. Bilateral lower lung predominant airspace opacities which may represent atelectasis, pneumonia, and/or aspiration. 2. Cardiomegaly is seen, increased from prior exam in 2019 possibly due to rotation. Pericardial effusion cannot be excluded. Review of telemetry demonstrates rates persistent 100-118, ST, although highly suspicious there is Atrial flutter present. Allergies Allergy/AdvReac Type Severity Reaction Status Date / Time oxycodone Allergy Unknown UNKNOWN Verified 02/15/18 16:04 phenytoin Allergy Unknown HIVES Unverified 02/15/18 16:04 propoxyphene Allergy Unknown UNKNOWN Verified 02/15/18 16:04 Home Medications Medication Instructions Recorded Confirmed Type albuterol sulfate 90 mcg/actuation 1 inh inhalation QID PRN sob 07/08/24 07/08/24 History aerosol inhaler apixaban 5 mg tablet (Eliquis) 5 mg PO BID 07/08/24 07/08/24 History cyclosporine 0.05 % eye drops in a 1 drp ophthalmic (eye) Q12H 07/08/24 07/08/24 History dropperette (Restasis) fluticasone 250 mcg-salmeterol 50 1 inh inhalation BID 07/08/24 07/08/24 History mcg/dose blistr powdr for inhalation metoprolol succinate 50 mg 50 mg PO BID 07/08/24 07/08/24 History tablet,extended release 24 hr montelukast 10 mg tablet 10 mg PO DAILY 07/08/24 07/08/24 History phenobarbital 97.2 mg tablet 194.4 mg PO HS 07/08/24 07/08/24 History rosuvastatin 40 mg tablet 40 mg PO DAILY 07/08/24 07/08/24 History spironolactone 25 mg tablet 12.5 mg PO DAILY 07/08/24 07/08/24 History Patient History Medical History Seizure disorder Social History Smoking Status: Never smoker Hx Alcohol Use: No Hx Substance Use: No Preferred Language: [place] Island[place] Communication Ability: Effective Writing Tutor Required: No Beliefs That Will Affect Care: None Current Living Situation: Alone Feels Safe at Home: Yes Safety Concerns: Feels Safe At This Time Assistive Devices: None Review of Systems Review of Systems: All systems reviewed & are unremarkable except as noted in HPI & below Physical Exam Constitutional: well developed, well nourished and + ill appearing; no acute distress Neck: normal visual inspection and trachea midline Respiratory: normal respiratory effort and + cough; no respiratory distress and no labored breathing Auscultation: + wheezes; no crackles, no rales and no rhonchi Cardiovascular: Rate/Rhythm: + tachycardic and + irregularly irregular Heart Sounds: normal S1, normal S2 and + murmur (+2/6 systolic) Vessels: dorsalis pedis pulses present; no JVD Extremities: + edema (+1 BLE) Skin: no rashes, warm and dry Psychiatric: A+Ox3, euthymic affect Results & Data Vital Signs (Past 12 Hours) Vital Signs Temp Pulse Pulse Resp BP Pulse Ox O2 Del Method 07/09/24 08:16 36.7 C 137 H 18 117/77 91 Room Air 07/09/24 07:04 110 H 16 95 Room Air 07/09/24 03:00 36.6 C 111 H 18 117/82 93 Room Air 07/09/24 01:04 116 H 22 97 Room Air 07/08/24 23:16 36.5 C 110 H 18 112/78 93 Room Air 07/08/24 21:45 111 H Laboratory Results Cardiac Enzymes 07/08/24 07/08/24 07/08/24 Range/Units 09:43 12:24 16:27 AST 16 (13-39) U/L Troponin I High Sens 31.7 H 29.9 H 28.7 H (0-14) pg/ml B-Natriuretic Peptide 346 H (0-100) pg/ml 07/08/24 07/09/24 Range/Units 22:38 06:13 AST 16 (13-39) U/L Troponin I High Sens 27.3 H (0-14) pg/ml B-Natriuretic Peptide (0-100) pg/ml Coagulation 07/08/24 Range/Units 09:43 PT 11.1 (9.0-12.0) Seconds APTT 34 H (21-31) Seconds B-Natriuretic Peptide 346 H (0-100) pg/ml CBC 07/08/24 07/09/24 Range/Units 09:43 06:13 WBC 7.09 6.05 (4.8-10.8) K/ul RBC 4.83 4.52 (4.20-5.40) M/uL Hgb 13.2 12.3 (12.0-16.0) g/dl Hct 39.9 37.3 (37.0-47.0) % Plt Count 255 236 (130-400) K/uL Neut # (Auto) 5.43 4.01 (1.40-6.50) K/uL Lymph # (Auto) 0.72 L 1.01 L (1.20-3.40) K/uL [place] # (Auto) 0.76 H 0.87 H (0.11-0.59) K/uL Eos # (Auto) 0.11 0.11 (0.00-0.50) K/uL Baso # (Auto) 0.04 0.03 (0.00-0.20) K/uL Comprehensive Metabolic Panel 07/08/24 07/09/24 Range/Units 09:43 06:13 Sodium 138 139 (136-145) mmol/L Potassium 3.5 3.6 (3.5-5.1) mmol/L Chloride 105 105 (98-107) mmol/L Carbon Dioxide 25 28 (21-32) mmol/L BUN 9 14 (6-23) mg/dl Creatinine 0.47 L 0.58 L (0.6-1.2) mg/dl Glucose 118 H 92 (70-99(Fasting)) mg/dl Calcium 8.5 L 8.4 L (8.6-10.3) mg/dl AST 16 16 (13-39) U/L ALT 16 15 (7-52) U/L Alkaline Phosphatase 135 H 115 H (34-104) U/L Total Protein 6.6 6.0 (6.0-8.3) gm/dl Albumin 3.7 3.3 L (3.4-5.0) gm/dl Intake and Output 07/08/24 07/09/24 07/09/24 22:59 06:59 14:59 Intake Total 300 / 700 250 / 700 Output Total Balance 299 / 699 250 / 699 Intake: IV 100 / 250 Doxycycline Hyclate 100 mg In 100 / 200 Dextrose 5% Mini-B 100 ml @ 50 mls/hr IV Q12H [facility] Rx#:[id number] Oral 300 / 450 150 / 450 Output: # Bowel Movements Other: # Unmeasured Voids 1 Weight 107.986 kg 111.272 kg Weight Measurement Method Built in Bedscale Built in Bedscale Diagnostic Findings [facility] 05/10/2024 CONCLUSIONS: Duration: 13 days, 23 hours 1 run of Ventricular Tachycardia occurred lasting 4 beats with a max rate of 148 bpm (avg 142 bpm). Atrial Fibrillation/Flutter occurred continuously (100% burden), ranging from 62-158 bpm (avg of 113 bpm). Isolated VEs were rare (<1.0%, 278), VE Couplets were rare (<1.0%, 5), and VE Triplets were rare (<1.0%, 2). Ventricular Bigeminy was present. Rhythm strips demonstrate atrial flutter with rapid ventricular response. Frequent symptomatic events correlate with atrial flutter and rapid ventricular response. Echocardiogram 06/02/2024: Interpretation Summary There was atrial fibrillation with rapid response during the examination. The left ventricular cavity size is normal. The LV wall thickness is moderately increased (concentric). The left ventricular wall motion is normal. The qualitative LV ejection fraction is >70% (hyperdynamic). The left atrium is severely enlarged. Moderate aortic valve sclerosis is present. Moderate to severe mitral regurgitation is present. Mild tricuspid regurgitation is present. EKG performed 05/26/24 Atrial fib/flutter with RVR at 120 bmp Old septal infarct EKG performed May 24, 2024: Atypical atrial flutter with variable AV block Possible Lateral infarct (cited on or before 18-Oct-2021) Abnormal ECG When compared with ECG of 10-May-2024 08:32, No significant change was found Echo report reviewed dated October 2023: Interpretation Summary The qualitative LV ejection fraction is 60-64% (normal). The LV wall thickness is mildly increased (concentric). The left atrium is mildly enlarged (35-41 ml/m^2). The left ventricular diastolic function is moderately abnormal (grade II). Moderate aortic valve sclerosis is present. Mild aortic valve regurgitation is present. There is moderate mitral annular calcification. Focal calcification involving the base of the anterior mitral valve leaflet. Mild mitral regurgitation is present. The aortic root is normal sized. The ascending aorta is mildly enlarged, 4.0 cm. Compared to prior study of 10/09/2022, there is no significant change. Echo 09/2022 The qualitative LV ejection fraction is 60-64% (normal). The LV wall thickness is mildly increased (concentric). The basal septum is thickened and angulated consistent with sigmoid septum. The left atrium is moderately enlarged (42-48 ml/m^2). The aortic valve has three leaflets. The aortic valve is mildly calcified. Mild aortic valve regurgitation is present. Aortic stenosis is absent. There is moderate mitral annular calcification. Focal calcification involving the base of the anterior mitral valve leaflet. Mild mitral regurgitation is present. The proximal ascending thoracic aorta is mildly enlarged. Echocardiogram November 08, 2021 The qualitative LV ejection fraction is 65-69% (normal). The LV wall thickness is mildly increased (concentric). The left atrium is moderately enlarged (42-48 ml/m^2). The left ventricular diastolic function is severely abnormal (grade III). The aortic valve is mildly calcified. There is aortic valve sclerosis without stenosis. Mild aortic valve regurgitation is present. Moderate posterior and anterior mitral annular calcification. Focal calcification involving the base of the anterior mitral valve leaflet. Mild mitral regurgitation is present. Mild ascending aortic enlargement, 4.1 cm (upper limits of normal in size). Compared to last available study changes are noted as follows: Mild ascending aortic enlargement present, the ascending aorta was not well visualized on the prior study for comparison JASON 03/2018 The primary indication after review was deemed appropriate and the examination was performed. The examination is adequate to evaluate the referral indication. The left ventricular cavity size is normal. The LV wall thickness is normal. Qualitative LV ejection Fraction = 60%. The left ventricular diastolic function is mildly abnormal (grade I). The stress test was terminated due to dyspnea. Blood pressure response to exercise was hypertensive. Heart rate response to stress was normal. The stress EKG response showed no evidence of ischemia. The exercise echocardiographic examination is normal without resting left ventricular wall motion abnormalities or inducible ischemia. (1) Pneumonia Laterality: bilateral Lung location: lower lobe of lung Pneumonia type: due to unspecified organism Qualified Code(s): J18.9 - Pneumonia, unspecified organism
--- NOTE | 2024-07-09 09:37 | CT Scan Report ---
CT chest diagnostic wo con CLINICAL HISTORY: evaluation for pneumonia/mass TECHNIQUE: Multidetector row helical CT of the chest was performed. Coronal and sagittal reformations were obtained. Automated dose lowering techniques and/or adjustment according to patient size were u tilized for this exam. CT DOSE: 759.09 mGy.cm Comparison: Comparison is made to chest radiograph 07/08/2024 and chest radiograph 07/08/2024 FINDINGS: Lungs and pleura: Pleural effusion is seen numerous pulmonary nodules and groundglass opacities are s een. Bronchial wall thickening is seen and there is atelectasis in the lower lungs. Heart and pericardium: Cardiomegaly is seen with biatrial enlargement. A small pericardial effusion i s seen. Vessels: The pulmonary trunk is enlarged measuring 39 mm. Severe atherosclerotic disease is seen. Mediastinum and suad: Subcentimeter lymph nodes are seen. Chest wall and lower neck: Unremarkable. Abdomen: Unremarkable. Bones: Degenerative changes in the thoracic spine. IMPRESSION: 1. Numerous pulmonary nodules and groundglass opacity compatible with pneumonia with reactive lympha denopathy. 2. Trace right pleural effusion and pericardial effusion. ACT 112: Negative or not required by law. Electronically signed by: Leonardo Martins M.D. 07/09/2024 9:35 AM
--- NOTE | 2024-07-09 13:01 | Hospitalist Progress Note ---
Date of Service July 09, 2024 Assessment & Plan (1) Seizure disorder: (2) Hyperlipemia: (3) History of pulmonary embolism: (4) Adrenal nodule: Plan The patient is a 73-year-old female who presented to the ED on 03/08/2025 with complaints of worsening shortness of breath, found to have pneumonia CAP/Bronchitis Asthma exacerbation: Reports ongoing shortness of breath over the past month She reports using her rescue inhaler multiple times in a day for last [address] chest was done which showed numerous pulmonary nodule and groundglass opacities. Trace right pleural effusion and pericardial effusion was seen. Continue on antibiotics with ceftriaxone, doxycycline along with albuterol nebs as needed every 6 hours. Continue on prednisone 40 mg once a day. Continue on fluticasone. Patient has significant uncontrolled symptoms for last 1 month requiring daily rescue inhaler use multiple times in a day; will consult pulmonology for her persistent asthma symptoms. Atrial fibrillation with RVR: Recently diagnosed atrial fibrillation with RVR. On metoprolol at home. EKG on admission showed atrial fibrillation with ventricular rate of 123 Echocardiogram shows EF of greater than 70% with dilated left atrium. Metoprolol increased to 75 mg twice a day Continue on Eliquis 5 mg twice a day Continue classroom monitor Hx seizures: Continue phenobarbital Full code DVT prophylaxis: Eliquis Time spent evaluating patient, direct bedside care, chart review, placing orders, interpretation of diagnostic studies, discussion with consultants, patient, and family members, as well as other required patient management activities is 50 minutes Please note the above document was generated using voice recognition software. It may contain grammatical, syntax or spelling errors. Any formal questions or concerns about the content, text or information contained within the body of this dictation should be directly addressed to the provider for clarification Admission and Anticipated Discharge Date Admission Date: July 08, 2024 Subjective Patient seen and examined at bedside. She is sitting up on the side of the bed She reports that her shortness of breath has slightly improved compared to yesterday; not requiring any supplemental oxygen. Review of Systems Review of Systems: All systems reviewed & are unremarkable except as noted in Subjective Physical Exam Physical Exam: Constitutional: Alert oriented x 3; not in distress. Respiratory: Bilateral decreased breath sound at bases. Cardiovascular: RRR, no murmur, no edema Vessels: no JVD or carotid bruit Chest: normal inspection of chest Abdomen: normal bowel sounds, soft, nontender, no hepatosplenomegaly Musculoskeletal: no cyanosis or clubbing, extremities motor strength 5/5 Skin: no rashes, warm and dry normal turgor Neurologic: PERRL, EOMI, accommodation nl, no face palsy, no dysarthria CN's II- XI intact bilaterally and moves all extremities Psychiatric: A+Ox3, euthymic affect Results & Data Results & Data Vital Signs (Past 12 Hours) Vital Signs Temp Pulse Resp BP Pulse Ox O2 Del Method 07/09/24 11:54 36.5 C 118 H 20 122/83 93 Room Air 07/09/24 08:16 36.7 C 137 H 18 117/77 91 Room Air 07/09/24 07:04 110 H 16 95 Room Air 07/09/24 03:00 36.6 C 111 H 18 117/82 93 Room Air 07/09/24 01:04 116 H 22 97 Room Air
[2024-07-09] MEDS: FUROSEMIDE 40 MG/4 ML VIAL IV SCH (14:09)
[2024-07-09] MEDS: SPIRONOLACTONE 25 MG TAB PO SCH (14:09)
[2024-07-09] MEDS: cefTRIAXone SODIUM 2,000 MG/50 ML BAG IV SCH (14:12)
--- NOTE | 2024-07-09 14:25 | Pulmonary Consultation ---
Date of Consultation July 09, 2024 Assessment & Plan (1) Multifocal pneumonia: (2) SOB (shortness of breath): (3) Atrial fibrillation: Atrial fibrillation type: paroxysmal Qualified Code(s): I48.0 - Paroxysmal atrial fibrillation (4) Diastolic dysfunction: (5) Asthma exacerbation: Asthma persistence: persistent Asthma severity: moderate Qualified Code(s): J45.41 - Moderate persistent asthma with (acute) exacerbation Plan 1. Multifocal Pneumonia: - as seen on cxr on 07/08/[address] chest 07/09/24 - currently being treated with IV ceftriaxone and IV doxycycline, continue these for now - was started on Z-pack in ED but discontinued for doxycycline - obtain new EKG- october d/c doxycycline and resume Z-pack provided QTc is not prolonged 2. Shortness of Breath: - significantly improved since receiving Duonebs, IV methylprednisolone in ED - continue prednisone 40mg PO daily suspected component of asthma exacerbation - continue diuresis with Lasix 40mg daily and spironolactone 25mg daily, reassess fluid status in AM - continue monitoring vitals and for O2 requirement 3. Atrial fibrillation vs atypical atrial flutter: - based on ED EKG and cardiology input - at time of encounter, appeared to be in sinus tachycardia, so may be paroxysmal in nature - continue on metoprolol succinate 100mg BID with metoprolol tartrate 5mg IV q6h prn for sustained HR >120 - continue on Eliquis 5mg BID - consider potential causes of recent onset of atrial fibrillation/flutter such as longstanding asthma, obesity, diastolic dysfunction and/or regurgitation, viral/bacterial illness exposure, etc.; study in May 2024 describing moderate- severe mitral regurg, not present on current echo, but consider this another potential contributor to afib/flutter 4. Diastolic dysfunction: - as seen on echocardiogram 07/09/24: LA severely dilated, increase LA filling pressure - as this is a likely contributor to her b/l LE pitting edema, continue Lasix 40mg IV daily in addition to spironolactone 25mg daily - continue metoprolol succinate 100mg BID and IV metoprolol tartrate 5mg IV q6 prn for sustained HR >120 5. Asthma Exacerbation: - has significantly improved since arrival in ED - continue on current regimen of daily prednisone 40mg - continue fluticasone-vilanterol inh daily for maintenance - consider reducing frequency of q6 levalbuterol nebs due to rapid heart rate, as this could further increase it - outpatient pulmonology followup as last PFTs were 5+ years ago Supervising Physician Co-Signing Physician Notes Patient seen examined with resident physician. Agree with assessment and plan unless otherwise specified. Patient recovering from community-acquired pneumonia. CT chest with multifocal infiltrates and inflammatory appearing nodules. Will transition the patient from doxycycline to azithromycin and continue Rocephin. Patient notes that she was taking care of her grandson about 2 weeks ago who had human metapneumovirus and subsequently became sicker after taking care of her grandson. Bio fire was negative on admission, but she may have been ill with viral illness at the time and developed a superimposed bacterial infection. Also suspect dyspnea is related to ongoing atrial fibrillation. Cardiology considering cardioversion on Friday to help reduce the burden of A-fib then convert the patient to a sinus rhythm. Patient significantly clinically improved compared to admission with the use of antibiotics, systemic corticosteroids nebulized beta agonist therapy and rate control of her atrial fibrillation. Recommend a 10-day taper of prednisone. Patient to follow-up with pulmonary clinic as an outpatient with PFTs and exhaled nitric oxide level testing. Prior PFTs and 2019 did not reveal any evidence of overt airflow obstruction or air trapping. On exam patient is clear to auscultation bilaterally. No tachypnea. Sinus tachycardia on cardiac auscultation. Mild systolic flow murmur. She does not appear to be in any distress. Daughter is at bedside. History of Present Illness Reason for Consultation: worsening SOB, hx asthma and recently diagnosed a-fib Attending Physician: Kenn Bagley MD History of Present Illness Deedee is a 73yo female with PMHx asthma (likely moderate persistent) on fluticasone-salmeterol BID with albuterol QID prn, seizure disorder controlled by nightly phenobarbital, history of b/l pulmonary embolism in 2015 after which she was started on Eliquis, newly diagnosed atrial fibrillation in May 2024 for which she was started on metoprolol. She has also been on spironolactone for 2-3 years for "2 extra heart beats" which lead to fluid retention in her legs, per patient report. About a month ago, she started to have increasing SOB with productive cough and wheezing. About 2 weeks ago, she noticed her SOB became significantly worse and she found she was getting very short of breath with minimal exertion and requiring all 4 prn doses of albuterol on top of her Advair. Has also noticed having a rather rapid heartbeat. Endorses dust as a particular household trigger, and notes she has been around her grandson who has had both meta pneumovirus and pneumonia within the last 2 months. Otherwise, patient denies any significant triggers to her asthma such as pets, construction/renovating, or any recent travel / outdoor exposure. Denies other significant exposure to individuals with viral or bacterial illness, as patient is retired and lives alone. Denies ever having any chest pain, fever, body aches, chills, hemoptysis, nausea/vomiting, choking on food, or extremity pain. Came to the ED yesterday 07/08/24 and found to be tachycardic with O2 saturations of upper 80s to low 90s. On exam she was found to be wheezing with diminished breath sounds R>L and with crackles in b/l lung bases. CXR and CT chest showing multifocal pneumonia R>L but with white count within normal limits. EKG showed rapid atrial fibrillation vs atrial flutter. She was given IV metoprolol, IV methylprednisolone, IV ceftriaxone, first dose of Z-pack (two 250mg tablets), and duonebs with good effect. Upon encounter at bedside on the telemetry floor, patient was not appearing in acute distress and was able to elaborate on the course of her illness as described above ED paragraph. Not currently experiencing SOB, chest pain, lightheadedness, nausea. She was just given IV Lasix 40mg and thus had to use bedside toilet to urinate 3 times during history taking (provider stepped out of room). Understands that she has pneumonia and is why she is being treated with antibiotics. Understands that the plan on cardiology's end is to cardiovert her on Friday07/12/24 for control of her abnormal heart rhythm. Additionally understands she is undergoing diuresis to take off the excess of fluid that is putting some strain on her heart and accumulating outside of her blood vessels in her legs. Allergies Allergy/AdvReac Type Severity Reaction Status Date / Time oxycodone Allergy Unknown UNKNOWN Verified 02/15/18 16:04 phenytoin Allergy Unknown HIVES Unverified 02/15/18 16:04 propoxyphene Allergy Unknown UNKNOWN Verified 02/15/18 16:04 Home Medications Medication Instructions Recorded Confirmed Type albuterol sulfate 90 mcg/actuation 1 inh inhalation QID PRN sob 07/08/24 07/08/24 History aerosol inhaler apixaban 5 mg tablet (Eliquis) 5 mg PO BID 07/08/24 07/08/24 History cyclosporine 0.05 % eye drops in a 1 drp ophthalmic (eye) Q12H 07/08/24 07/08/24 History dropperette (Restasis) fluticasone 250 mcg-salmeterol 50 1 inh inhalation BID 07/08/24 07/08/24 History mcg/dose blistr powdr for inhalation metoprolol succinate 50 mg 50 mg PO BID 07/08/24 07/08/24 History tablet,extended release 24 hr montelukast 10 mg tablet 10 mg PO DAILY 07/08/24 07/08/24 History phenobarbital 97.2 mg tablet 194.4 mg PO HS 07/08/24 07/08/24 History rosuvastatin 40 mg tablet 40 mg PO DAILY 07/08/24 07/08/24 History spironolactone 25 mg tablet 12.5 mg PO DAILY 07/08/24 07/08/24 History Patient History Medical History (Updated 07/09/24 @ 17:54 by Eulogio Bailey DO) Asthma exacerbation Pneumonia Atrial flutter with rapid ventricular response Adrenal nodule "bilat adrenal nodules CT 07/01/06 and 08/26/15, probable adenomas" History of pulmonary embolism "08/22/15" Seizure disorder Surgical History (Updated 07/09/24 @ 15:12 by Mal Bradshaw MD) Status post tonsillectomy Status post tubal ligation Status post appendectomy Social History Smoking Status: Never smoker Hx Alcohol Use: No Hx Substance Use: No Preferred Language: Faroese Communication Ability: Effective Branch Mechanic Required: No Beliefs That Will Affect Care: None Current Living Situation: Alone Feels Safe at Home: Yes Safety Concerns: Feels Safe At This Time Assistive Devices: None Review of Systems Review of Systems: per HPI and exam Physical Exam Physical Exam: Constitutional: A&Ox3, appears stated age, not in acute respiratory distress HEENT: PERRL b/l, EOM intact, non-erythematous oropharynx, no tonsillar enlargement Respiratory: good air entry b/l but decreased at bases b/l R>L, prolonged expiratory phase, mild crackles at bases b/l R>L CV: tachycardic regular rhythm, no murmurs/rubs/gallops heard on auscultation Abdomen/GI: +BS, abdomen soft, nontender to palpation MSK: b/l LE 2+ pitting edema up to knees, no edema or pitting in b/l UE. Nontender to palpation of b/l calves, no significant erythema. No cyanosis or clubbing, extremities motor strength 5/5 Neurologic: no facial droop, speech intact, CN II-XII grossly intact, moves all extremities Results & Data Results & Data Vital Signs (Past 12 Hours) Vital Signs Temp Pulse Resp BP Pulse Ox O2 Del Method 07/09/24 13:16 114 H 19 94 Room Air 07/09/24 11:54 36.5 C 118 H 20 122/83 93 Room Air 07/09/24 08:16 36.7 C 137 H 18 117/77 91 Room Air 07/09/24 07:04 110 H 16 95 Room Air 07/09/24 03:00 36.6 C 111 H 18 117/82 93 Room Air Laboratory Results Abnormal lab results 07/08/24 07/09/24 Range/Units 22:38 06:13 RDW Std Deviation 46.4 H (36.4-46.3) fL RDW Coeff of Alivia 15.3 H (11.5-14.5) % Lymph # (Auto) 1.01 L (1.20-3.40) K/uL Keith # (Auto) 0.87 H (0.11-0.59) K/uL Creatinine 0.58 L (0.6-1.2) mg/dl BUN/Creatinine Ratio 24.1 H (10-20) Calcium 8.4 L (8.6-10.3) mg/dl Alkaline Phosphatase 115 H (34-104) U/L Troponin I High Sens 27.3 H (0-14) pg/ml Albumin 3.3 L (3.4-5.0) gm/dl Resident Activity Tracking Resident Involvement: Resident Care Provided Care Provided: Adult [facility]
--- NOTE | 2024-07-09 15:16 | Anesthesiology Consultation ---
Date of Service July 09, 2024 Assessment & Plan (1) Encounter for pre-operative examination: Chart Review Chart Review: Acceptable Risk for Surgery History Surgery Operation Date: 07/12/24 07:30 Proposed Procedures p Cardioversion Patternmaker Pressure Cast w/Anesthesia - Ac Witt MD Height/Weight Height: 5 ft 7 in Weight: 111.272 kg Allergies Allergy/AdvReac Type Severity Reaction Status Date / Time oxycodone Allergy Unknown UNKNOWN Verified 02/15/18 16:04 phenytoin Allergy Unknown HIVES Unverified 02/15/18 16:04 propoxyphene Allergy Unknown UNKNOWN Verified 02/15/18 16:04 Medications Home Medications Medication Instructions Recorded Confirmed Last Taken albuterol sulfate 90 mcg/actuation 1 inh inhalation QID PRN sob 07/08/24 07/08/24 Unknown aerosol inhaler apixaban 5 mg tablet (Eliquis) 5 mg PO BID 07/08/24 07/08/24 Unknown cyclosporine 0.05 % eye drops in a 1 drp ophthalmic (eye) Q12H 07/08/24 07/08/24 Unknown dropperette (Restasis) fluticasone 250 mcg-salmeterol 50 1 inh inhalation BID 07/08/24 07/08/24 Unknown mcg/dose blistr powdr for inhalation metoprolol succinate 50 mg 50 mg PO BID 07/08/24 07/08/24 Unknown tablet,extended release 24 hr montelukast 10 mg tablet 10 mg PO DAILY 07/08/24 07/08/24 Unknown phenobarbital 97.2 mg tablet 194.4 mg PO HS 07/08/24 07/08/24 Unknown rosuvastatin 40 mg tablet 40 mg PO DAILY 07/08/24 07/08/24 Unknown spironolactone 25 mg tablet 12.5 mg PO DAILY 07/08/24 07/08/24 Unknown Active Medications Generic Name Dose Route Start Last Admin Trade Name Freq PRN Reason Stop Dose Admin Apixaban 5 mg 07/08/24 21:00 07/09/24 07:55 Apixaban 5 Mg Tablet PO 08/07/24 20:59 5 mg BID JAVON Administration Fluticasone/Vilanterol 1 puffs 07/09/24 09:00 07/09/24 07:54 Fluticasone/Vilanterol 200/25mcg 14 Puffs/Inhaler INH 08/08/24 08:59 1 puffs DAILY JAVON Administration Furosemide 40 mg 07/09/24 11:45 07/09/24 14:09 Furosemide 40 Mg/4 Ml Vial IV 08/08/24 11:44 40 mg DAILY JAVON Administration Guaifenesin 600 mg 07/08/24 11:55 07/09/24 07:54 Guaifenesin 600 Mg Tabcr PO 08/07/24 11:54 600 mg Q12 JAVON Administration Doxycycline Hyclate 100 mg/ 100 mls @ 50 mls/hr 07/08/24 12:00 07/09/24 14:10 Dextrose IV 07/13/24 11:59 50 mls/hr Q12H JAVON Administration Ceftriaxone Sodium 2,000 mg in 50 mls @ 100 mls/hr 07/09/24 11:00 07/09/24 14:12 Rocephin IV 07/14/24 10:59 100 mls/hr Q24H JAVON Administration Levalbuterol HCl 1.25 mg 07/08/24 16:02 07/09/24 13:16 Levalbuterol 1.25 Mg/3 Ml Neb NEB 08/07/24 16:01 1.25 mg Q6R JAVON Administration Montelukast Sodium 10 mg 07/09/24 09:00 07/09/24 07:53 Montelukast Sodium 10 Mg Tablet PO 08/08/24 08:59 10 mg DAILY JAVON Administration Phenobarbital 195 mg 07/08/24 21:00 07/08/24 20:12 Phenobarbital 30 Mg Tab PO 08/07/24 20:59 195 mg HS JAVON Administration Prednisone 40 mg 07/09/24 09:00 07/09/24 07:53 Prednisone 20 Mg Tab PO 07/13/24 09:01 40 mg DAILY JAVON Administration Rosuvastatin Calcium 40 mg 07/09/24 09:00 07/09/24 07:54 Rosuvastatin Calcium 20 Mg Tab PO 08/08/24 08:59 40 mg DAILY JAVON Administration Spironolactone 25 mg 07/09/24 09:00 07/09/24 14:09 Spironolactone 25 Mg Tab PO 08/08/24 08:59 25 mg DAILY JAVON Administration Past Medical History Medical History (Updated 07/09/24 @ 15:16 by Mal Bradshaw MD) Asthma exacerbation Pneumonia Atrial flutter with rapid ventricular response Adrenal nodule "bilat adrenal nodules CT 07/01/06 and 08/26/15, probable adenomas" History of pulmonary embolism "08/22/15" Seizure disorder Past Surgical History Surgical History (Updated 07/09/24 @ 15:12 by Mal Bradshaw MD) Status post tonsillectomy Status post tubal ligation Status post appendectomy Social History Smoking Status: Never smoker Hx Alcohol Use: No Hx Substance Use: No Physical Exam Vital Signs Last Vital Signs Temp 36.5 C 07/09/24 11:54 Pulse 114 H 07/09/24 13:16 Resp 19 07/09/24 13:16 BP 122/83 07/09/24 11:54 Pulse Ox 94 07/09/24 13:16 O2 Del Method Room Air 07/09/24 13:16 FiO2 21 07/08/24 16:18 Testing Laboratory Results 07/09/24 06:13 07/09/24 06:13 PT 11.1 Seconds (9.0-12.0) 07/08/24 09:43 INR 1.0 (0.9-1.1) 07/08/24 09:43 APTT 34 Seconds (21-31) H 07/08/24 09:43 Urine Color Dark Yellow 07/08/24 10:44 Urine Appearance Clear (Clear) 07/08/24 10:44 Urine pH 6.0 (4.5-7.5) 07/08/24 10:44 Ur Specific [place] 1.023 (1.000-1.030) 07/08/24 10:44 Urine Protein 1+ (Negative) H 07/08/24 10:44 Urine Glucose (UA) Negative (Negative) 07/08/24 10:44 Urine Ketones Trace (Negative) H 07/08/24 10:44 Urine Nitrite Negative (Negative) 07/08/24 10:44 Ur Leukocyte Esterase Negative (Negative) 07/08/24 10:44 Urine WBC (Auto) 0-5 /hpf (0-5) 07/08/24 10:44 Urine RBC (Auto) 0-2 /hpf (0-2) 07/08/24 10:44 U Hyaline Cast (Auto) 0-2 /lpf (0-2) 07/08/24 10:44 U Epithel Cells (Auto) 6-10 /hpf (0-2) H 07/08/24 10:44 Urine Bacteria (Auto) None Seen (None Seen) 07/08/24 10:44 07/08/24 10:15 Aerobic Blood Culture - Preliminary Blood No growth in Aerobic bottle after 24 hours. Anaerobic Blood Culture - Preliminary No growth in Anaerobic bottle after 24 hours. 07/08/24 10:10 Aerobic Blood Culture - Preliminary Blood No growth in Aerobic bottle after 24 hours. Anaerobic Blood Culture - Preliminary No growth in Anaerobic bottle after 24 hours. Electrocardiogram Date: 07/08/24 Findings: + AFIB @ (123) Echocardiogram Date: 07/09/24 EF: >70% LV Function: normal Valvular Disease: + no significant valvular disease
--- NOTE | 2024-07-09 19:10 | Billing Data ---
Date of Service July 09, 2024 Coding Level of Care Code 13436 INT INP/OBS CARE
[2024-07-09] MEDS: METOPROLOL SUCC 50MG EXT REL TAB PO SCH (20:32)
--- NOTE | 2024-07-09 23:02 | Electrocardiogram Report ---
Test Reason : Blood Pressure : */* mmHG Vent. Rate : 123 BPM Atrial Rate : 138 BPM P-R Int : * ms QRS Dur : 94 ms QT Int : 336 ms P-R-T Axes : * 37 -15 degrees QTcB Int : 481 ms Atrial flutter Possible Lateral infarct (cited on or before 24-Aug-2015) Prolonged QT Abnormal ECG When compared with ECG of 24-Aug-2015 18:06, Atrial flutter has replaced Sinus rhythm Confirmed by James Chavira ([id number] on 07/09/2024 11:01:59 PM Referred By: Confirmed By: James Chavira
[2024-07-10 07:47] LABS: Basophils # (auto) 0.03 K/uL (0.00-0.20); Basophils % (auto) 0.6 %; Eosinophils # (auto) 0.19 K/uL (0.00-0.50); Eosinophils % (auto) 3.5 %; Hematocrit (blood only) 38.2 % (37.0-47.0); Hemoglobin 12.6 g/dl (12.0-16.0); Immature Granulocytes # (auto) 0.01 K/uL (0.01-0.20); Immature Granulocytes % (auto) 0.2 %; Lymphocytes # (auto) 1.55 K/uL (1.20-3.40); Lymphocytes % (auto) 28.5 %; Mean Corpuscular Hemoglobin 27.2 pg (25.0-34.0); Mean Corpuscular Volume 82.5 fL (80.0-100.0); Mean Platelet Volume 9.9 fL (9.4-12.4); Monocytes # (auto) 0.65 K/uL (0.11-0.59); Monocytes % (auto) 11.9 %; Neutrophils # (auto) 3.01 K/uL (1.40-6.50); Neutrophils % (auto) 55.3 %; Platelet Count 258 K/uL (130-400); RDW Coefficient of Variation 15.2 % (11.5-14.5); RDW Standard Deviation 46.2 fL (36.4-46.3); Red Blood Count 4.63 M/uL (4.20-5.40); White Blood Count 5.44 K/ul (4.8-10.8)
[2024-07-10 08:01] LABS: BUN Creatinine Ratio 26.3 (10-20); Calcium 8.4 mg/dl (8.6-10.3); Creatinine Clr Calc Pharmacy 115.4 ml/min; Potassium 3.3 mmol/L (3.5-5.1)
[2024-07-10] MEDS ORDERED: AZITHROMYCIN 500 MG VIAL IV SCH (09:00)
--- NOTE | 2024-07-10 09:03 | Cardiology Progress Note ---
Date of Service July 10, 2024 Assessment & Plan (1) Atrial fibrillation: (2) Multifocal pneumonia: (3) SOB (shortness of breath): Plan 73 year old female admitted with atrial fibrillation versus atypical atrial flutter with elevated rates in setting of pneumonia. - overall feeling better on exam today, heart rates still mildly elevated, mild edema on exam - continue Eliquis 5 mg twice daily without interruption - continue furosemide IV 40 mg daily - continue spironolactone 25 mg daily - Strict I&O, daily weights with a standing scale. - Close monitoring of renal function and serum electrolytes. Goal serum K> 4.0 and Serum mag > 2.0. - continue metoprolol succinate 100 mg twice daily. Avoid calcium channel ladonna such as diltiazem and verapamil due to their interaction with her phenobarbital. - plan for DCCV 07/12/[address] Witt, discussed procedure again today with patient Case discussed with supervising physician, further recommendations per Dr. Noriega. I spent a total of 30 minutes on the date of service in preparation, delivery, and documentation of the care provided to this patient excluding any time spent in the performance of separately billed services. This visit was a split-shared visit with the substantial portion of the decision making performed by the supervising manufacturing teacher/billing provider. Admission and Anticipated Discharge Date Admission Date: July 08, 2024 Subjective Patient examined today in follow up. States overall she is feeling better. Denies chest pain, palpitations. Shortness of breath and edema is improving. She is nervous about upcoming cardioversion. Heart rate 110-120s on telemetry. Review of Systems Review of Systems: CONSTITUTIONAL: No change in weight, No weakness, No fatigue and No fevers, No sweats or chills. PULMONARY: No cough, sputum, or hemoptysis, No wheezing, No shortness of breath and No recent change in breathing. CARDIOVASCULAR: No chest pain, No dyspnea on exertion, No edema, No palpitations and No syncope. GASTROINTESTINAL: No abdominal pain, No change in bowel habits, No significant heartburn, No nausea, No vomiting, No diarrhea, No constipation, No blood in stools or black tarry stools. No dysphagia. HEMATOLOGIC: No abnormal bleeding and No bruising. NEUROLOGICAL: Normal balance, No headaches and No weakness. Physical Exam Physical Exam: General: No acute distress. A+Ox3. HEENT: Normocephalic. Atraumatic. PERRL. EOMI. Conjunctiva and sclera clear. NECK: No carotid bruits. No JVD. Carotid upstrokes are brisk. Heart: Irregularly irregular, tachycardic. S1 and S2 noted. No murmur. No rubs or gallops. PMI non displaced. Lungs: +expiratory wheezing throughout. No rhonchi. No rales. Abdomen: Normal bowel sounds. Soft. Nontender. No masses or organomegaly. No abdominal bruits. Extremities: 1+ bilateral LE edema. No clubbing or cyanosis. Pulses: radial=2/4, posterior tibial=2/4, dorsalis pedis = 2/4. NEURO: No focal deficits. PSYCH: Appropriate affect and insight. Results & Data Vital Signs (Past 12 Hours) Vital Signs Temp Pulse Pulse Resp BP Pulse Ox O2 Del Method 07/10/24 07:55 36.8 C 117 H 18 110/73 90 Room Air 07/10/24 07:48 93 H 07/10/24 06:59 105 H 16 93 Room Air 07/10/24 03:00 36.5 C 107 H 16 113/75 93 Room Air 07/10/24 00:08 102 H 18 91 Room Air 07/09/24 22:30 36.5 C 108 H 18 111/76 93 Room Air Laboratory Results CBC 07/10/24 Range/Units 07:16 WBC 5.44 (4.8-10.8) K/ul RBC 4.63 (4.20-5.40) M/uL Hgb 12.6 (12.0-16.0) g/dl Hct 38.2 (37.0-47.0) % Plt Count 258 (130-400) K/uL Neut # (Auto) 3.01 (1.40-6.50) K/uL Lymph # (Auto) 1.55 (1.20-3.40) K/uL [place] # (Auto) 0.65 H (0.11-0.59) K/uL Eos # (Auto) 0.19 (0.00-0.50) K/uL Baso # (Auto) 0.03 (0.00-0.20) K/uL Comprehensive Metabolic Panel 07/10/24 Range/Units 07:16 Sodium 142 (136-145) mmol/L Potassium 3.3 L (3.5-5.1) mmol/L Chloride 105 (98-107) mmol/L Carbon Dioxide 30 (21-32) mmol/L BUN 15 (6-23) mg/dl Creatinine 0.57 L (0.6-1.2) mg/dl Glucose 104 H (70-99(Fasting)) mg/dl Calcium 8.4 L (8.6-10.3) mg/dl Intake and Output 07/09/24 07/10/24 07/10/24 22:59 06:59 14:59 Intake Total 960 / 1280 120 / 1280 Output Total 3075 / 3075 Balance -2114 / -1794 120 / -1794 Intake: IV 150 / 150 Doxycycline Hyclate 100 mg In 100 / 100 Dextrose 5% Mini-B 100 ml @ 50 mls/hr IV Q12H [facility] Rx#:[id number] cefTRIAXone SODIUM 2,000 mg In 50 / 50 50 ml @ 100 mls/hr IV Q24H [facility] Rx#:[id number] Oral 810 / 1130 120 / 1130 Output: Urine 3075 / 3075 Other: Weight 111.272 kg 109.5 kg (1) Atrial fibrillation Atrial fibrillation type: paroxysmal Qualified Code(s): I48.0 - Paroxysmal atrial fibrillation
--- NOTE | 2024-07-10 09:11 | Hospitalist Progress Note ---
Date of Service July 10, 2024 Assessment & Plan (1) Seizure disorder: (2) Hyperlipemia: (3) History of pulmonary embolism: (4) Adrenal nodule: Plan The patient is a 73-year-old female who presented to the ED on 03/08/2025 with complaints of worsening shortness of breath, found to have pneumonia CAP/Bronchitis Asthma exacerbation: Reports ongoing shortness of breath over the past month She reports using her rescue inhaler multiple times in a day for last [address] chest was done which showed numerous pulmonary nodule and groundglass opacities. Trace right pleural effusion and pericardial effusion was seen. Continue on ceftriaxone; doxycycline changed to azithromycin. Continue nebs as needed Continue on prednisone 40 mg once a day; plan to taper over 10 days Continue fluticasone Patient to follow-up with pulmonology as outpatient. Atrial flutter with RVR: Acute on chronic diastolic heart failure Recently diagnosed atrial fibrillation with RVR. On metoprolol at home. EKG on admission showed atrial fibrillation with ventricular rate of 123 Echocardiogram shows EF of greater than 70% with dilated left atrium. Metoprolol increased to 100 mg twice a day Continue on Eliquis 5 mg twice a day Continue senior animator Plan for possible cardioversion on 07/12 Currently being diuresed with IV Lasix 40 mg once a day. Strict I/O. Hx seizures: Continue phenobarbital Full code DVT prophylaxis: Eliquis Time spent evaluating patient, direct bedside care, chart review, placing orders, interpretation of diagnostic studies, discussion with consultants, patient, and family members, as well as other required patient management activities is 50 minutes Please note the above document was generated using voice recognition software. It may contain grammatical, syntax or spelling errors. Any formal questions or concerns about the content, text or information contained within the body of this dictation should be directly addressed to the provider for clarification Admission and Anticipated Discharge Date Admission Date: July 08, 2024 Subjective Patient seen and examined at bedside She reports that her shortness of breath has improved compared to admission. She still is in A.flutter with heart rate in 110s to 120s Review of Systems Review of Systems: All systems reviewed & are unremarkable except as noted in Subjective Physical Exam Physical Exam: Constitutional: Alert oriented x 3; not in distress. Respiratory: Bilateral decreased breath sound at bases. Cardiovascular: irregular, no murmur, no edema Vessels: no JVD or carotid bruit Chest: normal inspection of chest Abdomen: normal bowel sounds, soft, nontender, no hepatosplenomegaly Musculoskeletal: no cyanosis or clubbing, extremities motor strength 5/5 Skin: no rashes, warm and dry normal turgor Neurologic: PERRL, EOMI, accommodation nl, no face palsy, no dysarthria CN's II- XI intact bilaterally and moves all extremities Psychiatric: A+Ox3, euthymic affect Results & Data Results & Data Vital Signs (Past 12 Hours) Vital Signs Temp Pulse Pulse Resp BP Pulse Ox O2 Del Method 07/10/24 07:55 36.8 C 117 H 18 110/73 90 Room Air 07/10/24 07:48 93 H 07/10/24 06:59 105 H 16 93 Room Air 07/10/24 03:00 36.5 C 107 H 16 113/75 93 Room Air 07/10/24 00:08 102 H 18 91 Room Air 07/09/24 22:30 36.5 C 108 H 18 111/76 93 Room Air
--- NOTE | 2024-07-10 09:20 | Electrocardiogram Report ---
Test Reason : Blood Pressure : */* mmHG Vent. Rate : 115 BPM Atrial Rate : 105 BPM P-R Int : * ms QRS Dur : 96 ms QT Int : 348 ms P-R-T Axes : * 39 -34 degrees QTcB Int : 481 ms atrial flutter Abnormal ECG When compared with ECG of 08-Jul-2024 09:34, Minimal criteria for Inferior infarct are now Present Confirmed by Jeff Rodriguez ([id number]) on 07/10/2024 9:19:49 AM Referred By: Joana Hood Confirmed By: Jeff Rodriguez
[2024-07-10] MEDS: POTASSIUM CHLORIDE CRTAB 20 MEQ TABCR PO STA (09:29)
[2024-07-10] MEDS: AZITHROMYCIN 250 MG TAB PO SCH (09:29)
[2024-07-10] MEDS: LEVALBUTEROL 1.25 MG/3 ML NEB NEB SCH (20:05)
[2024-07-11 07:57] LABS: Hemoglobin 12.9 g/dl (12.0-16.0); Mean Corpuscular Hemoglobin 27.1 pg (25.0-34.0); Mean Corpuscular Hgb Conc 33.1 g/dL (32.0-36.0); Mean Corpuscular Volume 81.9 fL (80.0-100.0); Mean Platelet Volume 9.8 fL (9.4-12.4); Platelet Count 274 K/uL (130-400); RDW Coefficient of Variation 15.1 % (11.5-14.5); RDW Standard Deviation 45.7 fL (36.4-46.3); Red Blood Count 4.76 M/uL (4.20-5.40); White Blood Count 6.02 K/ul (4.8-10.8)
[2024-07-11 08:17] LABS: BUN Creatinine Ratio 31.4 (10-20); Calcium 8.4 mg/dl (8.6-10.3); Creatinine Clr Calc Pharmacy 128.9 ml/min; Potassium 3.4 mmol/L (3.5-5.1)
[2024-07-11 08:46] LABS: Basophils # (auto) 0.04 K/uL (0.00-0.20); Basophils % (auto) 0.7 %; Eosinophils # (auto) 0.14 K/uL (0.00-0.50); Eosinophils % (auto) 2.3 %; Immature Granulocytes # (auto) 0.01 K/uL (0.01-0.20); Immature Granulocytes % (auto) 0.2 %; Lymphocytes # (auto) 1.97 K/uL (1.20-3.40); Lymphocytes % (auto) 32.7 %; Neutrophils # (auto) 3.26 K/uL (1.40-6.50); Neutrophils % (auto) 54.1 %; Ovalocytes 1+
--- NOTE | 2024-07-11 10:51 | Cardiology Progress Note ---
Date of Service July 11, 2024 Assessment & Plan (1) Atrial fibrillation: (2) Multifocal pneumonia: (3) SOB (shortness of breath): Plan 73 year old female admitted with atrial fibrillation versus atypical atrial flutter with elevated rates in setting of pneumonia. - overall feeling well on exam today, heart rates still mildly elevated - continue Eliquis 5 mg twice daily without interruption - continue furosemide IV 40 mg daily - continue spironolactone 25 mg daily - Strict I&O, daily weights with a standing scale. - Close monitoring of renal function and serum electrolytes. Goal serum K> 4.0 and Serum mag > 2.0. - continue metoprolol succinate 100 mg twice daily. Avoid calcium channel ladonna such as diltiazem and verapamil due to their interaction with her phenobarbital. - plan for DCCV 07/12/[address] Witt, NPO after midnight Case discussed with supervising physician, further recommendations per Dr. Noriega. I spent a total of 30 minutes on the date of service in preparation, delivery, and documentation of the care provided to this patient excluding any time spent in the performance of separately billed services. This visit was a split-shared visit with the substantial portion of the decision making performed by the supervising power machine operator/billing provider. Admission and Anticipated Discharge Date Admission Date: July 08, 2024 Supervising Physician Co-Signing Physician Notes I spent a total of 30minutes on the date of service in preparation, delivery, and documentation of the care provided to this patient, excluding any time spent in the performance of separately billed services. I have personally performed a history and physical examination on the patient. I have reviewed the advance practitioner's documentation, and I agree with, and take responsibility for the plan of care. Subjective Patient seen today in cardiology follow up. Overall feeling well. Denies chest pain, palpitations, shortness of breath, lightheadedness. She is anxious about cardioversion tomorrow. Telemetry still with afib, rates 100-130 bpm. Review of Systems Review of Systems: CONSTITUTIONAL: No change in weight, No weakness, No fatigue and No fevers, No sweats or chills. PULMONARY: No cough, sputum, or hemoptysis, No wheezing, No shortness of breath and No recent change in breathing. CARDIOVASCULAR: No chest pain, No dyspnea on exertion, No edema, No palpitations and No syncope. GASTROINTESTINAL: No abdominal pain, No change in bowel habits, No significant heartburn, No nausea, No vomiting, No diarrhea, No constipation, No blood in stools or black tarry stools. No dysphagia. HEMATOLOGIC: No abnormal bleeding and No bruising. NEUROLOGICAL: Normal balance, No headaches and No weakness. Physical Exam Physical Exam: General: No acute distress. A+Ox3. HEENT: Normocephalic. Atraumatic. PERRL. EOMI. Conjunctiva and sclera clear. NECK: No carotid bruits. No JVD. Carotid upstrokes are brisk. Heart: Irregular and tachycardic. S1 and S2 noted. No murmur. No rubs or gallops. PMI non displaced. Lungs: Clear to auscultation. No wheezes. No rhonchi. No rales. Abdomen: Normal bowel sounds. Soft. Nontender. No masses or organomegaly. No abdominal bruits. Extremities: No edema. No clubbing or cyanosis. Pulses: radial=2/4, posterior tibial=2/4, dorsalis pedis = 2/4. NEURO: No focal deficits. PSYCH: Appropriate affect and insight. Results & Data Vital Signs (Past 12 Hours) Vital Signs Temp Pulse Resp BP Pulse Ox O2 Del Method 07/11/24 10:31 36.5 C 109 H 17 94/66 L 92 Room Air 07/11/24 09:05 Room Air 07/11/24 07:48 108 H 17 109/76 92 Room Air 07/11/24 07:05 104 H 16 98 Room Air 07/11/24 02:56 36.6 C 95 H 16 99/68 L 94 Room Air Laboratory Results CBC 07/11/24 Range/Units 07:38 WBC 6.02 (4.8-10.8) K/ul RBC 4.76 (4.20-5.40) M/uL Hgb 12.9 (12.0-16.0) g/dl Hct 39.0 (37.0-47.0) % Plt Count 274 (130-400) K/uL Neut # (Auto) 3.26 (1.40-6.50) K/uL Lymph # (Auto) 1.97 (1.20-3.40) K/uL [place] # (Auto) 0.60 H (0.11-0.59) K/uL Eos # (Auto) 0.14 (0.00-0.50) K/uL Baso # (Auto) 0.04 (0.00-0.20) K/uL Comprehensive Metabolic Panel 07/11/24 Range/Units 07:38 Sodium 142 (136-145) mmol/L Potassium 3.4 L (3.5-5.1) mmol/L Chloride 106 (98-107) mmol/L Carbon Dioxide 30 (21-32) mmol/L BUN 16 (6-23) mg/dl Creatinine 0.51 L (0.6-1.2) mg/dl Glucose 95 (70-99(Fasting)) mg/dl Calcium 8.4 L (8.6-10.3) mg/dl Intake and Output 07/10/24 07/11/24 07/11/24 22:59 06:59 14:59 Intake Total 100 / 1080 Output Total 200 / 1776 Balance -100 / -696 Intake: Oral 100 / 1030 Output: Urine 200 / 1775 Other: # Unmeasured Voids 1 Weight 109.4 kg Weight Measurement Method Built in [facility] (1) Atrial fibrillation Atrial fibrillation type: paroxysmal Qualified Code(s): I48.0 - Paroxysmal atrial fibrillation
[2024-07-11] MEDS: POTASSIUM CHLORIDE CRTAB 20 MEQ TABCR PO SCH (11:12)
--- NOTE | 2024-07-11 11:35 | Hospitalist Progress Note ---
Date of Service July 11, 2024 Assessment & Plan (1) Seizure disorder: (2) Hyperlipemia: (3) History of pulmonary embolism: (4) Adrenal nodule: Plan The patient is a 73-year-old female who presented to the ED on 03/08/2025 with complaints of worsening shortness of breath, found to have pneumonia CAP/Bronchitis Asthma exacerbation: Reports ongoing shortness of breath over the past month She reports using her rescue inhaler multiple times in a day for last [address] chest was done which showed numerous pulmonary nodule and groundglass opacities. Trace right pleural effusion and pericardial effusion was seen. Continue on ceftriaxone; doxycycline changed to azithromycin. Continue nebs as needed Continue on prednisone; will taper off. Continue fluticasone Patient to follow-up with pulmonology as outpatient. Atrial flutter with RVR: Acute on chronic diastolic heart failure Recently diagnosed atrial fibrillation with RVR. On metoprolol at home. EKG on admission showed atrial fibrillation with ventricular rate of 123 Echocardiogram shows EF of greater than 70% with dilated left atrium. Metoprolol increased to 100 mg twice a day Continue on Eliquis 5 mg twice a day Continue script supervisor Plan for possible cardioversion on 07/12 Currently being diuresed with IV Lasix 40 mg once a day. Strict I/O. Hx seizures: Continue phenobarbital HLD- continue on rosuvastatin Full code DVT prophylaxis: Eliquis Please note the above document was generated using voice recognition software. It may contain grammatical, syntax or spelling errors. Any formal questions or concerns about the content, text or information contained within the body of this dictation should be directly addressed to the provider for clarification Admission and Anticipated Discharge Date Admission Date: July 08, 2024 Subjective Patient seen and examined at bedside. She reports that she is feeling much better. She reports that she has been able to sleep well; shortness of breath has improved. Telemetry shows atrial fibrillation with ventricular rate with 100 -110 Review of Systems Review of Systems: All systems reviewed & are unremarkable except as noted in Subjective Physical Exam Physical Exam: Constitutional: Alert oriented x 3; not in distress. Respiratory: Bilateral decreased breath sound at bases. Cardiovascular: irregular, no murmur, no edema Vessels: no JVD or carotid bruit Chest: normal inspection of chest Abdomen: normal bowel sounds, soft, nontender, no hepatosplenomegaly Musculoskeletal: no cyanosis or clubbing, extremities motor strength 5/5 Skin: no rashes, warm and dry normal turgor Neurologic: PERRL, EOMI, accommodation nl, no face palsy, no dysarthria CN's II- XI intact bilaterally and moves all extremities Psychiatric: A+Ox3, euthymic affect Results & Data Results & Data Vital Signs (Past 12 Hours) Vital Signs Temp Pulse Resp BP Pulse Ox O2 Del Method 07/11/24 10:31 36.5 C 109 H 17 94/66 L 92 Room Air 07/11/24 09:05 Room Air 07/11/24 07:48 108 H 17 109/76 92 Room Air 07/11/24 07:05 104 H 16 98 Room Air 07/11/24 02:56 36.6 C 95 H 16 99/68 L 94 Room Air
--- NOTE | 2024-07-11 11:51 | Electrocardiogram Report ---
Test Reason : Blood Pressure : */* mmHG Vent. Rate : 115 BPM Atrial Rate : * BPM P-R Int : * ms QRS Dur : 96 ms QT Int : 344 ms P-R-T Axes : * 37 -38 degrees QTcB Int : 475 ms Atrial flutter Possible Lateral infarct (cited on or before 24-Aug-2015) Cannot rule out Inferior infarct (cited on or before 10-Jul-2024) Nonspecific ST and T wave abnormality Abnormal ECG When compared with ECG of 10-Jul-2024 06:42, Questionable change in initial forces of Inferior leads Nonspecific T wave abnormality now evident in Anterolateral leads Confirmed by Jeff Rodriguez ([id number]) on 07/11/2024 11:51:38 AM Referred By: Joana Hood Confirmed By: Jeff Rodriguez
--- NOTE | 2024-07-11 12:40 | Pulmonology Progress Note ---
Date of Service July 11, 2024 Assessment & Plan (1) Multifocal pneumonia: (2) SOB (shortness of breath): (3) Atrial fibrillation: Atrial fibrillation type: paroxysmal Qualified Code(s): I48.0 - Paroxysmal atrial fibrillation (4) Diastolic dysfunction: (5) Asthma exacerbation: Asthma severity: moderate Asthma persistence: persistent Qualified Code(s): J45.41 - Moderate persistent asthma with (acute) exacerbation Plan 1. Multifocal Pneumonia: -Ceftriaxone transition to cefdinir. Continue azithromycin. Would recommend total of 5 days of azithromycin and 7 days of Rocephin. Recommend follow-up CT chest in 6 to 8 weeks to ensure resolution of nodules and infiltrates. 2. Shortness of Breath: -Symptoms improving with diuresis, antibiotics and oral corticosteroids. Recommending continuing oral corticosteroids for an additional 3 to 4 days and then stopping. Continue ICS/LABA inhaler. Will need outpatient follow-up with PFTs, exhaled nitric oxide testing and imaging. 3. Atrial fibrillation vs atypical atrial flutter: -Atrial flutter likely contributing to patient's dyspnea. Patient set to undergo cardioversion tomorrow by cardiology. 4. Diastolic dysfunction: -Maintain euvolemia. Diuresis per cardiology. 5. Asthma Exacerbation: -As above, largely resolved. Completed course of prednisone and antibiotics. Will need outpatient pulmonary follow-up in the clinic. Will contact my office staff to ensure she has follow-up with me. Otherwise pulmonary sign off at this time. Please call with questions. Thank you for the consult. Admission and Anticipated Discharge Date Admission Date: July 08, 2024 Subjective Patient seen and examined. Doing well on room air and has mild dyspnea with exertion. Minimal cough. No fevers, chills or night sweats. Continues in atrial flutter rhythm on telemetry. Review of Systems Review of Systems: All systems reviewed & are unremarkable except as noted in HPI & below Physical Exam Physical Exam: Constitutional: Patient appears to be of their stated age. Patient is in no apparent distress. Patient is well-developed. Eyes: Pupils are equal round and reactive to light. Conjunctivae are normal. Anicteric sclera. Ears nose, mouth and throat: Mallampati class 2. Normal posterior oropharynx. Uvula is midline. Neck: Trachea is midline. Visual inspection is normal. Respiratory: Minimal expiratory wheezes. No increased work of breathing. Cardiovascular: Regular rate and rhythm. No murmurs. No edema. Gastrointestinal: Normal bowel sounds, soft, nontender and nondistended. No hepatosplenomegaly noted. Musculoskeletal: No cyanosis. Patient is able to move all extremities. Stre ngth is 5 out of 5 in the upper and lower extremities. Skin: No rashes, warm dry and intact. Neurologic: No obvious focal neurological deficits seen. Psychiatric: Alert and oriented x3 with a euthymic affect. Results & Data Results & Data Vital Signs (Past 12 Hours) Vital Signs Temp Pulse Resp BP Pulse Ox O2 Del Method 07/11/24 10:31 36.5 C 109 H 17 94/66 L 92 Room Air 07/11/24 09:05 Room Air 07/11/24 07:48 108 H 17 109/76 92 Room Air 07/11/24 07:05 104 H 16 98 Room Air 07/11/24 02:56 36.6 C 95 H 16 99/68 L 94 Room Air PG Care Time/CCT Total # of Minutes Spent Total Time Spent with Patient: Total time spent is greater than 50% in coordination of care (as documented) at patient's floor/unit and/or counseling patient: Coding Level of Care Code 81375 SUB INP/OBS CARE 07/17MIN Diagnoses Multifocal pneumonia J18.9 SOB (shortness of breath) R06.02 Paroxysmal atrial fibrillation I48.0 Atrial fibrillation type: paroxysmal Diastolic dysfunction I51.89 Moderate persistent asthma with exacerbation J45.41 Asthma severity: moderate Asthma persistence: persistent
[2024-07-11] MEDS ORDERED: LEVALBUTEROL 1.25 MG/3 ML NEB NEB PRN (13:02)
[2024-07-11 23:28] VITALS: TEMP 97.9
[2024-07-12] MEDS ORDERED: LIDOCAINE 2% 2 ML VIAL/AMP(20MG/ML) INFIL ONE (07:45)
[2024-07-12] MEDS ORDERED: PROPOFOL IV EMULSION 10 MG/ML 20 ML VIAL IV ONE (07:45)
--- NOTE | 2024-07-12 07:47 | Cardioversion ---
Date of Service July 12, 2024 Electrical Cardioversion Rpt Electrical Cardioversion Report Patient was seen and examined . Procedure and risks of synchronized electrical cardioversion explained in detail, informed consent obtained. Formal TIMEOUT performed. Patient sedated via anesthesia consult with continuous O2, HR, BP, endtidal CO2 monitoring. Single 200 J biphasic synchronized shock performed with successful conversion to sinus rhythm. Patient aroused having tolerated well EKG Sinus rhythm with PACs, rate 78 bpm QTC 478
[2024-07-12 07:50] VITALS: RESP 16
--- NOTE | 2024-07-12 07:56 | Cardiology Progress Note ---
Date of Service July 12, 2024 Assessment & Plan (1) Atrial fibrillation: (2) Multifocal pneumonia: (3) SOB (shortness of breath): Plan 73 year old female admitted with atrial fibrillation versus atypical atrial flutter with elevated rates in setting of pneumonia. - overall feeling well on exam today, heart rates still mildly elevated - continue Eliquis 5 mg twice daily without interruption - continue furosemide IV 40 mg daily - continue spironolactone 25 mg daily - Strict I&O, daily weights with a standing scale. - Close monitoring of renal function and serum electrolytes. Goal serum K> 4.0 and Serum mag > 2.0. - continue metoprolol succinate 100 mg twice daily. Avoid calcium channel ladonna such as diltiazem and verapamil due to their interaction with her phenobarbital. - plan for DCCV 07/12/[address] Witt, JONATHANO after midnight 07/12/2024 Patient is a 73-year-old female admitted with multifocal pneumonia with complications of atrial fibrillation/flutter with rapid ventricular response. Patient underwent synchronized electrical cardioversion this morning with successful conversion to sinus rhythm. Plan: Continue Eliquis 5 mg twice per day Continue metoprolol succinate 100 mg twice per day Continue spironolactone 12.5 mg/day Treat underlying pneumonia Follow-up cardiology 1 month I spent a total of 40 minutes on the date of service in preparation, delivery, and documentation of the care provided to this patient excluding any time spent in the performance of separately billed services. Admission and Anticipated Discharge Date Admission Date: July 08, 2024 Subjective Patient was seen and examined, medications, telemetry, chart reviewed. No complaints overnight. As of this morning remained in atrial fibrillation with variable heart rate response. Patient referred and underwent synchronized electrical cardioversion with patient examined pre and post procedure. Successful synchronized electrical cardioversion performed Review of Systems Review of Systems: All systems reviewed & are unremarkable except as noted in Subjective Physical Exam Physical Exam: General: No acute distress. A+Ox3. HEENT: Normocephalic. Atraumatic. PERRL. EOMI. Conjunctiva and sclera clear. NECK: No carotid bruits. No JVD. Carotid upstrokes are brisk. Heart: Irregular and tachycardic. S1 and S2 noted. No murmur. No rubs or gallops. PMI non displaced. Lungs: Clear to auscultation. No wheezes. No rhonchi. No rales. Abdomen: Normal bowel sounds. Soft. Nontender. No masses or organomegaly. No abdominal bruits. Extremities: No edema. No clubbing or cyanosis. Pulses: radial=2/4, posterior tibial=2/4, dorsalis pedis = 2/4. NEURO: No focal deficits. PSYCH: Appropriate affect and insight. Constitutional: well developed and well nourished; no acute distress Eyes: PERRL, conjunctivae normal, anicteric sclerae Neck: normal visual inspection and trachea midline Respiratory: normal respiratory effort; no respiratory distress and no labored breathing Auscultation: no crackles, no rales and no rhonchi Cardiovascular: Rate/Rhythm: regular rate and regular rhythm Heart Sounds: normal S1, normal S2 and + murmur (+2/6 systolic) Vessels: dorsalis pedis pulses present; no JVD Extremities: + edema (+1 BLE) Gastrointestinal (Abdomen): normal bowel sounds, soft, nontender, no hepatosplenomegaly Skin: no rashes, warm and dry Psychiatric: A+Ox3, euthymic affect Results & Data Vital Signs (Past 12 Hours) Vital Signs Temp Pulse Pulse Pulse Resp BP BP 07/12/24 07:42 80 16 100/72 07/12/24 07:02 104 H 18 145/121 H 07/12/24 03:25 36.6 C 93 H 17 07/11/24 23:27 36.6 C 100 H 16 07/11/24 20:35 36.8 C 116 H 16 07/11/24 20:00 BP Pulse Ox O2 Del Method 07/12/24 07:42 96 Room Air 07/12/24 07:02 92 Room Air 07/12/24 03:25 115/80 94 Room Air 07/11/24 23:27 103/63 95 Room Air 07/11/24 20:35 109/71 91 Room Air 07/11/24 20:00 Room Air Laboratory Results Laboratory Results - last 24 hr 07/11/24 07:38 WBC 6.02 RBC 4.76 Hgb 12.9 Hct 39.0 MCV 81.9 MCH 27.1 MCHC 33.1 RDW Std Deviation 45.7 RDW Coeff of Alivia 15.1 H Plt Count 274 MPV 9.8 Immature Gran % (Auto) 0.2 Neut % (Auto) 54.1 Lymph % (Auto) 32.7 [place] % (Auto) 10.0 Eos % (Auto) 2.3 Baso % (Auto) 0.7 Neut # (Auto) 3.26 Lymph # (Auto) 1.97 [place] # (Auto) 0.60 H Eos # (Auto) 0.14 Baso # (Auto) 0.04 Immature Gran # (Auto) 0.01 Ovalocytes 1+ Sodium 142 Potassium 3.4 L Chloride 106 Carbon Dioxide 30 Anion Gap 6 BUN 16 Creatinine 0.51 L Est Cr Clr Drug Dosing 128.9 eGFR 99.73 BUN/Creatinine Ratio 31.4 H Glucose 95 Calcium 8.4 L (1) Atrial fibrillation Atrial fibrillation type: paroxysmal Qualified Code(s): I48.0 - Paroxysmal atrial fibrillation
[2024-07-12 08:00] VITALS: O2SAT 95
--- NOTE | 2024-07-12 08:28 | Anesthesiology Progress Note ---
Date of Service July 12, 2024 Anesthesia Post Procedure Vital Signs Vital Signs: Temp Pulse Pulse Pulse Resp BP BP 07/12/24 07:47 81 16 106/70 07/12/24 07:42 80 16 100/72 07/12/24 07:02 104 H 18 145/121 H 07/12/24 03:25 36.6 C 93 H 17 07/11/24 23:27 36.6 C 100 H 16 07/11/24 20:35 36.8 C 116 H 16 07/11/24 20:00 07/11/24 15:33 36.3 C L 110 H 18 07/11/24 10:31 36.5 C 109 H 17 07/11/24 09:05 BP Pulse Ox O2 Del Method 07/12/24 07:47 95 Room Air 07/12/24 07:42 96 Room Air 07/12/24 07:02 92 Room Air 07/12/24 03:25 115/80 94 Room Air 07/11/24 23:27 103/63 95 Room Air 07/11/24 20:35 109/71 91 Room Air 07/11/24 20:00 Room Air 07/11/24 15:33 107/70 92 Room Air 07/11/24 10:31 94/66 L 92 Room Air 07/11/24 09:05 Room Air Transfer of Care Handoff Completed per policy Notes Mental Status: alert / awake / arousable and participated in evaluation Patient Amnestic to Procedure: Yes Nausea / Vomiting: adequately controlled Pain: adequately controlled Airway Patency, RR, SpO2: stable & adequate BP & HR: stable & adequate Hydration State: stable & adequate Anesthetic Complications: no major complications apparent
[2024-07-12 08:44] LABS: Basophils # (auto) 0.04 K/uL (0.00-0.20); Basophils % (auto) 0.7 %; Eosinophils # (auto) 0.13 K/uL (0.00-0.50); Eosinophils % (auto) 2.3 %; Hematocrit (blood only) 40.1 % (37.0-47.0); Hemoglobin 13.3 g/dl (12.0-16.0); Immature Granulocytes # (auto) 0.03 K/uL (0.01-0.20); Immature Granulocytes % (auto) 0.5 %; Lymphocytes # (auto) 1.66 K/uL (1.20-3.40); Lymphocytes % (auto) 29.7 %; Mean Corpuscular Hemoglobin 27.1 pg (25.0-34.0); Mean Corpuscular Hgb Conc 33.2 g/dL (32.0-36.0); Mean Corpuscular Volume 81.7 fL (80.0-100.0); Mean Platelet Volume 9.6 fL (9.4-12.4); Monocytes # (auto) 0.56 K/uL (0.11-0.59); Neutrophils # (auto) 3.17 K/uL (1.40-6.50); Neutrophils % (auto) 56.8 %; Platelet Count 296 K/uL (130-400); RDW Coefficient of Variation 15.1 % (11.5-14.5); RDW Standard Deviation 45.3 fL (36.4-46.3); Red Blood Count 4.91 M/uL (4.20-5.40); White Blood Count 5.59 K/ul (4.8-10.8)
[2024-07-12 09:00] LABS: BUN Creatinine Ratio 27.7 (10-20); Calcium 8.4 mg/dl (8.6-10.3); Creatinine Clr Calc Pharmacy 101.1 ml/min; Potassium 3.6 mmol/L (3.5-5.1)
[2024-07-12] MEDS: predniSONE 10 MG TABLET PO SCH (09:09)
[2024-07-12] MEDS: CEFDINIR 300 MG CAP PO SCH (09:09)
[2024-07-12 11:03] VITALS: BP 115/80; PULSE 93
--- NOTE | 2024-07-12 13:42 | Discharge Summary ---
Date of Service July 12, 2024 Admission HPI Per Admitting Provider The patient is a 73-year-old female with a past medical history of asthma, seizure disorder, HLD, [id number], recently diagnosed A-fib and fluid retention who presents to the ED on 07/08/2024 with worsening shortness of breath. Patient reports complaints of shortness of breath over the past month. She reports over the past few days that shortness of breath worsened and she developed a cough. She reports her grandson has been sick with pneumonia at home and recently had a viral illness. She was seen by cardiology in May 2024. At this time, her Eliquis was increased to 5 mg twice a day and her Toprol was increased to 50 mg twice a day. The patient reports that it was noted that she was in atrial fibrillation in April when she was at her neurology appointment, routine follow-up for her history of seizures. After seeing cardiology, patient was placed on a Zio patch for a week, was still noted to be in A-fib, metoprolol was increased. Patient also had an echo done in the past month that showed severely enlarged left atrium with an EF of 70%, hyperdynamic, moderate aortic valve sclerosis, moderate to severe mitral regurgitation. Patient also reported new lower extremity edema that has improved since being started on Aldactone. Patient was originally on Pradaxa since 2015 for PE, recently switched to Eliquis with new A-fib. Patient denies any fever/chills/nausea/vomiting/diarrhea. Reports some clear mucus. On arrival to the ED, heart rates in the low 100s, blood work fairly unremarkable. BNP elevated at 346, procalcitonin negative, UA pending, BioFire negative. Blood cultures pending Patient was given IV Solu-Medrol, DuoNebs, IV Lopressor and IV antibiotics in the ED and will be admitted for further management of pneumonia and rapid A-fib. Chest x-ray showed: IMPRESSION: 1. Bilateral lower lung predominant airspace opacities which may represent atelectasis, pneumonia, and/or aspiration. 2. Cardiomegaly is seen, increased from prior exam in 2019 possibly due to rotation. Pericardial effusion cannot be excluded. Recent echo showed 05/2024: There was atrial fibrillation with rapid response during the examination. The left ventricular cavity size is normal. The LV wall thickness is moderately increased (concentric). The left ventricular wall motion is normal. The qualitative LV ejection fraction is >70% (hyperdynamic). The left atrium is severely enlarged. Moderate aortic valve sclerosis is present. Moderate to severe mitral regurgitation is present. Mild tricuspid regurgitation is present. Admission Exam Per Admitting Provider Constitutional: WD/WN, vitals as above Eyes: PERRL, conjunctivae normal, anicteric sclerae ENMT: external ear and nose normal, oropharynx normal Neck: trachea midline, no thyromegaly Respiratory: + audible wheezes (diffuse, moderate) Cardiovascular: RRR, no murmur, no edema (+1 bilateral lower extremity ankle edema) Gastrointestinal (Abdomen): normal bowel sounds, soft, nontender, no hepatosplenomegaly Musculoskeletal: no cyanosis or clubbing, extremities motor strength 5/5 Skin: no rashes, warm and dry Neurologic: PERRL, EOMI, accommodation nl, no face palsy, no dysarthria Psychiatric: A+Ox3, euthymic affect Lymphatic: no cervical or axillary lymphadenopathy Principal Diagnosis CAP/Bronchitis Asthma exacerbation: Atrial flutter with RVR: Acute on chronic diastolic heart failure Discharge Exam Constitutional: Alert oriented x 3; not in distress. Respiratory: Bilateral clear breath sound Cardiovascular:regular, no murmur, no edema Vessels: no JVD or carotid bruit Chest: normal inspection of chest Abdomen: normal bowel sounds, soft, nontender, no hepatosplenomegaly Musculoskeletal: no cyanosis or clubbing, extremities motor strength 5/5 Skin: no rashes, warm and dry normal turgor Neurologic: PERRL, EOMI, accommodation nl, no face palsy, no dysarthria CN's II- XI intact bilaterally and moves all extremities Psychiatric: A+Ox3, euthymic affect Discharge Data Allergies Allergy/AdvReac Type Severity Reaction Status Date / Time oxycodone Allergy Unknown UNKNOWN Verified 07/12/24 07:06 phenytoin Allergy Unknown HIVES Verified 07/12/24 07:06 propoxyphene Allergy Unknown UNKNOWN Verified 07/12/24 07:06 Consultations 07/08/24 11:15 ED Decision to Admit Stat 07/08/24 16:02 Consult Cardiology Routine 07/09/24 10:52 Consult Pulmonology Routine 07/09/24 14:13 Consult Anesthesiology Routine Procedures Performed Operation Date: 07/12/24 07:30 Actual Procedures p Cardioversion - Ac Witt MD Ordered Studies 07/09/24 07:30 CT chest diagnostic wo con Routine Hospital Course (1) Seizure disorder: (2) Hyperlipemia: (3) History of pulmonary embolism: (4) Adrenal nodule: Plan The patient is a 73-year-old female who presented to the ED on 03/08/2025 with complaints of worsening shortness of breath, found to have pneumonia CAP/Bronchitis Asthma exacerbation: Reports ongoing shortness of breath over the past month She reports using her rescue inhaler multiple times in a day for last [address] chest was done which showed numerous pulmonary nodule and groundglass opacities. Trace right pleural effusion and pericardial effusion was seen. Continue on ceftriaxone; doxycycline changed to azithromycin. During the hospitalization, patient was treated with antibiotics, DuoNebs, steroids. Pulmonology was consulted for comanagement due to her uncontrolled symptoms; recommended antibiotics, steroid and patient to follow up as outpatient. Patient saturated in room air throughout the hospitalization. She reported marked improvement in her shortness of breath at discharge. Atrial flutter with RVR: Acute on chronic diastolic heart failure Recently diagnosed atrial fibrillation with RVR. On metoprolol at home. EKG on admission showed atrial fibrillation with ventricular rate of 123 Echocardiogram shows EF of greater than 70% with dilated left atrium. Patient underwent cardioversion on 07/12/2024; metoprolol dose was increased to 100 mg twice a day. Patient to follow-up with cardiology as outpatient. Patient was diuresed with IV Lasix during the hospitalization. Discharged home on spironolactone 12.5 mg once a day Please note the above document was generated using voice recognition software. It may contain grammatical, syntax or spelling errors. Any formal questions or concerns about the content, text or information contained within the body of this dictation should be directly addressed to the provider for clarification Total Time Total Time Spent Total Time Spent (In Minutes): 45 Total Time Includes: Examination of the Patient, Discharge Planning, Medication Reconciliation, Communication With Other Providers and Other Discharge Plan Discharge Items Patient Disposition: Home - Self-Care Reason For Visit: SOB, PNA, AF Discharge Diagnosis: Pneumonia Asthma exacerbation Atrial flutter with RVR Condition on Discharge: Fair Activity: Resume your previous activity Non-emergency contact: Primary Care Provider Call non-emergency contact if: you have any medication questions and your symptoms worsen Follow-up/Referrals: Joana Hood, [Primary Care Provider] - (Date & Time 07/16/2024 10:20 AM Provider: Bryan Kerr MD [facility], [facility] ) Diet: Regular Addtl Attending Provider Instructions: You were admitted to the hospital due to pneumonia and asthma exacerbation. You are prescribed following medication; Take cefdinir 300 mg twice a day for 3 days Take azithromycin 250 mg once a day for 2 days Prednisone 20 mg once a day for 3 days Mucinex 600 mg twice a day for 3 days Cardiology evaluated you for atrial fibrillation. They recommend to increase your metoprolol succinate to 100 mg twice a day from 50 mg twice a day. An appointment has been set up with your primary care doctor for follow-up. You will need CT chest without contrast in 6 to 8 weeks time to ensure the pneumonia has resolved and the lung nodules are stable. You will receive a call from pulmonology regarding follow-up. Pending Studies at Discharge: No Stand-Alone Forms: [facility], Smoking Cessation Medications and DC Order Prescriptions: New azithromycin 250 mg Tablet 250 mg PO DAILY 2 Days Qty: 2 0RF cefdinir 300 mg Capsule 300 mg PO BID 3 Days Qty: 6 0RF prednisone 10 mg Tablet 20 mg PO DAILY 3 Days Qty: 6 0RF guaifenesin [Mucinex] 600 mg Tablet Extended Release 12hr 600 mg PO Q12 3 Days Qty: 6 0RF Continued fluticasone propion-salmeterol 250-50 mcg/dose Blister With Device 1 inh INHALATION BID albuterol sulfate 90 mcg/actuation Hfa Aerosol Inhaler 1 inh INHALATION QID PRN (Reason: sob) phenobarbital 97.2 mg Tablet 194.4 mg PO HS spironolactone 25 mg Tablet 12.5 mg PO DAILY montelukast 10 mg Tablet 10 mg PO DAILY cyclosporine [Restasis] 0.05 % Dropperette 1 drp OPHTHALMIC (EYE) Q12H Eliquis 5 mg Tablet 5 mg PO BID rosuvastatin 40 mg Tablet 40 mg PO DAILY Changed metoprolol succinate 50 mg Tablet Extended Release 24 Hr 100 mg PO BID Qty: 60 0RF Discharge Orders: Discharge Order (Routine); Ordered 07/12/24 Ordered By: Kenn Bagley Admission Data Admit Date/Time: 07/08/24 11:38 Attending Provider: Kenn Bagley [place] Provider: Jovi Calderón Primary Care Provider: Joana Hood Other Providers: Jovi Calderón; Akhil Taylor; Chris Lemos; Mal Bradshaw Other Interventions: Discharge Summary Assessment (RN) Last Done: 07/12/24 11:02
--- NOTE | 2024-07-12 15:01 | Electrocardiogram Report ---
Test Reason : Blood Pressure : */* mmHG Vent. Rate : 78 BPM Atrial Rate : 78 BPM P-R Int : 182 ms QRS Dur : 100 ms QT Int : 420 ms P-R-T Axes : 84 34 13 degrees QTcB Int : 478 ms Sinus rhythm with Premature atrial complexes Possible Lateral infarct (cited on or before 24-Aug-2015) Abnormal ECG When compared with ECG of 10-Jul-2024 12:24, Sinus rhythm has replaced Junctional rhythm T wave inversion less evident in Inferior leads Nonspecific T wave abnormality no longer evident in Anterolateral leads Confirmed by Jeff Rodriguez ([id number] on 07/12/2024 3:01:09 PM Referred By: Joana Hood Confirmed By: Jeff Rodriguez
== END 2024-07-12 13:30 | disposition home or self-care (01) | DRG 193 ==
LOC: ED 09:15 → 2S 11:38 → SUATTDRO 11:38 → 2S 14:29